=== PATIENT | male | born 1950 | race Caucasian/White ===

== ENCOUNTER → 2020-07-10 | Outpatient (CLI) | payer MEDICARE ==
[~2020-07-10] MED LIST: ASCO500T10 PO; ATOR20TA65 PO; CHOL100046 PO; CLON1TAB12 PO; CYAN100099 PO; ESCI20TA36 PO; FERR-63 PO; FURO20TA6 PO; LISI2.5T2 PO; PANT40TA PO; SUCR1TAB PO; TYLENOL ARTHRITIS PO
== END | disposition home or self-care (01) ==
LOC: SHCH 14:24
PROVIDERS: ATTEND Internal Medicine Cardiovascular Disease
DX: I82.409 Acute embolism and thrombosis of unspecified deep veins of unspecified lower extremity (principal); R06.02 Shortness of breath
CPT/HCPCS: 93970

== ENCOUNTER → 2020-08-12 | Outpatient (CLI) | payer MEDICARE ==
[~2020-08-12] VITALS: Ht 180.3 cm; Wt 75.3 kg
[~2020-08-12] MED LIST changes: -ESCI20TA36 PO; +ESCI20TA38 PO; +REGADENOSON 0.4 MG/5 ML PF SYG IVP SCH
== END | disposition home or self-care (01) ==
LOC: SHCH 07:37
PROVIDERS: ATTEND Internal Medicine Cardiovascular Disease
DX: I25.10 Atherosclerotic heart disease of native coronary artery without angina pectoris (principal); R06.00 Dyspnea, unspecified; R11.0 Nausea; I25.9 Chronic ischemic heart disease, unspecified
CPT/HCPCS: 78452; 93017; 96374; A9500 ×2; J2785

== ENCOUNTER 2020-09-22 06:33 | Observation (INO) | payer MEDICARE ==
[~2020-09-22] VITALS: Ht 180.3 cm; Wt 72.8 kg
[~2020-09-22 06:33] MED LIST changes: -REGADENOSON 0.4 MG/5 ML PF SYG IVP SCH
[2020-09-22 07:06] LABS: BASOPHILS % (AUTO) 0.7 % (0.0-5.0); EOSINOPHILS % (AUTO) 7.2 % (0.0-8.0); HEMATOCRIT 40.3 % (42-54); LYMPHOCYTES % (AUTO) 31.7 % (21.0-51.0); MEAN CORPUSCULAR HEMOGLOBIN 32.3 pg (27.0-33.0); MEAN CORPUSCULAR HGB CONC 33.5 g/dL (32.0-36.0); MEAN CORPUSCULAR VOLUME 96.4 fL (79-99); MONOCYTES % (AUTO) 9.2 % (3.0-13.0); PLATELET COUNT (AUTO) 258 K/uL (130-400); RED BLOOD CELL COUNT(AUTO) 4.18 MIL/uL (4.50-6.20); RED CELL DISTRIBUTION WIDTH 13.2 % (11.0-15.5); WHITE BLOOD COUNT (AUTO) 8.5 K/uL (4.8-10.8)
[2020-09-22] MEDS ORDERED: PANTOPRAZOLE 40 MG/VIAL ONE ×2 (07:08)
[2020-09-22 07:23] LABS: ALBUMIN 4.1 g/dL (3.5-5.0); BILIRUBIN,TOTAL 0.5 mg/dL (0.2-1.0); POTASSIUM 4.3 mmol/L (3.5-5.1); TOTAL PROTEIN, SERUM 7.9 g/dL (6.0-8.3)
[2020-09-22 07:28] LABS: INR 1.05 (0.85-1.15); PROTHROMBIN TIME 11.4 SEC (9.6-11.6)
[2020-09-22 07:29] LABS: PARTIAL THROMBOPLASTIN TIME 30.7 SEC (26.3-35.5)
[2020-09-22] MEDS ORDERED: IOHEXOL-350 75 ML VIAL IV ONE (08:04)
[2020-09-22] MEDS ORDERED: SODIUM CHLORIDE 0.9% 500ML 500 ML IV ONE (08:24)
[2020-09-22] MEDS ORDERED: ONDANSETRON HCL 4 MG/2 ML VIAL IV PRN (12:30)
[2020-09-22] MEDS ORDERED: ACETAMINOPHEN 325 MG TAB PO PRN ×2 (12:30)
[2020-09-22] MEDS ORDERED: MORPHINE SULFATE 2 MG/ML 1ML SYG IV PRN (12:30)
[2020-09-22] MEDS: SODIUM CHLORIDE 0.9% 1000ML 1,000 ML IV SCH ×2 (12:30→20:30)
[2020-09-22 12:43] LABS: BASOPHILS % (AUTO) 0.6 % (0.0-5.0); EOSINOPHILS % (AUTO) 3.2 % (0.0-8.0); LYMPHOCYTES % (AUTO) 27.1 % (21.0-51.0); MEAN CORPUSCULAR HEMOGLOBIN 32.3 pg (27.0-33.0); MEAN CORPUSCULAR HGB CONC 33.9 g/dL (32.0-36.0); MEAN CORPUSCULAR VOLUME 95.2 fL (79-99); MONOCYTES % (AUTO) 8.8 % (3.0-13.0); PLATELET COUNT (AUTO) 237 K/uL (130-400); RED BLOOD CELL COUNT(AUTO) 3.78 MIL/uL (4.50-6.20); RED CELL DISTRIBUTION WIDTH 13.1 % (11.0-15.5); WHITE BLOOD COUNT (AUTO) 7.2 K/uL (4.8-10.8)
[2020-09-22 12:57] LABS: AMYLASE 126 U/L (25-115); CHOLESTEROL 107 mg/dL (<200); HDL CHOLESTEROL 36 mg/dL (29-71); LDL DIRECT 51 mg/dL (0-99); TRIGLYCERIDES 111 mg/dL (30-200)
[2020-09-22] MEDS: FAMOTIDINE/PF 20 MG/2 ML VIAL IV SCH (21:00)
[2020-09-22 22:00] VITALS: BP 138/98
[2020-09-22] MEDS ORDERED: DONE5TAB33 PO (22:41)
[2020-09-23 01:41] LABS: APPEARANCE,URINE Clear (CLEAR); BILIRUBIN,URINE Negative (NEGATIVE); COLOR,URINE Yellow (YELLOW); GLUCOSE, URINE (UA) Negative (NEGATIVE); KETONES,URINE Negative (NEGATIVE); LEUKOCYTE ESTERASE ,URINE Negative (NEGATIVE); NITRATE,URINE Negative (NEGATIVE); OCCULT BLOOD,URINE Negative (NEGATIVE); PH,URINE 5.5 (5.0-8.0); PROTEIN,URINE Negative (NEGATIVE); UROBILINOGEN,URINE 0.2 mg/dL (0.2-1.0)
[2020-09-23 04:18] VITALS: BP 129/70
[2020-09-23] MEDS: SODIUM CHLORIDE 0.9% 1000ML 1,000 ML IV SCH ×2 (04:30→12:30)
[2020-09-23] MEDS: FAMOTIDINE/PF 20 MG/2 ML VIAL IV SCH (08:44)
[2020-09-23] MEDS ORDERED: ENOXAPARIN SODIUM 30 MG/0.3 ML SQ SCH (09:00)
[2020-09-23 10:26] VITALS: BP 121/73
[2020-09-23 13:00] VITALS: BP 109/64
== END 2020-09-23 14:00 | disposition home or self-care (01) ==
LOC: EDH 06:33 → INTOOBSV 12:21 → EDHIP 12:21 → 3BH 21:48
PROVIDERS: ADMIT Family Medicine; ATTEND Family Medicine
DX: K85.90 Acute pancreatitis without necrosis or infection, unspecified (principal); R19.7 Diarrhea, unspecified; I25.10 Atherosclerotic heart disease of native coronary artery without angina pectoris; I10 Essential (primary) hypertension; I25.2 Old myocardial infarction; D64.9 Anemia, unspecified; Z95.5 Presence of coronary angioplasty implant and graft; Z87.19 Personal history of other diseases of the digestive system; Z79.899 Other long term (current) drug therapy; Z88.8 Allergy status to other drugs, medicaments and biological substances
CPT/HCPCS: 36415 ×2; 74177; 80053; 80061; 81003; 82150; 82270; 83605; 83690 ×2; 84145; 84484; 85025 ×2; 85610; 85730; 86850; 86900; 86901; 87046; 87324; 96361 ×2; 96372; 96374; 99285; C9113 ×2; G0378 ×26; J1650; J3490; J7040; Q9967

== ENCOUNTER 2020-11-19 07:42 | Day surgery (SDC) | payer MEDICARE ==
[2020-11-19] VITALS (19 sets, daily range): BP systolic 79–111; BP diastolic 38–75
[~2020-11-19] VITALS: Ht 180.3 cm; Wt 73.0 kg
[~2020-11-19 07:42] MED LIST changes: +0.9%NACL 1000ML 1,000 ML IV ONE; -ASCO500T10 PO; -ATOR20TA65 PO; -CHOL100046 PO; -CYAN100099 PO; +DONE5TAB33 PO; -ESCI20TA38 PO; -FERR-63 PO; -FURO20TA6 PO; -LISI2.5T2 PO; -PANT40TA PO; -SUCR1TAB PO; -TYLENOL ARTHRITIS PO
[2020-11-19] MEDS ORDERED: CARV3.12 PO (09:43)
[2020-11-19] MEDS ORDERED: escitalopram PO (09:43)
[2020-11-19] MEDS ORDERED: GABA600T10 PO (09:43)
[2020-11-19] MEDS ORDERED: CLON1TAB12 PO (09:43)
[2020-11-19] MEDS ORDERED: VITMAIN PO (09:43)
[2020-11-19] MEDS ORDERED: LISI2.5T2 PO (09:43)
[2020-11-19] MEDS ORDERED: PANT40TA54 PO (09:43)
[2020-11-19] MEDS ORDERED: ROSU40TA21 PO (09:44)
[2020-11-19] MEDS ORDERED: LIDOCAINE HCL 1% 20 ML VIAL ONE (09:57)
[2020-11-19] MEDS ORDERED: PROPOFOL 10 MG/ML 20ML VIAL IV ONE ×2 (09:57→10:50)
[2020-11-19] MEDS ORDERED: PHENYLEPHRINE HCL 10 MG/ML 1ML VIAL IV ONE (09:58)
[2020-11-19] MEDS ORDERED: 0.9%NACL 1000ML 1,000 ML IV ONE (11:21)
== END 2020-11-19 12:00 | disposition home or self-care (01) ==
LOC: DAH 07:42 → ENDO 07:42
PROVIDERS: ATTEND Internal Medicine Gastroenterology
DX: Z12.11 Encounter for screening for malignant neoplasm of colon (principal); K57.30 Diverticulosis of large intestine without perforation or abscess without bleeding; K31.5 Obstruction of duodenum; K29.70 Gastritis, unspecified, without bleeding; D64.9 Anemia, unspecified; D62 Acute posthemorrhagic anemia; I25.10 Atherosclerotic heart disease of native coronary artery without angina pectoris; K29.50 Unspecified chronic gastritis without bleeding; K44.9 Diaphragmatic hernia without obstruction or gangrene; I10 Essential (primary) hypertension; E78.5 Hyperlipidemia, unspecified; Z86.010 Personal history of colon polyps; F41.9 Anxiety disorder, unspecified; F32.9 Major depressive disorder, single episode, unspecified; Z79.899 Other long term (current) drug therapy; Z20.822 Contact with and (suspected) exposure to COVID-19
CPT/HCPCS: 43239; 88305; 88342; A4215 ×2; A4221; A4222; A4223; A4606; A4620; A4657; A4663; C9803; G0105; J2370; J2704 ×2; J7030 ×2; U0003

== ENCOUNTER 2022-05-28 09:48 | Emergency (ER) | payer MEDICARE ==
[~2022-05-28] VITALS: Ht 180.3 cm; Wt 72.6 kg
[~2022-05-28 09:48] MED LIST changes: -0.9%NACL 1000ML 1,000 ML IV ONE; +CARV3.12 PO; -DONE5TAB33 PO; +GABA600T10 PO; +LISI2.5T13 PO; +PANT40TA54 PO; +ROSU40TA21 PO; +VITMAIN PO; +escitalopram PO
[2022-05-28 11:17] LABS: BASOPHILS % (AUTO) 0.5 % (0.0-5.0); EOSINOPHILS % (AUTO) 11.2 % (0.0-8.0); LYMPHOCYTES % (AUTO) 23.4 % (21.0-51.0); MEAN CORPUSCULAR HEMOGLOBIN 32.1 pg (27.0-33.0); MEAN CORPUSCULAR HGB CONC 34.7 g/dL (32.0-36.0); MEAN CORPUSCULAR VOLUME 92.5 fL (79-99); NEUTROPHILS % (AUTO) 55.5 % (40.0-77.0); PLATELET COUNT (AUTO) 327 K/uL (130-400); RED BLOOD CELL COUNT(AUTO) 4.11 MIL/uL (4.50-6.20); RED CELL DISTRIBUTION WIDTH 12.3 % (11.0-15.5); WHITE BLOOD COUNT (AUTO) 9.4 K/uL (4.8-10.8)
[2022-05-28 11:31] LABS: APPEARANCE,URINE CLEAR (CLEAR); BILIRUBIN,URINE NEGATIVE (NEGATIVE); COLOR,URINE LIGHT-YELLOW (YELLOW); GLUCOSE, URINE (UA) NEGATIVE (NEGATIVE); KETONES,URINE NEGATIVE (NEGATIVE); LEUKOCYTE ESTERASE ,URINE NEGATIVE Leu/uL (NEGATIVE); NITRATE,URINE NEGATIVE (NEGATIVE); OCCULT BLOOD,URINE NEGATIVE (NEGATIVE); PROTEIN,URINE NEGATIVE (NEGATIVE); UROBILINOGEN,URINE 0.2 mg/dL (0.2-1.0)
[2022-05-28 12:01] LABS: ALBUMIN 3.5 g/dL (3.5-5.0); CREATININE 1.2 mg/dL (0.5-1.5); POTASSIUM 4.6 mmol/L (3.5-5.1)
[2022-05-28] MEDS ORDERED: MORPHINE 4 MG SYG IVP ONE (13:30)
[2022-05-28 14:43] VITALS: BP 170/80
== END 2022-05-28 15:25 | disposition short-term general hospital (02) ==
LOC: EDH 09:48
DX: S32.048A Other fracture of fourth lumbar vertebra, initial encounter for closed fracture (principal); M48.061 Spinal stenosis, lumbar region without neurogenic claudication; R35.0 Frequency of micturition; R10.13 Epigastric pain; I11.9 Hypertensive heart disease without heart failure; E78.00 Pure hypercholesterolemia, unspecified; Z98.890 Other specified postprocedural states; Z79.899 Other long term (current) drug therapy; Z88.8 Allergy status to other drugs, medicaments and biological substances; W19.XXXA Unspecified fall, initial encounter; Y93.89 Activity, other specified; Y92.89 Other specified places as the place of occurrence of the external cause; Y99.8 Other external cause status
CPT/HCPCS: 99285; 84484; 80053; 83690; 85025; 81003; 36415; 72131; 72192; 96374; 93005; J2270; 96372

== ENCOUNTER 2022-06-24 03:02 | Observation (INO) | payer MEDICARE ==
[~2022-06-24] VITALS: Ht 180.3 cm; Wt 62.3 kg
[2022-06-24 03:45] LABS: BASOPHILS % (AUTO) 0.4 % (0.0-5.0); EOSINOPHILS % (AUTO) 3.9 % (0.0-8.0); HEMATOCRIT 31.9 % (42-54); LYMPHOCYTES % (AUTO) 24.1 % (21.0-51.0); MEAN CORPUSCULAR HEMOGLOBIN 31.5 pg (27.0-33.0); MEAN CORPUSCULAR HGB CONC 33.9 g/dL (32.0-36.0); MONOCYTES % (AUTO) 9.4 % (3.0-13.0); NEUTROPHILS % (AUTO) 61.9 % (40.0-77.0); PLATELET COUNT (AUTO) 353 K/uL (130-400); RED BLOOD CELL COUNT(AUTO) 3.43 MIL/uL (4.50-6.20); RED CELL DISTRIBUTION WIDTH 12.4 % (11.0-15.5); WHITE BLOOD COUNT (AUTO) 7.2 K/uL (4.8-10.8)
[2022-06-24 03:53] LABS: POTASSIUM 3.7 mmol/L (3.5-5.1)
[2022-06-24] MEDS ORDERED: MORPHINE 2 MG SYG IVP ONE (04:00)
[2022-06-24] MEDS ORDERED: 0.9%NACL 1000ML 1,000 ML IV ONE (04:00)
[2022-06-24 04:02] LABS: ALBUMIN 3.1 g/dL (3.5-5.0); TOTAL PROTEIN, SERUM 6.8 g/dL (6.0-8.3)
[2022-06-24] MEDS ORDERED: IOHEXOL 350 MG/ML 100ML INFUS..BTL IV ONE (04:27)
[2022-06-24] MEDS ORDERED: ZOLPIDEM TARTRATE 5 MG TAB PO PRN (06:30)
[2022-06-24] MEDS ORDERED: ONDANSETRON 4MG INJ IV PRN (06:30)
[2022-06-24] MEDS ORDERED: ACETAMINOPHEN 325 MG TAB PO PRN ×2 (06:30)
[2022-06-24 06:57] LABS: INR 0.98 (0.85-1.15); PROTHROMBIN TIME 10.7 SEC (9.6-11.6)
[2022-06-24 06:59] LABS: PARTIAL THROMBOPLASTIN TIME 30.9 SEC (26.3-35.5)
[2022-06-24] MEDS ORDERED: OCTREOTIDE ACETATE 1,250 MCG in 0.9% NACL 250ML 250 ML IV SCH (07:00)
[2022-06-24] MEDS ORDERED: BISACODYL 10 MG SUPP.RECT RC ONE (07:00)
[2022-06-24 07:12] LABS: RETICULOCYTE % (AUTO) 1.15 % (0.42-2.23)
[2022-06-24 07:24] LABS: % IRON SATURATION 17.5 % (30-44)
[2022-06-24 07:26] LABS: THYROID STIMULATING HORMONE 0.89 uIU/mL (0.36-3.74)
[2022-06-24] MEDS: CEFTRIAXONE 1G VIAL IV SCH (08:33)
[2022-06-24] MEDS: TAMSULOSIN HCL 0.4 MG CAP.ER.24H PO SCH (08:33)
[2022-06-24 08:59] LABS: HEMATOCRIT 34.7 % (42-54)
[2022-06-24] MEDS: PANTOPRAZOLE 40MG INJ 80 MG in 0.9%NACL 100ML 100 ML IV SCH ×2 (10:10→20:07)
[2022-06-24 12:03] LABS: AMPHET/METH SCREEN,URINE NEGATIVE (NEGATIVE); BARBITURATE SCREEN, URINE NEGATIVE (NEGATIVE); BENZODIAZEPINES SCREEN,URINE NEGATIVE (NEGATIVE); CANNABINOID SCREEN,URINE POSITIVE (NEGATIVE); COCAINE SCREEN,URINE NEGATIVE (NEGATIVE); OPIATE SCREEN,URINE NEGATIVE (NEGATIVE); PHENCYCLIDINE SCREEN,URINE NEGATIVE (NEGATIVE)
[2022-06-24] MEDS ORDERED: MEMA5TAB42 PO (12:26)
[2022-06-24] MEDS ORDERED: LORA2TAB80 PO (12:26)
[2022-06-24 12:30] VITALS: BP 134/91
[2022-06-24 14:39] LABS: HEMATOCRIT 33.2 % (42-54)
[2022-06-24 16:00] VITALS: BP 128/80
[2022-06-24 19:54] VITALS: BP 124/70
[2022-06-24] MEDS ORDERED: TAMSULOSIN HCL 0.4 MG CAP.ER.24H PO SCH (21:00)
[2022-06-24 21:10] LABS: HEMATOCRIT 30.3 % (42-54)
[2022-06-24 23:36] VITALS: BP 124/81
[2022-06-25] VITALS (13 sets, daily range): BP systolic 70–150; BP diastolic 40–87
[2022-06-25] MEDS: CEFTRIAXONE 1G VIAL IV SCH (05:51)
[2022-06-25] MEDS: TAMSULOSIN HCL 0.4 MG CAP.ER.24H PO SCH (08:41)
[2022-06-25 08:48] LABS: HEMATOCRIT 33.7 % (42-54)
[2022-06-25] MEDS ORDERED: 0.9%NACL 1000ML 1,000 ML IV ONE (11:12)
[2022-06-25] MEDS ORDERED: COMPOUND IV REFRIGERATED 1 EACH IVSOLN MISC PRN (12:00)
[2022-06-25] MEDS ORDERED: PROPOFOL 10 MG/ML 20ML VIAL IV ONE (12:22)
[2022-06-25] MEDS ORDERED: FENTANYL CITRATE PF 50 MCG/1 ML 2ML VIAL ONE (12:22)
[2022-06-25] MEDS ORDERED: LIDOCAINE PF 100MG/5ML (2%) SYRINGE 5ML ONE (12:23)
[2022-06-25] MEDS ORDERED: PHENYLEPHRINE HCL 10 MG/ML 1ML VIAL IV ONE (12:34)
[2022-06-25 13:54] LABS: HEMATOCRIT 30.8 % (42-54)
[2022-06-25] MEDS ORDERED: PANT40TA54 PO (17:13)
[2022-06-25] MEDS ORDERED: PANTOPRAZOLE 40 MG TAB DR PO SCH (21:00)
== END 2022-06-25 18:00 | disposition home or self-care (01) ==
LOC: EDH 03:02 → INTOOBSV 06:20 → EDHIP 06:20 → 4BH 12:30
PROVIDERS: ADMIT Internal Medicine; ATTEND Internal Medicine
DX: K20.90 Esophagitis, unspecified without bleeding (principal); Z20.822 Contact with and (suspected) exposure to COVID-19; K44.9 Diaphragmatic hernia without obstruction or gangrene; K31.89 Other diseases of stomach and duodenum; K26.9 Duodenal ulcer, unspecified as acute or chronic, without hemorrhage or perforation; K92.1 Melena; D62 Acute posthemorrhagic anemia; I10 Essential (primary) hypertension; E78.5 Hyperlipidemia, unspecified; F41.8 Other specified anxiety disorders; F13.20 Sedative, hypnotic or anxiolytic dependence, uncomplicated; I25.10 Atherosclerotic heart disease of native coronary artery without angina pectoris; Z96.649 Presence of unspecified artificial hip joint; Z95.5 Presence of coronary angioplasty implant and graft; Z87.11 Personal history of peptic ulcer disease; Z79.899 Other long term (current) drug therapy
CPT/HCPCS: 80305 ×2; 96365; 96366 ×2; 96375; 96368; 99285; 84443; 83540; 83550; 84484; 80053; 82728; 85025; 85610; 85730; 85014 ×5; 85018 ×5; 85045; 82746; 82270; 36415 ×2; 71045; 74177; 93005; 96376; 87426; 43235; J7030 ×3; J0696 ×2; C9113 ×4; J2354; J7050; Q9967; G0378; J3010; J2001; J2704; J2370; A4620; A4215; A4223; A4657 ×2; A7002; A4222; A4216

== ENCOUNTER 2023-11-09 09:41 | Emergency (ER) | payer MEDICARE ==
[~2023-11-09] VITALS: Ht 177.8 cm; Wt 68.5 kg
[~2023-11-09 09:41] MED LIST changes: +LORA2TAB80 PO; +MEMA5TAB16 PO
[2023-11-09 10:49] LABS: POTASSIUM 4.7 mmol/L (3.5-5.1)
[2023-11-09 10:51] LABS: INR 0.96 (0.85-1.15); PROTHROMBIN TIME 11.4 SEC (9.6-11.6)
[2023-11-09 10:53] LABS: PARTIAL THROMBOPLASTIN TIME 31.9 SEC (26.3-35.5)
[2023-11-09 10:54] LABS: ALBUMIN 3.3 g/dL (3.5-5.0); BILIRUBIN,TOTAL 0.3 mg/dL (0.2-1.0); TOTAL PROTEIN, SERUM 6.4 g/dL (6.0-8.3)
[2023-11-09 11:40] LABS: BASOPHILS # (AUTO) 0.05 K/uL (0.00-0.20); BASOPHILS % (AUTO) 0.6 % (0.0-5.0); EOSINOPHILS # (AUTO) 0.83 K/uL (0.00-0.70); EOSINOPHILS % (AUTO) 10.6 % (0.0-8.0); IMMATURE GRANULOCYTE ABSOLUTE 0.02 K/uL (0-1); LYMPHOCYTES # (AUTO) 2.3 K/uL (1.0-4.8); LYMPHOCYTES % (AUTO) 28.6 % (21.0-51.0); MEAN CORPUSCULAR HEMOGLOBIN 31.7 pg (27.0-33.0); MEAN CORPUSCULAR HGB CONC 35.3 g/dL (32.0-36.0); MEAN CORPUSCULAR VOLUME 89.7 fL (79-99); MONOCYTES # (AUTO) 0.8 K/uL (0.1-1.0); MONOCYTES % (AUTO) 9.5 % (3.0-13.0); NEUTROPHILS % (AUTO) 50.4 % (40.0-77.0); PLATELET COUNT (AUTO) 305 K/uL (130-400); RED BLOOD CELL COUNT(AUTO) 3.79 MIL/uL (4.50-6.20); RED CELL DISTRIBUTION WIDTH 14.8 % (11.0-15.5); WHITE BLOOD COUNT (AUTO) 7.9 K/uL (4.8-10.8)
[2023-11-09 11:59] LABS: B-TYPE NATRIURETIC PEPTIDE 235 pg/mL (0-100)
[2023-11-09 12:23] VITALS: BP 139/77; PULSE 53; RESP 17; O2SAT 100
== END 2023-11-09 12:30 | disposition home or self-care (01) ==
LOC: EDH 09:41
DX: E87.5 Hyperkalemia (principal); Z00.8 Encounter for other general examination; I10 Essential (primary) hypertension; F41.9 Anxiety disorder, unspecified; F32.A Depression, unspecified; D69.6 Thrombocytopenia, unspecified; Z98.890 Other specified postprocedural states; Z79.899 Other long term (current) drug therapy; Z88.8 Allergy status to other drugs, medicaments and biological substances
CPT/HCPCS: 36415; 71045; 80053; 83880; 84484; 85025; 85610; 85730; 93005

== ENCOUNTER 2024-08-11 06:21 | Emergency (ER) | payer MEDICARE ==
[~2024-08-11] VITALS: Ht 177.8 cm; Wt 74.8 kg
[~2024-08-11 06:21] MED LIST changes: +GABA-1405 PO; -GABA600T10 PO; -ROSU40TA21 PO; +ROSU40TA88 PO
--- NOTE | 2024-08-11 06:30 | NUR ---
REPORT TO ALTON MAR
--- NOTE | 2024-08-11 07:22 | ERN ---
ED Note History of Present Illness Stated Complaint: FALL Chief Complaint: Mechanical Fall Time Seen by MD: 06:55 Dictation: 74-year-old male who came to the ER after a fall sustained 24 hours ago at home, stated that he was grab some garbage, but suddenly he saw an insect, during the episode he fell down on his side and since then he has been having severe back pain in the lumbar area. Patient also reports that he has history of spine surgery done by Dr. Hannah Allergies: Coded Allergies: atorvastatin (Unverified Allergy, Unknown, MUSCLE SPASMS, 04/13/16) Home Meds Active Scripts Ibuprofen (Ibuprofen) 600 Mg Tablet, 1 TAB PO TID for pain for 5 Days, #30 TAB 0 Refills with food Prov:DEVIKA GALVAN MD 08/11/24 Acetaminophen (Tylenol) 500 Mg Tab, 1 TAB PO Q6HPRN PRN for pain or fever for 15 Days, #60 TAB 0 Refills Prov:DEVIKA GALVAN MD 08/11/24 Pantoprazole Sodium (Pantoprazole Sodium) 40 Mg Tablet.dr, 40 MG PO DAILY for 90 Days, #180 TAB 1 Refill Prov:LENY NICKERSON Jr., MD 06/25/22 Reported Medications Lorazepam (Ativan) 2 Mg Tablet, 2 MG PO TID, TAB 06/24/22 Memantine HCl (Memantine HCl) 5 Mg Tablet, 5 MG PO BID, TAB 06/24/22 Rosuvastatin Calcium (Rosuvastatin Calcium) 40 Mg Tablet, 40 MG PO HS, TAB 11/19/20 Lisinopril (Lisinopril) 2.5 Mg Tablet, 2.5 MG PO DAILY, TAB 11/19/20 Gabapentin (Gabapentin) 600 Mg Tablet, 600 MG PO TID, TAB 11/19/20 [vitmain b12] No Conflict Check, 1 TAB PO DAILY 11/19/20 [escitalopram] No Conflict Check, 2 MG PO DAILY 11/19/20 Carvedilol (Carvedilol) 3.125 Mg Tablet, 3.125 MG PO BID, TAB 11/19/20 Clonazepam (Clonazepam) 1 Mg Tablet, 1 MG PO TID, TAB 04/20/20 Past Medical History Past Medical History: Anxiety, Depression, Hypertension, [place] Additional Past Medical Hx: BPH Surgical History: None Surgical History Other: HEART STENTS X2, BACK Family History: Negative Social History: Negative, Lives with family Review of System Dictation NEGATIVE EXCEPT PER HPI Constitutional: Negative for fever,chills, and weight loss Eyes: Negative for injury, pain,redness, and discharge ENT: Negative for injury,pain or swelling Cardiovascular: denies chest pain, palpitations, and edema Respiratory: Negative for shortness of breath, cough, and wheezing, Abdomen/GI: Negative for abdominal pain, nausea, vomiting, diarrhea, and constipation Back: Reports pain to the lower lumbar area : Negative for injury, bleeding and discharge MS/Extremity: Negative for injury and deformity Skin: Negative for rash, and discoloration Neuro: Negative for headache, weakness, numbness, tingling, and seizure Psych: Negative for suicide ideation, homicidal ideation, and hallucinations Initial Vital Sign VS Vital Signs Date Time Temp Pulse Resp B/P (MAP) Pulse Ox O2 Delivery O2 Flow Rate FiO2 08/11/24 06:22 97.2 78 20 163/94 97 Room Air 08/11/24 09:00 0 21 Physical Exam Dictation General: awake, alert, NAD Head/Face: Normocephalic, atraumatic Eyes: PERRL, EOMI, vision at baseline ENT: oral cavity clear, TMs clear, no signs of infection Neck: Trachea midline, supple, no nuchal rigidity Cardiovascular: RRR, normal S1/S2, No MRGs, no JVD Respiratory: CTAB, no respiratory distress, No rales or wheezes Abdomen: Soft , no tender Skin: Warm, dry, normal turgor, no rash MS/Extremity: Pulses equal, no cyanosis, neurovascular intact, FROM Neuro: COAx4, GCS 15, strength 5/5, CN 2-12 intact, normal cerebellar exam, normal gait, Psych: Normal behavior, mood, and affect normal Back: Mid spine lumbar area tenderness ED Course ED Course Orders Procedure Category Date Status Time Acetaminophen With PHA 08/11/24 Complete Codeine (Tylenol-Code 07:30 Ibuprofen (Motrin) PHA 08/11/24 Complete 07:30 Ct Lumbar Spine W/O CT 08/11/24 Resulted Contrast 07:16 Current Medications Medications (Trade) Dose Ordered Sig/Lydia Route PRN Reason Start Time Stop Time Status Last Admin Dose Admin Acetaminophen/ Codeine Phosphate (TYLenol-coDEINE TAB) 1 tab ONCE ONCE PO 08/11/24 07:30 08/11/24 07:31 DC 08/11/24 07:31 Ibuprofen (moTRIN) 400 mg ONCE PO 08/11/24 07:30 08/11/24 09:50 DC 08/11/24 07:30 Vital Signs Date Time Temp Pulse Resp B/P (MAP) Pulse Ox O2 Delivery O2 Flow Rate FiO2 08/11/24 09:00 98.1 75 16 160/90 98 Room Air* 0 21 08/11/24 06:22 97.2 78 20 163/94 97 Room Air Medical Decision Making MDM 74-year-old male who came to the ER after a fall at home on his side. He is complaining of severe back pain. He has history of spine surgery many years ago. Lumbar spine pain Lumbar spine fracture Lumbar spine strain Oral pain medication. Order CT of spine, lumbar. Re-evaluate the patient after images results. Exam Type: CT LUMBAR SPINE W/O CONTRAST Clinical Information: fall Comparison: None Findings and impression: Severe osteopenia. Status post posterior fusion L2-L5. Straightening consistent with spasm. Compression fracture, possibly acute, mild to moderate, T12. Older compression fractures L3 and L4 and one involving the upper endplate of L1-2 was well. No other abnormalities. Patient is not willing to be seen outpatient with a his previous neurosurgeon. We discussed the findings and plan is this we do not have a neurosurgeon at this facility., we will provide pain medication p.r.n., we will provide a lumbar brace. Patient must follow up with his primary care physician for further arrangements for outpatient MRI and neurosurgeon. DX & DISP Disposition: Discharge Departure Impression: Primary Impression: Compression fracture of T12 vertebra Additional Impression: Fall Condition: Stable Scripts Ibuprofen (Ibuprofen) 600 Mg Tablet 1 TAB PO TID for pain for 5 Days, #30 TAB 0 Refills with food Prov: DEVIKA GALVAN MD 08/11/24 Acetaminophen (Tylenol) 500 Mg Tab 1 TAB PO Q6HPRN PRN for pain or fever for 15 Days, #60 TAB 0 Refills Prov: DEVIKA GALVAN MD 08/11/24 Additional Instructions: Patient must follow up with the his primary care physician. We make appointment for him at neurosurgeon Dr. Briggs office, per discussion of the case in the phone, the neurosurgeon state that if patient has no urinary issues it is not emergency situation so patient can be followed as outpatient. Referrals: RYANNE WALKER (PCP) Time of Disposition: 09:21 DEVIKA GALVAN MD Aug 11, 2024 07:22
[2024-08-11] MEDS: ibuPROFEN 400 MG TABLET PO SCH (07:30)
[2024-08-11] MEDS: acetaMINOPHEN WITH coDEINE 1 TAB TAB PO ONE (07:31)
--- NOTE | 2024-08-11 08:20 | HMCIMG ---
Exam Type: CT LUMBAR SPINE W/O CONTRAST Clinical Information: fall Comparison: None Findings and impression: Severe osteopenia. Status post posterior fusion L2-L5. Straightening consistent with spasm. Compression fracture, possibly acute, mild to moderate, T12. Older compression fractures L3 and L4 and one involving the upper endplate of L1-2 was well. No other abnormalities.
[2024-08-11 09:00] VITALS: BP 160/90; PULSE 75; RESP 16; TEMP 98.1; O2SAT 98
--- NOTE | 2024-08-11 09:04 | NUR ---
PT PRESENTS TO ER POST FALL 2 DAYS AGO PREV BACK SURG 2 YEARS AGO FALL AT HOME NO LOC BUT LEFT SHOLDER INJ AND LOWER BACK PAIN
[2024-08-11] MEDS ORDERED: IBUP-2070 PO (09:23)
[2024-08-11] MEDS ORDERED: ACET-66 PO (09:23)
--- NOTE | 2024-08-11 09:35 | NUR ---
PER MD REQUEST ALEJANDRA BINDER PLACED FOR STABILIZATION AND FOLLOW UP APPT 08/14/24 FOR [facility] 1145AM RX PROVIDED FOR PAIN MGMT
== END 2024-08-11 09:50 | disposition home or self-care (01) ==
LOC: EDH 06:21
DX: S22.080A Wedge compression fracture of T11-T12 vertebra, initial encounter for closed fracture (principal); F41.9 Anxiety disorder, unspecified; I10 Essential (primary) hypertension; Z79.1 Long term (current) use of non-steroidal anti-inflammatories (NSAID); Z79.899 Other long term (current) drug therapy; Z98.1 Arthrodesis status; W18.39XA Other fall on same level, initial encounter; Y93.89 Activity, other specified; Y92.89 Other specified places as the place of occurrence of the external cause; Y99.8 Other external cause status
CPT/HCPCS: 72131; 99284

== ENCOUNTER 2024-08-25 17:56 | Inpatient (IN) | payer MEDICARE ==
[~2024-08-25] VITALS: Ht 175.3 cm; Wt 64.3 kg
[2024-08-25] VITALS (13 sets, daily range): BP systolic 75–108; BP diastolic 51–75; PULSE 70–145; RESP 17–35; TEMP 98.6; O2SAT 87–99
[~2024-08-25 17:56] MED LIST changes: +ACET-66 PO; +IBUP-2070 PO; +rocuRONium bROMide 10MG/1ML 5ML VL IV ONE
--- NOTE | 2024-08-25 18:15 | NUR ---
KETAMIN 100MG ADMINISTERED AT THIS TIME FOR INTUBATION
--- NOTE | 2024-08-25 18:16 | NUR ---
ROCURONIUM 50 ADMINISTERED AT THIS TIME FOR INTUBATION
--- NOTE | 2024-08-25 18:18 | NUR ---
PT INTUBATED WITH ASSISTANCE OF GLIDE SCOPE, ET TUBE 7.5, 23 LIP. CONFIRMED BY X RAY OG TUBE 18FR PLACED, AUSCULTATED, RETURN OF BILE
--- NOTE | 2024-08-25 18:19 | NUR ---
PT PLACED ON VENT AC-12, TV-500, PEEP- 5, [id number]%
[2024-08-25 18:21] LABS: BASOPHILS # (AUTO) 0.09 K/uL (0.00-0.20); BASOPHILS % (AUTO) 0.8 % (0.0-5.0); EOSINOPHILS # (AUTO) 0.37 K/uL (0.00-0.70); EOSINOPHILS % (AUTO) 3.4 % (0.0-8.0); HEMATOCRIT 40.1 % (42-54); LYMPHOCYTES # (AUTO) 4.3 K/uL (1.0-4.8); LYMPHOCYTES % (AUTO) 39.9 % (21.0-51.0); MEAN CORPUSCULAR HEMOGLOBIN 32.5 pg (27.0-33.0); MEAN CORPUSCULAR HGB CONC 32.9 g/dL (32.0-36.0); MEAN CORPUSCULAR VOLUME 98.8 fL (79-99); MONOCYTES # (AUTO) 0.8 K/uL (0.1-1.0); MONOCYTES % (AUTO) 7.1 % (3.0-13.0); NEUTROPHILS # (AUTO) 5.2 K/uL (1.8-7.7); NEUTROPHILS % (AUTO) 47.9 % (40.0-77.0); PLATELET COUNT (AUTO) 551 K/uL (130-400); RED BLOOD CELL COUNT(AUTO) 4.06 MIL/uL (4.50-6.20); RED CELL DISTRIBUTION WIDTH 13.1 % (11.0-15.5); WHITE BLOOD COUNT (AUTO) 10.8 K/uL (4.8-10.8)
--- NOTE | 2024-08-25 18:28 | ERN ---
General Chief Complaint: Shortness of Breath Stated Complaint: SOB Time Seen by MD: 17:59 Source: patient History of Present Illness Initial Comments PATIENT IS A 74-YEAR-OLD GENTLEMAN COMING IN TO BE EVALUATED FOR SHORTNESS OF BREATH. PER PATIENT HE HAS A HISTORY OF COPD IN HIS HERE DUE TO INCREASING SHORTNESS OF BREATH WHICH BEGAN A COUPLE OF DAYS AGO AND PROGRESSIVELY GOT W ORSE. PER EMS PATIENT WAS SATTING IN THE LOW 70S WAS PLACED ON OXYGEN BUT DID NOT REALLY Allergies: Coded Allergies: atorvastatin (Unverified Allergy, Unknown, MUSCLE SPASMS, 04/13/16) Home Meds Active Scripts Ibuprofen (Ibuprofen) 600 Mg Tablet, 1 TAB PO TID for pain for 5 Days, #30 TAB 0 Refills with food Prov:DEVIKA GALVAN MD 08/11/24 Acetaminophen (Tylenol) 500 Mg Tab, 1 TAB PO Q6HPRN PRN for pain or fever for 15 Days, #60 TAB 0 Refills Prov:DEVIKA GALVAN MD 08/11/24 Pantoprazole Sodium (Pantoprazole Sodium) 40 Mg Tablet.dr, 40 MG PO DAILY for 90 Days, #180 TAB 1 Refill Prov:LENY NICKERSON Jr., MD 06/25/22 Reported Medications Lorazepam (Ativan) 2 Mg Tablet, 2 MG PO TID, TAB 06/24/22 Memantine HCl (Memantine HCl) 5 Mg Tablet, 5 MG PO BID, TAB 06/24/22 Rosuvastatin Calcium (Rosuvastatin Calcium) 40 Mg Tablet, 40 MG PO HS, TAB 11/19/20 Lisinopril (Lisinopril) 2.5 Mg Tablet, 2.5 MG PO DAILY, TAB 11/19/20 Gabapentin (Gabapentin) 600 Mg Tablet, 600 MG PO TID, TAB 11/19/20 [vitmain b12] No Conflict Check, 1 TAB PO DAILY 11/19/20 [escitalopram] No Conflict Check, 2 MG PO DAILY 11/19/20 Carvedilol (Carvedilol) 3.125 Mg Tablet, 3.125 MG PO BID, TAB 11/19/20 Clonazepam (Clonazepam) 1 Mg Tablet, 1 MG PO TID, TAB 04/20/20 Past Medical History Past Medical History: Anxiety, Depression, Hypertension, [place] Medical History Other: BPH Past Surgical History: None Surgical History Other: HEART STENTS X2, BACK Family History Family History: Negative Social History Social History: Negative, Lives with family ROS Dictation CONSTITUTIONAL: NO CHILLS, NO FEVER, NO WEAKNESS, NO DIAPHORESIS, NO MALAISE. HEAD/FACE: NO SIGNS OF TRAUMA. EENT: NO EYE PAIN, NO BLURRED VISION, NO TEARING, NO DOUBLE VISION, NO EAR PAIN, NO EAR DISCHARGE, NO NOSE PAIN, NO NASAL CONGESTION, NO THROAT PAIN, NO TH ROAT SWELLING, NO MOUTH PAIN. RESPIRATORY: NO COUGH, NO ORTHOPNEA, SOB, NO STRIDOR, NO WHEEZING. CARDIOVASCULAR: NO CHEST PAIN, NO EDEMA, NO PALPITATIONS, NO SYNCOPE. GASTROINTESTINAL/ABDOMINAL: NO ABDOMINAL PAIN, NO CONSTIPATION, NO DIARRHEA, NO NAUSEA, NO VOMITING. GENITOURINARY: NO ABNORMAL DISCHARGE, NO DYSURIA, NO FREQUENT URINATION, NO HEMATURIA. NO COMPLAINTS OF PAIN IN THE GENITALS. MUSCULOSKELETAL: NO BACK PAIN, NO GOUT, NO JOINT PAIN, NO JOINT SWELLING, NO MUSCLE PAIN, NO MUSCLE STIFFNESS, NO NECK PAIN. INTEGUMENTARY: NO CHANGE IN COLOR, NO CHANGE IN HAIR/NAILS, NO DRYNESS, NO LESION, NO LUMPS, NO RASH. NEUROLOGICAL/PSYCH: NO ANXIETY, NOT DEPRESSED, NO EMOTIONAL PROBLEM, NO HEADACHE, NO NUMBNESS, NO PRE-EXISTING DEFICIT, NO HISTORY OF SEIZURES, NO TREMORS, NO WEAKNESS. HEMATOLOGIC/LYMPHATIC: NOT ANEMIC, NO HISTORY OF BLOOD CLOTS, NO APPARENT BLEEDING, NO BRUISING, GLANDS NOT SWOLLEN. ALL SYSTEMS NEGATIVE, EXCEPT NOTED. Physical Exam Physical Exam Dictation VITAL SIGNS: REVIEWED. GENERAL APPEARANCE: ALERT, ORIENTED X3, NO ACUTE DISTRESS, OBESE. HEAD AND FACE: NON-TRAUMATIC. EYES: PERRL, PINK CONJUNCTIVAS, EYELID NO TRAUMA, ANTERIOR CHAMBER CLEAR. EARS: PINNAS INTACT AND NO SIGNS OF TRAUMA OR ERYTHEMA. EAR CANALS CLEAR AND NO DISCHARGE. TMS NO ERYTHEMA. NOSE: NO DISCHARGE, NO BLEEDING. OROPHARYNX: MOUTH NORMAL, TEETH NO CARIES, TONGUE PINK. PHARYNX CLEAR, NO ERYTHEMA. TONSILS NO EXUDATES, NO ABSCESSES NOTED. MUCOUS MEMBRANE MOIST. NECK: SUPPLE, NON-TENDER, NO THYROMEGALY, NO MASSES, NO JVD, NO BRUITS. BREAST: DEFERRED. CHEST: NO TENDERNESS, NO CREPITUS, NO PARADOXICAL MOVEMENT, RETRACTIONS. LUNGS: CLEAR, WELL-VENTILATED, SYMMETRIC, RALES, WHEEZING, RHONCHI, NO STRIDOR,. HEART: REGULAR RATE, REGULAR RHYTHM, NO MURMUR, NO GALLOPS. VASCULAR: NO PERIPHERAL EDEMA. ABDOMEN: SOFT, POSITIVE BOWEL SOUNDS, NONDISTENDED, NO GUARDING, NONTENDER, NO REBOUND, NO MASSES NO HEPATOMEGALY, NO SPLENOMEGALY, NO TIPTON'S SIGN, NO HERNIAS. RECTAL: DEFERRED. GENITAL: DEFERRED. NEUROLOGICAL: NORMAL SPEECH, GROSS MOTOR FUNCTION INTACT, GROSS SENSORY FUNCTION INTACT. MUSCULOSKELETAL: NECK NONTENDER, FULL RANGE OF MOTION, BACK NONTENDER, FULL RANGE OF MOTION. EXTREMITIES: NONTENDER, FULL RANGE OF MOTION. SKIN: COLOR PINK, DRY, NO TURGOR, NO RASH, NO LACERATIONS, NO ABRASIONS, NO CONTUSIONS. LYMPHATICS: DEFERRED. Results Laboratory and Microbiology Lab and Micro Result Laboratory Tests Test 08/25/24 18:11 08/25/24 19:10 White Blood Count 10.8 K/uL (4.8-10.8) Red Blood Count 4.06 MIL/uL (4.50-6.20) L Hemoglobin 13.2 g/dL (14.0-18.0) L Hematocrit 40.1 % (42-54) L Mean Corpuscular Volume 98.8 fL (79-99) Mean Corpuscular Hemoglobin 32.5 pg (27.0-33.0) Mean Corpuscular Hemoglobin Concent 32.9 g/dL (32.0-36.0) Red Cell Distribution Width 13.1 % (11.0-15.5) Platelet Count 551 K/uL (130-400) H Mean Platelet Volume 9.4 fL (7.5-10.5) Immature Granulocyte % (Auto) 0.9 % (0-1) Neutrophils (%) (Auto) 47.9 % (40.0-77.0) Lymphocytes (%) (Auto) 39.9 % (21.0-51.0) Monocytes (%) (Auto) 7.1 % (3.0-13.0) Eosinophils (%) (Auto) 3.4 % (0.0-8.0) Basophils (%) (Auto) 0.8 % (0.0-5.0) Neutrophils # (Auto) 5.2 K/uL (1.8-7.7) Lymphocytes # (Auto) 4.3 K/uL (1.0-4.8) Monocytes # (Auto) 0.8 K/uL (0.1-1.0) Eosinophils # (Auto) 0.37 K/uL (0.00-0.70) Basophils # (Auto) 0.09 K/uL (0.00-0.20) Absolute Immature Granulocyte (auto 0.10 K/uL (0-1) Nucleated Red Blood Cells 0.0 % (0.0-0.19) Prothrombin Time 16.1 SEC (9.6-11.6) H Prothromb Time International Ratio 1.59 (0.85-1.15) H Activated Partial Thromboplast Time 50.9 SEC (26.3-35.5) H Sodium Level 127 mmol/L (136-145) L Potassium Level 3.9 mmol/L (3.5-5.1) Chloride Level 91 mmol/L (101-111) L Carbon Dioxide Level 26 mmol/L (21-32) Blood Urea Nitrogen 21 mg/dL (7-18) H Creatinine 1.3 mg/dL (0.5-1.3) Glomerular Filtration Rate Calc 57 mL/min (>90) Random Glucose 229 mg/dL (70-105) H Total Calcium 8.7 mg/dL (8.5-10.1) Magnesium Level 2.00 mg/dL (1.80-2.40) Total Creatine Kinase 183 U/L (21-232) # Troponin I High Sensitivity 6427 ng/L (4-75) *H B-Type Natriuretic Peptide 944 pg/mL (0-100) H Blood Gas Specimen Type Arterial Arterial Blood pH 7.245 (7.350-7.450) Arterial Blood Partial Pressure CO2 51 mmHg (35-48) H Arterial Blood Partial Pressure O2 313.2 mmHg (83.0-108.0) Arterial Blood HCO3 21.5 mmol/L (21.0-28.0) Arterial Blood Oxygen Saturation 99.6 % (94.0-98.0) H Arterial Blood Base Excess -6.0 mmol/L (-2.0-3.0) L Hemoglobin (Blood Gas) 13.4 g/dL (13.5-17.5) L Sodium (Blood Gas) 128 MMOL/L (136-145) L Bedside Potassium (Blood Gas) 3.7 MMOL/L (3.4-4.5) Bedside Chloride (Blood Gas) 93 MMOL/L (98-107) L Bedside Glucose (Blood Gas) 159 MG/DL (65-95) H Bedside Ionized Calcium (Blood Gas) 1.20 MMOL/L (1.15-1.33) Bedside Lactic Acid (Blood Gas) 2.02 MMOL/L (0.36-0.75) H Blood Gas Temperature 37.0 CELSIUS (35.5-37.0) Blood Gas Respiration Rate 12.0 min. Blood Gas Vent Mode AC (ROOM AIR) FiO2 100.0 % Blood Gas Tidal Volume 500 ml Blood Gas PEEP 5 cm H2O Blood Gas Specimen Comment RN RN Labs Reviewed?: Yes EKG/XRAY/US/CT/MRI EKG Comment 08/25/2024 TIME 6:36 P.M. VENTRICULAR RATE 132 SINUS TACHYCARDIA CO [address] WAVE ELEVATION OR DEPRESSION X-RAY Comment CHEST X-RAY-RIGHT LUNG PNEUMONIA MDM MDM: DIFFERENTIAL DIAGNOSIS: RESPIRATORY DISTRESS, COPD EXACERBATION, ENDOTRACHEAL INTUBATED, RIGHT LUNG PNEUMONIA RATIONALE: TESTS CONSIDERED AND ORDERED SECONDARY TO SHARED DECISION MAKING INCLUDE: LABS, ECG AND RADIOLOGY PREVIOUS OUTSIDE RECORDS REVIEWED: OLD ER VISITS. RISK OF COMPLICATION AND/OR MORBIDITY OR MORTALITY OF PATIENT MANAGEMENT: NONE MEDICATIONS-PER MEDICATION RECONCILIATION NEED FOR HOSPITALIZATION: PATIENT DOES MEET CRITERIA FOR HOSPITALIZATION. NEED FOR EMERGENCY MAJOR/MINOR SURGERY: NO THERE ARE NO SOCIAL CONCERNS WITH THIS PATIENT. PRESCRIPTION DRUG MANAGEMENT PRESCRIPTIONS WILL INCLUDE SYMPTOMATIC CARE PATIENT'S PRIOR EXTERNAL MEDICAL RECORDS FROM OTHER ER VISITS WERE REVIEWED BY ME INDICATED. PRIOR TESTING AND RESULTS FROM PREVIOUS VISITS WERE REVIEWED. PRIOR TESTS WERE TAKEN INTO ACCOUNT WITH MEDICAL DECISION MAKING AND RESOURCE UTILIZATION, INDEPENDENT HISTORIAN/HISTORIANS WERE USED TO OBTAIN COMPLETE MEDICAL HISTORY. I INDEPENDENTLY INTERPRETED THE TEST THAT WERE PERFORMED, RESULTS WERE REVIEWED BY ME AND CONSIDERED FINDINGS ON RADIOLOGY IF ORDERED. MEDICAL MANAGEMENT AND EXAMINATION INTERPRETATION DISCUSSIONS WERE HAD BY ME WITH OTHER QUALIFIED HEALTHCARE PROFESSIONALS INDICATED FOR THE PATIENT'S CARE. PATIENT WILL BE ADMITTED UNDER THE CARE OF HOSPITALIST GROUP FOR ONGOING MANAGEMENT OF RIGHT LUNG PNEUMONIA RESPIRATORY DISTRESS COPD EXACERBATION WITH CHF. ED Course Orders Procedure Category Date Status Time Cbc With Differential LAB 08/25/24 Complete 17:59 Prothrombin Time With LAB 08/25/24 Complete INR 17:59 B-Type Natriuretic LAB 08/25/24 Complete Peptide 17:59 Chest 1vw RAD 08/25/24 Resulted 17:59 12 Lead Ekg Tracing- EKG 08/25/24 Complete Technical 17:59 Magnesium LAB 08/25/24 Complete 17:59 Creatine Kinase, Total LAB 08/25/24 Complete 17:59 Troponin I High LAB 08/25/24 Complete Sensitivity 17:59 Urinalysis Profile LAB 08/25/24 Logged 17:59 Partial LAB 08/25/24 Complete Thromboplastin Time 17:59 Basic Metabolic Panel LAB 08/25/24 Complete 17:59 Methylprednisolone PHA 08/25/24 In Process Succ 125mg (Solu-Medr 18:00 Ipratropium/Albuterol PHA 08/25/24 In Process Neb (Duoneb) 18:00 Arterial Blood Gas + RT 08/25/24 Transmitted 17:59 Covid Rna Naat LAB 08/25/24 Logged 18:01 Influenza Type A & B, LAB 08/25/24 Logged Rapid 18:01 Ketamine 50mg/Ml PHA 08/25/24 Complete Syringe (Ketamine 18:10 Ketamine 50mg/Ml PHA 08/25/24 Complete Syringe (Ketamine 18:14 Ketamine 50mg/Ml PHA 08/25/24 In Process Syringe (Ketamine 19:00 Ketamine 50mg/Ml PHA 08/25/24 In Process Syringe (Ketamine 19:00 Bipap Settings RT 08/25/24 Transmitted 18:07 Midazolam 50mg-0.9% PHA 08/25/24 In Process Ns 50ml (Midazolam 5 19:00 Troponin I High LAB 08/25/24 Logged Sensitivity 18:51 Ceftriaxone 1g Vial PHA 08/25/24 In Process (Rocephine 1g Inj) 19:00 Azithromycin 500mg+Ns PHA 08/25/24 In Process 250ml (Azithromyci 18:51 Aspirin 300mg Supp PHA 08/25/24 In Process (Aspirin 300mg Supp) 19:30 Initiate Heparin FERYN 08/25/24 In Process Treatment Pro 19:07 Cbc With Differential LAB 08/25/24 Logged 19:07 Cbc With Differential LAB 08/26/24 Verified 04:00 Cbc With Differential LAB 08/29/24 Verified 04:00 Cbc With Differential LAB 09/01/24 Verified 04:00 Partial LAB 08/25/24 Logged Thromboplastin Time 19:07 Heparin 5,000 Unit PHA 08/25/24 In Process Vial (Heparin 5,000 U 20:00 Heparin 25,000 PHA 08/25/24 Logged Units/250ml D5w 20:00 Heparin Protocol CPOE 08/25/24 Transmitted Monitoring 19:07 Arterial Blood Gas LAB 08/25/24 Complete Arterial + 19:10 Current Medications Medications (Trade) Dose Ordered Sig/Lydia Route PRN Reason Start Time Stop Time Status Last Admin Dose Admin Albuterol (DUOneb) 2 udvial ONCE IH 08/25/24 18:00 08/25/24 22:00 Aspirin (Aspirin 300mg Supp) 300 mg ONCE CO 08/25/24 19:30 08/25/24 23:59 Azithromycin 250 ml @ 250 mls/hr Q24H IVPB 08/25/24 18:51 08/25/24 23:30 Ceftriaxone Sodium (ROCEphine 1G INJ) 1 gm ONCE IVPB 08/25/24 19:00 08/25/24 23:00 Heparin Sodium (Porcine) (HEParin 5,000 UNIT VIAL) *calculation based on ACTUAL B... AD PRN IV HEPARIN PROTOCOL 08/25/24 20:00 09/24/24 19:59 Heparin Sodium/ Dextrose 250 ml @ 0 mls/hr Q6H IV 08/25/24 20:00 09/24/24 19:59 UNV Ketamine HCl (ketaMINE 50MG/ ML SYRINGE) 50 mg ONCE IM 08/25/24 19:00 08/25/24 22:00 Ketamine HCl (ketaMINE 50MG/ ML SYRINGE) 50 mg ONCE IM 08/25/24 19:00 08/25/24 23:59 Ketamine HCl (ketaMINE 50MG/ ML SYRINGE) 50 mg STK-MED ONCE .ROUTE 08/25/24 18:10 08/25/24 18:11 DC 08/25/24 19:06 Ketamine HCl (ketaMINE 50MG/ ML SYRINGE) 50 mg STK-MED ONCE .ROUTE 08/25/24 18:14 08/25/24 18:14 DC Methylprednisolone Sodium Succinate (Solu-medROL 125MG) 125 mg ONCE IVP 08/25/24 18:00 08/25/24 22:00 08/25/24 18:52 Midazolam HCl 50 ml @ 0 mls/hr PROTOCOL IV 08/25/24 19:00 09/01/24 18:59 Midazolam HCl 50 mg/Sodium Chloride 50 ml @ 0 mls/hr PROTOCOL IV 08/25/24 19:00 09/24/24 18:59 UNV Propofol 0 ml @ As Directed STK-MED ONCE IV 08/25/24 18:20 08/25/24 18:20 DC Vital Signs Date Time Temp Pulse Resp B/P (MAP) Pulse Ox O2 Delivery O2 Flow Rate FiO2 08/25/24 18:18 145 100 08/25/24 18:07 127 35 100 08/25/24 17:57 99.0 117 30 70/26 96 Nonrebreathing Mask 10.0 08/25/24 17:57 99.0 117 30 70/26 96 Partial Non-Rebreather+ 12 100 Intubation Intubation : Time of Intubation: 18:50 Progress THE PROCEDURE WAS EMERGENT, THE PATIENT WAS UNABLE TO PROVIDE CONSENT, AND A DESIGNEE WAS NOT IMMEDIATELY AVAILABLE. PROCEDURE SUMMARY: A TIME OUT WAS PERFORMED. MY HANDS WERE WASHED IMMEDIATELY PRIOR TO THE PROCEDURE. I WORE A SURGICAL CAP, MASK WITH PROTECTIVE EYEWEAR, GOWN AND GLOVES THROUGHOUT THE PROCEDURE. THE PATIENT WAS PLACED ON A ENTERPRISE ARCHITECT INCLUDING CONTINUOUS PULSE OXIMETRY. RAPID SEQUENCE INTUBATION WAS CONDUCTED. THE PATIENT RECEIVED 100 MG OF KETAMINE FOR INDUCTION AND 50 MG OF ÁLVARO FOR ADEQUATE PARALYSIS. CRICOID PRESSURE WAS MAINTAINED FROM TIME INDUCTION AGENT WAS GIVEN TO TIME OF CUFF BALLOON INFLATION. USING A GLIDESCOPE AND A SIZE [ ] ENDOTRACHEAL TUBE WITH STYLET, THE PATIENT WAS INTUBATED ON THE 1 ATTEMPT. THE STYLET WAS REMOVED AND CUFF BALLOON WAS INFLATED. APPROPRIATE ENDOTRACHEAL TUBE POSITION WAS CONFIRMED BY DIRECT VISUALIZATION OF VOCAL CORD PASSAGE, FOGGING OF THE TUBE, CO2 COLORMETRIC INDICATOR AND SYMMETRIC BREATH SOUNDS. THE TUBE WAS SECURED AT [ ] CM AT THE LIPS. POST INTUBATION CHEST X-RAY IS PENDING AT THIS TIME. Critical Care Note Comments CRITICAL CARE PROCEDURE NOTE AUTHORIZED AND PERFORMED BY: TOTAL CRITICAL CARE TIME: APPROXIMATELY 36 MINUTES DUE TO A HIGH PROBABILITY OF CLINICALLY SIGNIFICANT, LIFE THREATENING DETERIORATION, THE PATIENT REQUIRED MY HIGHEST LEVEL OF PREPAREDNESS TO INTERVENE EMERGENTLY AND I PERSONALLY SPENT THIS CRITICAL CARE TIME DIRECTLY AND PERSONALLY MANAGING THE PATIENT. THIS CRITICAL CARE TIME INCLUDED OBTAINING A HISTORY; EXAMINING THE PATIENT; PULSE OXIMETRY; ORDERING AND REVIEW OF STUDIES; ARRANGING URGENT TREATMENT WITH DEVELOPMENT OF A MANAGEMENT PLAN; EVALUATION OF PATIENT'S RESPONSE TO TREATMENT; FREQUENT REASSESSMENT; AND, DISCUSSIONS WITH OTHER PROVIDERS. THIS CRITICAL CARE TIME WAS PERFORMED TO ASSESS AND MANAGE THE HIGH PROBABILITY OF IMMINENT, LIFE-THREATENING DETERIORATION THAT COULD RESULT IN MULTI-ORGAN FAILURE. IT WAS EXCLUSIVE OF SEPARATELY BILLABLE PROCEDURES AND TREATING OTHER PATIENTS AND TEACHING TIME. PLEASE SEE MDM SECTION AND THE REST OF THE NOTE FOR FURTHER INFORMATION ON PATIENT ASSESSMENT AND TREATMENT. DX & DISP Disposition: Inpatient Decision to Admit Time: 18:50 Departure Impression: Primary Impression: Pneumonia involving right lung Additional Impressions: COPD exacerbation, CHF (congestive heart failure), Endotracheally intubated, NSTEMI (non-ST elevated myocardial infarction) Condition: Stable Referrals: SELF,REFERRAL (PCP) TO BEAUCHAMP MD Aug 25, 2024 18:28
[2024-08-25 18:37] LABS: CREATININE 1.3 mg/dL (0.5-1.3); POTASSIUM 3.9 mmol/L (3.5-5.1)
[2024-08-25 18:39] LABS: INR 1.59 (0.85-1.15); PROTHROMBIN TIME 16.1 SEC (9.6-11.6)
--- NOTE | 2024-08-25 18:39 | NUR ---
RN PULLED PUT MIDAZOLAM 100MG/100ML ED DOCTOR GAVE VERBAL ORDER TO CANCEL AND PLACE PATIENT ON MIDALOZAM 50MG/50ML. RN WASTED MEDICATION
[2024-08-25 18:40] LABS: B-TYPE NATRIURETIC PEPTIDE 944 pg/mL (0-100)
[2024-08-25 18:41] LABS: PARTIAL THROMBOPLASTIN TIME 50.9 SEC (26.3-35.5)
--- NOTE | 2024-08-25 18:41 | EKG ---
[facility] Test Date: 2024-08-25 Test Time: 18:36:50 Pat Name: NAMAN RUGGIERO Department: ED Room: 206 Gender: M Paper H[employer]: [id number] Requested By: TO BEAUCHAMP Order Number: [id number] Reading MD: Klaus Carreon Measurements Intervals Lilly Rate: 132 P: 17 SD: 163 QRS: 85 QRSD: 102 T: 218 QT: 300 QTc: 445 Interpretive Statements Sinus tachycardia Ventricular tachycardia, unsustained Low voltage, extremity leads Repol abnrm suggests ischemia, diffuse leads Compared to ECG 11/09/2023 10:58:28 Ventricular tachycardia now present Low QRS voltage now present Early repolarization now present Electronically Signed On 08-28-2024 16:00:59 BAIL AGENT by Klaus Carreon Please click the below link to view image of tracing.
[2024-08-25] MEDS: AZITHROMYCIN 500MG+NS 250ML 250 ML IVPB SCH (18:51)
[2024-08-25] MEDS: Solu-medROL 125MG VIAL IVP SCH (18:52)
[2024-08-25] MEDS ORDERED: MIDAZOLAM HCL 50 MG in 0.9%NACL 50ML 50 ML IV SCH (19:00)
[2024-08-25] MEDS: ketaMINE 50MG/ML SYRINGE 50 MG/ML DISP.SYRIN IM SCH ×2 (19:00)
--- NOTE | 2024-08-25 19:00 | HMCIMG ---
PORTABLE CHEST RADIOGRAPH INDICATION: SOB COMPARISON: 11/09/2023 FINDINGS: cardiac monitor technician leads overlie the field of view. Tip of endotracheal tube located 4.6 cm above the lino. Tip of NG tube within the stomach. Heart size is normal. Pulmonary vascularity appears enlarged and both costophrenic angles appear slightly blunted without consolidation. No pneumothorax detected. IMPRESSION: Pulmonary vascular congestion and small bilateral pleural effusions.
[2024-08-25] MEDS: ketaMINE 50MG/ML SYRINGE 50 MG/ML DISP.SYRIN ONE ×2 (19:06→19:22)
--- NOTE | 2024-08-25 19:10 | NUR ---
ENDORSED CARE FROM MAHOGANY RN AT THIS TIME.
[2024-08-25 19:12] LABS: ABG HCO3 21.5 mmol/L (21.0-28.0); ABG OXYGEN SATURATION 99.6 % (94.0-98.0); ABG PCO2 51 mmHg (35-48); ABG PH 7.245 (7.350-7.450); CARBON MONOXIDE 0.6 % (0.5-1.5); DEVICE COMMENT RN RN; HHb 0.4; PO2, ARTERIAL BG 313.2 mmHg (83.0-108.0); VENT MODE, BG AC (ROOM AIR)
[2024-08-25] MEDS: IpraTROPium/alBUTERol SULFATE 3 ML SOLUTION IH SCH ×2 (19:17→22:56)
[2024-08-25] MEDS: PROPOFOL 1000 MG/100 ML IV ONE (19:19)
[2024-08-25] MEDS: MIDAZOLAM 50MG-0.9% NS 50ML 50 ML IV SCH (19:21)
--- NOTE | 2024-08-25 19:28 | HP ---
History of Present Illness Reason for Visit: sob Referring MD: Dr. Ashely Lee History of Present Illness Ms. Aguero is a 74-year-old female that was seen today on 08/25/2024. Patient is a poor historian of personal health. There was no available family member at bedside to provide additional history. The following was obtained from emergency room physician report and previous medical records available to me from a history and physical in 06/24/2022. According to emergency room physician: PATIENT IS A 74-YEAR-OLD GENTLEMAN COMING IN TO BE EVALUATED FOR SHORTNESS OF BREATH. PER PATIENT HE HAS A HISTORY OF COPD IN HIS HERE DUE TO INCREASING SHORTNESS OF BREATH WHICH BEGAN A COUPLE OF DAYS AGO AND PROGRESSIVELY GOT WORSE. PER EMS PATIENT WAS SATTING IN THE LOW 70S WAS PLACED ON OXYGEN BUT DID NOT REALLY Today in the emergency department CBC unremarkable, glucose 229, troponin 6427, BNP 944, chest x-ray shows pulmonary vascular congestion and bilateral pleural effusions. In the emergency department patient was immediately placed on non- rebreather secondary to severe shortness and breath and low O2 sat. Patient has subsequently required intubation and was placed on mechanical ventilation. Additionally patient's blood pressure is 70/26 requiring vasopressor support. Emergency room physician recommended that patient be admitted with a diagnosis of acute respiratory failure, ACS, hypotension. 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 Sigifredo Phillips) and acquired benign-appearing, intrinsic moderate stenosis was found in the first portion of the duodenum and was traversed. Diffuse mucosal changes characterized by scarring (post ulcer) were found in the duodenal bulb. Diffuse mild inflammation characterized by erythema and granularity was found in the stomach. Biopsies were taken with cold forceps for histology. A 3 cm hiatal hernia was present. The exam was otherwise without abnormality. 11/19/2020: Pathology report: Stomach, antrum biopsy demonstrated mild chronic inactive gastritis. No Helicobacter organisms detected via Helicobacter immunohistochemical stain. Negative for intestinal metaplasia and dysplasia. Stomach, body biopsy demonstrated mild chronic inactive gastritis and changes suggestive of proton pump inhibitor induced effect. No Helicobacter organisms are taken via local bacteria immunohistochemical stain. Negative for intestinal metaplasia and dysplasia. Stomach, fundus biopsy demonstrated mild chronic inactive gastritis and changes suggestive of proton pump inhibitor induced effect. No Helicobacter organisms detected via helical back to immuno histochemical stain. Negative for intestinal metaplasia and dysplasia. 04/18/2020: EGD at [facility] [place] (Dr. Júnior Ewing) GI bleed due to deep 2.5 cm ulcer at the duodenal sweep positioned more anterior than posterior with visible ble eding vessel 04/14/2016: Colonoscopy at [facility] (Dr. Sigifredo Phillips) 5 mm sessile polyp found in the rectum removed with cold biopsy forceps. Multiple small and large mouth diverticula found in the sigmoid and descending colon. Pathology showed no evidence of dysplasia or infiltrating carcinoma. PAST SURGICAL HISTORY: Remote PTCA with stenting 04/18/2020: [facility] [place]. Aortogram, selective third order angiogram celiac artery (no stenosis, patent hepatic and splenic artery, GDA found with no aneurysm, extravasation, no flush, no pseudoaneurysm. A superselective angiogram was performed after selective catheterization of the hepatic artery with finding of no active bleeding.) Selective angiogram superior mesenteric artery (the vessel is patent, no aneurysm, no stenosis, no active bleeding.). (Dr. Catarina Cespedes MD) PAST SOCIAL HISTORY: Unable to obtain Review of Systems General: No Fever, No Chills, No Night Sweats, No Fatigue, No Malaise, No Appetite, No Other HEENT: No Head Aches, No Visual Changes, No Eye Pain, No Ear Pain, No Dysphasia, No Sinus Congestion, No Post Nasal Drip, No Sore Throat, No Other Pulmonary: Dyspnea; No Cough, No Pleuritic Chest Pain, No Other Cardiovascular: No: Chest Pain, Palpitations, Orthopnea, Paroxysmal Noc. Dyspnea, Edema, Lt Headedness, Other Gastrointestinal: No: Nausea, Vomiting, Abdominal Pain, Diarrhea, Constipation, Melena, Hematochezia, Other Genitourinary: No Dysuria, No Frequency, No Incontinence, No Hematuria, No Retention, No Other Musculoskeletal: No: other, neck pain, shoulder pain, arm pain, back pain, hand pain, leg pain, foot pain Skin: No Urticaria, No Rash, No Other Neurological: No: Weakness, Numbness, Incoordination, Change in speech, Confusion, Seizures, Other Allergies: Coded Allergies: atorvastatin (Unverified Allergy, Unknown, MUSCLE SPASMS, 04/13/16) Scheduled Carvedilol (Carvedilol), 3.125 MG PO BID, (Reported) Clonazepam (Clonazepam), 1 MG PO TID, (Reported) Gabapentin (Gabapentin), 600 MG PO TID, (Reported) Ibuprofen (Ibuprofen), 1 TAB PO TID Lisinopril (Lisinopril), 2.5 MG PO DAILY, (Reported) Lorazepam (Ativan), 2 MG PO TID, (Reported) Memantine HCl (Memantine HCl), 5 MG PO BID, (Reported) Pantoprazole Sodium (Pantoprazole Sodium), 40 MG PO DAILY Rosuvastatin Calcium (Rosuvastatin Calcium), 40 MG PO HS, (Reported) [escitalopram], 2 MG PO DAILY, (Reported) [vitmain b12], 1 TAB PO DAILY, (Reported) Scheduled PRN Acetaminophen (Tylenol), 1 TAB PO Q6HPRN PRN for pain or fever Exam Vital Signs Vital Signs Date Time Temp Pulse Resp B/P (MAP) Pulse Ox O2 Delivery O2 Flow Rate FiO2 08/25/24 19:18 109 20 08/25/24 19:13 60 08/25/24 17:57 99.0 70/26 96 Nonrebreathing Mask 10.0 General Appearance: Other (Patient is sedated and mechanically intubated) HEENT: Other (ETT in place) Respiratory: Other (Patient on mechanical ventilation) Cardiovascular: Regular rate, Regular rhythm, Normal S1, Normal S2 Abdominal: Normal bowel sounds, No tenderness Extremities: No edema Skin: Other (Details per nursing assessment unable to turn patient at this time) Neuro: Other (Unable to assess) Psych/Mental Status: Other (Unable to assess) Assessment/Plan ASSESSMENT: [ Acute hypoxemic respiratory failure, POA, requiring intubation and mechanical ventilation Hypotension, POA, currently suspected to be cardiogenic shock Acute coronary syndrome, POA Sirs, POA, by clinical criteria respirations 30, heart rate 117 Uncontrolled Diabetes mellitius type2, POA Bilateral pleural effusion, POA Pulmonary vascular congestion, POA Hypertension CAD] PLAN: [ Admit patient to critical care unit as inpatient status. Place patient on telemetry monitoring. ahrf, bilateral pleural effusions: Patient will be followed by critical care team/pulmonology. Mechanical ventilation settings per pulmonology/critical Care team DuoNebs every 6 hours. Patient received Solu-Medrol 125 mg IV times 1. Continue Solu-Medrol 40 mg IV once daily. Acute coronary syndrome: Aspirin suppository 300 mg x1. Decided against nitroglycerin due to patient's low blood pressure. Consult cardiology service, Dr. King Continue heparin drip that was initiated in the emergency department per hospital protocol. Trend troponin every 6 hours x3 sets. Supplemental oxygen to maintain O2 saturation greater 92%. Pulmonary vascular congestion, elevated BNP: Decided against diuresis due to patient's low blood pressure of 70/26 Defer decision for diuresis to Cardiology Service or critical care team. Hypotension: Vasopressor support with Levophed per hospital protocol. Further vasopressor support orders from critical Care team. Sirs: Decided against fluid resuscitation due to patient's current pulmonary vascular congestion and bilateral pleural effusions. Empiric antibiotic therapy with Zosyn Check blood culture, follow up with the results Check respiratory culture, follow up with the results At time of admission no urinalysis has been collected or sent to lab, urinalysis sodium, follow up with the results. check for flu, covid, strep, follow up with results Diabetes mellitus type 2: Check hemoglobin A1c in a.m. Glucometer checks a.c. and HS 1800 ADA diet, once patient is no longer NPO Humulin R sliding scale GI prophylaxis, Protonix DVT prophylaxis, John's and SCDs, heparin drip as stated above Critical Care Time: I spent __ 51____ minutes of critical care time with the patient. I reviewed lab work, change the patient's medication, and coordinated protocol in the event of tachycardia or desaturation. The patient status remains unchanged This document was generated in part using voice recognition software, occasional wrong word or sound alike substitutions may have occurred due to the inherent limitations of voice recognition software. Read the chart carefully and r ecognize using context, where the substitutions have occurred. Although every effort was made to edit the content, supervisor drying and softening and typing errors may occur ATTESTATION BY PHYSICIAN I have seen and examined the patient. I reviewed the documentation, medical decision making, and treatment plan as noted by the mid-level provider above. I agree with the findings and plan of care. PHYLLIS PHAM [facility] Aug 25, 2024 19:28
[2024-08-25] MEDS ORDERED: morPHINE 4 MG SYG IVP PRN (19:30)
[2024-08-25] MEDS ORDERED: acetaMINOPHEN 650 MG SUPPOSITORY RC PRN (19:30)
[2024-08-25] MEDS ORDERED: ondanSETRON 4MG INJ IV PRN (19:30)
[2024-08-25] MEDS ORDERED: AZITHROMYCIN 500MG+NS 250ML 250 ML IVPB SCH (19:30)
[2024-08-25] MEDS: cefTRIAXone 1G VIAL IVPB SCH ×2 (19:30→19:41)
[2024-08-25 19:40] LABS: APPEARANCE,URINE CLEAR (CLEAR); BILIRUBIN,URINE NEGATIVE (NEGATIVE); COLOR,URINE LIGHT-YELLOW (YELLOW); GLUCOSE, URINE (UA) NEGATIVE (NEGATIVE); KETONES,URINE NEGATIVE (NEGATIVE); LEUKOCYTE ESTERASE ,URINE NEGATIVE Leu/uL (NEGATIVE); NITRATE,URINE NEGATIVE (NEGATIVE); OCCULT BLOOD,URINE NEGATIVE (NEGATIVE); PH,URINE 5.5 (5.0-8.0); PROTEIN,URINE NEGATIVE (NEGATIVE); UROBILINOGEN,URINE 0.2 mg/dL (0.2-1.0)
[2024-08-25] MEDS: ASPIRIN 300 MG SUPPOSITORY PR SCH (19:41)
[2024-08-25] MEDS: ASPIRIN 300 MG SUPPOSITORY PR ONE (19:42)
[2024-08-25] MEDS: HEParin 5,000 UNIT VIAL IV PRN (19:46)
[2024-08-25 19:47] LABS: ADD UA MICROSCOPIC NO
[2024-08-25] MEDS: FENTanyl 1000MCG+NS 100ML 100 ML IV ONE (19:57)
[2024-08-25 19:58] LABS: INFLUENZA TYPE A Negative For Type A (NEGATIVE); INFLUENZA TYPE B Negative For Type B (NEGATIVE)
[2024-08-25] MEDS ORDERED: ZOSYN 3.375GM +NS 50ML IV SCH (20:00)
--- NOTE | 2024-08-25 20:00 | NUR ---
HEPARIN BOLUS HELD DUE TO PATIENT PTT BEING 50.2. INITIATING HEPARIN PER PROTOCOL.
[2024-08-25 20:05] LABS: SARS-CoV-2, RNA, NAAT NEGATIVE SARS CoV-2 (NEGATIVE)
[2024-08-25] MEDS: HEParin 25,000 UNITS/250ML D5W 250 ML IV SCH (20:12)
[2024-08-25] MEDS: NOREPINEPHRIN 4MG/NS 250ML 250 ML IV SCH (20:26)
--- NOTE | 2024-08-25 21:16 | CONS ---
[facility] CONSULTATION NOTE Date Patient Seen: Aug 25, 2024 Time of Visit: 21:01 Supervising Physician: Dr. Chetan Purvis Reason for Consultation: ICU management, ventilator director security risk management Physician: Dr French Outpatient Specialists: [ ] Inpatient Consults: [ ] PROBLEM LIST: Acute hypoxic respiratory failure, multifactorial in the setting of congestive heart failure, and possible pneumonia POA CHF in acute exacerbation, POA Possible community-acquired pneumonia, POA NSTEMI, likely type 2 POA Hyponatremia, likely dilutional, POA Electrolyte abnormality, POA Feeding difficulty in adult, POA Alteration in mental status, POA Hypertension, POA Hyperlipidemia, POA PLAN: Admit per primary Continue ICU care Continue vent bundle Aspiration precautions Keep head of bed above 30 Give IV Lasix 40 mg x 1 now Facilitate 2D echo Continue fentanyl and Versed drip Continue Levophed drip Antibiotic management per primary Trend troponin level Continue heparin drip Cardiology consult NPO for now Continue cardiac monitoring Continue Leal catheter Strict I&O Bilateral SCDs Facilitate order labs Facilitate ordered imaging Rest of plan care of primary, and Cardiology Chest x-ray, ABG, CBC, CMP, magnesium level daily Replete electrolytes per ICU protocol HPI: 74-year-old male with past medical history of history of essential hyp ertension, dyslipidemia, and CAD s/p PTCA who presented to ED with complaint of worsening shortness of breaths via EMS. Patient presented to ED on non- rebreather and on active respiratory distress. Patient was then prepared for emergent intubation by ED physician. Per report EMS was activated by patient after he complains of worsening shortness of breath. When EMS got to his place he was noted to have increased work of breathing, was initially placed on BiPAP but unable to tolerate it. In ED stat chest x-ray was done and showed bilateral pulmonary congestion, his CBC is unrevealing for any acute infection or anemia, however his chemistries notable for sodium level of 127, troponin level of 6000, and BNP of more than 900. Critical Care is consulted for ventilator management. Patient was seen and examined in ED with no relatives present at bedside. Unable to complete ROS due to current mental state/intubation. At present patient is currently intubated, sedated with Versed, and fentanyl drip. On full mechanical ventilator support, currently receiving heparin drip. Information Technology Manager been consulted pending evaluation and plan. There is currently a pending 2D echo. All information were obtained from prior medical record, ER staff report, and EMS report. PAST MEDICAL HX: see above PAST SURGICAL HX: noncontributory SOCIAL HISTORY: No tobacco, ETOH, or illicit drug use Coded Allergies: atorvastatin (Unverified Allergy, Unknown, MUSCLE SPASMS, 04/13/16) REVIEW OF SYSTEMS: Unable to obtain due to intubation PHYSICAL EXAM: GENERAL: Critically ill, intubated, on full mechanical ventilator support HEENT: EOMI NECK: Orally intubated no JVD, trachea midline LUNGS: Coarse bilateral lung sounds, on full mechanical ventilator support HEART: Regular rate and rhythm. Normal S1 and S2, without murmurs ABD: Abdomen soft, nontender. Bowel sounds present EXT: No clubbing cyanosis , some edema to bilateral lower extremity one to 2+ pitting NEURO: Sedated with fentanyl and Versed Vital Signs (last 8hr) Date Time Temp Pulse Resp B/P (MAP) Pulse Ox O2 Delivery O2 Flow Rate FiO2 08/25/24 20:26 97.0 85 22 89/51 100 Ventilator+ 60 08/25/24 20:26 89/51 08/25/24 20:20 97.0 85 22 101/68 100 Ventilator+ 60 08/25/24 19:30 97.0 95 22 120/89 99 Ventilator+ 60 08/25/24 19:18 109 20 08/25/24 19:13 60 08/25/24 18:18 145 100 08/25/24 18:07 127 35 100 08/25/24 17:57 99.0 117 30 96 Nonrebreathing Mask 10.0 08/25/24 17:57 99.0 117 30 96 Partial Non-Rebreather+ 12 100 LABS: Hematology Labs: Test 08/25/24 18:11 Range/Units White Blood Count 10.8 4.8-10.8 K/uL Red Blood Count 4.06 L 4.50-6.20 MIL/uL Hemoglobin 13.2 L 14.0-18.0 g/dL Hematocrit 40.1 L 42-54 % Mean Corpuscular Volume 98.8 79-99 fL Mean Corpuscular Hemoglobin 32.5 27.0-33.0 pg Mean Corpuscular Hemoglobin Concent 32.9 32.0-36.0 g/dL Red Cell Distribution Width 13.1 11.0-15.5 % Platelet Count 551 H 130-400 K/uL Mean Platelet Volume 9.4 7.5-10.5 fL Immature Granulocyte % (Auto) 0.9 0-1 % Neutrophils (%) (Auto) 47.9 40.0-77.0 % Lymphocytes (%) (Auto) 39.9 21.0-51.0 % Monocytes (%) (Auto) 7.1 3.0-13.0 % Eosinophils (%) (Auto) 3.4 0.0-8.0 % Basophils (%) (Auto) 0.8 0.0-5.0 % Neutrophils # (Auto) 5.2 1.8-7.7 K/uL Lymphocytes # (Auto) 4.3 1.0-4.8 K/uL Monocytes # (Auto) 0.8 0.1-1.0 K/uL Eosinophils # (Auto) 0.37 0.00-0.70 K/uL Basophils # (Auto) 0.09 0.00-0.20 K/uL Absolute Immature Granulocyte (auto 0.10 0-1 K/uL Nucleated Red Blood Cells 0.0 0.0-0.19 % Chemistry Labs: Test 08/25/24 19:13 08/25/24 18:11 Range/Units Troponin I High Sensitivity 6201 *H 4-75 ng/L Sodium Level 127 L 136-145 mmol/L Potassium Level 3.9 3.5-5.1 mmol/L Chloride Level 91 L 101-111 mmol/L Carbon Dioxide Level 26 21-32 mmol/L Blood Urea Nitrogen 21 H 7-18 mg/dL Creatinine 1.3 0.5-1.3 mg/dL Glomerular Filtration Rate Calc 57 >90 mL/min Random Glucose 229 H 70-105 mg/dL Total Calcium 8.7 8.5-10.1 mg/dL Magnesium Level 2.00 1.80-2.40 mg/dL Total Creatine Kinase 183 # 21-232 U/L B-Type Natriuretic Peptide 944 H 0-100 pg/mL Coagulation Labs: Test 08/25/24 18:11 Range/Units Prothrombin Time 16.1 H 9.6-11.6 SEC Prothromb Time International Ratio 1.59 H 0.85-1.15 Activated Partial Thromboplast Time 50.9 H 26.3-35.5 SEC DIAGNOSTICS / RADIOLOGY RESULTS: PORTABLE CHEST RADIOGRAPH INDICATION: SOB COMPARISON: 11/09/2023 FINDINGS: action installer leads overlie the field of view. Tip of endotracheal tube located 4.6 cm above the lino. Tip of NG tube within the stomach. Heart size is normal. Pulmonary vascularity appears enlarged and both costophrenic angles appear slightly blunted without consolidation. No pneumothorax detected. IMPRESSION: Pulmonary vascular congestion and small bilateral pleural effusions. PLAN NEURO: Minimize central acting medications as possible. Fall Precautions. Well lighted room through the day and minimize interruptions through the night to prevent acute delirium. PULMONARY: Supplemental 02 as needed Titrate Fio2 to keep Spo2 > or = 90% DuoNebs and CPT as needed IS hourly while awake for pulmonary hygiene Out of bed to chair as tolerated VAP Bundle Vent/BIPAP Settings: Peep of five, FiO2 40%, rate of 18, tidal volume 500 CARDIOVASCULAR: Follow hemodynamics. Titrate vasopressor to keep MAP >65 or systolic blood pressure >95mmHg DIPS: Heparin, fentanyl, Versed LINES: PIV GI & NUTRITION: NPO Continue nutritional support Aspirations precautions Prokinetic agents and laxatives as needed KIDNEYS & ELECTROLYTES: Strict monitoring of intake and output Daily weights Avoid nephrotoxic agents Monitor electrolytes and replace as needed Goal urine output of 30mL/hr or 0.5mL/kg/hr ENDOCRINE: Maintain blood glucose between 100-180 at all times. Insulin sliding scale for blood glucose management INFECTIOUS DISEASE: Trend temperature. Gaviria-culture if febrile. Micro: [ ] Antibiotics: Ceftriaxone and azithromycin HEMATOLOGY & COAGULATION: Monitor H&H. Keep Hgb > 7 Transfuse 1 unit of PRBC for Hgb < 7 Transfuse 1 pack of platelets of platelets < 20, 000 Watch for any signs and symptoms of bleeding SKIN: Pressure ulcer prevention per facility protocol Rehab: PT/OT Prophylaxis: GI: PPI DVT: Bilateral SCDs, heparin drip Code Status: Full Resuscitation Disposition: ICU Other: Total patient care time exceeds 35 minutes excluding all procedures. Supervising physician: DESI Petersen APRN Aug 25, 2024 21:16
[2024-08-25] MEDS: furoSEMIDE 40MG VIAL IV ONE (23:16)
[2024-08-25] MEDS: Solu-medROL 40MG VIAL IVP SCH (23:16)
[2024-08-25] MEDS: cloPIDOgrel 300MG TAB PO SCH (23:16)
[2024-08-25] MEDS: ZOSYN 3.375GM +NS 50ML IV SCH (23:19)
[2024-08-26] VITALS (99 sets, daily range): BP systolic 86–155; BP diastolic 40–85; PULSE 56–81; RESP 10–23; TEMP 97.8–99; O2SAT 96–100
[2024-08-26] MEDS: INSULIN humuLIN R 100 UNIT/ML 3ML SQ SCH
[2024-08-26] MEDS: FENTanyl 1000MCG+NS 100ML 100 ML IV SCH (01:37)
[2024-08-26 02:39] LABS: BASOPHILS # (AUTO) 0.02 K/uL (0.00-0.20); BASOPHILS % (AUTO) 0.1 % (0.0-5.0); HEMATOCRIT 33.4 % (42-54); IMMATURE GRANULOCYTE ABSOLUTE 0.07 K/uL (0-1); LYMPHOCYTES # (AUTO) 0.8 K/uL (1.0-4.8); LYMPHOCYTES % (AUTO) 5.3 % (21.0-51.0); MEAN CORPUSCULAR HEMOGLOBIN 32.9 pg (27.0-33.0); MEAN CORPUSCULAR HGB CONC 34.7 g/dL (32.0-36.0); MEAN CORPUSCULAR VOLUME 94.6 fL (79-99); MONOCYTES # (AUTO) 0.3 K/uL (0.1-1.0); MONOCYTES % (AUTO) 2.1 % (3.0-13.0); NEUTROPHILS # (AUTO) 13.1 K/uL (1.8-7.7); PLATELET COUNT (AUTO) 528 K/uL (130-400); RED BLOOD CELL COUNT(AUTO) 3.53 MIL/uL (4.50-6.20); RED CELL DISTRIBUTION WIDTH 12.9 % (11.0-15.5); WHITE BLOOD COUNT (AUTO) 14.3 K/uL (4.8-10.8)
[2024-08-26 02:50] LABS: INR 1.19 (0.85-1.15); PROTHROMBIN TIME 12.4 SEC (9.6-11.6)
[2024-08-26 02:56] LABS: HEMOGLOBIN A1C 5.4 % (4.0-6.0)
[2024-08-26 03:04] LABS: CREATININE 1.3 mg/dL (0.5-1.3); MAGNESIUM 1.7 mg/dL (1.80-2.40); PHOSPHORUS 4.4 mg/dL (2.5-4.9); POTASSIUM 4.1 mmol/L (3.5-5.1)
[2024-08-26 03:08] LABS: PARTIAL THROMBOPLASTIN TIME > 139.0 SEC (26.3-35.5)
[2024-08-26] MEDS: MAGNESIUM 2GM PREMIX 50ML 50 ML IV ONE (05:56)
[2024-08-26] MEDS: NOREPINEPHRINE BITARTRATE 32 MG in 0.9% NACL 250ML 250 ML IV PRN (06:04)
--- NOTE | 2024-08-26 06:48 | HMCIMG ---
CHEST 1VW HISTORY: PICC line placement COMPARISON: Same day x-ray FINDINGS: A frontal projection of the chest was obtained. There are bilateral pulmonary infiltrates suggestive of pulmonary vascular congestion with possible superimposed pneumonitis. PICC line is seen entering from the left with distal tip in the plane of the right atrium. Endotracheal tube is seen with distal tip at 6 cm above lino. The heart is borderline enlarged. All the lines and tubes are again seen in place. No evidence of aortic calcification is seen. IMPRESSION: 1. Bilateral pulmonary infiltrates are seen suggestive of pulmonary vascular congestion with possible superimposed pneumonitis.
--- NOTE | 2024-08-26 06:55 | HMCIMG ---
CHEST 1VW HISTORY: CHF COMPARISON: 08/25/2024 FINDINGS: A frontal projection of the chest was obtained. There are bilateral pulmonary infiltrates suggestive of pulmonary vascular congestion with possible superimposed pneumonitis. The heart is borderline enlarged. All the lines and tubes are again seen in place. No evidence of aortic calcification is seen. IMPRESSION: 1. Bilateral pulmonary infiltrates are seen suggestive of pulmonary vascular congestion with possible superimposed pneumonitis.
--- NOTE | 2024-08-26 06:58 | HMCIMG ---
CT CHEST PE PROTOCOL WWO CONT HISTORY: Respiratory failure COMPARISON: 04/21/2020 TECHNIQUE: CT angiography of the chest was performed. The study was performed using angiographic technique with maximum intensity projection reconstruction images. Patient was given 75 cc of Omnipaque through intravenous route. FINDINGS: No CT evidence of filling defect is seen to suggest pulmonary embolus. No CT evidence of aortic dissection is seen. There are bilateral pleural effusions with compressive atelectasis. Mild bilateral lower lobe pulmonary infiltrates are seen. The heart is enlarged. Coronary arterial calcifications are seen. Postop changes are seen of the lumbar spine with artifacts. Compression fractures are seen involving the mid and lower thoracic spine. Nasogastric tube is seen with distal tip near the distal esophagus/esophagogastric junction. Endotracheal tube is seen with distal tip at 4.4 cm above lino. Bilateral pleural effusions with compressive atelectasis. Degenerative changes of the spine are noted. IMPRESSION: 1. No CT evidence of acute pulmonary embolus is seen. CT was performed with one or more following dose reduction techniques: automated exposure control, adjustment of the mA and kv according to patient's size, or use of a iterative reconstruction technique.
[2024-08-26] MEDS ORDERED: atorVAStatin 40 MG TABLET PO SCH (07:30)
[2024-08-26] MEDS ORDERED: morPHINE 2 MG SYG IVP PRN (07:30)
--- NOTE | 2024-08-26 08:42 | PN ---
[facility] PROGRESS NOTE Date Patient Seen: Aug 26, 2024 Time of Visit: 08:38 Supervising Physician: Dr. Purvis Consulting Physician: Dr French Outpatient Specialists: [ ] Inpatient Consults: Cardiology PROBLEM LIST: Acute hypoxic respiratory failure, multifactorial in the setting of congestive heart failure, and B\L pneumonia POA CHF in acute exacerbation, POA B/L community-acquired pneumonia, POA NSTEMI, likely type 2 POA Hyponatremia, likely dilutional, POA Electrolyte abnormality, POA Feeding difficulty in adult, POA Alteration in mental status, POA Hypertension, POA Hyperlipidemia, POA INTERVAL HISTORY: 08/26/2024: At the time my evaluation in his assigned. He is sedated currently Versed and fentanyl drip, RASS scale of -5. The patient remains intubated on ACVC mode with vent settings rate of 22, tidal volume of 500, peep of 8 and FiO2 60%. There was no repeat ABG this a.m. for review. On chest imaging overnight, a chest CT showed no evidence of a pulmonary embolism. Repeat chest x-ray showed pulmonary vascular congestion with superimposed pneumonic infiltrates. This also showed the presence of a chest tube with its tip 6 cm above the lino. The patient also continues on Solu-Medrol 40 mg q.8 hours. On the monitor, the patient is hemodynamically stable. Remains on Levophed drip at 0.4 with map of 71. On labs overnight the patient had troponin peaked at 8578. A 2D echo was ordered and is pending results. The patient has a calculated CHADS- VASc score of 6. Cardiology was consulted and is pending. There is presence of a OGT that is clamped. Chemistry panel was notable for a sodium of 126 and a Mag of 1.70. The patient has a Leal catheter in place, I's and O's showed a cumulative balance of + 917.4. The patient remains on a heparin drip currently at 14.98 units/kilogram/hour. Hematology panel was notable for a elevated WBC of 14.3 which is suspected to be secondary to steroid use. Currently, PT of 4.4, INR of 1.19 and a PTT of > 139.0. Currently, there is no cultures in process. The patient is on empiric antibiotic therapy with Zosyn and Rocephin. REVIEW OF SYSTEMS: Unable to obtain due to intubation PHYSICAL EXAM: GENERAL: Critically ill, intubated, on full mechanical ventilator support HEENT: EOMI NECK: Orally intubated no JVD, trachea midline LUNGS: Coarse bilateral lung sounds, on full mechanical ventilator support HEART: Regular rate and rhythm. Normal S1 and S2, without murmurs ABD: Abdomen soft, nontender. Bowel sounds present EXT: No clubbing cyanosis , some edema to bilateral lower extremity one to 2+ pitting NEURO: Sedated with fentanyl and Versed Vital Signs (last 8hr) Date Time Temp Pulse Resp B/P (MAP) Pulse Ox O2 Delivery O2 Flow Rate FiO2 08/26/24 06:45 63 97/58 (71) 100 08/26/24 06:33 65 60 08/26/24 06:32 65 22 08/26/24 06:30 64 22 109/73 (85) 100 08/26/24 06:15 63 119/57 (77) 100 08/26/24 06:04 101/61 08/26/24 06:00 63 102/66 (78) 100 08/26/24 05:45 62 22 101/61 (74) 100 08/26/24 05:31 61 22 98/66 (77) 100 08/26/24 05:15 61 22 113/55 (74) 100 08/26/24 05:00 63 22 111/67 (82) 99 08/26/24 04:45 63 22 104/80 (88) 100 08/26/24 04:31 98 Ventilator+ 60 08/26/24 04:31 97.9 60 22 100/61 (74) 100 08/26/24 04:16 60 22 110/40 (63) 100 08/26/24 04:00 62 22 101/59 (73) 97 08/26/24 03:53 58 22 118/51 (73) 100 08/26/24 03:51 56 22 86/61 (69) 100 08/26/24 03:30 57 22 112/70 (84) 100 08/26/24 03:15 64 22 108/68 (81) 100 08/26/24 03:11 80 60 08/26/24 03:00 65 22 102/62 (75) 100 08/26/24 02:58 72 23 96/63 (74) 96 08/26/24 02:15 66 23 107/53 (71) 72 08/26/24 02:00 57 22 99/53 (68) 100 08/26/24 02:00 99 Ventilator+ 60 08/26/24 01:45 64 22 107/66 (80) 100 08/26/24 01:30 65 22 109/66 (80) 100 08/26/24 01:15 65 22 104/67 (79) 100 08/26/24 01:00 67 22 108/75 (86) 100 08/26/24 00:45 71 22 111/44 (66) 100 LABS: Hematology Labs: Test 08/26/24 02:32 Range/Units White Blood Count 14.3 #H 4.8-10.8 K/uL Red Blood Count 3.53 L 4.50-6.20 MIL/uL Hemoglobin 11.6 L 14.0-18.0 g/dL Hematocrit 33.4 L 42-54 % Mean Corpuscular Volume 94.6 79-99 fL Mean Corpuscular Hemoglobin 32.9 27.0-33.0 pg Mean Corpuscular Hemoglobin Concent 34.7 32.0-36.0 g/dL Red Cell Distribution Width 12.9 11.0-15.5 % Platelet Count 528 H 130-400 K/uL Mean Platelet Volume 9.4 7.5-10.5 fL Immature Granulocyte % (Auto) 0.5 0-1 % Neutrophils (%) (Auto) 92.0 H 40.0-77.0 % Lymphocytes (%) (Auto) 5.3 L 21.0-51.0 % Monocytes (%) (Auto) 2.1 L 3.0-13.0 % Eosinophils (%) (Auto) 0.0 0.0-8.0 % Basophils (%) (Auto) 0.1 0.0-5.0 % Neutrophils # (Auto) 13.1 H 1.8-7.7 K/uL Lymphocytes # (Auto) 0.8 L 1.0-4.8 K/uL Monocytes # (Auto) 0.3 0.1-1.0 K/uL Eosinophils # (Auto) 0.00 0.00-0.70 K/uL Basophils # (Auto) 0.02 0.00-0.20 K/uL Absolute Immature Granulocyte (auto 0.07 0-1 K/uL Nucleated Red Blood Cells 0.0 0.0-0.19 % White Cell Morphology Comment See comments Chemistry Labs: Test 08/26/24 05:50 08/26/24 02:32 08/26/24 00:30 08/25/24 21:04 Range/Units Whole Blood Glucose 192 H 70-110 MG/DL Sodium Level 126 L 136-145 mmol/L Potassium Level 4.1 3.5-5.1 mmol/L Chloride Level 93 L 101-111 mmol/L Carbon Dioxide Level 23 21-32 mmol/L Blood Urea Nitrogen 26 H 7-18 mg/dL Creatinine 1.3 0.5-1.3 mg/dL Glomerular Filtration Rate Calc 57 >90 mL/min Random Glucose 224 H 70-105 mg/dL Hemoglobin A1c 5.4 4.0-6.0 % Estimated Average Glucose (eAG) 108 70-126 mg/dL Total Calcium 8.3 L 8.5-10.1 mg/dL Phosphorus Level 4.4 2.5-4.9 mg/dL Magnesium Level 1.70 L 1.80-2.40 mg/dL Troponin I High Sensitivity 8429 *H 4-75 ng/L Lactic Acid Level 2.6 H 0.8-2.5 mmol/L Procalcitonin 0.09 0.05-0.5 ng/mL Test 08/25/24 18:11 Range/Units Total Creatine Kinase 183 # 21-232 U/L B-Type Natriuretic Peptide 944 H 0-100 pg/mL Coagulation Labs: Test 08/26/24 07:30 08/26/24 02:32 Range/Units Activated Partial Thromboplast Time 134.5 *H 26.3-35.5 SEC Prothrombin Time 12.4 #H 9.6-11.6 SEC Prothromb Time International Ratio 1.19 H 0.85-1.15 DIAGNOSTICS / RADIOLOGY RESULTS: [ ] PLAN 08/26/2024: For now, we are going to continue current management for the patient. He will remain sedated with fentanyl and Versed and intubated for now due to his underlying condition. I am going to request a ABG to be drawn and we will address need for ventilator setting adjustment based on the ABG results. For now, the patient will remain on the Levophed drip and we will await the 2D echo as well as the input from the barrel centerer. The magnesium deficit has been replaced per the protocol. The patient did receive a dose of Lasix 40 IV x1 dose overnight. I am going to order Lasix 20 IV q.12 and will continue to monitor the I's and O's. The patient will remain on a heparin drip and we will follow the protocol. I strongly believe the WBC elevation is secondary to the steroid use. The patient will continue on empiric antibiotic therapy with Zosyn and Rocephin for management of the pneumoniae. We will monitor the patient's progress and response to management. We will continue to provide general supportive care, GI and DVT prophylaxis. Further orders per attending MD and hospital course. NEURO: Minimize central acting medications as possible. Fall Precautions. Well lighted room through the day and minimize interruptions through the night to prevent acute delirium. PULMONARY: Supplemental 02 as needed Titrate Fio2 to keep Spo2 > or = 90% DuoNebs and CPT as needed IS hourly while awake for pulmonary hygiene Out of bed to chair as tolerated VAP Bundle Vent/BIPAP Settings: Peep of 8, FiO2 60%, rate of 22, tidal volume 500 CARDIOVASCULAR: Follow hemodynamics. Titrate vasopressor to keep MAP >65 or systolic blood pressure >95mmHg DIPS: Heparin, fentanyl, Versed LINES: PIV GI & NUTRITION: NPO Continue nutritional support Aspirations precautions Prokinetic agents and laxatives as needed KIDNEYS & ELECTROLYTES: Strict monitoring of intake and output Daily weights Avoid nephrotoxic agents Monitor electrolytes and replace as needed Goal urine output of 30mL/hr or 0.5mL/kg/hr ENDOCRINE: Maintain blood glucose between 100-180 at all times. Insulin sliding scale for blood glucose management INFECTIOUS DISEASE: Trend temperature. Gaviria-culture if febrile. Micro: [ ] Antibiotics: Ceftriaxone and azithromycin HEMATOLOGY & COAGULATION: Monitor H&H. Keep Hgb > 7 Transfuse 1 unit of PRBC for Hgb < 7 Transfuse 1 pack of platelets of platelets < 20, 000 Watch for any signs and symptoms of bleeding SKIN: Pressure ulcer prevention per facility protocol Rehab: PT/OT Prophylaxis: GI: PPI DVT: Bilateral SCDs, heparin drip Code Status: Full Resuscitation Disposition: ICU Other: Total patient care time exceeds 35 minutes excluding all procedures. CAITLYN PRYOR NP Aug 26, 2024 08:42
[2024-08-26] MEDS: furoSEMIDE 20MG VIAL IV SCH (09:34)
[2024-08-26] MEDS: PANTOPrazole 40 MG/VIAL IV SCH (09:35)
[2024-08-26] MEDS: cloPIDOgrel 75MG TAB PO SCH (09:35)
[2024-08-26] MEDS: ASPIRIN 81 MG EC TAB PO SCH (09:35)
--- NOTE | 2024-08-26 12:30 | PN ---
[facility] PROGRESS NOTE Date of Service: Aug 26, 2024 Time of Service: 12:10 SUBJECTIVE: 07/25 patient seen at bedside, no acute events overnight. He remains intubated and sedated, continues on pressor support. FiO2 is 60%, we will wean towards extubation. Troponins are elevated, patient is started on ACS protocol with aspirin, Plavix, statin and heparin drip. Cardiology recommendations still pending, we will follow up. WBC increased from 10.8 up to 14.3, hemoglobin decreased from 13.2 down to 11.6, sodium stable at 126, similar to yesterday, troponins peaked and are now downtrending to 8429, remainder of his labs are relatively unremarkable. REVIEW OF SYSTEMS 12 point review of systems negative unless noted in HPI PHYSICAL EXAM GENERAL APPEARANCE: The patient is awake, alert, and oriented, in no acute cardiopulmonary distress. NEUROLOGICAL: Cranial nerves II-XII grossly intact. Motor is 5/5 in bilateral upper and lower extremities proximal to distal. No sensory deficits. HEENT: Face is symmetric. Pupils are equal and reactive. Extraocular movements are intact. NECK: Supple. No JVD. No thyromegaly. No submental, submandibular, pre- /postauricular, occipital or supraclavicular lymphadenopathy. CHEST: Normal chest expansion. No Telemetry. LUNGS: Absence of any rales, rhonchi or any wheezing. CARDIOVASCULAR: Regular. S1 and S2 normal. No appreciable rubs, murmurs or gallops. ABDOMEN: Soft, nontender, and nondistended. There is no rebound, voluntary guarding, or rigidity. : Deferred. No Leal. EXTREMITIES: Non-edematous and not cyanotic. No clubbing. Good capillary refill. SKIN: No skin breakdown. Vital Signs (last 8hr) Date Time Temp Pulse Resp B/P (MAP) Pulse Ox O2 Delivery O2 Flow Rate FiO2 08/26/24 12:00 98.1 08/26/24 11:45 57 22 08/26/24 09:14 57 60 08/26/24 08:15 61 16 104/61 98 Ventilator 60 08/26/24 08:00 98 Ventilator+ 60 08/26/24 08:00 62 16 103/71 97 Ventilator 60 08/26/24 08:00 98.4 08/26/24 07:45 65 16 109/66 98 Ventilator 60 08/26/24 07:30 66 16 104/58 99 Ventilator 60 08/26/24 07:15 67 16 98/64 94 Ventilator 60 08/26/24 07:00 68 16 109/45 100 Ventilator 60 08/26/24 06:45 63 16 97/58 100 Ventilator 60 08/26/24 06:45 63 97/58 (71) 100 08/26/24 06:33 65 60 08/26/24 06:32 65 22 08/26/24 06:30 64 22 109/73 (85) 100 08/26/24 06:15 63 119/57 (77) 100 08/26/24 06:04 101/61 08/26/24 06:00 63 102/66 (78) 100 08/26/24 05:45 62 22 101/61 (74) 100 08/26/24 05:31 61 22 98/66 (77) 100 08/26/24 05:15 61 22 113/55 (74) 100 08/26/24 05:00 63 22 111/67 (82) 99 08/26/24 04:45 63 22 104/80 (88) 100 08/26/24 04:31 98 Ventilator+ 60 08/26/24 04:31 97.9 60 22 100/61 (74) 100 08/26/24 04:16 60 22 110/40 (63) 100 LABS: Laboratory: Test 08/26/24 07:30 08/26/24 05:50 08/26/24 02:32 08/26/24 00:30 Range/Units Activated Partial Thromboplast Time 134.5 *H 26.3-35.5 SEC Whole Blood Glucose 192 H 70-110 MG/DL White Blood Count 14.3 #H 4.8-10.8 K/uL Red Blood Count 3.53 L 4.50-6.20 MIL/uL Hemoglobin 11.6 L 14.0-18.0 g/dL Hematocrit 33.4 L 42-54 % Mean Corpuscular Volume 94.6 79-99 fL Mean Corpuscular Hemoglobin 32.9 27.0-33.0 pg Mean Corpuscular Hemoglobin Concent 34.7 32.0-36.0 g/dL Red Cell Distribution Width 12.9 11.0-15.5 % Platelet Count 528 H 130-400 K/uL Mean Platelet Volume 9.4 7.5-10.5 fL Immature Granulocyte % (Auto) 0.5 0-1 % Neutrophils (%) (Auto) 92.0 H 40.0-77.0 % Lymphocytes (%) (Auto) 5.3 L 21.0-51.0 % Monocytes (%) (Auto) 2.1 L 3.0-13.0 % Eosinophils (%) (Auto) 0.0 0.0-8.0 % Basophils (%) (Auto) 0.1 0.0-5.0 % Neutrophils # (Auto) 13.1 H 1.8-7.7 K/uL Lymphocytes # (Auto) 0.8 L 1.0-4.8 K/uL Monocytes # (Auto) 0.3 0.1-1.0 K/uL Eosinophils # (Auto) 0.00 0.00-0.70 K/uL Basophils # (Auto) 0.02 0.00-0.20 K/uL Absolute Immature Granulocyte (auto 0.07 0-1 K/uL Nucleated Red Blood Cells 0.0 0.0-0.19 % White Cell Morphology Comment See comments Prothrombin Time 12.4 #H 9.6-11.6 SEC Prothromb Time International Ratio 1.19 H 0.85-1.15 Sodium Level 126 L 136-145 mmol/L Potassium Level 4.1 3.5-5.1 mmol/L Chloride Level 93 L 101-111 mmol/L Carbon Dioxide Level 23 21-32 mmol/L Blood Urea Nitrogen 26 H 7-18 mg/dL Creatinine 1.3 0.5-1.3 mg/dL Glomerular Filtration Rate Calc 57 >90 mL/min Random Glucose 224 H 70-105 mg/dL Hemoglobin A1c 5.4 4.0-6.0 % Estimated Average Glucose (eAG) 108 70-126 mg/dL Total Calcium 8.3 L 8.5-10.1 mg/dL Phosphorus Level 4.4 2.5-4.9 mg/dL Magnesium Level 1.70 L 1.80-2.40 mg/dL Troponin I High Sensitivity 8429 *H 4-75 ng/L Lactic Acid Level 2.6 H 0.8-2.5 mmol/L Test 08/25/24 21:15 08/25/24 21:04 08/25/24 19:22 08/25/24 19:10 Range/Units Group A Streptococcus Rapid negative NEGATIVE Procalcitonin 0.09 0.05-0.5 ng/mL Urine Color LIGHT-YELLOW YELLOW Urine Appearance CLEAR CLEAR Urine pH 5.5 5.0-8.0 Urine Specific Mittie 1.009 1.001-1.031 Urine Protein NEGATIVE NEGATIVE mg/dL Urine Glucose (UA) NEGATIVE NEGATIVE mg/dL Urine Ketones NEGATIVE NEGATIVE mg/dL Urine Occult Blood NEGATIVE NEGATIVE Urine Nitrate NEGATIVE NEGATIVE Urine Bilirubin NEGATIVE NEGATIVE mg/dL Urine Urobilinogen 0.2 0.2-1.0 mg/dL Urine Leukocyte Esterase NEGATIVE NEGATIVE Enrike/uL Blood Gas Specimen Type Arterial Arterial Blood pH 7.245 *L 7.350-7.450 Arterial Blood Partial Pressure CO2 51 H 35-48 mmHg Arterial Blood Partial Pressure O2 313.2 *H 83.0-108.0 mmHg Arterial Blood HCO3 21.5 21.0-28.0 mmol/L Arterial Blood Oxygen Saturation 99.6 H 94.0-98.0 % Arterial Blood Base Excess -6.0 L -2.0-3.0 mmol/L Hemoglobin (Blood Gas) 13.4 L 13.5-17.5 g/dL Sodium (Blood Gas) 128 L 136-145 MMOL/L Bedside Potassium (Blood Gas) 3.7 3.4-4.5 MMOL/L Bedside Chloride (Blood Gas) 93 L 98-107 MMOL/L Bedside Glucose (Blood Gas) 159 H 65-95 MG/DL Bedside Ionized Calcium (Blood Gas) 1.20 1.15-1.33 MMOL/L Bedside Lactic Acid (Blood Gas) 2.02 H 0.36-0.75 MMOL/L Blood Gas Temperature 37.0 35.5-37.0 CELSIUS Blood Gas Respiration Rate 12.0 min. Blood Gas Vent Mode AC ROOM AIR FiO2 100.0 % Blood Gas Tidal Volume 500 ml Blood Gas PEEP 5 cm H2O Blood Gas Specimen Comment RN RN Test 08/25/24 19:01 08/25/24 18:11 Range/Units Influenza Type A Antigen Negative For Type A NEGATIVE Influenza Type B Antigen Negative For Type B NEGATIVE SARS-CoV-2, RNA, NAAT NEGATIVE SARS CoV-2 NEGATIVE Total Creatine Kinase 183 # 21-232 U/L B-Type Natriuretic Peptide 944 H 0-100 pg/mL Current Medications Medications (Trade) Dose Ordered Sig/Lydia Route PRN Reason Start Time Stop Time Status Last Admin Dose Admin Acetaminophen (TYLenol 650MG SUPPOSITORY) 650 mg Q6H PRN RC MILD PAIN (1-3) 08/25/24 19:30 09/24/24 19:29 Albuterol (DUOneb) 1 UDVIAL [id number] IH 08/26/24 00:00 09/25/24 00:00 08/26/24 11:47 1 UDVIAL Albuterol (DUOneb) 2 udvial ONCE IH 08/25/24 18:00 08/25/24 22:00 DC 08/25/24 19:17 2 UDVIAL Aspirin (Aspirin 300mg Supp) 300 mg ONCE MO 08/25/24 19:30 08/25/24 23:59 DC 08/25/24 19:41 300 MG Aspirin (Aspirin 81mg Ec Tab) 81 mg DAILY PO 08/26/24 09:00 09/25/24 08:59 08/26/24 09:35 81 MG Atorvastatin Calcium (LIPItor 40MG) 40 mg HS PO 08/26/24 07:30 08/26/24 07:44 DC Azithromycin 250 ml @ 250 mls/hr Q24H IVPB 08/25/24 18:51 08/25/24 23:30 DC Azithromycin 250 ml @ 250 mls/hr Q24H IVPB 08/25/24 19:30 08/25/24 19:38 DC Ceftriaxone Sodium (ROCEphine 1G INJ) 1 gm ONCE IVPB 08/25/24 19:00 08/25/24 21:03 DC 08/25/24 19:41 1 GM Ceftriaxone Sodium (ROCEphine 1G INJ) 1 gm Q24H IVPB 08/25/24 19:30 09/04/24 19:29 Clopidogrel Bisulfate (plaVIX 300MG TAB) 300 mg ONCE PO 08/25/24 21:00 08/26/24 06:00 DC 08/25/24 23:16 300 MG Clopidogrel Bisulfate (plaVIX 75MG) 75 mg DAILY PO 08/26/24 09:00 09/25/24 08:59 08/26/24 09:35 75 MG Fentanyl Citrate 100 ml @ 2.5 mls/hr PROTOCOL IV 08/25/24 20:00 09/01/24 19:59 08/26/24 06:12 2.5 MLS/HR Furosemide (LASix 20MG VIAL) 20 mg Q12H IV 08/26/24 09:00 08/27/24 21:01 08/26/24 09:34 20 MG Heparin Sodium (Porcine) (HEParin 5,000 UNIT VIAL) *calculation based on ACTUAL B... AD PRN IV HEPARIN PROTOCOL 08/25/24 20:00 09/24/24 19:59 Heparin Sodium/ Dextrose 250 ml @ 0 mls/hr Q6H IV 08/25/24 20:00 09/24/24 19:59 08/25/24 20:12 13.87 MLS/HR Insulin Human Regular (humuLIN R 100 UNIT/ML 3ML) INSULIN SLIDING SCAL... Q6H6 SQ 08/26/24 00:00 09/25/24 00:00 08/26/24 05:58 2 UNIT Ketamine HCl (ketaMINE 50MG/ ML SYRINGE) 50 mg ONCE IM 08/25/24 19:00 08/25/24 22:00 DC Ketamine HCl (ketaMINE 50MG/ ML SYRINGE) 50 mg ONCE IM 08/25/24 19:00 08/25/24 23:59 DC Methylprednisolone Sodium Succinate (Solu-medROL 40MG) 40 mg Q8H IVP 08/25/24 23:00 09/24/24 22:59 08/26/24 06:01 40 MG Methylprednisolone Sodium Succinate (Solu-medROL 125MG) 125 mg ONCE IVP 08/25/24 18:00 08/25/24 22:00 DC 08/25/24 18:52 125 MG Midazolam HCl 50 ml @ 0 mls/hr PROTOCOL IV 08/25/24 19:00 09/01/24 18:59 08/26/24 09:42 10 MLS/HR Midazolam HCl 50 mg/Sodium Chloride 50 ml @ 0 mls/hr PROTOCOL IV 08/25/24 19:00 09/24/24 18:59 UNV Morphine Sulfate (morPHINE 2MG SYG) 2 mg Q4H PRN IVP SEVERE PAIN (7-10) 08/26/24 07:30 09/01/24 19:29 Morphine Sulfate (morPHINE 4MG SYG) 2 mg Q4H PRN IVP SEVERE PAIN (7-10) 08/25/24 19:30 08/26/24 07:11 DC Norepinephrine 250 ml @ 0 mls/hr PROTOCOL IV 08/25/24 19:30 08/26/24 05:10 DC 08/26/24 00:14 121.5 MLS/HR Norepinephrine Bitartrate 32 mg/ Sodium Chloride 250 ml @ 0 mls/hr Q0M PRN IV hypotension 08/26/24 05:30 09/25/24 05:29 08/26/24 06:04 19.87 MLS/HR Ondansetron HCl (zoFRAN 4MG INJ) 4 mg Q6H PRN IV NAUSEA/VOMITING 08/25/24 19:30 09/24/24 19:29 Pantoprazole Sodium (PROTonix 40MG INJ) 40 mg DAILY IV 08/26/24 09:00 09/25/24 08:59 08/26/24 09:35 40 MG Piperacillin Sod/ Tazobactam Sod (Zosyn 3.375gm+NS 50ml) 3.375 gm Q8H IV 08/25/24 20:00 09/04/24 19:59 UNV Piperacillin Sod/ Tazobactam Sod (Zosyn 3.375gm+NS 50ml) 3.375 gm ZOSY8 IV 08/25/24 21:00 09/04/24 20:59 08/26/24 05:55 3.375 GM DIAGNOSTICS / RADIOLOGY: [ ] ASSESSMENT: Acute hypoxemic respiratory failure, POA, requiring intubation and mechanical ventilation Hypotension, POA, currently suspected to be cardiogenic shock Acute coronary syndrome, POA Lactic acidosis, POA Hyponatremia, POA Uncontrolled Diabetes mellitius type2, last A1c 5.4, ruled out POA Bilateral pleural effusion, POA Pulmonary vascular congestion, POA Hypertension CAD PLAN: Continue ICU Continue mechanical ventilation, wean towards extubation Continue pressor support, we will wean as able Continue furosemide 20 mg IV b.i.d. Continue aspirin 81 mg Q 24 hours Continue Plavix 75 mg Q 24 hours Continue sliding scale insulin Continue methylprednisone 40 mg Q 8 hours Continue Zosyn Continue heparin drip Discontinue Rocephin Critical care/pulmonology consulted, appreciate recommendations Cardiology consulted, appreciate recommendations Disposition: Pending improvement in clinical status Greater than 35 minutes ICU time spent in care of this patient RANDY POZO MD Aug 26, 2024 12:30
--- NOTE | 2024-08-26 15:19 | EKG ---
[facility] Test Date: 2024-08-25 Test Time: 18:58:29 Pat Name: NAMAN RUGGIERO Department: [facility] Room: 206 1 Gender: M Medical Assistant Supervisor: [id number] : 1950 Requested By: TO BEAUCHAMP Order Number: [id number] Reading MD: Klaus Carreon Measurements Intervals Warren Rate: 109 P: 76 WI: 212 QRS: 92 QRSD: 102 T: 203 QT: 340 QTc: 458 Interpretive Statements Sinus tachycardia Borderline prolonged WI interval Right axis deviation Low voltage, extremity leads Repol abnrm, severe global ischemia (LM/MVD) Compared to ECG 08/25/2024 18:36:50 Right-axis deviation now present Ventricular tachycardia no longer present Possible ischemia still present Electronically Signed On 08-28-2024 16:01:03 CHISEL MORTISER OPERATOR by Klaus Carreon Please click the below link to view image of tracing.
[2024-08-26] MEDS: furoSEMIDE 20MG VIAL IV ONE (16:30)
[2024-08-27] VITALS (126 sets, daily range): BP systolic 80–154; BP diastolic 40–94; PULSE 51–76; RESP 5–24; TEMP 98.3–98.6; O2SAT 99–100
[2024-08-27 03:54] LABS: BASOPHILS # (AUTO) 0.02 K/uL (0.00-0.20); BASOPHILS % (AUTO) 0.1 % (0.0-5.0); EOSINOPHILS # (AUTO) 0.12 K/uL (0.00-0.70); EOSINOPHILS % (AUTO) 0.6 % (0.0-8.0); HEMATOCRIT 32.8 % (42-54); IMMATURE GRANULOCYTE ABSOLUTE 0.11 K/uL (0-1); LYMPHOCYTES # (AUTO) 0.8 K/uL (1.0-4.8); LYMPHOCYTES % (AUTO) 4.4 % (21.0-51.0); MEAN CORPUSCULAR HEMOGLOBIN 32.7 pg (27.0-33.0); MEAN CORPUSCULAR HGB CONC 34.5 g/dL (32.0-36.0); MEAN CORPUSCULAR VOLUME 94.8 fL (79-99); MONOCYTES # (AUTO) 0.9 K/uL (0.1-1.0); MONOCYTES % (AUTO) 4.5 % (3.0-13.0); NEUTROPHILS % (AUTO) 89.8 % (40.0-77.0); PLATELET COUNT (AUTO) 520 K/uL (130-400); RED BLOOD CELL COUNT(AUTO) 3.46 MIL/uL (4.50-6.20); WHITE BLOOD COUNT (AUTO) 18.9 K/uL (4.8-10.8)
[2024-08-27 04:06] LABS: CREATININE 1.8 mg/dL (0.5-1.3); POTASSIUM 4.3 mmol/L (3.5-5.1)
--- NOTE | 2024-08-27 05:14 | NUR ---
Called PICC line nurse and spoke to Leeroy Busby. Informed him of Jonn Swain MD radiology report and statrads report. As per Leeroy he will come in to make adjustments. Contacted Marcellus CALDERON and informed him. As per provider change the levophed concentration from 32mg/250ml to 4mg/250ml.
[2024-08-27] MEDS: NOREPINEPHRIN 4MG/NS 250ML 250 ML IV ONE (06:25)
--- NOTE | 2024-08-27 06:57 | HMCIMG ---
CHEST 1VW HISTORY: Pneumonia COMPARISON: 08/26/2024 FINDINGS: A frontal projection of the chest was obtained. There are bilateral pulmonary infiltrates suggestive of pulmonary vascular congestion with possible superimposed pneumonitis. The heart is borderline enlarged. Degenerative changes are seen. No evidence of aortic calcification is seen. IMPRESSION: 1. Bilateral pulmonary infiltrates are seen suggestive of pulmonary vascular congestion with possible superimposed pneumonitis.
--- NOTE | 2024-08-27 07:08 | HMCIMG ---
CHEST 1VW HISTORY: PICC line placement COMPARISON: Same day x-ray FINDINGS: A frontal projection of the chest was obtained. There are bilateral pulmonary infiltrates suggestive of pulmonary vascular congestion with possible superimposed pneumonitis. There are bilateral pleural effusions. Left venous catheter is seen with distal tip in the plane of the superior vena cava. Endotracheal tube is seen with distal tip at 4.5 cm above lino. The heart is borderline enlarged. All the lines and tubes are again seen in place. No evidence of aortic calcification is seen. IMPRESSION: 1. Bilateral pulmonary infiltrates are seen suggestive of pulmonary vascular congestion with possible superimposed pneumonitis.
[2024-08-27 10:06] LABS: ABG HCO3 20.7 mmol/L (21.0-28.0); ABG OXYGEN SATURATION 99.5 % (94.0-98.0); ABG PCO2 29 mmHg (35-48); ABG PH 7.478 (7.350-7.450); CARBON MONOXIDE 0.3 % (0.5-1.5); DEVICE COMMENT RN EDDIE; HHb 0.5; PO2, ARTERIAL BG 259.6 mmHg (83.0-108.0); VENT MODE, BG AC (ROOM AIR)
--- NOTE | 2024-08-27 12:22 | PN ---
[facility] PROGRESS NOTE Date Patient Seen: Aug 27, 2024 Time of Visit: 12:19 Supervising Physician: Dr. Purvis Consulting Physician: Dr French Outpatient Specialists: [ ] Inpatient Consults: Cardiology PROBLEM LIST: Acute hypoxic respiratory failure, multifactorial in the setting of congestive heart failure, and B\L pneumonia POA Cardiogenic shock Acute systolic CHF in exacerbation, in the setting of NSTEMI POA B/L community-acquired pneumonia, POA NSTEMI, likely type 2 POA Hyponatremia, likely dilutional, POA Electrolyte abnormality, POA Feeding difficulty in adult, POA Alteration in mental status, POA Hypertension, POA Hyperlipidemia, POA INTERVAL HISTORY: 08/26/2024: At the time my evaluation in his assigned. He is sedated currently Versed and fentanyl drip, RASS scale of -5. The patient remains intubated on ACVC mode with vent settings rate of 22, tidal volume of 500, peep of 8 and FiO2 60%. There was no repeat ABG this a.m. for review. On chest imaging overnight, a chest CT showed no evidence of a pulmonary embolism. Repeat chest x-ray showed pulmonary vascular congestion with superimposed pneumonic infiltrates. This also showed the presence of a chest tube with its tip 6 cm above the lino. The patient also continues on Solu-Medrol 40 mg q.8 hours. On the monitor, the patient is hemodynamically stable. Remains on Levophed drip at 0.4 with map of 71. On labs overnight the patient had troponin peaked at 8578. A 2D echo was ordered and is pending results. The patient has a calculated CHADS- VASc score of 6. Cardiology was consulted and is pending. There is presence of a OGT that is clamped. Chemistry panel was notable for a sodium of 126 and a Mag of 1.70. The patient has a Leal catheter in place, I's and O's showed a cumulative balance of + 917.4. The patient remains on a heparin drip currently at 14.98 units/kilogram/hour. Hematology panel was notable for a elevated WBC of 14.3 which is suspected to be secondary to steroid use. Currently, PT of 4.4, INR of 1.19 and a PTT of > 139.0. Currently, there is no cultures in p rocess. The patient is on empiric antibiotic therapy with Zosyn and Rocephin. 08/27/2024: At the time my evaluation in his assigned. He is sedated currently Versed and fentanyl drip, RASS scale of -5. The patient remains intubated on ACVC mode with vent settings rate of 22, tidal volume of 500, peep of 6 and FiO2 50%. Most recent ABG shows a pH of 7.4, pCO2 29, PO2 259 0.6 and HC03 of 20.7. On chest imaging overnight, a chest CT showed no evidence of a pulmonary embolism. Repeat chest x-ray showed pulmonary vascular congestion with superimposed pneumonic infiltrates that persist. This also showed the presence of a ET tube with its tip 6 cm above the lino. The patient also continues on Solu-Medrol 40 mg q.8 hours. On the monitor, the patient is hemodynamically stable. Remains on Levophed drip with map of 85. A 2D echo was ordered and is pending results. The patient has a calculated CHADS-VASc score of 6. Cardiology was consulted and is pending. There is presence of a OGT. Chemistry panel was notable for a sodium of 127 and a Mag of 2.10. An increase in renal parameters of BUN 36, creatinine of 1.8 and a GFR of 39. The patient has a Leal catheter in place, I's and O's showed a cumulative balance of + 1523.0. The patient remains on a heparin drip. Hematology panel was notable for a elevated WBC of 18.9, which is suspected to be secondary to steroid use. Currently, PTT of 74.4. Currently, there is no cultures in process. The patient is on empiric antibiotic therapy with Zosyn and Rocephin. REVIEW OF SYSTEMS: Unable to obtain due to intubation PHYSICAL EXAM: GENERAL: Critically ill, intubated, on full mechanical ventilator support HEENT: EOMI NECK: Orally intubated no JVD, trachea midline LUNGS: Coarse bilateral lung sounds, on full mechanical ventilator support HEART: Regular rate and rhythm. Normal S1 and S2, without murmurs ABD: Abdomen soft, nontender. Bowel sounds present EXT: No clubbing cyanosis , some edema to bilateral lower extremity one to 2+ pitting NEURO: Sedated with fentanyl and Versed Vital Signs (last 8hr) Date Time Temp Pulse Resp B/P (MAP) Pulse Ox O2 Delivery O2 Flow Rate FiO2 08/27/24 12:00 98.2 08/27/24 11:45 56 20 114/66 (82) 100 08/27/24 11:44 60 40 08/27/24 11:41 53 22 08/27/24 11:30 52 20 107/74 (85) 100 08/27/24 11:15 53 20 107/66 (80) 100 08/27/24 11:00 54 20 121/69 (86) 100 08/27/24 10:45 53 20 112/66 (81) 100 08/27/24 10:30 53 20 114/71 (85) 100 40 08/27/24 10:15 53 20 114/70 (85) 100 08/27/24 10:14 40 08/27/24 10:00 54 20 114/71 (85) 100 08/27/24 09:45 56 22 135/76 (95) 100 08/27/24 09:35 60 50 08/27/24 09:30 53 114/71 (85) 100 08/27/24 09:15 53 5 114/71 (85) 100 50 08/27/24 09:00 53 22 118/65 (82) 100 08/27/24 08:45 53 22 116/68 (84) 100 08/27/24 08:30 53 22 119/70 (86) 100 08/27/24 08:15 53 22 112/72 (85) 100 08/27/24 08:00 98.6 08/27/24 08:00 52 22 120/67 (84) 100 60 08/27/24 08:00 100 Ventilator+ 60 08/27/24 07:45 51 22 113/72 (86) 100 08/27/24 07:30 53 22 114/71 (85) 100 08/27/24 07:15 52 22 112/54 (73) 100 08/27/24 07:02 54 22 08/27/24 07:00 53 23 96/63 (74) 100 08/27/24 06:59 55 60 08/27/24 06:55 53 22 113/57 (75) 100 08/27/24 06:50 60 22 114/54 (74) 100 08/27/24 06:45 53 22 117/63 (81) 100 08/27/24 06:40 52 22 107/65 (79) 100 08/27/24 06:35 61 24 137/64 (88) 100 08/27/24 06:30 52 22 113/56 (75) 80 08/27/24 06:25 101/63 08/27/24 06:25 65 22 108/69 (82) 86 08/27/24 06:20 65 22 137/85 (102) 100 08/27/24 06:15 69 21 139/64 (89) 94 08/27/24 06:10 56 17 106/67 (80) 100 08/27/24 06:05 51 101/63 (76) 100 08/27/24 06:01 57 22 107/61 (76) 100 08/27/24 05:55 55 22 110/69 (83) 100 08/27/24 05:50 56 22 118/69 (85) 100 08/27/24 05:45 56 22 111/70 (84) 100 08/27/24 05:40 57 22 111/69 (83) 100 08/27/24 05:35 58 22 106/72 (83) 100 08/27/24 05:30 61 22 112/73 (86) 100 08/27/24 05:25 59 22 109/74 (86) 100 08/27/24 05:20 61 22 94/60 (71) 100 08/27/24 05:15 65 22 80/40 (53) 100 08/27/24 05:10 55 22 128/75 (92) 100 08/27/24 05:05 55 22 119/64 (82) 100 08/27/24 05:00 57 22 123/74 (90) 100 08/27/24 04:55 56 22 127/74 (91) 100 08/27/24 04:45 58 22 150/85 (106) 100 08/27/24 04:30 59 22 134/83 (100) 100 LABS: Hematology Labs: Test 08/27/24 03:43 08/26/24 02:32 Range/Units White Blood Count 18.9 H 4.8-10.8 K/uL Red Blood Count 3.46 L 4.50-6.20 MIL/uL Hemoglobin 11.3 L 14.0-18.0 g/dL Hematocrit 32.8 L 42-54 % Mean Corpuscular Volume 94.8 79-99 fL Mean Corpuscular Hemoglobin 32.7 27.0-33.0 pg Mean Corpuscular Hemoglobin Concent 34.5 32.0-36.0 g/dL Red Cell Distribution Width 13.0 11.0-15.5 % Platelet Count 520 H 130-400 K/uL Mean Platelet Volume 9.8 7.5-10.5 fL Immature Granulocyte % (Auto) 0.6 0-1 % Neutrophils (%) (Auto) 89.8 H 40.0-77.0 % Lymphocytes (%) (Auto) 4.4 L 21.0-51.0 % Monocytes (%) (Auto) 4.5 3.0-13.0 % Eosinophils (%) (Auto) 0.6 0.0-8.0 % Basophils (%) (Auto) 0.1 0.0-5.0 % Neutrophils # (Auto) 17.0 H 1.8-7.7 K/uL Lymphocytes # (Auto) 0.8 L 1.0-4.8 K/uL Monocytes # (Auto) 0.9 0.1-1.0 K/uL Eosinophils # (Auto) 0.12 0.00-0.70 K/uL Basophils # (Auto) 0.02 0.00-0.20 K/uL Absolute Immature Granulocyte (auto 0.11 0-1 K/uL Nucleated Red Blood Cells 0.0 0.0-0.19 % White Cell Morphology Comment See comments Chemistry Labs: Test 08/27/24 11:21 08/27/24 08:36 08/27/24 03:43 08/26/24 12:03 Range/Units Whole Blood Glucose 121 H 70-110 MG/DL Magnesium Level 2.10 1.80-2.40 mg/dL Sodium Level 127 L 136-145 mmol/L Potassium Level 4.3 3.5-5.1 mmol/L Chloride Level 93 L 101-111 mmol/L Carbon Dioxide Level 22 21-32 mmol/L Blood Urea Nitrogen 36 H 7-18 mg/dL Creatinine 1.8 H 0.5-1.3 mg/dL Glomerular Filtration Rate Calc 39 >90 mL/min Random Glucose 150 H 70-105 mg/dL Total Calcium 8.6 8.5-10.1 mg/dL Troponin I High Sensitivity 7223 *H 4-75 ng/L Test 08/26/24 02:32 08/26/24 00:30 08/25/24 21:04 08/25/24 18:11 Range/Units Hemoglobin A1c 5.4 4.0-6.0 % Estimated Average Glucose (eAG) 108 70-126 mg/dL Phosphorus Level 4.4 2.5-4.9 mg/dL Lactic Acid Level 2.6 H 0.8-2.5 mmol/L Procalcitonin 0.09 0.05-0.5 ng/mL Total Creatine Kinase 183 # 21-232 U/L B-Type Natriuretic Peptide 944 H 0-100 pg/mL Coagulation Labs: Test 08/27/24 08:36 08/26/24 02:32 Range/Units Activated Partial Thromboplast Time 74.4 H 26.3-35.5 SEC Prothrombin Time 12.4 #H 9.6-11.6 SEC Prothromb Time International Ratio 1.19 H 0.85-1.15 DIAGNOSTICS / RADIOLOGY RESULTS: [ ] PLAN 08/26/2024: For now, we are going to continue current management for the patient. He will remain sedated with fentanyl and Versed and intubated for now due to his underlying condition. I am going to request a ABG to be drawn and we will address need for ventilator setting adjustment based on the ABG results. For now, the patient will remain on the Levophed drip and we will await the 2D echo as well as the input from the door repairman. The magnesium deficit has been replaced per the protocol. The patient did receive a dose of Lasix 40 IV x1 dose overnight. I am going to order Lasix 20 IV q.12 and will continue to monitor the I's and O's. The patient will remain on a heparin drip and we will follow the protocol. I strongly believe the WBC elevation is secondary to the steroid use. The patient will continue on empiric antibiotic therapy with Zosyn and Rocephin for management of the pneumoniae. We will monitor the patient's progress and response to management. We will continue to provide general supportive care, GI and DVT prophylaxis. Further orders per attending MD and hospital course. 08/27/2024: For now, we are going to continue current management for the pat ient. He will remain sedated with fentanyl and Versed and intubated for now due to his underlying condition. For now, the patient will remain on the Levophed drip and we will await the 2D echo results as well as the input from the door repairman. The patient continues on IV Lasix which I am going to hold due to the increasing renal parameters and will continue to monitor the I's and O's. The patient will remain on a heparin drip and we will follow the protocol. I strongly believe the WBC elevation is secondary to the steroid use. Cultures are so far negative and the patient remains afebrile. I am going to discontinue the Solu-Medrol. The patient will continue on empiric antibiotic therapy with Zosyn and Rocephin for management of the pneumoniae. We will monitor the patient's progress and response to management. We will continue to provide general supportive care, GI and DVT prophylaxis. Further orders per attending MD and hospital course. NEURO: Minimize central acting medications as possible. Fall Precautions. Well lighted room through the day and minimize interruptions through the night to prevent acute delirium. PULMONARY: Supplemental 02 as needed Titrate Fio2 to keep Spo2 > or = 90% DuoNebs and CPT as needed IS hourly while awake for pulmonary hygiene Out of bed to chair as tolerated VAP Bundle Vent/BIPAP Settings: Peep of 6, FiO2 50%, rate of 22, tidal volume 500 CARDIOVASCULAR: Follow hemodynamics. Titrate vasopressor to keep MAP >65 or systolic blood pressure >95mmHg DIPS: Heparin, fentanyl, Versed LINES: PIV GI & NUTRITION: NPO Continue nutritional support Aspirations precautions Prokinetic agents and laxatives as needed KIDNEYS & ELECTROLYTES: Strict monitoring of intake and output Daily weights Avoid nephrotoxic agents Monitor electrolytes and replace as needed Goal urine output of 30mL/hr or 0.5mL/kg/hr ENDOCRINE: Maintain blood glucose between 100-180 at all times. Insulin sliding scale for blood glucose management INFECTIOUS DISEASE: Trend temperature. Gaviria-culture if febrile. Micro: [ ] Antibiotics: Ceftriaxone and azithromycin HEMATOLOGY & COAGULATION: Monitor H&H. Keep Hgb > 7 Transfuse 1 unit of PRBC for Hgb < 7 Transfuse 1 pack of platelets of platelets < 20, 000 Watch for any signs and symptoms of bleeding SKIN: Pressure ulcer prevention per facility protocol Rehab: PT/OT Prophylaxis: GI: PPI DVT: Bilateral SCDs, heparin drip Code Status: Full Resuscitation Disposition: ICU Other: Total patient care time exceeds 35 minutes excluding all procedures. CAITLYN PRYOR NP Aug 27, 2024 12:22
[2024-08-27] MEDS: NOREPINEPHRIN 4MG/NS 250ML 250 ML IV PRN (13:19)
--- NOTE | 2024-08-27 13:39 | PN ---
[facility] PROGRESS NOTE Date of Service: Aug 27, 2024 Time of Service: 13:18 SUBJECTIVE: 07/25 patient seen at bedside, no acute events overnight. He remains intubated and sedated, continues on pressor support. FiO2 is 60%, we will wean towards extubation. Troponins are elevated, patient is started on ACS protocol with aspirin, Plavix, statin and heparin drip. Cardiology recommendations still pending, we will follow up. WBC increased from 10.8 up to 14.3, hemoglobin decreased from 13.2 down to 11.6, sodium stable at 126, similar to yesterday, troponins peaked and are now downtrending to [id number], remainder of his labs are relatively unremarkable. 07/26 patient seen at bedside, no acute events overnight. He remains intubated and sedated, continue weaning down pressors. His FiO2 has been weaned down to 50%, we will continue to wean as able, peep has been decreased from 8-6. Echocardiogram has been done, formal read is still pending, preliminary read shows a possible vegetation of the mitral valve, ejection fraction of 50-55%, mild to moderate aortic regurgitation, moderate mitral regurgitation, we will have him reassessed once he has been extubated as he may need a KARTHIK, however given his blood cultures are no growth this mobile mass on the mitral valve may not be secondary to endocarditis. Creatinine has increased from 1.3 up to 1.8, hemoglobin stable at 11.3, similar to yesterday, WBC increased from 14.3 up to 18.9, platelets improved from 528 down to 520, sodium stable at 127, similar to yesterday, remainder of his labs are relatively unremarkable. Cultures are no growth to date. REVIEW OF SYSTEMS 12 point review of systems negative unless noted in HPI PHYSICAL EXAM GENERAL APPEARANCE: The patient is awake, alert, and oriented, in no acute cardiopulmonary distress. NEUROLOGICAL: Cranial nerves II-XII grossly intact. Motor is 5/5 in bilateral upper and lower extremities proximal to distal. No sensory deficits. HEENT: Face is symmetric. Pupils are equal and reactive. Extraocular movements are intact. NECK: Supple. No JVD. No thyromegaly. No submental, submandibular, pre- /postauricular, occipital or supraclavicular lymphadenopathy. CHEST: Normal chest expansion. No Telemetry. LUNGS: Absence of any rales, rhonchi or any wheezing. CARDIOVASCULAR: Regular. S1 and S2 normal. No appreciable rubs, murmurs or gallops. ABDOMEN: Soft, nontender, and nondistended. There is no rebound, voluntary guarding, or rigidity. : Deferred. No Leal. EXTREMITIES: Non-edematous and not cyanotic. No clubbing. Good capillary refill. SKIN: No skin breakdown. Vital Signs (last 8hr) Date Time Temp Pulse Resp B/P (MAP) Pulse Ox O2 Delivery O2 Flow Rate FiO2 08/27/24 12:45 59 20 139/68 (91) 100 08/27/24 12:30 54 20 115/73 (87) 100 08/27/24 12:15 54 20 114/70 (85) 100 08/27/24 12:00 98.2 08/27/24 12:00 100 Ventilator+ 40 08/27/24 12:00 54 20 110/66 (81) 100 08/27/24 11:45 56 20 114/66 (82) 100 08/27/24 11:44 60 40 08/27/24 11:41 53 22 08/27/24 11:30 52 20 107/74 (85) 100 08/27/24 11:15 53 20 107/66 (80) 100 08/27/24 11:00 54 20 121/69 (86) 100 08/27/24 10:45 53 20 112/66 (81) 100 08/27/24 10:30 53 20 114/71 (85) 100 40 08/27/24 10:15 53 20 114/70 (85) 100 08/27/24 10:14 40 08/27/24 10:00 54 20 114/71 (85) 100 08/27/24 09:45 56 22 135/76 (95) 100 08/27/24 09:35 60 50 08/27/24 09:30 53 114/71 (85) 100 08/27/24 09:15 53 5 114/71 (85) 100 50 08/27/24 09:00 53 22 118/65 (82) 100 08/27/24 08:45 53 22 116/68 (84) 100 08/27/24 08:30 53 22 119/70 (86) 100 08/27/24 08:15 53 22 112/72 (85) 100 08/27/24 08:00 98.6 08/27/24 08:00 52 22 120/67 (84) 100 60 08/27/24 08:00 100 Ventilator+ 60 08/27/24 07:45 51 22 113/72 (86) 100 08/27/24 07:30 53 22 114/71 (85) 100 08/27/24 07:15 52 22 112/54 (73) 100 08/27/24 07:02 54 22 08/27/24 07:00 53 23 96/63 (74) 100 08/27/24 06:59 55 60 08/27/24 06:55 53 22 113/57 (75) 100 08/27/24 06:50 60 22 114/54 (74) 100 08/27/24 06:45 53 22 117/63 (81) 100 08/27/24 06:40 52 22 107/65 (79) 100 08/27/24 06:35 61 24 137/64 (88) 100 08/27/24 06:30 52 22 113/56 (75) 80 08/27/24 06:25 101/63 08/27/24 06:25 65 22 108/69 (82) 86 08/27/24 06:20 65 22 137/85 (102) 100 08/27/24 06:15 69 21 139/64 (89) 94 08/27/24 06:10 56 17 106/67 (80) 100 08/27/24 06:05 51 101/63 (76) 100 08/27/24 06:01 57 22 107/61 (76) 100 08/27/24 05:55 55 22 110/69 (83) 100 08/27/24 05:50 56 22 118/69 (85) 100 08/27/24 05:45 56 22 111/70 (84) 100 08/27/24 05:40 57 22 111/69 (83) 100 08/27/24 05:35 58 22 106/72 (83) 100 08/27/24 05:30 61 22 112/73 (86) 100 08/27/24 05:25 59 22 109/74 (86) 100 08/27/24 05:20 61 22 94/60 (71) 100 LABS: Laboratory: Test 08/27/24 11:21 08/27/24 10:05 08/27/24 08:36 08/27/24 03:43 Range/Units Whole Blood Glucose 121 H 70-110 MG/DL Blood Gas Specimen Type Arterial Arterial Blood pH 7.478 H 7.350-7.450 Arterial Blood Partial Pressure CO2 29 L 35-48 mmHg Arterial Blood Partial Pressure O2 259.6 H 83.0-108.0 mmHg Arterial Blood HCO3 20.7 L 21.0-28.0 mmol/L Arterial Blood Oxygen Saturation 99.5 H 94.0-98.0 % Arterial Blood Base Excess -2.0 -2.0-3.0 mmol/L Hemoglobin (Blood Gas) 10.7 L 13.5-17.5 g/dL Sodium (Blood Gas) 130 L 136-145 MMOL/L Bedside Potassium (Blood Gas) 3.8 3.4-4.5 MMOL/L Bedside Chloride (Blood Gas) 99 98-107 MMOL/L Bedside Glucose (Blood Gas) 121 H 65-95 MG/DL Bedside Ionized Calcium (Blood Gas) 1.12 L 1.15-1.33 MMOL/L Bedside Lactic Acid (Blood Gas) 1.21 H 0.36-0.75 MMOL/L Blood Gas Temperature 37.0 35.5-37.0 CELSIUS Blood Gas Respiration Rate 22.0 min. Blood Gas Vent Mode AC ROOM AIR FiO2 50.0 % Blood Gas Tidal Volume 500 ml Blood Gas PEEP 6 cm H2O Blood Gas Specimen Comment RN RAINA Activated Partial Thromboplast Time 74.4 H 26.3-35.5 SEC Magnesium Level 2.10 1.80-2.40 mg/dL White Blood Count 18.9 H 4.8-10.8 K/uL Red Blood Count 3.46 L 4.50-6.20 MIL/uL Hemoglobin 11.3 L 14.0-18.0 g/dL Hematocrit 32.8 L 42-54 % Mean Corpuscular Volume 94.8 79-99 fL Mean Corpuscular Hemoglobin 32.7 27.0-33.0 pg Mean Corpuscular Hemoglobin Concent 34.5 32.0-36.0 g/dL Red Cell Distribution Width 13.0 11.0-15.5 % Platelet Count 520 H 130-400 K/uL Mean Platelet Volume 9.8 7.5-10.5 fL Immature Granulocyte % (Auto) 0.6 0-1 % Neutrophils (%) (Auto) 89.8 H 40.0-77.0 % Lymphocytes (%) (Auto) 4.4 L 21.0-51.0 % Monocytes (%) (Auto) 4.5 3.0-13.0 % Eosinophils (%) (Auto) 0.6 0.0-8.0 % Basophils (%) (Auto) 0.1 0.0-5.0 % Neutrophils # (Auto) 17.0 H 1.8-7.7 K/uL Lymphocytes # (Auto) 0.8 L 1.0-4.8 K/uL Monocytes # (Auto) 0.9 0.1-1.0 K/uL Eosinophils # (Auto) 0.12 0.00-0.70 K/uL Basophils # (Auto) 0.02 0.00-0.20 K/uL Absolute Immature Granulocyte (auto 0.11 0-1 K/uL Nucleated Red Blood Cells 0.0 0.0-0.19 % Sodium Level 127 L 136-145 mmol/L Potassium Level 4.3 3.5-5.1 mmol/L Chloride Level 93 L 101-111 mmol/L Carbon Dioxide Level 22 21-32 mmol/L Blood Urea Nitrogen 36 H 7-18 mg/dL Creatinine 1.8 H 0.5-1.3 mg/dL Glomerular Filtration Rate Calc 39 >90 mL/min Random Glucose 150 H 70-105 mg/dL Total Calcium 8.6 8.5-10.1 mg/dL Test 08/26/24 12:03 08/26/24 02:32 08/26/24 00:30 08/25/24 21:15 Range/Units Troponin I High Sensitivity 7223 *H 4-75 ng/L White Cell Morphology Comment See comments Prothrombin Time 12.4 #H 9.6-11.6 SEC Prothromb Time International Ratio 1.19 H 0.85-1.15 Hemoglobin A1c 5.4 4.0-6.0 % Estimated Average Glucose (eAG) 108 70-126 mg/dL Phosphorus Level 4.4 2.5-4.9 mg/dL Lactic Acid Level 2.6 H 0.8-2.5 mmol/L Group A Streptococcus Rapid negative NEGATIVE Test 08/25/24 21:04 08/25/24 19:22 08/25/24 19:01 08/25/24 18:11 Range/Units Procalcitonin 0.09 0.05-0.5 ng/mL Urine Color LIGHT-YELLOW YELLOW Urine Appearance CLEAR CLEAR Urine pH 5.5 5.0-8.0 Urine Specific [place] 1.009 1.001-1.031 Urine Protein NEGATIVE NEGATIVE mg/dL Urine Glucose (UA) NEGATIVE NEGATIVE mg/dL Urine Ketones NEGATIVE NEGATIVE mg/dL Urine Occult Blood NEGATIVE NEGATIVE Urine Nitrate NEGATIVE NEGATIVE Urine Bilirubin NEGATIVE NEGATIVE mg/dL Urine Urobilinogen 0.2 0.2-1.0 mg/dL Urine Leukocyte Esterase NEGATIVE NEGATIVE Enrike/uL Influenza Type A Antigen Negative For Type A NEGATIVE Influenza Type B Antigen Negative For Type B NEGATIVE SARS-CoV-2, RNA, NAAT NEGATIVE SARS CoV-2 NEGATIVE Total Creatine Kinase 183 # 21-232 U/L B-Type Natriuretic Peptide 944 H 0-100 pg/mL Current Medications Medications (Trade) Dose Ordered Sig/Lydia Route PRN Reason Start Time Stop Time Status Last Admin Dose Admin Acetaminophen (TYLenol 650MG SUPPOSITORY) 650 mg Q6H PRN RC MILD PAIN (1-3) 08/25/24 19:30 09/24/24 19:29 Albuterol (DUOneb) 1 UDVIAL [id number] IH 08/26/24 00:00 09/25/24 00:00 08/27/24 11:41 1 UDVIAL Albuterol (DUOneb) 2 udvial ONCE IH 08/25/24 18:00 08/25/24 22:00 DC 08/25/24 19:17 2 UDVIAL Aspirin (Aspirin 300mg Supp) 300 mg ONCE IN 08/25/24 19:30 08/25/24 23:59 DC 08/25/24 19:41 300 MG Aspirin (Aspirin 81mg Ec Tab) 81 mg DAILY PO 08/26/24 09:00 09/25/24 08:59 08/27/24 08:56 81 MG Atorvastatin Calcium (LIPItor 40MG) 40 mg HS PO 08/26/24 07:30 08/26/24 07:44 DC Azithromycin 250 ml @ 250 mls/hr Q24H IVPB 08/25/24 18:51 08/25/24 23:30 DC Azithromycin 250 ml @ 250 mls/hr Q24H IVPB 08/25/24 19:30 08/25/24 19:38 DC Ceftriaxone Sodium (ROCEphine 1G INJ) 1 gm ONCE IVPB 08/25/24 19:00 08/25/24 21:03 DC 08/25/24 19:41 1 GM Ceftriaxone Sodium (ROCEphine 1G INJ) 1 gm Q24H IVPB 08/25/24 19:30 08/26/24 12:29 DC Clopidogrel Bisulfate (plaVIX 300MG TAB) 300 mg ONCE PO 08/25/24 21:00 08/26/24 06:00 DC 08/25/24 23:16 300 MG Clopidogrel Bisulfate (plaVIX 75MG) 75 mg DAILY PO 08/26/24 09:00 09/25/24 08:59 08/27/24 08:56 75 MG Fentanyl Citrate 100 ml @ 2.5 mls/hr PROTOCOL IV 08/25/24 20:00 09/01/24 19:59 08/27/24 08:50 2.5 MLS/HR Furosemide (LASix 20MG VIAL) 20 mg Q12H IV 08/26/24 09:00 08/27/24 12:24 DC 08/27/24 08:56 20 MG Heparin Sodium (Porcine) (HEParin 5,000 UNIT VIAL) *calculation based on ACTUAL B... AD PRN IV HEPARIN PROTOCOL 08/25/24 20:00 09/24/24 19:59 Heparin Sodium/ Dextrose 250 ml @ 0 mls/hr Q6H IV 08/25/24 20:00 09/24/24 19:59 08/25/24 20:12 13.87 MLS/HR Insulin Human Regular (humuLIN R 100 UNIT/ML 3ML) INSULIN SLIDING SCAL... Q6H6 SQ 08/26/24 00:00 09/25/24 00:00 08/26/24 05:58 2 UNIT Ketamine HCl (ketaMINE 50MG/ ML SYRINGE) 50 mg ONCE IM 08/25/24 19:00 08/25/24 22:00 DC Ketamine HCl (ketaMINE 50MG/ ML SYRINGE) 50 mg ONCE IM 08/25/24 19:00 08/25/24 23:59 DC Methylprednisolone Sodium Succinate (Solu-medROL 40MG) 40 mg Q8H IVP 08/25/24 23:00 08/27/24 12:19 DC 08/27/24 06:23 40 MG Methylprednisolone Sodium Succinate (Solu-medROL 125MG) 125 mg ONCE IVP 08/25/24 18:00 08/25/24 22:00 DC 08/25/24 18:52 125 MG Midazolam HCl 50 ml @ 0 mls/hr PROTOCOL IV 08/25/24 19:00 09/01/24 18:59 08/27/24 11:18 9 MLS/HR Midazolam HCl 50 mg/Sodium Chloride 50 ml @ 0 mls/hr PROTOCOL IV 08/25/24 19:00 09/24/24 18:59 UNV Morphine Sulfate (morPHINE 2MG SYG) 2 mg Q4H PRN IVP SEVERE PAIN (7-10) 08/26/24 07:30 09/01/24 19:29 Morphine Sulfate (morPHINE 4MG SYG) 2 mg Q4H PRN IVP SEVERE PAIN (7-10) 08/25/24 19:30 08/26/24 07:11 DC Norepinephrine 250 ml @ 0 mls/hr AD PRN IV DIRECTED 08/27/24 06:00 09/26/24 05:59 Norepinephrine 250 ml @ 0 mls/hr PROTOCOL IV 08/25/24 19:30 08/26/24 05:10 DC 08/26/24 00:14 121.5 MLS/HR Norepinephrine Bitartrate 32 mg/ Sodium Chloride 250 ml @ 0 mls/hr Q0M PRN IV hypotension 08/26/24 05:30 09/25/24 05:29 Hold 08/26/24 06:04 19.87 MLS/HR Ondansetron HCl (zoFRAN 4MG INJ) 4 mg Q6H PRN IV NAUSEA/VOMITING 08/25/24 19:30 09/24/24 19:29 Pantoprazole Sodium (PROTonix 40MG INJ) 40 mg DAILY IV 08/26/24 09:00 09/25/24 08:59 08/27/24 08:56 40 MG Piperacillin Sod/ Tazobactam Sod (Zosyn 3.375gm+NS 50ml) 3.375 gm Q8H IV 08/25/24 20:00 09/04/24 19:59 UNV Piperacillin Sod/ Tazobactam Sod (Zosyn 3.375gm+NS 50ml) 3.375 gm ZOSY8 IV 08/25/24 21:00 09/04/24 20:59 08/27/24 12:46 3.375 GM DIAGNOSTICS / RADIOLOGY: [ ] ASSESSMENT: Acute hypoxemic respiratory failure, POA, requiring intubation and mechanical ventilation Hypotension, POA, currently suspected to be cardiogenic shock Acute coronary syndrome, POA 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 Continue aspirin 81 mg Q 24 hours Continue Plavix 75 mg Q 24 hours Continue sliding scale insulin Continue methylprednisone 40 mg Q 8 hours Continue Zosyn Continue heparin drip Discontinue Rocephin Critical care/pulmonology consulted, appreciate recommendations Cardiology consulted, appreciate recommendations Disposition: Pending improvement in clinical status, patient may need KARTHIK to evaluate mitral valve mass Greater than 35 minutes ICU time spent in care of this patient RANDY POZO MD Aug 27, 2024 13:39
--- NOTE | 2024-08-27 17:37 | HMCSR ---
APPROVED REPORT EXAM: Two-dimensional and M-mode echocardiogram with Doppler and color Doppler. INDICATION ICD: ACS 2D Dimensions IVSd0.6 (0.7-1.1cm)LVEF(%)69.9 (>50%)LVED Vol(simp.)119.0 mL LVDd5.3 (3.8-5.6cm)FS(%)40 %LVES Vol(simp.)54.0 mL PWd0.9 (0.7-1.1cm)LA (2D)5.1 (1.6-4.0cm)LVEF(%, simp.)54 % IVSs0.9 cmAo Root(2D)3.2 (2.0-3.7cm)LA ESV INDEX (BP)29.15 mL/m2 LVDs3.2 (2.5-4.0cm)LVOT diam1.9 (1.8-2.4cm) PWs1.3 cmIVC diam2.9 cm Deformation Strain Apical 4-12.0 % Apical 2-13.0 % Apical 3-6.0 % Global Strain-10.0 % M-Mode Dimensions EPSS0.9 cm LA (MM)4.6 (1.6-4.0cm) Ao Root(MM)3.5 (2.0-3.7cm) Aortic Valve AoV Vmax1.0 m/Prasad Peak GR3.9 mmHgLVOT Vmax0.8 m/s AoV VTI0.2 mAo Mean GR1.9 mmHgLVOT VTI0.13 m YENNY (VMAX)2.4 cm2Al P1/2T358 msAVA (VTI) 2.4 cm2 Mitral Valve P 1/2 T76 msMV Peak GR71 mmHg MVA (PHT)2.9 cm2MV Mean GR46 mmHg Tricuspid Valve TR Vmax3.3 m/sRVSP44.7 mmHg TR Peak GR44.7 mmHg Left Ventricle The left ventricle is normal in size. The basal/mid inferior wall is severely hypokinetic. The anteri or and anteroseptal kumar are hypokinetic. The other kumar are grossly normal in function. Mild tosha ntric left ventricular hypertrophy. Left ventricle systolic function is mildly depressed, estimated L VEF 40-45%. Indeterminate diastolic function. Right Ventricle The right ventricle is normal size. The right ventricular systolic function is normal. Atria The left atrium is mildly dilated. The right atrium is mildly dilated. Aortic Valve The aortic valve is normal in structure and function. The leaflets are mildly thickened and calcified . Mild aortic regurgitation. There is no aortic valvular stenosis. Mitral Valve The mitral valve is normal in structure and function. The leaflets are mildly thickened and calcified . Moderate mitral regurgitation. There is a large size (1.0 cm), echodense mass, seen on the posterio r leaflet of the mitral valve. There is no mitral valve stenosis. Tricuspid Valve The tricuspid valve is normal in structure and function. Moderate tricuspid regurgitation. RVSP is 4 5 mmHg. Pulmonic Valve Pulmonic valve is not well visualized. Great Vessels The aortic root is normal in size. IVC is dilated and collapses <50% with inspiration. Pericardium No pericardial effusion. Conclusion The left atrium is mildly dilated. The right atrium is mildly dilated. Mild concentric left ventricular hypertrophy. The basal/mid inferior wall is severely hypokinetic. The anterior and anteroseptal kumar are hypokin etic. The other kumar are grossly normal in function. Left ventricle systolic function is mildly depressed, estimated LVEF 40-45%. Indeterminate diastolic function. Mild aortic regurgitation. Moderate mitral regurgitation. There is a large size (1.0 cm), echodense mass, seen on the posterior leaflet of the mitral valve. Moderate tricuspid regurgitation. PASP is 60 mmHg. No pericardial effusion. 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 C linical correlation is advised.
[2024-08-27] MEDS: proPOFol 1000 MG/100 ML IV PRN (17:54)
--- NOTE | 2024-08-27 19:14 | NUR ---
Pending radiologist to review CXR post PICC placement; as per PICC nurse PICC is in basilic vein.
--- NOTE | 2024-08-27 19:18 | CONS ---
Cardiology Consult Note Cardiology Attending: Roberta Henry Consulting Physician: [] Date of Service: 08/27/24 Reason for Consult: ACS-NSTEMI HPI: This is a 74-year-old male with a past medical history of CAD, ACS-STEMI s/p PCI to the RCA done in 2004, HTN, HLP who presents with shortness of breath of 3 days' duration. The patient is intubated, sedated, and on mechanical ventilation, so the history is obtained via chart review. The symptoms began spontaneously and over the ensuing 3 days progressively worsened. Prior to admission his symptoms were present at rest. Patient denied any associated symptoms or any other active complaints including chest pain, chest pressure, or palpitations. In the ED the patient went into acute respiratory failure and was subsequently intubated and placed on mechanical ventilation. Cardiac enzy mes were obtained and were found to be elevated. He was subsequently diagnosed with ACS-NSTEMI and was started on treatment. PMH: Listed above PSH: Listed above FH: Unable to obtain SH: Unable to obtain Home medications: Donepezil, carvedilol 3.125 mg b.i.d., lisinopril 2.5 mg daily, rosuvastatin 10 mg daily, aspirin 81 mg daily Allergies: Coded Allergies: atorvastatin (Unverified Allergy, Unknown, MUSCLE SPASMS, 04/13/16) Review of systems: Unable to obtain Physical Exam: Vital Signs Date Time Temp Pulse Resp B/P (MAP) Pulse Ox O2 Delivery O2 Flow Rate FiO2 08/27/24 18:30 55 20 107/66 (80) 100 08/27/24 18:15 40 08/27/24 16:00 Ventilator+ 08/27/24 16:00 98.6 08/25/24 17:57 10.0 General: Sedated, on mechanical ventilation. HEENT: NC/AT. Oral mucosa is moist. ET tube in place. Neck: No masses, JVD, or carotid bruits Lungs: NRD. SCM. B/L air entry. Coarse breath sounds heard bilaterally. Cardio: Rate @ 77bpm. Normal S1 and S2. +S4. 2/6 systolic ejection murmur heard best at the apex. Abdomen: Soft. NT. ND. Normal active bowel sounds x 4 quadrants. Extremities: No edema, clubbing or cyanosis. Diminished pulses noted throughout. Neuro: Unable to obtain. Labs: Laboratory Tests Test 08/26/24 21:04 08/27/24 00:05 08/27/24 03:43 08/27/24 06:32 Range/Units Activated Partial Thromboplast Time 81.0 #H 62.9 H 26.3-35.5 SEC Whole Blood Glucose 146 H 130 H 70-110 MG/DL White Blood Count 18.9 H 4.8-10.8 K/uL Red Blood Count 3.46 L 4.50-6.20 MIL/uL Hemoglobin 11.3 L 14.0-18.0 g/dL Hematocrit 32.8 L 42-54 % Mean Corpuscular Volume 94.8 79-99 fL Mean Corpuscular Hemoglobin 32.7 27.0-33.0 pg Mean Corpuscular Hemoglobin Concent 34.5 32.0-36.0 g/dL Red Cell Distribution Width 13.0 11.0-15.5 % Platelet Count 520 H 130-400 K/uL Mean Platelet Volume 9.8 7.5-10.5 fL Immature Granulocyte % (Auto) 0.6 0-1 % Neutrophils (%) (Auto) 89.8 H 40.0-77.0 % Lymphocytes (%) (Auto) 4.4 L 21.0-51.0 % Monocytes (%) (Auto) 4.5 3.0-13.0 % Eosinophils (%) (Auto) 0.6 0.0-8.0 % Basophils (%) (Auto) 0.1 0.0-5.0 % Neutrophils # (Auto) 17.0 H 1.8-7.7 K/uL Lymphocytes # (Auto) 0.8 L 1.0-4.8 K/uL Monocytes # (Auto) 0.9 0.1-1.0 K/uL Eosinophils # (Auto) 0.12 0.00-0.70 K/uL Basophils # (Auto) 0.02 0.00-0.20 K/uL Absolute Immature Granulocyte (auto 0.11 0-1 K/uL Nucleated Red Blood Cells 0.0 0.0-0.19 % Sodium Level 127 L 136-145 mmol/L Potassium Level 4.3 3.5-5.1 mmol/L Chloride Level 93 L 101-111 mmol/L Carbon Dioxide Level 22 21-32 mmol/L Blood Urea Nitrogen 36 H 7-18 mg/dL Creatinine 1.8 H 0.5-1.3 mg/dL Glomerular Filtration Rate Calc 39 >90 mL/min Random Glucose 150 H 70-105 mg/dL Total Calcium 8.6 8.5-10.1 mg/dL Test 08/27/24 08:36 08/27/24 10:05 08/27/24 11:21 08/27/24 14:59 Range/Units Activated Partial Thromboplast Time 74.4 H 47.9 #H 26.3-35.5 SEC Magnesium Level 2.10 1.80-2.40 mg/dL Blood Gas Specimen Type Arterial Arterial Blood pH 7.478 H 7.350-7.450 Arterial Blood Partial Pressure CO2 29 L 35-48 mmHg Arterial Blood Partial Pressure O2 259.6 H 83.0-108.0 mmHg Arterial Blood HCO3 20.7 L 21.0-28.0 mmol/L Arterial Blood Oxygen Saturation 99.5 H 94.0-98.0 % Arterial Blood Base Excess -2.0 -2.0-3.0 mmol/L Hemoglobin (Blood Gas) 10.7 L 13.5-17.5 g/dL Sodium (Blood Gas) 130 L 136-145 MMOL/L Bedside Potassium (Blood Gas) 3.8 3.4-4.5 MMOL/L Bedside Chloride (Blood Gas) 99 98-107 MMOL/L Bedside Glucose (Blood Gas) 121 H 65-95 MG/DL Bedside Ionized Calcium (Blood Gas) 1.12 L 1.15-1.33 MMOL/L Bedside Lactic Acid (Blood Gas) 1.21 H 0.36-0.75 MMOL/L Blood Gas Temperature 37.0 35.5-37.0 CELSIUS Blood Gas Respiration Rate 22.0 min. Blood Gas Vent Mode AC ROOM AIR FiO2 50.0 % Blood Gas Tidal Volume 500 ml Blood Gas PEEP 6 cm H2O Blood Gas Specimen Comment RN RAINA Whole Blood Glucose 121 H 70-110 MG/DL Test 08/27/24 18:48 Range/Units Whole Blood Glucose 119 H 70-110 MG/DL Breaker Tender: Sinus rhythm ECG 08/25/2024: Sinus tachycardia. Q-waves seen in the inferior leads. Echocardiogram 08/26/2024: The left atrium is mildly dilated. The right atrium is mildly dilated. Mild concentric left ventricular hypertrophy. The basal/mid inferior wall is severely hypokinetic. The anterior and anteroseptal kumar are hypokinetic. The other kumar are grossly normal in function. Left ventricle systolic function is mildly depressed, estimated LVEF 40-45%. Indeterminate diastolic function. Mild aortic regurgitation. Moderate mitral regurgitation. There is a large size (1.0 cm), echodense mass, seen on the posterior leaflet of the mitral valve. Moderate tricuspid regurgitation. PASP is 60 mmHg. No pericardial effusion. Assessment: 1. Acute hypoxemic respiratory failure status post intubation, on mechanical ventilation 2. Viral URI 3. ACS-NSTEMI 4. Cardiogenic shock (LVEF 40-45%) 5. 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 Acute kidney injury Plan: 1. ACS-NSTEMI -stable -ECG 08/25/2024: Sinus tachycardia. Q-waves seen in the inferior leads. -laboratory data: High sensitivity troponin I: 6427 > 6201 > 8578 > 8429 > 7223 -echocardiogram 08/26/2024: The basal/mid inferior wall is severely hypokinetic. The anterior and anteroseptal kumar are hypokinetic. The other kumar are grossly normal in function. Left ventricle systolic function is mildly depressed, estimated LVEF 40-45%. -the above-mentioned findings are concerning and warrant further treatment, as a result we will tentatively schedule the patient for an C/coronary angiogram for tomorrow morning. Please make the patient NPO after midnight. In the meantime the patient will continue on aspirin 81 mg daily, clopidogrel 75 mg daily, and a heparin IV drip as per ACS protocol. 2. Cardiogenic shock -Stable -laboratory data: BUN 36, creatinine 1.8, BNP 944 -echocardiogram 08/26/2024: The basal/mid inferior wall is severely hypokinetic. The anterior and anteroseptal kumar are hypokinetic. The other kumar are grossly normal in function. Left ventricle systolic function is mildly depressed, estimated LVEF 40-45%. -the patient presented with the shortness of breath, of 3 days' duration. In the ED he went into acute respiratory failure and was subsequently intubated and placed on mechanical ventilation. Additionally he was started on norepinephrine IV drip. He remains intubated and on mechanical ventilation, but the norepinephrine IV drip has been weaned down. -the above-mentioned findings, specifically the patient's pressor requirements indicate clinical improvement. With that being said recommend continuing to titrate down the norepinephrine IV drip as tolerated. In addition we recommend decreasing Lasix from 40 to 20 mg IV BID 3. 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 There is moderate mitral regurgitation noted. -the above-mentioned echocardiogram findings are concerning for endocarditis. In order to further evaluate this issue we recommend a KARTHIK. We will tentatively schedule the procedure for tomorrow after the patient undergoes C/coronary angiogram. Thank you for this interesting consult and allowing us to participate in the care of the patient. Further recommendations to follow. ROBERTA HENRY MD Aug 27, 2024 19:18
--- NOTE | 2024-08-27 19:51 | NUR ---
DR. HAIR ORDERED FOR NURSE TO OBTAIN CONSENT FOR LEFT HEART CATHERIZATION TO BE DONE 08/28/24 IN THE MORNING AND NPO AFTER MIDNIGHT. PATIENT TO BE SHAVED FROM [facility] TO KNEES.
[2024-08-28] VITALS (97 sets, daily range): BP systolic 98–149; BP diastolic 40–101; PULSE 52–93; RESP 19–23; TEMP 97.7–98.6; O2SAT 100
[2024-08-28 04:35] LABS: BASOPHILS # (AUTO) 0.02 K/uL (0.00-0.20); BASOPHILS % (AUTO) 0.1 % (0.0-5.0); IMMATURE GRANULOCYTE ABSOLUTE 0.12 K/uL (0-1); LYMPHOCYTES # (AUTO) 1.6 K/uL (1.0-4.8); LYMPHOCYTES % (AUTO) 8.9 % (21.0-51.0); MEAN CORPUSCULAR HEMOGLOBIN 32.8 pg (27.0-33.0); MEAN CORPUSCULAR HGB CONC 34.5 g/dL (32.0-36.0); MEAN CORPUSCULAR VOLUME 95.1 fL (79-99); MONOCYTES # (AUTO) 1.6 K/uL (0.1-1.0); MONOCYTES % (AUTO) 9.2 % (3.0-13.0); NEUTROPHILS # (AUTO) 14.5 K/uL (1.8-7.7); NEUTROPHILS % (AUTO) 81.1 % (40.0-77.0); PLATELET COUNT (AUTO) 446 K/uL (130-400); RED BLOOD CELL COUNT(AUTO) 3.05 MIL/uL (4.50-6.20); RED CELL DISTRIBUTION WIDTH 13.4 % (11.0-15.5); WHITE BLOOD COUNT (AUTO) 17.9 K/uL (4.8-10.8)
[2024-08-28 04:43] LABS: CREATININE 1.5 mg/dL (0.5-1.3); POTASSIUM 3.8 mmol/L (3.5-5.1)
[2024-08-28] MEDS: HEParin 10,000 UNIT/10ML (1,000 UNIT/ML) VIAL IV ONE (06:58)
--- NOTE | 2024-08-28 09:07 | PN ---
Vitals/Labs Vital Signs Date Time Temp Pulse Resp B/P (MAP) Pulse Ox O2 Delivery O2 Flow Rate FiO2 08/28/24 08:15 53 20 107/58 (74) 100 08/28/24 08:00 40 08/28/24 04:00 97.9 08/28/24 04:00 Ventilator+ 08/25/24 17:57 10.0 Laboratory Tests 08/28/24 04:04 Echocardiogram 08/26/2024: The left atrium is mildly dilated. The right atrium is mildly dilated. Mild concentric left ventricular hypertrophy. The basal/mid inferior wall is severely hypokinetic. The anterior and anteroseptal kumar are hypokinetic. The other kumar are grossly normal in function. Left ventricle systolic function is mildly depressed, estimated LVEF 40-45%. Indeterminate diastolic function. Mild aortic regurgitation. Moderate mitral regurgitation. There is a large size (1.0 cm), echodense mass, seen on the posterior leaflet of the mitral valve. Moderate tricuspid regurgitation. PASP is 60 mmHg. No pericardial effusion. Medications Current Medications Methylprednisolone Sodium Succinate 125 mg ONCE IVP Last administered on 08/25/24at 18:52; Start 08/25/24 at 18:00; Stop 08/25/24 at 22:00; Status DC Albuterol 2 udvial ONCE IH Last administered on 08/25/24at 19:17; Start 08/25/24 at 18:00; Stop 08/25/24 at 22:00; Status DC Ketamine HCl 50 mg STK-MED ONCE .ROUTE Last administered on 08/25/24at 19:06; Start 08/25/24 at 18:10; Stop 08/25/24 at 18:11; Status DC Ketamine HCl 50 mg STK-MED ONCE .ROUTE Last administered on 08/25/24at 19:22; Start 08/25/24 at 18:14; Stop 08/25/24 at 18:14; Status DC Propofol 0 ml @ As Directed STK-MED ONCE IV; Start 08/25/24 at 18:20; Stop 08/25/24 at 18:20; Status DC Midazolam HCl 50 mg/Sodium Chloride 50 ml @ 0 mls/hr PROTOCOL IV; Start 08/25/24 at 19:00; Stop 09/24/24 at 18:59; Status UNV Ketamine HCl 50 mg ONCE IM; Start 08/25/24 at 19:00; Stop 08/25/24 at 22:00; Status DC Ketamine HCl 50 mg ONCE IM; Start 08/25/24 at 19:00; Stop 08/25/24 at 23:59; Status DC Midazolam HCl 50 ml @ 0 mls/hr PROTOCOL IV Last administered on 08/27/24at 11:18; Start 08/25/24 at 19:00; Stop 08/27/24 at 17:54; Status DC Ceftriaxone Sodium 1 gm ONCE IVPB Last administered on 08/25/24at 19:41; Start 08/25/24 at 19:00; Stop 08/25/24 at 21:03; Status DC Azithromycin 250 ml @ 250 mls/hr Q24H IVPB; Start 08/25/24 at 18:51; Stop 08/25/24 at 23:30; Status DC Aspirin 300 mg ONCE GA Last administered on 08/25/24at 19:41; Start 08/25/24 at 19:30; Stop 08/25/24 at 23:59; Status DC Heparin Sodium (Porcine) *calculation based on ACTUAL B... AD PRN IV Last administered on 08/28/24at 06:30; Start 08/25/24 at 20:00; Stop 09/24/24 at 19:59 Heparin Sodium/ Dextrose 250 ml @ 0 mls/hr Q6H IV Last administered on 08/28/24at 07:54; Start 08/25/24 at 20:00; Stop 09/24/24 at 19:59 Aspirin 300 mg ONCE ONCE GA; Start 08/25/24 at 19:30; Stop 08/25/24 at 19:31; Status DC Acetaminophen 650 mg Q6H PRN RC; Start 08/25/24 at 19:30; Stop 09/24/24 at 19:29 Pantoprazole Sodium 40 mg DAILY IV Last administered on 08/28/24at 07:54; Start 08/26/24 at 09:00; Stop 09/25/24 at 08:59 Ondansetron HCl 4 mg Q6H PRN IV; Start 08/25/24 at 19:30; Stop 09/24/24 at 19:29 Morphine Sulfate 2 mg Q4H PRN IVP; Start 08/25/24 at 19:30; Stop 08/26/24 at 07:11; Status DC Albuterol 1 UDVIAL [id number] IH Last administered on 08/28/24at 06:36; Start 08/26/24 at 00:00; Stop 09/25/24 at 00:00 Azithromycin 250 ml @ 250 mls/hr Q24H IVPB; Start 08/25/24 at 19:30; Stop 08/25/24 at 19:38; Status DC Ceftriaxone Sodium 1 gm Q24H IVPB; Start 08/25/24 at 19:30; Stop 08/26/24 at 12:29; Status DC Methylprednisolone Sodium Succinate 40 mg Q8H IVP Last administered on 08/27/24at 06:23; Start 08/25/24 at 23:00; Stop 08/27/24 at 12:19; Status DC Insulin Human Regular INSULIN SLIDING SCAL... Q6H6 SQ Last administered on 08/26/24at 05:58; Start 08/26/24 at 00:00; Stop 09/25/24 at 00:00 Norepinephrine 250 ml @ 0 mls/hr PROTOCOL IV Last administered on 08/26/24at 00:14; Start 08/25/24 at 19:30; Stop 08/26/24 at 05:10; Status DC Piperacillin Sod/ Tazobactam Sod 3.375 gm [id number] IV Last administered on 08/28/24at 06:29; Start 08/25/24 at 21:00; Stop 09/04/24 at 20:59 Piperacillin Sod/ Tazobactam Sod 3.375 gm Q8H IV; Start 08/25/24 at 20:00; Stop 09/04/24 at 19:59; Status UNV Fentanyl Citrate 100 ml @ As Directed STK-MED ONCE IV; Start 08/25/24 at 19:48; Stop 08/25/24 at 19:48; Status DC Fentanyl Citrate 100 ml @ 2.5 mls/hr PROTOCOL IV Last administered on 08/27/24at 14:22; Start 08/25/24 at 20:00; Stop 08/27/24 at 17:54; Status DC Clopidogrel Bisulfate 300 mg ONCE PO Last administered on 08/25/24at 23:16; Start 08/25/24 at 21:00; Stop 08/26/24 at 06:00; Status DC Clopidogrel Bisulfate 75 mg DAILY PO Last administered on 08/27/24at 08:56; Start 08/26/24 at 09:00; Stop 09/25/24 at 08:59 Furosemide 40 mg ONCE ONCE IV Last administered on 08/25/24at 23:16; Start 08/25/24 at 21:00; Stop 08/25/24 at 21:02; Status DC Norepinephrine Bitartrate 32 mg/ Sodium Chloride 250 ml @ 0 mls/hr Q0M PRN IV Last administered on 08/26/24at 06:04; Start 08/26/24 at 05:30; Stop 08/28/24 at 08:54; Status DC Magnesium Sulfate 50 ml @ As Directed STK-MED ONCE IV Last administered on 08/26/24at 05:56; Start 08/26/24 at 05:18; Stop 08/26/24 at 05:24; Status DC Aspirin 81 mg DAILY PO Last administered on 08/27/24at 08:56; Start 08/26/24 at 09:00; Stop 09/25/24 at 08:59 Atorvastatin Calcium 40 mg HS PO; Start 08/26/24 at 07:30; Stop 08/26/24 at 07:44; Status DC Morphine Sulfate 2 mg Q4H PRN IVP; Start 08/26/24 at 07:30; Stop 09/01/24 at 19:29 Furosemide 20 mg Q12H IV Last administered on 08/27/24at 08:56; Start 08/26/24 at 09:00; Stop 08/27/24 at 12:24; Status DC Furosemide 20 mg ONCE ONCE IV; Start 08/26/24 at 16:30; Stop 08/26/24 at 16:38; Status DC Norepinephrine 250 ml @ As Directed STK-MED ONCE IV Last administered on 08/27/24at 06:25; Start 08/27/24 at 05:20; Stop 08/27/24 at 05:26; Status DC Norepinephrine 250 ml @ 0 mls/hr AD PRN IV Last administered on 08/28/24at 07:50; Start 08/27/24 at 06:00; Stop 09/26/24 at 05:59 Propofol 1,000 mg PROTOCOL PRN IV Last administered on 08/28/24at 03:45; Start 08/27/24 at 16:30; Stop 09/26/24 at 16:29 Heparin Sodium (Porcine) 6,000 unit ONCE ONCE IV; Start 08/28/24 at 06:30; Stop 08/28/24 at 06:31; Status DC TETE BALES MD Aug 28, 2024 09:07
--- NOTE | 2024-08-28 09:13 | PN ---
1. Acute hypoxemic respiratory failure status post intubation, on mechanical ventilation 2. Viral URI 3. ACS-NSTEMI 4. Mild systolic heart failure (LVEF 40-45%) with moderate mitral regurgitation 5. 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 Acute kidney injury 7. Hyponatremia, Na+ 127 8. Hypotension, possibly septic shock Patient is sedated with propofol and eyes are open but he is not communicative, on a ventilator. Chest is clear and first and second heart sounds are normal. I do not appreciate a murmur on exam today. I do not appreciate peripheral embolic signs in nail beds etc.. Impression: Very ill patient requires pressor therapy, currently on norepinephrine. I do not believe this is cardiogenic shock with a 40-45% ejection fraction and only moderate mitral regurgitation. I think more likely he has septic shock or some other cause for his hypotension. Plan: Dr. Henry has planned coronary arteriography and KARTHIK for the patient today, and I think that is a good plan but I will not personally be able to execute it because I am scheduled in the office. Nursing is communicating with Dr. Henry about the details of the procedures. Vitals/Labs Vital Signs Date Time Temp Pulse Resp B/P (MAP) Pulse Ox O2 Delivery O2 Flow Rate FiO2 08/28/24 08:15 53 20 107/58 (74) 100 08/28/24 08:00 40 08/28/24 04:00 97.9 08/28/24 04:00 Ventilator+ 08/25/24 17:57 10.0 Laboratory Tests 08/28/24 04:04 Medications Current Medications Methylprednisolone Sodium Succinate 125 mg ONCE IVP Last administered on 08/25/24at 18:52; Start 08/25/24 at 18:00; Stop 08/25/24 at 22:00; Status DC Albuterol 2 udvial ONCE IH Last administered on 08/25/24at 19:17; Start 08/25/24 at 18:00; Stop 08/25/24 at 22:00; Status DC Ketamine HCl 50 mg STK-MED ONCE .ROUTE Last administered on 08/25/24at 19:06; Start 08/25/24 at 18:10; Stop 08/25/24 at 18:11; Status DC Ketamine HCl 50 mg STK-MED ONCE .ROUTE Last administered on 08/25/24at 19:22; Start 08/25/24 at 18:14; Stop 08/25/24 at 18:14; Status DC Propofol 0 ml @ As Directed STK-MED ONCE IV; Start 08/25/24 at 18:20; Stop 08/25/24 at 18:20; Status DC Midazolam HCl 50 mg/Sodium Chloride 50 ml @ 0 mls/hr PROTOCOL IV; Start 08/25/24 at 19:00; Stop 09/24/24 at 18:59; Status UNV Ketamine HCl 50 mg ONCE IM; Start 08/25/24 at 19:00; Stop 08/25/24 at 22:00; Status DC Ketamine HCl 50 mg ONCE IM; Start 08/25/24 at 19:00; Stop 08/25/24 at 23:59; Status DC Midazolam HCl 50 ml @ 0 mls/hr PROTOCOL IV Last administered on 08/27/24at 11:18; Start 08/25/24 at 19:00; Stop 08/27/24 at 17:54; Status DC Ceftriaxone Sodium 1 gm ONCE IVPB Last administered on 08/25/24at 19:41; Start 08/25/24 at 19:00; Stop 08/25/24 at 21:03; Status DC Azithromycin 250 ml @ 250 mls/hr Q24H IVPB; Start 08/25/24 at 18:51; Stop 08/25/24 at 23:30; Status DC Aspirin 300 mg ONCE OH Last administered on 08/25/24at 19:41; Start 08/25/24 at 19:30; Stop 08/25/24 at 23:59; Status DC Heparin Sodium (Porcine) *calculation based on ACTUAL B... AD PRN IV Last administered on 08/28/24at 06:30; Start 08/25/24 at 20:00; Stop 09/24/24 at 19:59 Heparin Sodium/ Dextrose 250 ml @ 0 mls/hr Q6H IV Last administered on 08/28/24at 07:54; Start 08/25/24 at 20:00; Stop 09/24/24 at 19:59 Aspirin 300 mg ONCE ONCE OH; Start 08/25/24 at 19:30; Stop 08/25/24 at 19:31; Status DC Acetaminophen 650 mg Q6H PRN RC; Start 08/25/24 at 19:30; Stop 09/24/24 at 19:29 Pantoprazole Sodium 40 mg DAILY IV Last administered on 08/28/24at 07:54; Start 08/26/24 at 09:00; Stop 09/25/24 at 08:59 Ondansetron HCl 4 mg Q6H PRN IV; Start 08/25/24 at 19:30; Stop 09/24/24 at 19:29 Morphine Sulfate 2 mg Q4H PRN IVP; Start 08/25/24 at 19:30; Stop 08/26/24 at 07:11; Status DC Albuterol 1 UDVIAL [id number] IH Last administered on 08/28/24at 06:36; Start 08/26/24 at 00:00; Stop 09/25/24 at 00:00 Azithromycin 250 ml @ 250 mls/hr Q24H IVPB; Start 08/25/24 at 19:30; Stop 08/25/24 at 19:38; Status DC Ceftriaxone Sodium 1 gm Q24H IVPB; Start 08/25/24 at 19:30; Stop 08/26/24 at 12:29; Status DC Methylprednisolone Sodium Succinate 40 mg Q8H IVP Last administered on 08/27/24at 06:23; Start 08/25/24 at 23:00; Stop 08/27/24 at 12:19; Status DC Insulin Human Regular INSULIN SLIDING SCAL... Q6H6 SQ Last administered on 08/26/24at 05:58; Start 08/26/24 at 00:00; Stop 09/25/24 at 00:00 Norepinephrine 250 ml @ 0 mls/hr PROTOCOL IV Last administered on 08/26/24at 00:14; Start 08/25/24 at 19:30; Stop 08/26/24 at 05:10; Status DC Piperacillin Sod/ Tazobactam Sod 3.375 gm ZOSY8 IV Last administered on 08/28/24at 06:29; Start 08/25/24 at 21:00; Stop 09/04/24 at 20:59 Piperacillin Sod/ Tazobactam Sod 3.375 gm Q8H IV; Start 08/25/24 at 20:00; Stop 09/04/24 at 19:59; Status UNV Fentanyl Citrate 100 ml @ As Directed STK-MED ONCE IV; Start 08/25/24 at 19:48; Stop 08/25/24 at 19:48; Status DC Fentanyl Citrate 100 ml @ 2.5 mls/hr PROTOCOL IV Last administered on 08/27/24at 14:22; Start 08/25/24 at 20:00; Stop 08/27/24 at 17:54; Status DC Clopidogrel Bisulfate 300 mg ONCE PO Last administered on 08/25/24at 23:16; Start 08/25/24 at 21:00; Stop 08/26/24 at 06:00; Status DC Clopidogrel Bisulfate 75 mg DAILY PO Last administered on 08/27/24at 08:56; Start 08/26/24 at 09:00; Stop 09/25/24 at 08:59 Furosemide 40 mg ONCE ONCE IV Last administered on 08/25/24at 23:16; Start 08/25/24 at 21:00; Stop 08/25/24 at 21:02; Status DC Norepinephrine Bitartrate 32 mg/ Sodium Chloride 250 ml @ 0 mls/hr Q0M PRN IV Last administered on 08/26/24at 06:04; Start 08/26/24 at 05:30; Stop 08/28/24 at 08:54; Status DC Magnesium Sulfate 50 ml @ As Directed STK-MED ONCE IV Last administered on 08/26/24at 05:56; Start 08/26/24 at 05:18; Stop 08/26/24 at 05:24; Status DC Aspirin 81 mg DAILY PO Last administered on 08/27/24at 08:56; Start 08/26/24 at 09:00; Stop 09/25/24 at 08:59 Atorvastatin Calcium 40 mg HS PO; Start 08/26/24 at 07:30; Stop 08/26/24 at 07:44; Status DC Morphine Sulfate 2 mg Q4H PRN IVP; Start 08/26/24 at 07:30; Stop 09/01/24 at 19:29 Furosemide 20 mg Q12H IV Last administered on 08/27/24at 08:56; Start 08/26/24 at 09:00; Stop 08/27/24 at 12:24; Status DC Furosemide 20 mg ONCE ONCE IV; Start 08/26/24 at 16:30; Stop 08/26/24 at 16:38; Status DC Norepinephrine 250 ml @ As Directed STK-MED ONCE IV Last administered on 08/27/24at 06:25; Start 08/27/24 at 05:20; Stop 08/27/24 at 05:26; Status DC Norepinephrine 250 ml @ 0 mls/hr AD PRN IV Last administered on 08/28/24at 07:50; Start 08/27/24 at 06:00; Stop 09/26/24 at 05:59 Propofol 1,000 mg PROTOCOL PRN IV Last administered on 08/28/24at 03:45; Start 08/27/24 at 16:30; Stop 09/26/24 at 16:29 Heparin Sodium (Porcine) 6,000 unit ONCE ONCE IV; Start 08/28/24 at 06:30; Stop 08/28/24 at 06:31; Status DC TETE BALES MD Aug 28, 2024 09:13
--- NOTE | 2024-08-28 09:23 | PN ---
[facility] PROGRESS NOTE Date Patient Seen: Aug 28, 2024 Time of Visit: 10:23 Supervising Physician: Dr. Purvis Consulting Physician: Dr French Outpatient Specialists: [ ] Inpatient Consults: Cardiology PROBLEM LIST: Acute hypoxic respiratory failure, multifactorial in the setting of congestive heart failure, and B\L pneumonia POA Cardiogenic shock Concern for endocarditis pending KARTHIK Acute systolic CHF in exacerbation, in the setting of NSTEMI POA B/L community-acquired pneumonia, POA NSTEMI, likely type 2 POA plans for [facility] today Hyponatremia, likely dilutional, POA Electrolyte abnormality, POA Feeding difficulty in adult, POA Alteration in mental status, POA Hypertension, POA Hyperlipidemia, POA INTERVAL HISTORY: 08/26/2024: At the time my evaluation in his assigned. He is sedated currently Versed and fentanyl drip, RASS scale of -5. The patient remains intubated on ACVC mode with vent settings rate of 22, tidal volume of 500, peep of 8 and FiO2 60%. There was no repeat ABG this a.m. for review. On chest imaging overnight, a chest CT showed no evidence of a pulmonary embolism. Repeat chest x-ray showed pulmonary vascular congestion with superimposed pneumonic infiltrates. This also showed the presence of a chest tube with its tip 6 cm above the lino. The patient also continues on Solu-Medrol 40 mg q.8 hours. On the monitor, the patient is hemodynamically stable. Remains on Levophed drip at 0.4 with map of 71. On labs overnight the patient had troponin peaked at 8578. A 2D echo was ordered and is pending results. The patient has a calculated CHADS- VASc score of 6. Cardiology was consulted and is pending. There is presence of a OGT that is clamped. Chemistry panel was notable for a sodium of 126 and a Mag of 1.70. The patient has a Leal catheter in place, I's and O's showed a cumulative balance of + 917.4. The patient remains on a heparin drip currently at 14.98 units/kilogram/hour. Hematology panel was notable for a elevated WBC of 14.3 which is suspected to be secondary to steroid use. Currently, PT of 4.4, INR of 1.19 and a PTT of > 139.0. Currently, there is no cultures in process. The patient is on empiric antibiotic therapy with Zosyn and Rocephin. 08/27/2024: At the time my evaluation in his assigned. He is sedated currently Versed and fentanyl drip, RASS scale of -5. The patient remains intubated on ACVC mode with vent settings rate of 22, tidal volume of 500, peep of 6 and FiO2 50%. Most recent ABG shows a pH of 7.4, pCO2 29, PO2 259 0.6 and HC03 of 20.7. On chest imaging overnight, a chest CT showed no evidence of a pulmonary embolism. Repeat chest x-ray showed pulmonary vascular congestion with superimposed pneumonic infiltrates that persist. This also showed the presence of a ET tube with its tip 6 cm above the lino. The patient also continues on Solu-Medrol 40 mg q.8 hours. On the monitor, the patient is hemodynamically stable. Remains on Levophed drip with map of 85. A 2D echo was ordered and is pending results. The patient has a calculated CHADS-VASc score of 6. Cardiology was consulted and is pending. There is presence of a OGT. Chemistry panel was notable for a sodium of 127 and a Mag of 2.10. An increase in renal parameters of BUN 36, creatinine of 1.8 and a GFR of 39. The patient has a Leal catheter in place, I's and O's showed a cumulative balance of + 1523.0. The patient remains on a heparin drip. Hematology panel was notable for a elevated WBC of 18.9, which is suspected to be secondary to steroid use. Currently, PTT of 74.4. Currently, there is no cultures in process. The patient is on empiric antibiotic therapy with Zosyn and Rocephin. 08/28/2024: At the time of my evaluation, the patient is lying in bed. He is currently sedated on propofol drip with a RASS scale of -5. The patient also remains intubated with setting of rate of 22, tidal volume of 500, peep of 6 and FiO2 50%. Currently, no ABG on file for review. Vital signs obtained today showed stable vital signs. Laboratory data today, CBC was noted due for a WBC of 19.9 which actually improved from 18.9 yesterday, H&H of 10.0/29.0 and a platelet count of 546. Chemistry panel was notable for an improving sodium of 135 and chloride of 100. Renal function with a BUN of 41, creatinine of 1.5 and a GFR of 48. I's and O's showed a cumulative balance of 866.9. Chest x-ray was notable for pulmonary vascular congestion and superimposed pulmonary infiltrates. Cultures are currently showing no growth both blood and sputum. Currently, the patient remains on antibiotic coverage with Zosyn. No other complaint. REVIEW OF SYSTEMS: Unable to obtain due to intubation PHYSICAL EXAM: GENERAL: Critically ill, intubated, on full mechanical ventilator support HEENT: EOMI NECK: Orally intubated no JVD, trachea midline LUNGS: Coarse bilateral lung sounds, on full mechanical ventilator support HEART: Regular rate and rhythm. Normal S1 and S2, without murmurs ABD: Abdomen soft, nontender. Bowel sounds present EXT: No clubbing cyanosis , some edema to bilateral lower extremity one to 2+ pitting NEURO: Sedated with Propofol Vital Signs (last 8hr) Date Time Temp Pulse Resp B/P (MAP) Pulse Ox O2 Delivery O2 Flow Rate FiO2 08/28/24 08:15 53 20 107/58 (74) 100 08/28/24 08:00 53 20 102/64 (77) 100 40 08/28/24 07:50 104/42 08/28/24 07:45 53 20 106/62 (77) 100 08/28/24 07:30 54 20 104/42 (62) 100 08/28/24 07:15 53 20 116/63 (80) 100 08/28/24 07:00 57 20 112/61 (78) 98 08/28/24 06:45 53 20 110/62 (78) 100 08/28/24 06:41 62 20 08/28/24 06:36 57 40 08/28/24 06:30 55 20 114/52 (72) 100 08/28/24 06:15 55 20 108/66 (80) 100 08/28/24 06:00 57 20 138/101 (113) 100 08/28/24 05:45 58 20 116/68 (84) 93 08/28/24 05:30 59 20 126/63 (84) 100 08/28/24 05:15 59 20 113/58 (76) 100 08/28/24 05:00 57 20 116/78 (91) 100 08/28/24 04:45 65 20 149/89 (109) 93 08/28/24 04:31 58 20 142/55 (84) 100 08/28/24 04:17 59 20 122/59 (80) 98 08/28/24 04:00 97.9 58 20 121/71 (88) 99 08/28/24 04:00 100 Ventilator+ 40 08/28/24 03:57 58 40 08/28/24 03:45 56 20 122/72 (89) 99 08/28/24 03:30 57 20 120/71 (87) 100 08/28/24 03:15 57 20 118/76 (90) 100 08/28/24 03:00 56 20 118/64 (82) 100 08/28/24 02:53 63 20 132/76 (94) 100 08/28/24 02:45 53 20 118/76 (90) 100 08/28/24 02:30 53 20 120/51 (74) 100 LABS: Hematology Labs: Test 08/28/24 04:04 Range/Units White Blood Count 17.9 H 4.8-10.8 K/uL Red Blood Count 3.05 L 4.50-6.20 MIL/uL Hemoglobin 10.0 L 14.0-18.0 g/dL Hematocrit 29.0 L 42-54 % Mean Corpuscular Volume 95.1 79-99 fL Mean Corpuscular Hemoglobin 32.8 27.0-33.0 pg Mean Corpuscular Hemoglobin Concent 34.5 32.0-36.0 g/dL Red Cell Distribution Width 13.4 11.0-15.5 % Platelet Count 446 H 130-400 K/uL Mean Platelet Volume 9.9 7.5-10.5 fL Immature Granulocyte % (Auto) 0.7 0-1 % Neutrophils (%) (Auto) 81.1 H 40.0-77.0 % Lymphocytes (%) (Auto) 8.9 L 21.0-51.0 % Monocytes (%) (Auto) 9.2 3.0-13.0 % Eosinophils (%) (Auto) 0.0 0.0-8.0 % Basophils (%) (Auto) 0.1 0.0-5.0 % Neutrophils # (Auto) 14.5 H 1.8-7.7 K/uL Lymphocytes # (Auto) 1.6 1.0-4.8 K/uL Monocytes # (Auto) 1.6 H 0.1-1.0 K/uL Eosinophils # (Auto) 0.00 0.00-0.70 K/uL Basophils # (Auto) 0.02 0.00-0.20 K/uL Absolute Immature Granulocyte (auto 0.12 0-1 K/uL Nucleated Red Blood Cells 0.0 0.0-0.19 % Chemistry Labs: Test 08/28/24 06:41 08/28/24 04:04 08/27/24 08:36 08/26/24 12:03 Range/Units Whole Blood Glucose 93 70-110 MG/DL Sodium Level 135 L 136-145 mmol/L Potassium Level 3.8 3.5-5.1 mmol/L Chloride Level 100 L 101-111 mmol/L Carbon Dioxide Level 24 21-32 mmol/L Blood Urea Nitrogen 41 H 7-18 mg/dL Creatinine 1.5 H 0.5-1.3 mg/dL Glomerular Filtration Rate Calc 48 >90 mL/min Random Glucose 103 70-105 mg/dL Total Calcium 8.1 L 8.5-10.1 mg/dL Magnesium Level 2.10 1.80-2.40 mg/dL Troponin I High Sensitivity 7223 *H 4-75 ng/L Coagulation Labs: Test 08/28/24 04:04 Range/Units Activated Partial Thromboplast Time 31.3 # 26.3-35.5 SEC DI[facility]NOSTICS / RADIOLOGY RESULTS: [ ] PLAN 08/26/2024: For now, we are going to continue current management for the patient. He will remain sedated with fentanyl and Versed and intubated for now due to his underlying condition. I am going to request a ABG to be drawn and we will address need for ventilator setting adjustment based on the ABG results. For now, the patient will remain on the Levophed drip and we will await the 2D echo as well as the input from the inspectors and regulatory officers. The magnesium deficit has been replaced per the protocol. The patient did receive a dose of Lasix 40 IV x1 dose overnight. I am going to order Lasix 20 IV q.12 and will continue to monitor the I's and O's. The patient will remain on a heparin drip and we will follow the protocol. I strongly believe the WBC elevation is secondary to the steroid use. The patient will continue on empiric antibiotic therapy with Zosyn and Rocephin for management of the pneumoniae. We will monitor the patient's progress and response to management. We will continue to provide general supportive care, GI and DVT prophylaxis. Further orders per attending MD and hospital course. 08/27/2024: For now, we are going to continue current management for the patient. He will remain sedated with fentanyl and Versed and intubated for now due to his underlying condition. For now, the patient will remain on the Levophed drip and we will await the 2D echo results as well as the input from the inspectors and regulatory officers. The patient continues on IV Lasix which I am going to hold due to the increasing renal parameters and will continue to monitor the I's and O's. The patient will remain on a heparin drip and we will follow the protocol. I strongly believe the WBC elevation is secondary to the steroid use. Cultures are so far negative and the patient remains afebrile. I am going to discontinue the Solu-Medrol. The patient will continue on empiric antibiotic therapy with Zosyn and Rocephin for management of the pneumoniae. We will monitor the patient's progress and response to management. We will continue to provide general supportive care, GI and DVT prophylaxis. Further orders per attending MD and hospital course. 08/28/2024: For now, we are going to continue current management for the patient. The plan is for a left heart catheterization today and possibly a KARTHIK later today due to the concern for endocarditis. In the meantime, the patient is going to continue on IV Zosyn as ordered. He will remain intubated, sedated with propofol and on heparin drip. We will await cardiology's input regarding the management of this patient and we will follow up with the inspectors and regulatory officers post procedure to discuss the findings. We will continue to provide general supportive care, GI and DVT prophylaxis. Continue to monitor the patient's progress and response to management. Further orders per attending MD and hospital course. 08/28/2024: 11:45 a.m. At this time, the case was discussed with the director database's Dr. Henry who performed a left heart catheterization on the aforementioned patient. The discussion included the findings on the left heart catheterization which consisted of severe triple- vessel disease and recommended CTS consultation for surgical consultation. 08/28/2024: 13:30. Day director database performed a bedside KARTHIK and postprocedure, the case was revisited with him Dr. 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 At this time, the discussion that the patient we will need a CABG along with both mitral and aortic valve repair. Also, the patient will need Infectious Disease consultation for antibiotic therapy guidance. Currently, the patient remains on. No other complaint. NEURO: Minimize central acting medications as possible. Fall Precautions. Well lighted room through the day and minimize interruptions through the night to prevent acute delirium. PULMONARY: Supplemental 02 as needed Titrate Fio2 to keep Spo2 > or = 90% DuoNebs and CPT as needed IS hourly while awake for pulmonary hygiene Out of bed to chair as tolerated VAP Bundle Vent/BIPAP Settings: Peep of 6, FiO2 50%, rate of 22, tidal volume 500 CARDIOVASCULAR: Follow hemodynamics. Titrate vasopressor to keep MAP >65 or systolic blood pressure >95mmHg DIPS: Heparin, fentanyl, Versed LINES: PIV GI & NUTRITION: NPO Continue nutritional support Aspirations precautions Prokinetic agents and laxatives as needed KIDNEYS & ELECTROLYTES: Strict monitoring of intake and output Daily weights Avoid nephrotoxic agents Monitor electrolytes and replace as needed Goal urine output of 30mL/hr or 0.5mL/kg/hr ENDOCRINE: Maintain blood glucose between 100-180 at all times. Insulin sliding scale for blood glucose management INFECTIOUS DISEASE: Trend temperature. Gaviria-culture if febrile. Micro: [ ] Antibiotics: Zosyn. HEMATOLOGY & COAGULATION: Monitor H&H. Keep Hgb > 7 Transfuse 1 unit of PRBC for Hgb < 7 Transfuse 1 pack of platelets of platelets < 20, 000 Watch for any signs and symptoms of bleeding SKIN: Pressure ulcer prevention per facility protocol Rehab: PT/OT Prophylaxis: GI: PPI DVT: Bilateral SCDs, heparin drip Code Status: Full Resuscitation Disposition: ICU Other: Total time in care of this patient includes 120 minutes excluding all procedures performed. CAITLYN PRYOR NP Aug 28, 2024 09:23
--- NOTE | 2024-08-28 09:30 | NUR ---
Patient taken to prosthetics lab technician via stretcher
[2024-08-28] MEDS ORDERED: LIDOCAINE HCL 400MG/20ML VIAL ONE (09:43)
[2024-08-28] MEDS ORDERED: IOHEXOL 350 MG/ML 100ML INFUS..BTL IV ONE (09:44)
[2024-08-28] MEDS ORDERED: NITROGLYCERIN 50MG VIAL ONE (09:44)
[2024-08-28] MEDS ORDERED: HEParin-NS 1,000 UNIT/500 ML 1,000 ML IV ONE (09:44)
--- NOTE | 2024-08-28 11:57 | PRN ---
PROCEDURE NOTE Indications: -ACS-NSTEMI -Cardiogenic shock on vasopressor/I inotropic support norepinephrine -Acute hypoxemic respiratory failure status post intubation, on mechanical ventilation -CAD s/p PCI stent placement in the distal RCA done in 2004 -suspected bacterial endocarditis affecting the mitral valve, pending KARTHIK Procedures: Femoral angiogram, left heart catheterization, coronary angiogram, placement of an intra-aortic balloon pump via the right common femoral artery Introduction: After informed written consent was obtained, the patient was brought to the Catheterization Lab in the usual fasting state. Following sterile prep and drape, a time out was performed. Then 1% Lidocaine was infiltrated into the right femoral groin. Using a Modified Seldinger technique, a 6Fr Sheath was inserted into the right common femoral artery. While under fluoroscopic guidance, diagnostic coronary catheters were advanced over a wire into the central circulation where they were aspirated, flushed and placed to pressure monitoring, once the wire was removed. Coronary Angio: The left and right coronary arteries were engaged with appropriate catheters and angiography was performed under continuous pressure monitoring. Left Heart Catheterization: A JR4 catheter was inserted into the LV and the pressure was recorded, then the catheter was removed from the LV. Cardiac Findings: Right dominant system LM: Large caliber vessel with 80% stenosis in the ostial left main and 95% stenosis in the distal left main. The vessel bifurcates into the LAD and LCX. LAD: Medium caliber vessel with 95% stenosis in the ostial LAD and 80% stenosis in the proximal LAD. The rest of the vessel has mild luminal irregularities. KINJAL three blood flow distally. Diagonal 1: Small caliber vessel with mild luminal irregularities LCx: Medium caliber vessel with 95% stenosis in the ostial LCX and diffuse 80% stenosis in the distal LCX. OM1: Small caliber vessel (<1.25mm) with diffuse luminal irregularities OM2: Small caliber vessel (<1.25mm) with diffuse luminal irregularities RCA: Medium caliber vessel with 100% stenosis ([employer]ANION) in the mid RCA. The [employer] extends into the distal RCA where there is a stent with 100% ISR. RPDA: Small caliber vessel that reconstitutes via [id number] collateral blood flow. RPLV: Small caliber vessel that reconstitutes via [id number] collateral blood flow LVEDP: 25mmHg Medications given: Heparin IV drip Coronary Intervention: After reviewing the above-mentioned findings the decision was made to implant an intra-aortic balloon pump. The 6 Nigerian arterial sheath was exchanged for a 8 Nigerian arterial sheath. We then advanced a 0.018 wire into the ascending aorta and advanced an intra-aortic balloon pump into place. The tip of the balloon pump was advanced below the left subclavian artery and above the renal arteries. One-to-one augmentation was then initiated. This was captured under fluoroscopy. The 8 Nigerian arterial sheath was then sutured into place. Complications: None Conscious Sedation Monitoring: Under my direct order and supervision, medication for moderate conscious s edation was administered by the nursing staff and the patients level of consciousness and physiological status was monitored by an independent trained nurse. Closure of Access Site: The 8 Nigerian arterial sheath was sutured into the right groin. Conclusion: 1. ACS-NSTEMI 2. Severe 3V + LM CAD (LAD, LCX, RCA, and LM) 3. Cardiogenic shock, LVEDP 25 mm Hg, on ionotropic/vasopressor support with norepinephrine, s/p placement of a IABP (currently with one-to-one augmentation) 4. Acute hypoxemic respiratory failure, on mechanical ventilation 5. Suspected bacterial endocarditis affecting the mitral valve, pending KARTHIK 6. Acute kidney injury Recommendation: 1. Continue goal-directed medical therapy 2. Stop clopidogrel 75 mg daily. Continue aspirin 81 mg daily and heparin IV drip as per ACS protocol 3. Bedrest 4. Groin precautions 5. Consult CT surgery for CABG + mitral valve replacement 6. Continue with IABP with 1:1 augmentation 7. Continue norepinephrine IV drip ROBERTA HAIR MD Aug 28, 2024 11:56
--- NOTE | 2024-08-28 12:51 | NUR ---
Nutritional Note: Pt currently intubated and sedated, Propofol is currently providing 399kcal from fat. Recommend: -Start Vital AF @20ml/hr x 24hrs and increase by 5ml q 4 to goal rate 55ml/hr 150ml q 4 or H20 flush as per MD. -When medically feasible transition to oral diet with [facility] soft low-residue, heart healthy diet 75gm cc diet. - Electrolyte replacements per protocol -Monitor feeding tolerance, %, wt, and labs. -RD to reassess needs in 2-3 days or as needed. -If No BM >3days consider bowel stimulant. -Schedule outpatient RD f/u for long-term nutrition care. - Notify RD if additional nutrition concerns arise. SEE RD Nutritional Assessment for additional assessment information. Addendum: 08/28/[address] at [address] Amended: Links added.
--- NOTE | 2024-08-28 13:17 | PN ---
[facility] PROGRESS NOTE Date of Service: Aug 28, 2024 Time of Service: 13:13 SUBJECTIVE: 08/26 patient seen at bedside, no acute events overnight. He remains intubated and sedated, continues on pressor support. FiO2 is 60%, we will wean towards extubation. Troponins are elevated, patient is started on ACS protocol with aspirin, Plavix, statin and heparin drip. Cardiology recommendations still pending, we will follow up. WBC increased from 10.8 up to 14.3, hemoglobin decreased from 13.2 down to 11.6, sodium stable at 126, similar to yesterday, troponins peaked and are now downtrending to 8429, remainder of his labs are relatively unremarkable. 08/27 patient seen at bedside, no acute events overnight. He remains intubated and sedated, continue weaning down pressors. His FiO2 has been weaned down to 50%, we will continue to wean as able, peep has been decreased from 8-6. Echocardiogram has been done, formal read is still pending, preliminary read shows a possible vegetation of the mitral valve, ejection fraction of 50-55%, mild to moderate aortic regurgitation, moderate mitral regurgitation, we will have him reassessed once he has been extubated as he may need a DESIREE, however given his blood cultures are no growth this mobile mass on the mitral valve may not be secondary to endocarditis. Creatinine has increased from 1.3 up to 1.8, hemoglobin stable at 11.3, similar to yesterday, WBC increased from 14.3 up to 18.9, platelets improved from 528 down to 520, sodium stable at 127, similar to yesterday, remainder of his labs are relatively unremarkable. Cultures are no growth to date. 08/28 patient is seen and examined at bedside, remains intubated, on mechanical ventilation, on propofol, Levophed and heparin drip. Discussed with the RN, back from having left heart catheterization with finding of three-vessel disease for which Cardiothoracic surgery consultation requested. TTE with a EF 50-55% with possible vegetation of the mitral valve. Patient is scheduled for DESIREE today. WBC 17.9. Blood cultures no growth after 48 hours. REVIEW OF SYSTEMS 12 point review of systems negative unless noted in HPI PHYSICAL EXAM GENERAL APPEARANCE: The patient is intubated, on mechanical ventilation, on propofol, Levophed and heparin. NEUROLOGICAL: Cranial nerves II-XII grossly intact. Motor is 5/5 in bilateral upper and lower extremities proximal to distal. No sensory deficits. HEENT: Face is symmetric. Pupils are equal and reactive. Extraocular movements are intact. NECK: Supple. No JVD. No thyromegaly. No submental, submandibular, pre- /postauricular, occipital or supraclavicular lymphadenopathy. CHEST: Normal chest expansion. No Telemetry. LUNGS: Absence of any rales, rhonchi or any wheezing. CARDIOVASCULAR: Regular. S1 and S2 normal. No appreciable rubs, murmurs or gallops. ABDOMEN: Soft, nontender, and nondistended. There is no rebound, voluntary guarding, or rigidity. : Deferred. No Leal. EXTREMITIES: Non-edematous and not cyanotic. No clubbing. Good capillary refill. SKIN: No skin breakdown. Vital Signs (last 8hr) Date Time Temp Pulse Resp B/P (MAP) Pulse Ox O2 Delivery O2 Flow Rate FiO2 08/28/24 12:03 76 40 08/28/24 11:50 90 40 08/28/24 09:00 58 20 108/54 (72) 100 08/28/24 08:45 62 20 116/67 (83) 100 08/28/24 08:30 62 20 106/63 (77) 100 08/28/24 08:15 53 20 107/58 (74) 100 08/28/24 08:00 98.6 08/28/24 08:00 53 20 102/64 (77) 100 40 08/28/24 07:50 104/42 08/28/24 07:45 53 20 106/62 (77) 100 08/28/24 07:30 54 20 104/42 (62) 100 08/28/24 07:15 53 20 116/63 (80) 100 08/28/24 07:00 57 20 112/61 (78) 98 08/28/24 06:45 53 20 110/62 (78) 100 08/28/24 06:41 62 20 08/28/24 06:36 57 40 08/28/24 06:30 55 20 114/52 (72) 100 08/28/24 06:15 55 20 108/66 (80) 100 08/28/24 06:00 57 20 138/101 (113) 100 08/28/24 05:45 58 20 116/68 (84) 93 08/28/24 05:30 59 20 126/63 (84) 100 08/28/24 05:15 59 20 113/58 (76) 100 LABS: Laboratory: Test 08/28/24 12:13 08/28/24 11:58 08/28/24 04:04 08/27/24 10:05 Range/Units Whole Blood Glucose 85 70-110 MG/DL Activated Partial Thromboplast Time 126.4 #*H 26.3-35.5 SEC White Blood Count 17.9 H 4.8-10.8 K/uL Red Blood Count 3.05 L 4.50-6.20 MIL/uL Hemoglobin 10.0 L 14.0-18.0 g/dL Hematocrit 29.0 L 42-54 % Mean Corpuscular Volume 95.1 79-99 fL Mean Corpuscular Hemoglobin 32.8 27.0-33.0 pg Mean Corpuscular Hemoglobin Concent 34.5 32.0-36.0 g/dL Red Cell Distribution Width 13.4 11.0-15.5 % Platelet Count 446 H 130-400 K/uL Mean Platelet Volume 9.9 7.5-10.5 fL Immature Granulocyte % (Auto) 0.7 0-1 % Neutrophils (%) (Auto) 81.1 H 40.0-77.0 % Lymphocytes (%) (Auto) 8.9 L 21.0-51.0 % Monocytes (%) (Auto) 9.2 3.0-13.0 % Eosinophils (%) (Auto) 0.0 0.0-8.0 % Basophils (%) (Auto) 0.1 0.0-5.0 % Neutrophils # (Auto) 14.5 H 1.8-7.7 K/uL Lymphocytes # (Auto) 1.6 1.0-4.8 K/uL Monocytes # (Auto) 1.6 H 0.1-1.0 K/uL Eosinophils # (Auto) 0.00 0.00-0.70 K/uL Basophils # (Auto) 0.02 0.00-0.20 K/uL Absolute Immature Granulocyte (auto 0.12 0-1 K/uL Nucleated Red Blood Cells 0.0 0.0-0.19 % Sodium Level 135 L 136-145 mmol/L Potassium Level 3.8 3.5-5.1 mmol/L Chloride Level 100 L 101-111 mmol/L Carbon Dioxide Level 24 21-32 mmol/L Blood Urea Nitrogen 41 H 7-18 mg/dL Creatinine 1.5 H 0.5-1.3 mg/dL Glomerular Filtration Rate Calc 48 >90 mL/min Random Glucose 103 70-105 mg/dL Total Calcium 8.1 L 8.5-10.1 mg/dL Blood Gas Specimen Type Arterial Arterial Blood pH 7.478 H 7.350-7.450 Arterial Blood Partial Pressure CO2 29 L 35-48 mmHg Arterial Blood Partial Pressure O2 259.6 H 83.0-108.0 mmHg Arterial Blood HCO3 20.7 L 21.0-28.0 mmol/L Arterial Blood Oxygen Saturation 99.5 H 94.0-98.0 % Arterial Blood Base Excess -2.0 -2.0-3.0 mmol/L Hemoglobin (Blood Gas) 10.7 L 13.5-17.5 g/dL Sodium (Blood Gas) 130 L 136-145 MMOL/L Bedside Potassium (Blood Gas) 3.8 3.4-4.5 MMOL/L Bedside Chloride (Blood Gas) 99 98-107 MMOL/L Bedside Glucose (Blood Gas) 121 H 65-95 MG/DL Bedside Ionized Calcium (Blood Gas) 1.12 L 1.15-1.33 MMOL/L Bedside Lactic Acid (Blood Gas) 1.21 H 0.36-0.75 MMOL/L Blood Gas Temperature 37.0 35.5-37.0 CELSIUS Blood Gas Respiration Rate 22.0 min. Blood Gas Vent Mode AC ROOM AIR FiO2 50.0 % Blood Gas Tidal Volume 500 ml Blood Gas PEEP 6 cm H2O Blood Gas Specimen Comment RN RAINA Test 08/27/24 08:36 Range/Units Magnesium Level 2.10 1.80-2.40 mg/dL Current Medications Medications (Trade) Dose Ordered Sig/Lydia Route PRN Reason Start Time Stop Time Status Last Admin Dose Admin Acetaminophen (TYLenol 650MG SUPPOSITORY) 650 mg Q6H PRN RC MILD PAIN (1-3) 08/25/24 19:30 09/24/24 19:29 Albuterol (DUOneb) 1 UDVIAL [id number] IH 08/26/24 00:00 09/25/24 00:00 08/28/24 12:04 1 UDVIAL Albuterol (DUOneb) 2 udvial ONCE IH 08/25/24 18:00 08/25/24 22:00 DC 08/25/24 19:17 2 UDVIAL Aspirin (Aspirin 300mg Supp) 300 mg ONCE OK 08/25/24 19:30 08/25/24 23:59 DC 08/25/24 19:41 300 MG Aspirin (Aspirin 81mg Ec Tab) 81 mg DAILY PO 08/26/24 09:00 09/25/24 08:59 08/27/24 08:56 81 MG Atorvastatin Calcium (LIPItor 40MG) 40 mg HS PO 08/26/24 07:30 08/26/24 07:44 DC Azithromycin 250 ml @ 250 mls/hr Q24H IVPB 08/25/24 18:51 08/25/24 23:30 DC Azithromycin 250 ml @ 250 mls/hr Q24H IVPB 08/25/24 19:30 08/25/24 19:38 DC Ceftriaxone Sodium (ROCEphine 1G INJ) 1 gm ONCE IVPB 08/25/24 19:00 08/25/24 21:03 DC 08/25/24 19:41 1 GM Ceftriaxone Sodium (ROCEphine 1G INJ) 1 gm Q24H IVPB 08/25/24 19:30 08/26/24 12:29 DC Clopidogrel Bisulfate (plaVIX 300MG TAB) 300 mg ONCE PO 08/25/24 21:00 08/26/24 06:00 DC 08/25/24 23:16 300 MG Clopidogrel Bisulfate (plaVIX 75MG) 75 mg DAILY PO 08/26/24 09:00 09/25/24 08:59 08/27/24 08:56 75 MG Fentanyl Citrate 100 ml @ 2.5 mls/hr PROTOCOL IV 08/25/24 20:00 08/27/24 17:54 DC 08/27/24 14:22 2.5 MLS/HR Furosemide (LASix 20MG VIAL) 20 mg Q12H IV 08/26/24 09:00 08/27/24 12:24 DC 08/27/24 08:56 20 MG Heparin Sodium (Porcine) (HEParin 5,000 UNIT VIAL) *calculation based on ACTUAL B... AD PRN IV HEPARIN PROTOCOL 08/25/24 20:00 09/24/24 19:59 08/28/24 06:30 6,000 UNIT Heparin Sodium/ Dextrose 250 ml @ 0 mls/hr Q6H IV 08/25/24 20:00 09/24/24 19:59 08/28/24 07:54 10.33 MLS/HR Insulin Human Regular (humuLIN R 100 UNIT/ML 3ML) INSULIN SLIDING SCAL... Q6H6 SQ 08/26/24 00:00 09/25/24 00:00 08/26/24 05:58 2 UNIT Ketamine HCl (ketaMINE 50MG/ ML SYRINGE) 50 mg ONCE IM 08/25/24 19:00 08/25/24 22:00 DC Ketamine HCl (ketaMINE 50MG/ ML SYRINGE) 50 mg ONCE IM 08/25/24 19:00 08/25/24 23:59 DC Methylprednisolone Sodium Succinate (Solu-medROL 40MG) 40 mg Q8H IVP 08/25/24 23:00 08/27/24 12:19 DC 08/27/24 06:23 40 MG Methylprednisolone Sodium Succinate (Solu-medROL 125MG) 125 mg ONCE IVP 08/25/24 18:00 08/25/24 22:00 DC 08/25/24 18:52 125 MG Midazolam HCl 50 ml @ 0 mls/hr PROTOCOL IV 08/25/24 19:00 08/27/24 17:54 DC 08/27/24 11:18 9 MLS/HR Midazolam HCl 50 mg/Sodium Chloride 50 ml @ 0 mls/hr PROTOCOL IV 08/25/24 19:00 09/24/24 18:59 UNV Morphine Sulfate (morPHINE 2MG SYG) 2 mg Q4H PRN IVP SEVERE PAIN (7-10) 08/26/24 07:30 09/01/24 19:29 Morphine Sulfate (morPHINE 4MG SYG) 2 mg Q4H PRN IVP SEVERE PAIN (7-10) 08/25/24 19:30 08/26/24 07:11 DC Norepinephrine 250 ml @ 0 mls/hr AD PRN IV DIRECTED 08/27/24 06:00 09/26/24 05:59 08/28/24 07:50 17.77 MLS/HR Norepinephrine 250 ml @ 0 mls/hr PROTOCOL IV 08/25/24 19:30 08/26/24 05:10 DC 08/26/24 00:14 121.5 MLS/HR Norepinephrine Bitartrate 32 mg/ Sodium Chloride 250 ml @ 0 mls/hr Q0M PRN IV hypotension 08/26/24 05:30 08/28/24 08:54 DC 08/26/24 06:04 19.87 MLS/HR Ondansetron HCl (zoFRAN 4MG INJ) 4 mg Q6H PRN IV NAUSEA/VOMITING 08/25/24 19:30 09/24/24 19:29 Pantoprazole Sodium (PROTonix 40MG INJ) 40 mg DAILY IV 08/26/24 09:00 09/25/24 08:59 08/28/24 07:54 40 MG Piperacillin Sod/ Tazobactam Sod (Zosyn 3.375gm+NS 50ml) 3.375 gm Q8H IV 08/25/24 20:00 09/04/24 19:59 UNV Piperacillin Sod/ Tazobactam Sod (Zosyn 3.375gm+NS 50ml) 3.375 gm ZOSY8 IV 08/25/24 21:00 09/04/24 20:59 08/28/24 12:16 3.375 GM Propofol (DIPRivan 1000MG/ 100ML) 1,000 mg PROTOCOL PRN IV SEDATION 08/27/24 16:30 09/26/24 16:29 08/28/24 09:04 1,000 MG DIAGNOSTICS / RADIOLOGY: [ ] ASSESSMENT: Acute hypoxemic respiratory failure, POA, requiring intubation and mechanical ventilation Hypotension, POA, currently suspected to be cardiogenic shock Acute coronary syndrome, status post left heart catheterization 08/28, finding of triple-vessel disease POA 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 Continue heparin drip Plan for desiree today. Continue furosemide 20 mg IV b.i.d. Continue aspirin 81 mg Q 24 hours Continue Plavix 75 mg Q 24 hours Continue sliding scale insulin Continue methylprednisone 40 mg Q 8 hours Continue Zosyn Critical care/pulmonology consulted, appreciate recommendations Cardiology consulted, appreciate recommendations Disposition: Pending improvement in clinical status, scheduled for DESIREE to evaluate mitral valve mass Greater than 35 minutes ICU time spent in care of this patient JODEE SEN MD Aug 28, 2024 13:17
[2024-08-28] MEDS: FENTanyl CITRate PF 50 MCG/1 ML 2ML VIAL ONE (13:58)
[2024-08-28] MEDS: FENTanyl CITRate PF 50 MCG/1 ML 2ML VIAL IVP ONE (13:58)
[2024-08-28] MEDS ORDERED: MIDAZOLAM HCL 50 MG in 0.9%NACL 50ML 50 ML IV ONE (14:00)
[2024-08-28] MEDS: ZYVOX 600 MG TAB PO SCH (15:19)
[2024-08-28] MEDS: levoFLOXacin 500 MG/D5W 100 ML 100 ML IV SCH (15:32)
--- NOTE | 2024-08-28 16:54 | HMCIMG ---
CHEST 1VW HISTORY: Pneumonia COMPARISON: 08/06 FINDINGS: A frontal projection of the chest was obtained. There are bilateral pulmonary infiltrates suggestive of pulmonary vascular congestion with possible superimposed pneumonitis. The heart is borderline enlarged. Degenerative changes are seen IMPRESSION: 1. Bilateral pulmonary infiltrates are seen suggestive of pulmonary vascular congestion with possible superimposed pneumonitis.
[2024-08-28] MEDS: polyETHYLene GLYCol 3350 17 GM POWD.PACK PO SCH (18:00)
--- NOTE | 2024-08-28 18:06 | NUR ---
DCP Patient intubated. Phone interview with Jorge Aguero, Son/POA [phone]. Jorge Aguero, Son/POA [phone] states he lives with patient in a mobile home with five steps at the entrance and a walk in shower with a bench. [facility] patient was able to complete ADL's on his own before "he broke his back, two weeks ago." States he would only assist him with medications but seemed to be semi assist after discharged from hospital visit 08/11/2024. [facility] patient makes his own decisions, does not drive. [facility] patient has a cane, regular walker and walker with a seat. Denies home health services, home care provider or dialysis. PCP - Cory Boyd MD Pharmacy - [facility]. Jorge Aguero, Son/POAjay [phone] states "probably will need a nurse to come to the house" after discharge. Referred him to [facility] and left information at bedside. [facility] insurance has changed and will bring insurance card tomorrow to update. New insurance goes into effect September 02; referred him to Financial Counseling. Notified Mariaa RINALDI RN of recent Compression fracture T12 (DOS 08/11/2024), states he will notify primary. RN stated patient needs a CABG and valve replacement, Dr Mcguire wants patient to be extubated and have a cognitive baseline prior to procedure. Neurology follow up with Dr. Briggs has not been scheduled per Jorge Aguero, Kb/POAjay [phone]. Addendum: 08/28/24 at 1917 by WILBER CARPENTER RN CM Amended: Links added.
--- NOTE | 2024-08-28 18:35 | NUR ---
SPEECH TRIGGER COMPLETED (INTUBATION). Pt IS A 74 Y.O. MALE ADMITTED SECONDARY TO ACUTE HYPOXEMIC RESPIRATORY FAILURE. Pt HAS A PAST MEDICAL HISTORY SIGNIFICANT FOR HYPERTENSION, GRADE 2 DIASTOLIC FAILURE, DYSLIPIDEMIA, AND DIVERTICULOSIS. PLEASE REQUEST SPEECH THERAPY SERVICES FOR SKILLED BEDSIDE SWALLOW EVALUATION 24 HOURS POST EXTUBATION IF ANY S/S OF ASPIRATION ARISE WITH ORAL INTAKE. 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 ALL QUESTIONS ANSWERED AT THIS TIME. Addendum: 08/29/[address] [facility] Amended: Links added.
[2024-08-28] MEDS: LACTULOSE 20 GM/30 ML UDCUP PO SCH (19:55)
--- NOTE | 2024-08-28 22:13 | CONS ---
INFECTIOUS DISEASE CONSULTATION NOTE REQUESTING PHYSICIAN: Dr. Fernandez. REASON FOR CONSULTATION: Endocarditis. HISTORY OF PRESENT ILLNESS: A 74-year-old male with history of CAD, COPD, hypertension and seizure who presented to hospital with shortness of breath. The patient was found with respiratory failure, subsequently intubated. The patient's troponin found to be positive. The patient underwent cardiac catheterization, showed 2-vessel disease. The patient initially had 2D echocardiogram done, 1 cm vegetation on the mitral valve. The patient eventually underwent transesophageal echocardiogram, which shows vegetation of both aortic and mitral valve. CT Surgery has been consulted. The patient at present on Zosyn. No documented fever. Blood culture came back negative. Influenza and COVID antigen are negative. No family at the bedside at this time. PAST MEDICAL HISTORY: * CAD. * COPD. * Hypertension. * CHF. PAST SURGICAL HISTORY: * PCI. * EGD. * Colonoscopy. ALLERGIES: LIPITOR. CURRENT MEDICATIONS: Include: * Zosyn. * Protonix. * Heparin drip. * Tylenol. * Zofran. SOCIAL HISTORY: Unable to obtain. FAMILY HISTORY: Unable to obtain. REVIEW OF SYSTEMS: Available history obtained from medical record. The patient at present is intubated and sedated. PHYSICAL EXAMINATION: GENERAL: Elderly male, ill looking, intubated and sedated, on ventilatory support. VITAL SIGNS: Temperature 98.6, pulse 89, respiratory rate 24. EYES: No icterus. Pupils equal and reactive. HENT: Orally intubated, on ventilatory support. NECK: Supple. No JVD or thyromegaly. LUNGS: Crackles bilaterally. No rhonchi. CARDIOVASCULAR: S1, S2 regular. Systolic murmur heard. ABDOMEN: Full, soft. Bowel sounds present. CENTRAL NERVOUS SYSTEM: The patient is sedated, withdrawal to tactile stimuli. SKIN: No rashes, no itchiness. LYMPHATIC: No peripheral lymphadenopathy. BACK: No deformity, no pressure ulcer. MUSCULOSKELETAL: No joint swelling, erythema, or tenderness. LABORATORY DATA: Sodium 135, potassium 3.8, BUN 41, creatinine of 1.5. WBC 17.9, hemoglobin 10.0, platelet 446. Urinalysis negative. ____ negative. Sputum culture negative. Blood culture, no growth for 2 days. RADIOLOGY: A 2D echocardiogram result reviewed. ASSESSMENT: A 74-year-old male admitted with shortness of breath. CURRENT PROBLEMS: Include: * Aortic valve endocarditis. * Mitral valve endocarditis. * Hypoxic respiratory failure, status post intubation. * Multivessel coronary artery disease. * ____. * Acute renal failure. * Leukocytosis. * Anemia. PLAN: * Continue Zosyn. * Start the patient on levofloxacin. * Start the patient on linezolid. * Obtain Brucella serology. * Obtain Bartonella serology. * Obtain Q fever serology. * Continue critical care support. * Continue ventilatory support. * Monitor electrolytes and correct as needed. * Follow up cultures. Thank you for allowing me to participate in the care of this patient. TID: [id number] RECEIPT: [id number]
[2024-08-29] VITALS (106 sets, daily range): BP systolic 83–142; BP diastolic 39–84; PULSE 40–126; RESP 14–150; TEMP 97.7–98.6; O2SAT 97–100
--- NOTE | 2024-08-29 01:05 | HMCSR ---
APPROVED REPORT EXAM: Transesophageal echocardiogram with color flow Doppler. INDICATION ICD: Rule out endocarditis Reason For Test : Rule out endocarditis. PROCEDURE After obtaining informed consent, patient underwent transesophageal echo in the 206 Please refer to medication administration record. was given as a topical anesthetic prior to the adm inistration of the conscious sedation. Type of Sedation: Please refer to medication administration record. Sedation was administered by Please refer to medication administration record. . Sedation was achieved with Propofol and Versed intravenously. Transesophageal probe was inserted and advanced into esophagus without difficulty by Mendez Wallace MD. KARTHIK was performed and images were obtained, probe was removed without complications. Throughout the procedure, the blood pressure, pulse oximetry, cardiac rhythm, and rate were monitored . The patient tolerated the procedure without adverse effects. Recovery from conscious sedation was une ventful and vital signs were stable. Left Ventricle The left ventricle is normal in size. Mild concentric left ventricular hypertrophy. Left ventricle sy stolic function is moderately depressed, estimated LVEF 40 to 45%. No left ventricle thrombus noted o n this study. Indeterminate diastolic function. Right Ventricle The right ventricle is normal size. The right ventricular systolic function is normal. Atria The left atrium is severely dilated. There is spontaneous contrast (rouleaux formation) seen in the l eft atrium. No thrombus was seen in the left atrium. No thrombus was seen in the left atrial appendag e. Intact. The right atrium is mildly dilated. Aortic Valve Aortic valve is trileaflet. The leaflets are mild thickened and calcified. Trace aortic regurgitation . There is a small sized, freely mobile, echodense mass attached to the right coronary leaflet. There is no aortic valvular stenosis. Mitral Valve The mitral valve is mildly thickened and calcified. Severe mitral regurgitation, with 2 jets of regur gitation. There is a large size (1.5cm) echodense mass attached to the A2 segment of the anterior aline flet. There is no mitral valve stenosis. Tricuspid Valve The tricuspid valve is normal in structure and function. Trace tricuspid regurgitation. No obvious ve getations were seen on the tricuspid valve. Pulmonic Valve The pulmonary valve is normal in structure and function. No obvious vegetations were seen on the pulm onic valve. Great Vessels The aortic root is normal in size. Ascending aorta appears normal in size. Pulmonary vein flow revers al noted. Pericardium No pericardial effusion. Conclusion The left atrium is severely dilated. There is spontaneous contrast (rouleaux formation) seen in the left atrium. No thrombus was seen in the left atrium. No thrombus was seen in the left atrial appen dage. The right atrium is mildly dilated. Mild concentric left ventricular hypertrophy. Left ventricle systolic function is moderately depressed, estimated LVEF 40 to 45%. Indeterminate diastolic function. Aortic valve is trileaflet. The leaflets are mild thickened and calcified. There is a small sized, freely mobile, echodense mass attached to the right coronary leaflet. Trace aortic regurgitation. The mitral valve is mildly thickened and calcified. There is a large size (1.5cm) echodense mass arminda ched to the A2 segment of the anterior leaflet. Severe mitral regurgitation, with 2 jets of regurgitation. Trace tricuspid regurgitation. No pericardial effusion. The above-mentioned findings confirm the diagnosis of bacterial endocarditis affecting both the jamila l and aortic valves. Recommendations: Continue goal-directed medical therapy. Consult ID to address blood culture-negative endocarditis Consult CT surgery for CABG plus aortic and mitral valve replacement.
[2024-08-29 03:27] LABS: EOSINOPHILS # (AUTO) 0.01 K/uL (0.00-0.70); EOSINOPHILS % (AUTO) 0.1 % (0.0-8.0); HEMATOCRIT 26.8 % (42-54); IMMATURE GRANULOCYTE ABSOLUTE 0.04 K/uL (0-1); LYMPHOCYTES # (AUTO) 1.6 K/uL (1.0-4.8); LYMPHOCYTES % (AUTO) 16.5 % (21.0-51.0); MEAN CORPUSCULAR HEMOGLOBIN 32.9 pg (27.0-33.0); MEAN CORPUSCULAR HGB CONC 34.7 g/dL (32.0-36.0); MEAN CORPUSCULAR VOLUME 94.7 fL (79-99); MONOCYTES # (AUTO) 0.7 K/uL (0.1-1.0); MONOCYTES % (AUTO) 6.9 % (3.0-13.0); NEUTROPHILS # (AUTO) 7.6 K/uL (1.8-7.7); NEUTROPHILS % (AUTO) 76.1 % (40.0-77.0); PLATELET COUNT (AUTO) 342 K/uL (130-400); RED BLOOD CELL COUNT(AUTO) 2.83 MIL/uL (4.50-6.20); RED CELL DISTRIBUTION WIDTH 13.6 % (11.0-15.5)
[2024-08-29 03:38] LABS: ALBUMIN 2.3 g/dL (3.5-5.0); BILIRUBIN,TOTAL 0.5 mg/dL (0.2-1.0); CREATININE 1.1 mg/dL (0.5-1.3); MAGNESIUM 2.3 mg/dL (1.80-2.40); POTASSIUM 3.8 mmol/L (3.5-5.1); TOTAL PROTEIN, SERUM 5.6 g/dL (6.0-8.3)
[2024-08-29 03:47] LABS: ABG BASE EXCESS -2.1 mmol/L (-2.0-3.0); ABG HCO3 20.4 mmol/L (21.0-28.0); ABG OXYGEN SATURATION 98.6 % (94.0-98.0); ABG PCO2 27 mmHg (35-48); ABG PH 7.489 (7.350-7.450); CARBON MONOXIDE 0.3 % (0.5-1.5); HHb 1.4; PO2, ARTERIAL BG 152.7 mmHg (83.0-108.0); VENT MODE, BG AC (ROOM AIR)
[2024-08-29] MEDS: HEParin 5,000 UNIT VIAL IV ONE (04:46)
--- NOTE | 2024-08-29 08:02 | PN ---
[facility] PROGRESS NOTE Date Patient Seen: Aug 29, 2024 Time of Visit: 09:01 Supervising Physician: Chetan Purvis MD Consulting Physician: Dr French Outpatient Specialists: [ ] Inpatient Consults: Cardiology PROBLEM LIST: Acute hypoxic respiratory failure, multifactorial in the setting of congestive heart failure, and B\L pneumonia POA requiring intubation Cardiogenic shock requiring IABP for MCS Endocarditis w/ Mitral and Aortic vegetation Acute systolic CHF in exacerbation, in the setting of NSTEMI POA B/L community-acquired pneumonia, POA NSTEMI, likely type 2 POA plans for [facility] today Hyponatremia, likely dilutional, POA Electrolyte abnormality, POA Feeding difficulty in adult, POA Alteration in mental status, POA Hypertension, POA Hyperlipidemia, POA INTERVAL HISTORY: 08/29-patient continues intubated, off sedation alert answers to his name and follow simple commands. He remains on light vasopressor support with Levophed at 0.06 micrograms/kilogram per minute with a map of 70, per RN she has been weaning Levophed off. Starting SBT this morning. Urine output was 1.1 L in the last 24 hours, with a cumulative balance of positive 796 mL, and a 24 hour + 28.6 mL. This morning on laboratory WBCs have normalized 10 today, H&H is 9.3/26.8 similar to yesterday. Platelet count has normalized 342 K. chemistries sodium 135 potassium 3.8 BUN 25 creatinine of 1.1 and GFR of 70 albumin of 2.3 AST 101 ALT 132. Sputum culture grown normal paul. On chest x- ray with increased pulmonary vascular congestion bilateral pulmonary infiltrates noted. Per RN report CV surgeon, recommended extubation if criteria met in order to have a full conversation with patient in regards to CABG. REVIEW OF SYSTEMS: Unable to obtain due to intubation PHYSICAL EXAM: GENERAL: Critically ill, intubated, on full mechanical ventilator support HEENT: EOMI NECK: Orally intubated no JVD, trachea midline LUNGS: Coarse bilateral lung sounds, on full mechanical ventilator support HEART: Regular rate and rhythm. Normal S1 and S2, without murmurs ABD: Abdomen soft, nontender. Bowel sounds present EXT: No clubbing cyanosis , some edema to bilateral lower extremity one to 1+ pitting NEURO: Awake alert and following simple commands. Vital Signs (last 8hr) Date Time Temp Pulse Resp B/P (MAP) Pulse Ox O2 Delivery O2 Flow Rate FiO2 08/29/24 07:25 69 30 08/29/24 06:16 73 22 08/29/24 06:15 72 17 140/48 (78) 100 08/29/24 06:11 73 40 08/29/24 06:00 74 16 130/54 (79) 100 30 08/29/24 05:45 67 82 127/48 (74) 100 08/29/24 05:30 57 17 125/41 (69) 100 08/29/24 05:15 64 19 131/80 (97) 100 08/29/24 05:00 90 19 135/52 (79) 100 30 08/29/24 04:45 89 22 127/47 (73) 100 08/29/24 04:30 65 20 121/58 (79) 100 08/29/24 04:15 56 16 132/55 (80) 100 08/29/24 04:00 98.4 57 17 135/39 (71) 100 30 08/29/24 04:00 30 08/29/24 04:00 100 Ventilator+ 30 08/29/24 03:50 30 08/29/24 03:45 57 16 133/50 (77) 100 08/29/24 03:37 63 40 08/29/24 03:30 63 21 133/45 (74) 100 08/29/24 03:15 57 20 134/84 (101) 100 08/29/24 03:00 58 20 100 40 08/29/24 02:45 63 20 117/71 (86) 100 08/29/24 02:30 59 20 114/42 (66) 100 08/29/24 02:15 66 22 121/63 (82) 100 08/29/24 02:00 60 20 118/45 (69) 100 40 08/29/24 01:45 63 20 119/42 (67) 100 08/29/24 01:30 61 20 117/53 (74) 100 08/29/24 01:15 59 20 118/45 (69) 100 LABS: Hematology Labs: Test 08/29/24 03:19 Range/Units White Blood Count 10.0 4.8-10.8 K/uL Red Blood Count 2.83 L 4.50-6.20 MIL/uL Hemoglobin 9.3 L 14.0-18.0 g/dL Hematocrit 26.8 L 42-54 % Mean Corpuscular Volume 94.7 79-99 fL Mean Corpuscular Hemoglobin 32.9 27.0-33.0 pg Mean Corpuscular Hemoglobin Concent 34.7 32.0-36.0 g/dL Red Cell Distribution Width 13.6 11.0-15.5 % Platelet Count 342 130-400 K/uL Mean Platelet Volume 10.1 7.5-10.5 fL Immature Granulocyte % (Auto) 0.4 0-1 % Neutrophils (%) (Auto) 76.1 40.0-77.0 % Lymphocytes (%) (Auto) 16.5 L 21.0-51.0 % Monocytes (%) (Auto) 6.9 3.0-13.0 % Eosinophils (%) (Auto) 0.1 0.0-8.0 % Basophils (%) (Auto) 0.0 0.0-5.0 % Neutrophils # (Auto) 7.6 1.8-7.7 K/uL Lymphocytes # (Auto) 1.6 1.0-4.8 K/uL Monocytes # (Auto) 0.7 0.1-1.0 K/uL Eosinophils # (Auto) 0.01 0.00-0.70 K/uL Basophils # (Auto) 0.00 0.00-0.20 K/uL Absolute Immature Granulocyte (auto 0.04 0-1 K/uL Nucleated Red Blood Cells 0.0 0.0-0.19 % Chemistry Labs: Test 08/29/24 03:19 08/28/24 23:25 Range/Units Sodium Level 135 L 136-145 mmol/L Potassium Level 3.8 3.5-5.1 mmol/L Chloride Level 102 101-111 mmol/L Carbon Dioxide Level 25 21-32 mmol/L Blood Urea Nitrogen 32 H 7-18 mg/dL Creatinine 1.1 0.5-1.3 mg/dL Glomerular Filtration Rate Calc 70 >90 mL/min Random Glucose 105 70-105 mg/dL Total Calcium 8.1 L 8.5-10.1 mg/dL Magnesium Level 2.30 1.80-2.40 mg/dL Total Bilirubin 0.5 0.2-1.0 mg/dL Aspartate Amino Transf (AST/SGOT) 101 H 10-37 U/L Alanine Aminotransferase (ALT/SGPT) 132 H 12-78 U/L Alkaline Phosphatase 109 50-136 U/L Total Protein 5.6 L 6.0-8.3 g/dL Albumin 2.3 L 3.5-5.0 g/dL Whole Blood Glucose 101 70-110 MG/DL Coagulation Labs: Test 08/29/24 03:19 08/28/24 11:06 Range/Units Activated Partial Thromboplast Time 39.7 #H 26.3-35.5 SEC Activated Clotting Time 204 H 100-180 SEC DIAGNOSTICS / RADIOLOGY RESULTS: [ ] PLAN SBT's Daily sedation vacation If patient tolerate SBTs this morning we will repeat ABG and possibly extubate if ready. IABP per Cardiology CV surgeon consult follow recommendations Antibiotics per ID NEURO: Minimize central acting medications as possible. Fall Precautions. Well lighted room through the day and minimize interruptions through the night to prevent acute delirium. PULMONARY: Supplemental 02 as needed Titrate Fio2 to keep Spo2 > or = 90% DuoNebs and CPT as needed IS hourly while awake for pulmonary hygiene Out of bed to chair as tolerated VAP Bundle Vent/BIPAP Settings: Peep of 6, FiO2 50%, rate of 22, tidal volume 500 CARDIOVASCULAR: Follow hemodynamics. Titrate vasopressor to keep MAP >65 or systolic blood pressure >95mmHg DIPS: Heparin, fentanyl, Versed LINES: PIV GI & NUTRITION: NPO Continue nutritional support Aspirations precautions Prokinetic agents and laxatives as needed KIDNEYS & ELECTROLYTES: Strict monitoring of intake and output Daily weights Avoid nephrotoxic agents Monitor electrolytes and replace as needed Goal urine output of 30mL/hr or 0.5mL/kg/hr ENDOCRINE: Maintain blood glucose between 100-180 at all times. Insulin sliding scale for blood glucose management INFECTIOUS DISEASE: Trend temperature. Gaviria-culture if febrile. Micro: [ ] 08/25/24 blood cultures negative Sputum cultures from 08/25/24 normal paul Antibiotics: Zosyn 08/25/24 Levaquin 08/28/24 Zyvox 08/28/24 HEMATOLOGY & COAGULATION: Monitor H&H. Keep Hgb > 7 Transfuse 1 unit of PRBC for Hgb < 7 Transfuse 1 pack of platelets of platelets < 20, 000 Watch for any signs and symptoms of bleeding SKIN: Pressure ulcer prevention per facility protocol Rehab: PT/OT Prophylaxis: GI: PPI DVT: Bilateral SCDs, heparin drip Code Status: Full Resuscitation Disposition: ICU Other: Total time in care of this patient includes 120 minutes excluding all procedures performed. ANDREI CHINO Aug 29, 2024 08:02
[2024-08-29] MEDS: furoSEMIDE 40MG VIAL IV ONE (08:41)
[2024-08-29] MEDS: polyETHYLene GLYCol 3350 17 GM POWD.PACK PO SCH (08:41)
[2024-08-29] MEDS: dexmedeTOMIDine 400MCG/NS100ML IV ONE (08:42)
[2024-08-29] MEDS: dexmedeTOMIDine 400MCG/NS100ML IV SCH (08:42)
--- NOTE | 2024-08-29 09:15 | PN ---
[facility] PROGRESS NOTE Date of Service: Aug 29, 2024 Time of Service: 09:12 SUBJECTIVE: 08/26 patient seen at bedside, no acute events overnight. He remains intubated and sedated, continues on pressor support. FiO2 is 60%, we will wean towards extubation. Troponins are elevated, patient is started on ACS protocol with aspirin, Plavix, statin and heparin drip. Cardiology recommendations still pending, we will follow up. WBC increased from 10.8 up to 14.3, hemoglobin decreased from 13.2 down to 11.6, sodium stable at 126, similar to yesterday, troponins peaked and are now downtrending to [id number], remainder of his labs are relatively unremarkable. 08/27 patient seen at bedside, no acute events overnight. He remains intubated and sedated, continue weaning down pressors. His FiO2 has been weaned down to 50%, we will continue to wean as able, peep has been decreased from 8-6. Echocardiogram has been done, formal read is still pending, preliminary read shows a possible vegetation of the mitral valve, ejection fraction of 50-55%, mild to moderate aortic regurgitation, moderate mitral regurgitation, we will have him reassessed once he has been extubated as he may need a KARTHIK, however given his blood cultures are no growth this mobile mass on the mitral valve may not be secondary to endocarditis. Creatinine has increased from 1.3 up to 1.8, hemoglobin stable at 11.3, similar to yesterday, WBC increased from 14.3 up to 18.9, platelets improved from 528 down to 520, sodium stable at 127, similar to yesterday, remainder of his labs are relatively unremarkable. Cultures are no growth to date. 08/28 patient is seen and examined at bedside, remains intubated, on mechanical ventilation, on propofol, Levophed and heparin drip. Discussed with the RN, back from having left heart catheterization with finding of three-vessel disease for which Cardiothoracic surgery consultation requested. TTE with a EF 50-55% with possible vegetation of the mitral valve. Patient is scheduled for KARTHIK today. WBC 17.9. Blood cultures no growth after 48 hours. 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 Continue goal-directed medical therapy, infectious disease consultation requested. Blood cultures has remained negative. CT surgery consultation requested for CABG plus aortic and mitral valve replacement. REVIEW OF SYSTEMS 12 point review of systems negative unless noted in HPI PHYSICAL EXAM GENERAL APPEARANCE: The patient is intubated, on mechanical ventilation, on propofol, Levophed and heparin. NEUROLOGICAL: Cranial nerves II-XII grossly intact. Motor is 5/5 in bilateral upper and lower extremities proximal to distal. No sensory deficits. HEENT: Face is symmetric. Pupils are equal and reactive. Extraocular movements are intact. NECK: Supple. No JVD. No thyromegaly. No submental, submandibular, pre- /postauricular, occipital or supraclavicular lymphadenopathy. CHEST: Normal chest expansion. No Telemetry. LUNGS: Absence of any rales, rhonchi or any wheezing. CARDIOVASCULAR: Regular. S1 and S2 normal. No appreciable rubs, murmurs or gallops. ABDOMEN: Soft, nontender, and nondistended. There is no rebound, voluntary guarding, or rigidity. : Deferred. No Leal. EXTREMITIES: Non-edematous and not cyanotic. No clubbing. Good capillary refill. SKIN: No skin breakdown. Vital Signs (last 8hr) Date Time Temp Pulse Resp B/P (MAP) Pulse Ox O2 Delivery O2 Flow Rate FiO2 08/29/24 08:45 126 40 08/29/24 07:25 69 30 08/29/24 06:16 73 22 08/29/24 06:15 72 17 140/48 (78) 100 08/29/24 06:11 73 40 08/29/24 06:00 74 16 130/54 (79) 100 30 08/29/24 05:45 67 82 127/48 (74) 100 08/29/24 05:30 57 17 125/41 (69) 100 08/29/24 05:15 64 19 131/80 (97) 100 08/29/24 05:00 90 19 135/52 (79) 100 30 08/29/24 04:45 89 22 127/47 (73) 100 08/29/24 04:30 65 20 121/58 (79) 100 08/29/24 04:15 56 16 132/55 (80) 100 08/29/24 04:00 98.4 57 17 135/39 (71) 100 30 08/29/24 04:00 30 08/29/24 04:00 100 Ventilator+ 30 08/29/24 03:50 30 08/29/24 03:45 57 16 133/50 (77) 100 08/29/24 03:37 63 40 08/29/24 03:30 63 21 133/45 (74) 100 08/29/24 03:15 57 20 134/84 (101) 100 08/29/24 03:00 58 20 100 40 08/29/24 02:45 63 20 117/71 (86) 100 08/29/24 02:30 59 20 114/42 (66) 100 08/29/24 02:15 66 22 121/63 (82) 100 08/29/24 02:00 60 20 118/45 (69) 100 40 08/29/24 01:45 63 20 119/42 (67) 100 08/29/24 01:30 61 20 117/53 (74) 100 08/29/24 01:15 59 20 118/45 (69) 100 LABS: Laboratory: Test 08/29/24 03:46 08/29/24 03:19 08/28/24 23:25 08/28/24 11:06 Range/Units Blood Gas Specimen Type Arterial Arterial Blood pH 7.489 H 7.350-7.450 Arterial Blood Partial Pressure CO2 27 L 35-48 mmHg Arterial Blood Partial Pressure O2 152.7 H 83.0-108.0 mmHg Arterial Blood HCO3 20.4 L 21.0-28.0 mmol/L Arterial Blood Oxygen Saturation 98.6 H 94.0-98.0 % Arterial Blood Base Excess -2.1 L -2.0-3.0 mmol/L Hemoglobin (Blood Gas) 10.1 L 13.5-17.5 g/dL Sodium (Blood Gas) 133 L 136-145 MMOL/L Bedside Potassium (Blood Gas) 3.7 3.4-4.5 MMOL/L Bedside Chloride (Blood Gas) 103 98-107 MMOL/L Bedside Glucose (Blood Gas) 92 65-95 MG/DL Bedside Ionized Calcium (Blood Gas) 1.13 L 1.15-1.33 MMOL/L Bedside Lactic Acid (Blood Gas) 0.80 H 0.36-0.75 MMOL/L Blood Gas Temperature 37.0 35.5-37.0 CELSIUS Blood Gas Respiration Rate 20.0 min. Blood Gas Vent Mode AC ROOM AIR FiO2 40.0 % Blood Gas Tidal Volume 500 ml Blood Gas PEEP 6 cm H2O Blood Gas Specimen Comment RR RN LORIE White Blood Count 10.0 4.8-10.8 K/uL Red Blood Count 2.83 L 4.50-6.20 MIL/uL Hemoglobin 9.3 L 14.0-18.0 g/dL Hematocrit 26.8 L 42-54 % Mean Corpuscular Volume 94.7 79-99 fL Mean Corpuscular Hemoglobin 32.9 27.0-33.0 pg Mean Corpuscular Hemoglobin Concent 34.7 32.0-36.0 g/dL Red Cell Distribution Width 13.6 11.0-15.5 % Platelet Count 342 130-400 K/uL Mean Platelet Volume 10.1 7.5-10.5 fL Immature Granulocyte % (Auto) 0.4 0-1 % Neutrophils (%) (Auto) 76.1 40.0-77.0 % Lymphocytes (%) (Auto) 16.5 L 21.0-51.0 % Monocytes (%) (Auto) 6.9 3.0-13.0 % Eosinophils (%) (Auto) 0.1 0.0-8.0 % Basophils (%) (Auto) 0.0 0.0-5.0 % Neutrophils # (Auto) 7.6 1.8-7.7 K/uL Lymphocytes # (Auto) 1.6 1.0-4.8 K/uL Monocytes # (Auto) 0.7 0.1-1.0 K/uL Eosinophils # (Auto) 0.01 0.00-0.70 K/uL Basophils # (Auto) 0.00 0.00-0.20 K/uL Absolute Immature Granulocyte (auto 0.04 0-1 K/uL Nucleated Red Blood Cells 0.0 0.0-0.19 % Activated Partial Thromboplast Time 39.7 #H 26.3-35.5 SEC Sodium Level 135 L 136-145 mmol/L Potassium Level 3.8 3.5-5.1 mmol/L Chloride Level 102 101-111 mmol/L Carbon Dioxide Level 25 21-32 mmol/L Blood Urea Nitrogen 32 H 7-18 mg/dL Creatinine 1.1 0.5-1.3 mg/dL Glomerular Filtration Rate Calc 70 >90 mL/min Random Glucose 105 70-105 mg/dL Total Calcium 8.1 L 8.5-10.1 mg/dL Magnesium Level 2.30 1.80-2.40 mg/dL Total Bilirubin 0.5 0.2-1.0 mg/dL Aspartate Amino Transf (AST/SGOT) 101 H 10-37 U/L Alanine Aminotransferase (ALT/SGPT) 132 H 12-78 U/L Alkaline Phosphatase 109 50-136 U/L Total Protein 5.6 L 6.0-8.3 g/dL Albumin 2.3 L 3.5-5.0 g/dL Whole Blood Glucose 101 70-110 MG/DL Activated Clotting Time 204 H 100-180 SEC Current Medications Medications (Trade) Dose Ordered Sig/Lydia Route PRN Reason Start Time Stop Time Status Last Admin Dose Admin Acetaminophen (TYLenol 650MG SUPPOSITORY) 650 mg Q6H PRN RC MILD PAIN (1-3) 08/25/24 19:30 09/24/24 19:29 Albuterol (DUOneb) 1 UDVIAL [id number] IH 08/26/24 00:00 09/25/24 00:00 08/29/24 06:15 1 UDVIAL Albuterol (DUOneb) 2 udvial ONCE IH 08/25/24 18:00 08/25/24 22:00 DC 08/25/24 19:17 2 UDVIAL Aspirin (Aspirin 300mg Supp) 300 mg ONCE AL 08/25/24 19:30 08/25/24 23:59 DC 08/25/24 19:41 300 MG Aspirin (Aspirin 81mg Ec Tab) 81 mg DAILY PO 08/26/24 09:00 09/25/24 08:59 08/29/24 08:41 81 MG Atorvastatin Calcium (LIPItor 40MG) 40 mg HS PO 08/26/24 07:30 08/26/24 07:44 DC Azithromycin 250 ml @ 250 mls/hr Q24H IVPB 08/25/24 18:51 08/25/24 23:30 DC Azithromycin 250 ml @ 250 mls/hr Q24H IVPB 08/25/24 19:30 08/25/24 19:38 DC Ceftriaxone Sodium (ROCEphine 1G INJ) 1 gm ONCE IVPB 08/25/24 19:00 08/25/24 21:03 DC 08/25/24 19:41 1 GM Ceftriaxone Sodium (ROCEphine 1G INJ) 1 gm Q24H IVPB 08/25/24 19:30 08/26/24 12:29 DC Clopidogrel Bisulfate (plaVIX 300MG TAB) 300 mg ONCE PO 08/25/24 21:00 08/26/24 06:00 DC 08/25/24 23:16 300 MG Clopidogrel Bisulfate (plaVIX 75MG) 75 mg DAILY PO 08/26/24 09:00 09/25/24 08:59 08/29/24 08:41 75 MG Dexmedetomidine/ Sodium Chloride (PRECEdex 400MCG/ 100ML-NS) 400 mcg PROTOCOL IV 08/29/24 09:00 09/28/24 08:59 08/29/24 08:42 400 MCG Fentanyl Citrate 100 ml @ 2.5 mls/hr PROTOCOL IV 08/25/24 20:00 08/27/24 17:54 DC 08/27/24 14:22 2.5 MLS/HR Furosemide (LASix 20MG VIAL) 20 mg Q12H IV 08/26/24 09:00 08/27/24 12:24 DC 08/27/24 08:56 20 MG Heparin Sodium (Porcine) (HEParin 5,000 UNIT VIAL) *calculation based on ACTUAL B... AD PRN IV HEPARIN PROTOCOL 08/25/24 20:00 09/24/24 19:59 08/28/24 06:30 6,000 UNIT Heparin Sodium/ Dextrose 250 ml @ 0 mls/hr Q6H IV 08/25/24 20:00 09/24/24 19:59 08/28/24 07:54 10.33 MLS/HR Insulin Human Regular (humuLIN R 100 UNIT/ML 3ML) INSULIN SLIDING SCAL... Q6H6 SQ 08/26/24 00:00 09/25/24 00:00 08/26/24 05:58 2 UNIT Ketamine HCl (ketaMINE 50MG/ ML SYRINGE) 50 mg ONCE IM 08/25/24 19:00 08/25/24 22:00 DC Ketamine HCl (ketaMINE 50MG/ ML SYRINGE) 50 mg ONCE IM 08/25/24 19:00 08/25/24 23:59 DC Lactulose (Constulose 20gm/ 30ml Udcup) 20 gm BID PO 08/28/24 21:00 09/27/24 20:59 08/29/24 08:41 20 GM Levofloxacin/ Dextrose 100 ml @ 100 mls/hr Q24H IV 08/28/24 14:30 08/28/24 15:24 DC Levofloxacin/ Dextrose 100 ml @ 100 mls/hr Q48H IV 08/28/24 15:30 09/11/24 15:29 08/28/24 15:32 100 MLS/HR Linezolid (Zyvox) 600 mg Q12H PO 08/28/24 14:30 09/11/24 14:29 08/29/24 01:56 600 MG Methylprednisolone Sodium Succinate (Solu-medROL 40MG) 40 mg Q8H IVP 08/25/24 23:00 08/27/24 12:19 DC 08/27/24 06:23 40 MG Methylprednisolone Sodium Succinate (Solu-medROL 125MG) 125 mg ONCE IVP 08/25/24 18:00 08/25/24 22:00 DC 08/25/24 18:52 125 MG Midazolam HCl 50 ml @ 0 mls/hr PROTOCOL IV 08/25/24 19:00 08/27/24 17:54 DC 08/27/24 11:18 9 MLS/HR Midazolam HCl 50 mg/Sodium Chloride 50 ml @ 0 mls/hr PROTOCOL IV 08/25/24 19:00 09/24/24 18:59 UNV Morphine Sulfate (morPHINE 2MG SYG) 2 mg Q4H PRN IVP SEVERE PAIN (7-10) 08/26/24 07:30 09/01/24 19:29 Morphine Sulfate (morPHINE 4MG SYG) 2 mg Q4H PRN IVP SEVERE PAIN (7-10) 08/25/24 19:30 08/26/24 07:11 DC Norepinephrine 250 ml @ 0 mls/hr AD PRN IV DIRECTED 08/27/24 06:00 09/26/24 05:59 08/29/24 02:46 26 MLS/HR Norepinephrine 250 ml @ 0 mls/hr PROTOCOL IV 08/25/24 19:30 08/26/24 05:10 DC 08/26/24 00:14 121.5 MLS/HR Norepinephrine Bitartrate 32 mg/ Sodium Chloride 250 ml @ 0 mls/hr Q0M PRN IV hypotension 08/26/24 05:30 08/28/24 08:54 DC 08/26/24 06:04 19.87 MLS/HR Ondansetron HCl (zoFRAN 4MG INJ) 4 mg Q6H PRN IV NAUSEA/VOMITING 08/25/24 19:30 09/24/24 19:29 Pantoprazole Sodium (PROTonix 40MG INJ) 40 mg DAILY IV 08/26/24 09:00 09/25/24 08:59 08/29/24 08:41 40 MG Piperacillin Sod/ Tazobactam Sod (Zosyn 3.375gm+NS 50ml) 3.375 gm Q8H IV 08/25/24 20:00 09/04/24 19:59 UNV Piperacillin Sod/ Tazobactam Sod (Zosyn 3.375gm+NS 50ml) 3.375 gm ZOSY8 IV 08/25/24 21:00 09/04/24 20:59 08/29/24 04:45 3.375 GM Polyethylene Glycol (MIRalax 3350 17 GM POWD.PACK) 17 gm DAILY PO 08/29/24 09:00 09/28/24 08:59 08/29/24 08:41 17 GM Polyethylene Glycol (MIRalax 3350 17 GM POWD.PACK) 17 gm ONCE PO 08/28/24 18:00 08/28/24 21:00 DC 08/28/24 18:00 17 GM Propofol (DIPRivan 1000MG/ 100ML) 1,000 mg PROTOCOL PRN IV SEDATION 08/27/24 16:30 09/26/24 16:29 08/29/24 02:35 1,000 MG DIAGNOSTICS / RADIOLOGY: [ ] ASSESSMENT: Acute hypoxemic respiratory failure, POA, requiring intubation and mechanical ventilation Hypotension, POA, currently suspected to be cardiogenic shock Acute coronary syndrome, status post left heart catheterization 08/28, finding of triple-vessel disease POA 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 Continue heparin drip Transesophageal echocardiogram with color-flow Doppler done 08/28/2024 to rule out endocarditis, with a findings confirming the diagnosis of bacterial endocarditis affecting both the mitral and aortic valve. Continue goal-directed medical therapy Infectious disease consultation requested. Input noted and appreciated Blood cultures has remained negative. Obtain Brucella serology. Obtain Bartonella serology. Obtain Q fever serology. Continue Zosyn IV, continue Levaquin and linezolid CT surgery consultation requested for CABG plus aortic and mitral valve replacement. Continue broad-spectrum IV antibiotics Critical care/pulmonology consulted, appreciate recommendations Disposition: Pending improvement in clinical condition. Greater than 35 minutes ICU time spent in care of this patient JODEE SEN MD Aug 29, 2024 09:14
--- NOTE | 2024-08-29 10:56 | PN ---
[facility] CARDIOLOGY PROGRESS NOTE Cardiology progress note dictated for Tete Bales MD Date Patient Seen: Aug 29, 2024 Interval History: The patient is s/p C on 08/28/2024 with findings of severe 3V + LM CAD (LAD, LCX, RCA, and LM), due to cardiogenic shock, LVEDP 25 mmHg he had been maintained on ionotropic/vasopressor support with norepinephrine. He is s/p placement of an IABP (currently with one-to-one augmentation.) He is on mechanical ventilation. We are pending a CTS consult. The patient on Heparin gtt. Physical Examination: GENERAL: The patient is sedated, intubated, and on mechanical ventilation. HEAD: Normal with no signs of head trauma. EYES: PERRLA, EOMI, conjunctiva and sclera normal. NECK: Supple without JVD. There is no tenderness, lymphadenopathy, or masses. No thyromegaly. Normal carotid upstrokes without bruits. LUNGS: Clear breath sounds bilaterally. No wheezes, or rhonchi. HEART: Normal rate and rhythm. Normal S1 and S2 without murmurs, gallop or rub. VASC: Peripheral pulses +2 bilaterally. EXT: No clubbing, cyanosis or edema. Right groin with slight oozing to insertion site, area is soft to touch, no hematoma noted. Unable to palpate right DP pulse, is cool to touch. Left PT pulse 1+. GENT: Leal catheter draining clear yellow urine. NEURO: Sedated. Laboratory: Hematology Labs: Test 08/29/24 03:19 Range/Units White Blood Count 10.0 4.8-10.8 K/uL Red Blood Count 2.83 L 4.50-6.20 MIL/uL Hemoglobin 9.3 L 14.0-18.0 g/dL Hematocrit 26.8 L 42-54 % Mean Corpuscular Volume 94.7 79-99 fL Mean Corpuscular Hemoglobin 32.9 27.0-33.0 pg Mean Corpuscular Hemoglobin Concent 34.7 32.0-36.0 g/dL Red Cell Distribution Width 13.6 11.0-15.5 % Platelet Count 342 130-400 K/uL Mean Platelet Volume 10.1 7.5-10.5 fL Immature Granulocyte % (Auto) 0.4 0-1 % Neutrophils (%) (Auto) 76.1 40.0-77.0 % Lymphocytes (%) (Auto) 16.5 L 21.0-51.0 % Monocytes (%) (Auto) 6.9 3.0-13.0 % Eosinophils (%) (Auto) 0.1 0.0-8.0 % Basophils (%) (Auto) 0.0 0.0-5.0 % Neutrophils # (Auto) 7.6 1.8-7.7 K/uL Lymphocytes # (Auto) 1.6 1.0-4.8 K/uL Monocytes # (Auto) 0.7 0.1-1.0 K/uL Eosinophils # (Auto) 0.01 0.00-0.70 K/uL Basophils # (Auto) 0.00 0.00-0.20 K/uL Absolute Immature Granulocyte (auto 0.04 0-1 K/uL Nucleated Red Blood Cells 0.0 0.0-0.19 % Chemistry Labs: Test 08/29/24 03:19 08/28/24 23:25 Range/Units Sodium Level 135 L 136-145 mmol/L Potassium Level 3.8 3.5-5.1 mmol/L Chloride Level 102 101-111 mmol/L Carbon Dioxide Level 25 21-32 mmol/L Blood Urea Nitrogen 32 H 7-18 mg/dL Creatinine 1.1 0.5-1.3 mg/dL Glomerular Filtration Rate Calc 70 >90 mL/min Random Glucose 105 70-105 mg/dL Total Calcium 8.1 L 8.5-10.1 mg/dL Magnesium Level 2.30 1.80-2.40 mg/dL Total Bilirubin 0.5 0.2-1.0 mg/dL Aspartate Amino Transf (AST/SGOT) 101 H 10-37 U/L Alanine Aminotransferase (ALT/SGPT) 132 H 12-78 U/L Alkaline Phosphatase 109 50-136 U/L Total Protein 5.6 L 6.0-8.3 g/dL Albumin 2.3 L 3.5-5.0 g/dL Whole Blood Glucose 101 70-110 MG/DL Coagulation Labs: Test 08/29/24 09:10 08/28/24 11:06 Range/Units Activated Partial Thromboplast Time 111.4 #*H 26.3-35.5 SEC Activated Clotting Time 204 H 100-180 SEC Diagnostics / Radiology: Impression and Plan: 1. Acute hypoxemic respiratory failure status post intubation, on mechanical ventilation 2. Viral URI 3. ACS-NSTEMI 4. Mild systolic heart failure (LVEF 40-45%) with moderate mitral regurgitation 5. 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 Acute kidney injury 7. Hyponatremia, Na+ 127 8. Hypotension, possibly septic shock NSTEMI S/p LHC on 08/28/2024 with findings of severe 3V + LM CAD (LAD, LCX, RCA, and LM), due to cardiogenic shock, LVEDP 25 mmHg, he had been maintained on ionotropic/vasopressor support with norepinephrine. He is s/p placement of an IABP (currently with one-to-one augmentation) and maintained on Heparin gtt. -according to nurse, Cardiothoracic surgery has consulted and desires to extubate the patient and discuss high-risk nature of operation with him. -Last dose of Plavix today at 0841 KARTHIK performed, endocarditis on mitral valve considered confirmed, seen by surgery who desires extubation of the patient so they can discuss the high-risk nature of the operation with him before proceeding. Extubation has not been possible and the patient has not tolerated weaning from the ventilator. ATTESTATION BY PHYSICIAN I have seen and examined the patient, reviewed the above documentation, participated in medical decision making, made necessary modifications, and agree with the treatment plan as documented by my mid-level provider above. I have amended the above note as appropriate, and have evaluated the patient at bedside and discussed the case with Pastora Dsouza and the patient's nurse. It is unclear whether this patient will be salvageable. MD KARLA Emery VALERIE L [employer] Aug 29, 2024 10:56 TETE BALES MD Aug 29, 2024 20:22
[2024-08-29] MEDS ORDERED: PoTASSium chloRIDE 20MEQ ER 20 MEQ ERTAB PO PRN (13:00)
--- NOTE | 2024-08-29 13:45 | HMCIMG ---
CHEST 1VW HISTORY: Tube placement COMPARISON: 08/28/2024 FINDINGS: A frontal projection of the chest was obtained. There are bilateral pulmonary infiltrates suggestive of pulmonary vascular congestion with possible superimposed pneumonitis. Intra-aortic balloon pump is seen with distal tip at 24 mm below aortic arch. Endotracheal tube is seen with distal tip at 4.9 cm above lino. The heart is borderline enlarged. All the lines and tubes are again seen in place. No evidence of aortic calcification is seen. IMPRESSION: 1. Bilateral pulmonary infiltrates are seen suggestive of pulmonary vascular congestion with possible superimposed pneumonitis.
[2024-08-29] MEDS: PoTASSium chloRIDE 20MEQ/100ML 100 ML IV PRN (14:48)
--- NOTE | 2024-08-29 21:41 | PN ---
INFECTIOUS DISEASE PROGRESS NOTE Date of Service: Aug 29, 2024 SUBJECTIVE: Patient is currently in the ICU room 206. Patient remains intubated but awake. Per report CPAP mode trial was attempted this morning however patient was only able to tolerate 30 minutes due to he went tachypneic and tachycardia. The WBC has trended down to 10.0 and patient remains afebrile, temperature is 98.6. No reports of nausea or vomiting. Patient had a KARTHIK done yesterday with findings of Endocarditis of the aortic and mitral valves and the reason for ID consult. Patient will continue on linezolid, Zosyn and levofloxacin. Will continue to follow patient's care. PHYSICAL EXAM EYES: Anicteric. Pupils equal and reactive. HENT: No oral thrush seen, moist Oral mucosa. NECK: Supple, no JVD or thyromegaly. LUNGS: Good air entry. No rales, no rhonchi. Mechanical ventilation. CARDIOVASCULAR: S1, S2 regular. No murmur heard. ABDOMEN: Soft, non tender, bowel sounds present, no organomegaly CENTRAL NERVOUS SYSTEM: Awake but intubated. SKIN: No rashes, no swelling. LYMPHATICS: No peripheral lymphadenopathy MUSCULOSKELETAL: No joint swelling, erythema or tenderness. EXTREMITIES: No cyanosis or clubbing BACK: No deformity, no pressure ulcer. GENITOURINARY: No dysuria or hematuria. Vital Sign (Last 12 Hours) 08/29/24 08/29/24 08/29/24 08/29/24 09:45 10:00 10:15 10:30 Pulse 59 57 59 55 Resp 22 20 19 18 B/P (MAP) 118/48 (71) 116/52 (73) 117/63 (81) 107/52 (70) Pulse Ox 99 99 99 99 08/29/24 08/29/24 08/29/24 08/29/24 10:45 11:00 11:15 11:29 Pulse 55 59 60 55 Resp 18 22 18 18 B/P (MAP) 106/49 (68) 107/52 (70) 115/50 (71) Pulse Ox 100 100 99 08/29/24 08/29/24 08/29/24 08/29/24 11:30 11:45 11:47 12:00 Temp 97.7 Pulse 55 55 59 60 Resp 19 18 19 B/P (MAP) 108/46 (66) 110/46 (67) 106/46 (66) Pulse Ox 99 99 100 FiO2 30 08/29/24 08/29/24 08/29/24 08/29/24 12:00 12:00 12:15 12:30 Pulse 56 55 Resp 19 18 B/P (MAP) 105/54 (71) 113/46 (68) Pulse Ox 100 99 99 O2 Delivery Ventilator+ FiO2 30 30 08/29/24 08/29/24 08/29/24 08/29/24 12:45 13:00 13:15 13:30 Pulse 55 53 52 55 Resp 19 19 18 18 B/P (MAP) 108/49 (68) 142/55 (84) 106/48 (67) 119/47 (71) Pulse Ox 100 99 99 100 08/29/24 08/29/24 08/29/24 08/29/24 13:45 14:00 14:15 14:30 Pulse 53 54 70 60 Resp 18 18 18 19 B/P (MAP) 120/52 (74) 120/50 (73) 125/75 (92) Pulse Ox 99 100 100 99 08/29/24 08/29/24 08/29/24 08/29/24 14:45 15:00 15:00 15:15 Pulse 60 57 54 Resp 18 18 91 B/P (MAP) 108/54 (72) 122/50 (74) 125/50 (75) Pulse Ox 99 99 99 08/29/24 08/29/24 08/29/24 08/29/24 15:30 15:30 15:45 16:00 Pulse 59 53 55 60 Resp 75 70 27 B/P (MAP) 126/53 (77) 127/54 (78) 123/58 (79) Pulse Ox 100 100 100 FiO2 30 08/29/24 08/29/24 08/29/24 08/29/24 16:00 16:00 16:15 16:30 Pulse 55 56 Resp 90 87 B/P (MAP) 130/39 (69) 125/47 (73) Pulse Ox 100 100 100 O2 Delivery Ventilator+ FiO2 30 30 08/29/24 08/29/24 08/29/24 08/29/24 16:45 17:00 17:15 17:30 Pulse 54 53 56 52 Resp 99 68 34 150 B/P (MAP) 127/59 (81) 132/51 (78) 124/64 (84) 129/45 (73) Pulse Ox 100 100 100 100 08/29/24 08/29/24 08/29/24 08/29/24 17:45 18:00 18:15 18:21 Pulse 54 57 53 53 Resp 35 76 B/P (MAP) 122/84 (97) 134/82 (99) 131/49 (76) Pulse Ox 99 100 100 FiO2 30 08/29/24 08/29/24 08/29/24 18:26 18:30 20:57 Pulse 54 55 55 Resp 20 B/P (MAP) 129/64 (85) Pulse Ox 99 FiO2 30 Intake & Output (last 24hrs) 08/28/24 08/28/24 08/29/24 15:00 23:00 07:00 Intake Total 301.1 ml 469.0 ml 388.7 ml Output Total 600 ml 550 ml Balance 301.1 ml -131.0 ml -161.3 ml LABS: Laboratory: Test 08/29/24 16:30 08/29/24 03:46 08/29/24 03:19 08/28/24 11:06 Range/Units Activated Partial Thromboplast Time 49.4 #H 26.3-35.5 SEC Potassium Level 4.1 3.5-5.1 mmol/L Whole Blood Glucose 104 70-110 MG/DL Blood Gas Specimen Type Arterial Arterial Blood pH 7.489 H 7.350-7.450 Arterial Blood Partial Pressure CO2 27 L 35-48 mmHg Arterial Blood Partial Pressure O2 152.7 H 83.0-108.0 mmHg Arterial Blood HCO3 20.4 L 21.0-28.0 mmol/L Arterial Blood Oxygen Saturation 98.6 H 94.0-98.0 % Arterial Blood Base Excess -2.1 L -2.0-3.0 mmol/L Hemoglobin (Blood Gas) 10.1 L 13.5-17.5 g/dL Sodium (Blood Gas) 133 L 136-145 MMOL/L Bedside Potassium (Blood Gas) 3.7 3.4-4.5 MMOL/L Bedside Chloride (Blood Gas) 103 98-107 MMOL/L Bedside Glucose (Blood Gas) 92 65-95 MG/DL Bedside Ionized Calcium (Blood Gas) 1.13 L 1.15-1.33 MMOL/L Bedside Lactic Acid (Blood Gas) 0.80 H 0.36-0.75 MMOL/L Blood Gas Temperature 37.0 35.5-37.0 CELSIUS Blood Gas Respiration Rate 20.0 min. Blood Gas Vent Mode AC ROOM AIR FiO2 40.0 % Blood Gas Tidal Volume 500 ml Blood Gas PEEP 6 cm H2O Blood Gas Specimen Comment RR RN LORIE White Blood Count 10.0 4.8-10.8 K/uL Red Blood Count 2.83 L 4.50-6.20 MIL/uL Hemoglobin 9.3 L 14.0-18.0 g/dL Hematocrit 26.8 L 42-54 % Mean Corpuscular Volume 94.7 79-99 fL Mean Corpuscular Hemoglobin 32.9 27.0-33.0 pg Mean Corpuscular Hemoglobin Concent 34.7 32.0-36.0 g/dL Red Cell Distribution Width 13.6 11.0-15.5 % Platelet Count 342 130-400 K/uL Mean Platelet Volume 10.1 7.5-10.5 fL Immature Granulocyte % (Auto) 0.4 0-1 % Neutrophils (%) (Auto) 76.1 40.0-77.0 % Lymphocytes (%) (Auto) 16.5 L 21.0-51.0 % Monocytes (%) (Auto) 6.9 3.0-13.0 % Eosinophils (%) (Auto) 0.1 0.0-8.0 % Basophils (%) (Auto) 0.0 0.0-5.0 % Neutrophils # (Auto) 7.6 1.8-7.7 K/uL Lymphocytes # (Auto) 1.6 1.0-4.8 K/uL Monocytes # (Auto) 0.7 0.1-1.0 K/uL Eosinophils # (Auto) 0.01 0.00-0.70 K/uL Basophils # (Auto) 0.00 0.00-0.20 K/uL Absolute Immature Granulocyte (auto 0.04 0-1 K/uL Nucleated Red Blood Cells 0.0 0.0-0.19 % Sodium Level 135 L 136-145 mmol/L Chloride Level 102 101-111 mmol/L Carbon Dioxide Level 25 21-32 mmol/L Blood Urea Nitrogen 32 H 7-18 mg/dL Creatinine 1.1 0.5-1.3 mg/dL Glomerular Filtration Rate Calc 70 >90 mL/min Random Glucose 105 70-105 mg/dL Total Calcium 8.1 L 8.5-10.1 mg/dL Magnesium Level 2.30 1.80-2.40 mg/dL Total Bilirubin 0.5 0.2-1.0 mg/dL Aspartate Amino Transf (AST/SGOT) 101 H 10-37 U/L Alanine Aminotransferase (ALT/SGPT) 132 H 12-78 U/L Alkaline Phosphatase 109 50-136 U/L Total Protein 5.6 L 6.0-8.3 g/dL Albumin 2.3 L 3.5-5.0 g/dL Activated Clotting Time 204 H 100-180 SEC DIAGNOSTICS / RADIOLOGY: PATIENT: NAMAN RUGGIERO MR#: [id number] : 1950 SEX: M AGE: 74 LOCATION: [facility] ORDER [id number] STATUS: ADM IN REPORT#: [id number] SERVICE 1110 REASON: Endocarditis ORDERING PHYSICIAN: ROBERTA HAIR MD PROCEDURE: ECHO KARTHIK - ECHO KARTHIK--TRANSESOPHAGEAL APPROVED REPORT EXAM: Transesophageal echocardiogram with color flow Doppler. INDICATION ICD: Rule out endocarditis Reason For Test : Rule out endocarditis. PROCEDURE After obtaining informed consent, patient underwent transesophageal echo in the 206 Please refer to medication administration record. was given as a topical anesthetic prior to the administration of the conscious sedation. Type of Sedation: Please refer to medication administration record. Sedation was administered by Please refer to medication administration record. . Sedation was achieved with Propofol and Versed intravenously. Transesophageal probe was inserted and advanced into esophagus without difficulty by Toño Wallace MD. KARTHIK was performed and images were obtained, probe was removed without c omplications. Throughout the procedure, the blood pressure, pulse oximetry, cardiac rhythm, and rate were monitored. The patient tolerated the procedure without adverse effects. Recovery from conscious sedation was uneventful and vital signs were stable. Left Ventricle The left ventricle is normal in size. Mild concentric left ventricular hypertrophy. Left ventricle systolic function is moderately depressed, estimated LVEF 40 to 45%. No left ventricle thrombus noted on this study. Indeterminate diastolic function. Right Ventricle The right ventricle is normal size. The right ventricular systolic function is normal. Atria The left atrium is severely dilated. There is spontaneous contrast (rouleaux formation) seen in the left atrium. No thrombus was seen in the left atrium. No thrombus was seen in the left atrial appendage. Intact. The right atrium is mildly dilated. Aortic Valve Aortic valve is trileaflet. The leaflets are mild thickened and calcified. Trace aortic regurgitation. There is a small sized, freely mobile, echodense mass attached to the right coronary leaflet. There is no aortic valvular stenosis. Mitral Valve The mitral valve is mildly thickened and calcified. Severe mitral regurgitation, with 2 jets of regurgitation. There is a large size (1.5cm) echodense mass attached to the A2 segment of the anterior leaflet. There is no mitral valve stenosis. Tricuspid Valve The tricuspid valve is normal in structure and function. Trace tricuspid regurgitation. No obvious vegetations were seen on the tricuspid valve. Pulmonic Valve The pulmonary valve is normal in structure and function. No obvious vegetations were seen on the pulmonic valve. Great Vessels The aortic root is normal in size. Ascending aorta appears normal in size. Pulmonary vein flow reversal noted. Pericardium No pericardial effusion. Conclusion The left atrium is severely dilated. There is spontaneous contrast (rouleaux formation) seen in the left atrium. No thrombus was seen in the left atrium. No thrombus was seen in the left atrial appendage. The right atrium is mildly dilated. Mild concentric left ventricular hypertrophy. Left ventricle systolic function is moderately depressed, estimated LVEF 40 to 45%. Indeterminate diastolic function. Aortic valve is trileaflet. The leaflets are mild thickened and calcified. There is a small sized, freely mobile, echodense mass attached to the right coronary leaflet. Trace aortic regurgitation. The mitral valve is mildly thickened and calcified. There is a large size (1.5cm) echodense mass attached to the A2 segment of the anterior leaflet. Severe mitral regurgitation, with 2 jets of regurgitation. Trace tricuspid regurgitation. No pericardial effusion. 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 Recommendations: Continue goal-directed medical therapy. Consult ID to address blood culture-negative endocarditis Consult CT surgery for CABG plus aortic and mitral valve replacement. DICTATED BY: ROBERTA HAIR MD DATE: 08/28/24 8794 ASSESSMENT: Hypoxic respiratory failure, status post intubation. Endocarditis of the aortic and mitral valves. Non-STEMI, status post left heart catheterization with findings of severe multivessel coronary disease. Acute renal failure, resolving. Leukocytosis. PLAN: Continue linezolid. Continue Zosyn. Continue levofloxacin. Continue GI prophylaxis. Continue mechanical ventilatory support. We will monitor electrolytes. Cardiovascular surgeon has been consulted. We will follow up on the cultures. This case was reviewed and discussed with my supervising physician and the above assessment and plan was formulated and agreed upon. ATTESTATION BY PHYSICIAN I have seen and examined the patient. I reviewed the documentation, medical decision making, and treatment plan as noted by the mid-level provider above. I agree with the findings and plan of care. MILA DEAN MD, [facility] Aug 29, 2024 21:41
[2024-08-30] VITALS (107 sets, daily range): BP systolic 95–149; BP diastolic 38–98; PULSE 46–110; RESP 14–34; TEMP 97.8–98.8; O2SAT 97–100
[2024-08-30 04:48] LABS: BASOPHILS # (AUTO) 0.01 K/uL (0.00-0.20); BASOPHILS % (AUTO) 0.1 % (0.0-5.0); EOSINOPHILS # (AUTO) 0.15 K/uL (0.00-0.70); HEMATOCRIT 31.4 % (42-54); IMMATURE GRANULOCYTE ABSOLUTE 0.03 K/uL (0-1); LYMPHOCYTES # (AUTO) 1.5 K/uL (1.0-4.8); LYMPHOCYTES % (AUTO) 19.5 % (21.0-51.0); MEAN CORPUSCULAR HEMOGLOBIN 32.9 pg (27.0-33.0); MEAN CORPUSCULAR HGB CONC 34.4 g/dL (32.0-36.0); MEAN CORPUSCULAR VOLUME 95.7 fL (79-99); MONOCYTES # (AUTO) 0.6 K/uL (0.1-1.0); MONOCYTES % (AUTO) 7.4 % (3.0-13.0); NEUTROPHILS # (AUTO) 5.4 K/uL (1.8-7.7); NEUTROPHILS % (AUTO) 70.6 % (40.0-77.0); PLATELET COUNT (AUTO) 408 K/uL (130-400); RED BLOOD CELL COUNT(AUTO) 3.28 MIL/uL (4.50-6.20); RED CELL DISTRIBUTION WIDTH 13.7 % (11.0-15.5); WHITE BLOOD COUNT (AUTO) 7.6 K/uL (4.8-10.8)
[2024-08-30 04:59] LABS: CREATININE 1.1 mg/dL (0.5-1.3); POTASSIUM 3.7 mmol/L (3.5-5.1)
[2024-08-30] MEDS: PoTASSium chl 10% ELIXIR 20MEQ 20 MEQ/15 ML UDCUP PO PRN (05:36)
--- NOTE | 2024-08-30 07:09 | PN ---
[facility] Cardiology Progress Note CARDIOLOGY PROGRESS NOTE 12/22/2024 Problems: 1. Acute hypoxemic respiratory failure status post intubation, on mechanical ventilation 2. Viral URI 3. ACS-NSTEMI 4. Mild systolic heart failure (LVEF 40-45%) with moderate mitral regurgitation 5. Endocarditis with a vegetation on the mitral valve at transesophageal echo 6. Acute kidney injury 7. Hyponatremia, Na+ 127 8. Hypotension, possibly septic shock 9. Severe multivessel CAD with left main involvement Blood pressure is ranging between 110 and 120 systolic heart rate is between 100 and 110 per minute. Potassium 3.7 BUN24 creatinine 1.1 estimated GFR of 70. White count has dropped to 7.6 hemoglobin 10.8 Platelet count [id number]. The patient continues on albuterol aspirin heparin protocol antibiotics pantoprazole. He continues on norepinephrine for pressure support and intra- aortic balloon pump at one-to-one. Peripheral pulses are palpable. This mornin g he is responsive and moves all extremities. Plans are to wean from the ventilator at which point CT surgery we will have a discussion whether or not to undertake a high-risk operation. ROBERTA ABARCA MD Aug 30, 2024 07:09
--- NOTE | 2024-08-30 10:11 | PN ---
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 He has been failing spontaneous breathing trials. IV sedated on Precedex 0.06 mcg/kg per minute. He is awake but confused unlike yesterday. Suspect patient is going through ICU delirium. Chest x-ray with some improvement to bilateral infiltrates. He is blood pressure is 109/57 with a map of75 on Levophed at 0.06 mcg/kg per minute heart rate in the 60s saturating 99% on the vent with FiO2 of 30%. And settings assist control volume control tidal volume 500 respiratory rate of 16 FiO2 of 30% and PEEP of 5. WBCs 7.6 H&H 7.8/31.4 improved from yesterday platelet count 408 K. sodium 136 potassium 3.7 carbon dioxide 29 creatinine of 1.1 GFR of 70 magnesium of 2.0. Continues with IABP support Day #2. at 1:1 support, managed per cardiology. bilateral pedal pulses +1. Antibiotics per ID. We will add Lasix drip. REVIEW OF SYSTEMS: Unable to obtain due to intubation PHYSICAL EXAM: GENERAL: Critically ill, intubated, on full mechanical ventilator support HEENT: EOMI NECK: Orally intubated no JVD, trachea midline LUNGS: Coarse bilateral lung sounds, on full mechanical ventilator support HEART: Regular rate and rhythm. Normal S1 and S2, without murmurs ABD: Abdomen soft, nontender. Bowel sounds present EXT: No clubbing cyanosis , some edema to bilateral lower extremity one to 1+ pitting NEURO: Awake alert and following simple commands. Vital Signs (last 8hr) Date Time Temp Pulse Resp B/P (MAP) Pulse Ox O2 Delivery O2 Flow Rate FiO2 08/30/24 09:30 62 16 98/56 (70) 98 08/30/24 09:15 65 18 98/61 (73) 98 08/30/24 09:00 65 16 101/56 (71) 98 08/30/24 08:45 67 16 99/55 (70) 98 08/30/24 08:30 69 17 103/51 (68) 98 08/30/24 08:23 30 08/30/24 08:15 82 23 114/59 (77) 98 08/30/24 08:05 118/81 08/30/24 08:00 98.8 08/30/24 08:00 98.8 110 30 140/79 (99) 99 08/30/24 07:50 100 Ventilator+ 30 08/30/24 07:45 110 21 118/81 (93) 100 08/30/24 07:30 91 20 109/60 (76) 100 08/30/24 07:15 91 22 123/63 (83) 100 08/30/24 07:14 85 22 08/30/24 07:00 94 18 141/59 (86) 99 08/30/24 06:45 91 21 117/75 (89) 100 08/30/24 06:20 46 30 08/30/24 06:15 110 34 127/67 (87) 100 08/30/24 06:00 103 26 109/59 (76) 100 30 08/30/24 05:45 84 24 102/59 (73) 100 08/30/24 05:30 71 22 132/45 (74) 100 08/30/24 05:15 85 25 124/63 (83) 100 08/30/24 05:00 79 23 104/53 (70) 100 30 08/30/24 04:45 76 26 119/50 (73) 100 08/30/24 04:30 64 21 122/42 (68) 100 08/30/24 04:15 62 22 115/60 (78) 100 08/30/24 04:00 98.4 64 21 123/63 (83) 100 30 08/30/24 04:00 97 Ventilator+ 30 08/30/24 04:00 30 08/30/24 03:45 70 25 114/66 (82) 100 08/30/24 03:30 65 22 121/49 (73) 100 08/30/24 03:15 64 22 122/52 (75) 100 08/30/24 03:00 65 22 129/59 (82) 100 30 08/30/24 02:45 68 22 124/57 (79) 100 08/30/24 02:30 65 22 116/56 (76) 100 08/30/24 02:15 62 21 123/47 (72) 100 LABS: Hematology Labs: Test 08/30/24 04:14 Range/Units White Blood Count 7.6 4.8-10.8 K/uL Red Blood Count 3.28 L 4.50-6.20 MIL/uL Hemoglobin 10.8 L 14.0-18.0 g/dL Hematocrit 31.4 L 42-54 % Mean Corpuscular Volume 95.7 79-99 fL Mean Corpuscular Hemoglobin 32.9 27.0-33.0 pg Mean Corpuscular Hemoglobin Concent 34.4 32.0-36.0 g/dL Red Cell Distribution Width 13.7 11.0-15.5 % Platelet Count 408 H 130-400 K/uL Mean Platelet Volume 10.1 7.5-10.5 fL Immature Granulocyte % (Auto) 0.4 0-1 % Neutrophils (%) (Auto) 70.6 40.0-77.0 % Lymphocytes (%) (Auto) 19.5 L 21.0-51.0 % Monocytes (%) (Auto) 7.4 3.0-13.0 % Eosinophils (%) (Auto) 2.0 0.0-8.0 % Basophils (%) (Auto) 0.1 0.0-5.0 % Neutrophils # (Auto) 5.4 1.8-7.7 K/uL Lymphocytes # (Auto) 1.5 1.0-4.8 K/uL Monocytes # (Auto) 0.6 0.1-1.0 K/uL Eosinophils # (Auto) 0.15 0.00-0.70 K/uL Basophils # (Auto) 0.01 0.00-0.20 K/uL Absolute Immature Granulocyte (auto 0.03 0-1 K/uL Nucleated Red Blood Cells 0.0 0.0-0.19 % Chemistry Labs: Test 08/30/24 04:14 08/29/24 23:22 08/29/24 03:19 Range/Units Sodium Level 136 136-145 mmol/L Potassium Level 3.7 3.5-5.1 mmol/L Chloride Level 100 L 101-111 mmol/L Carbon Dioxide Level 29 21-32 mmol/L Blood Urea Nitrogen 24 H 7-18 mg/dL Creatinine 1.1 0.5-1.3 mg/dL Glomerular Filtration Rate Calc 70 >90 mL/min Random Glucose 81 70-105 mg/dL Total Calcium 8.7 8.5-10.1 mg/dL Magnesium Level 2.00 1.80-2.40 mg/dL Whole Blood Glucose 107 70-110 MG/DL Total Bilirubin 0.5 0.2-1.0 mg/dL Aspartate Amino Transf (AST/SGOT) 101 H 10-37 U/L Alanine Aminotransferase (ALT/SGPT) 132 H 12-78 U/L Alkaline Phosphatase 109 50-136 U/L Total Protein 5.6 L 6.0-8.3 g/dL Albumin 2.3 L 3.5-5.0 g/dL Coagulation Labs: Test 08/30/24 04:14 08/28/24 11:06 Range/Units Activated Partial Thromboplast Time 50.1 H 26.3-35.5 SEC Activated Clotting Time 204 H 100-180 SEC DIAGNOSTICS / RADIOLOGY RESULTS: Signed PATIENT: NAMAN RUGGIERO MR#: [id number] : 1950 SEX: M AGE: 74 LOCATION: [facility] ORDER 0400 STATUS: ADM IN REPORT#: [id number] SERVICE [id number] REASON: IABP ORDERING PHYSICIAN: DESI CHAPA APRN PROCEDURE: CXR1VW - CHEST 1VW CHEST 1VW HISTORY: Intra-aortic balloon pump COMPARISON: 08/29/2024 FINDINGS: A frontal projection of the chest was obtained. There are bilateral pulmonary infiltrates suggestive of pulmonary vascular congestion with possible superimposed pneumonitis. Intra-aortic balloon pump is seen with distal tip at 3.3 cm below aortic arch. The heart is borderline enlarged. All the lines and tubes are again seen in place. No evidence of aortic calcification is seen. IMPRESSION: 1. Bilateral pulmonary infiltrates are seen suggestive of pulmonary vascular congestion with possible superimposed pneumonitis. No interval change is seen. DICTATED BY: SHANNEN BRICEÑO MD DATE: 08/30/241123 ELECTRONICALLY SIGNED BY: SHANNEN BRICEÑO MD DATE: 08/30/241126 PLAN SBT's Daily sedation vacation If patient tolerate SBTs this morning we will repeat ABG and possibly extubate if ready. Start diuresing with lasix drip. IABP per Cardiology CV surgeon consult follow recommendations Antibiotics per ID start thiamine 300mg IV QD x 3 days Folic acid 1 mg iv daily pt home meds include xanax 2mg po tid will start low dose to avoid benzodiazepine withdrawal assess pain using CPOT Encourage Physical therapy once extubated use melatonin at HS avoid sedation if possible monitor electrolytes closely and replenish appropriately Frequent reorientation avoid polypharmacy NEURO: Minimize central acting medications as possible. Fall Precautions. Well lighted room through the day and minimize interruptions through the night to prevent acute delirium. PULMONARY: Supplemental 02 as needed Titrate Fio2 to keep Spo2 > or = 90% DuoNebs and CPT as needed IS hourly while awake for pulmonary hygiene Out of bed to chair as tolerated VAP Bundle Vent/BIPAP Settings: Peep of 6, FiO2 50%, rate of 22, tidal volume 500 CARDIOVASCULAR: Follow hemodynamics. Titrate vasopressor to keep MAP >65 or systolic blood pressure >95mmHg DIPS: Heparin, Precedex propofol LINES: PIV midline GI & NUTRITION: Continue nutritional support Aspirations precautions Prokinetic agents and laxatives as needed tube feedings dietary consult KIDNEYS & ELECTROLYTES: Strict monitoring of intake and output Daily weights Avoid nephrotoxic agents Monitor electrolytes and replace as needed Goal urine output of 30mL/hr or 0.5mL/kg/hr ENDOCRINE: Maintain blood glucose between 100-180 at all times. Insulin sliding scale for blood glucose management INFECTIOUS DISEASE: Trend temperature. Gaviria-culture if febrile. Micro: [ ] 08/25/24 blood cultures negative Sputum cultures from 08/25/24 normal paul Antibiotics: Zosyn 08/25/24 Levaquin 08/28/24 Zyvox 08/28/24 HEMATOLOGY & COAGULATION: Monitor H&H. Keep Hgb > 7 Transfuse 1 unit of PRBC for Hgb < 7 Transfuse 1 pack of platelets of platelets < 20, 000 Watch for any signs and symptoms of bleeding SKIN: Pressure ulcer prevention per facility protocol Rehab: PT/OT Prophylaxis: GI: PPI DVT: Bilateral SCDs, heparin drip Code Status: Full Resuscitation Disposition: ICU Other: Total time in care of this patient includes 60 minutes excluding all procedures performed. ANDREI CHINO Aug 30, 2024 10:10
--- NOTE | 2024-08-30 10:45 | NUR ---
Nutritional f/u Note: Chart, meds, and labs Reviewed. Pt currently on TF trophic feeds Vital AF @20ml/hr with 150ml ml/h20 flush q 4. Abnormal nutrition related labs: Cl 100, bun 24, Nutrition-related Meds: Norephinephrine, Recommend: -Increase TF 5ml 4hr to 30ml /hr x 4hrs if tolerated increase to 40ml/hr another 4 hours, if tolerated increase to goal rate 55ml/hr -Monitor TF tolerance and labs. -Check Gastric residuals 6hours, hold for residuals >500ml/hr. -Monitor lactate levels -RD to provide further recommendations based on clinical progress. -If No BM >3days consider bowel stimulant. - Please notify RD if additional nutrition concerns arise. Addendum: 08/30/24 at [address] Amended: Links added.
--- NOTE | 2024-08-30 11:27 | HMCIMG ---
CHEST 1VW HISTORY: Intra-aortic balloon pump COMPARISON: 08/29/2024 FINDINGS: A frontal projection of the chest was obtained. There are bilateral pulmonary infiltrates suggestive of pulmonary vascular congestion with possible superimposed pneumonitis. Intra-aortic balloon pump is seen with distal tip at 3.3 cm below aortic arch. The heart is borderline enlarged. All the lines and tubes are again seen in place. No evidence of aortic calcification is seen. IMPRESSION: 1. Bilateral pulmonary infiltrates are seen suggestive of pulmonary vascular congestion with possible superimposed pneumonitis. No interval change is seen.
[2024-08-30] MEDS: ALBUMIN (HUMAN) 25% 100 ML IV SCH (12:01)
--- NOTE | 2024-08-30 12:10 | PN ---
[facility] PROGRESS NOTE Date of Service: Aug 30, 2024 Time of Service: 12:08 SUBJECTIVE: 08/26 patient seen at bedside, no acute events overnight. He remains intubated and sedated, continues on pressor support. FiO2 is 60%, we will wean towards extubation. Troponins are elevated, patient is started on ACS protocol with aspirin, Plavix, statin and heparin drip. Cardiology recommendations still pending, we will follow up. WBC increased from 10.8 up to 14.3, hemoglobin decreased from 13.2 down to 11.6, sodium stable at 126, similar to yesterday, troponins peaked and are now downtrending to 8429, remainder of his labs are relatively unremarkable. 08/27 patient seen at bedside, no acute events overnight. He remains intubated and sedated, continue weaning down pressors. His FiO2 has been weaned down to 50%, we will continue to wean as able, peep has been decreased from 8-6. Echocardiogram has been done, formal read is still pending, preliminary read shows a possible vegetation of the mitral valve, ejection fraction of 50-55%, mild to moderate aortic regurgitation, moderate mitral regurgitation, we will have him reassessed once he has been extubated as he may need a KARTHIK, however given his blood cultures are no growth this mobile mass on the mitral valve may not be secondary to endocarditis. Creatinine has increased from 1.3 up to 1.8, hemoglobin stable at 11.3, similar to yesterday, WBC increased from 14.3 up to 18.9, platelets improved from 528 down to 520, sodium stable at 127, similar to yesterday, remainder of his labs are relatively unremarkable. Cultures are no growth to date. 08/28 patient is seen and examined at bedside, remains intubated, on mechanical ventilation, on propofol, Levophed and heparin drip. Discussed with the RN, back from having left heart catheterization with finding of three-vessel disease for which Cardiothoracic surgery consultation requested. TTE with a EF 50-55% with possible vegetation of the mitral valve. Patient is scheduled for KARTHIK today. WBC 17.9. Blood cultures no growth after 48 hours. 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 Continue goal-directed medical therapy, infectious disease consultation requested. Blood cultures has remained negative. CT surgery consultation requested for CABG plus aortic and mitral valve replacement. 08/30 patient is seen and examined at bedside, remains intubated, mechanical ventilation, per discussion with the RN, the patient failed SBT trial, had to be placed back on sedation. Patient getting IV antibiotics at the time of my visit. BP 98/56, FiO2 30%, saturating 98%. CBC with a hemoglobin 10.8, hematocrit 31.4. Chest x-ray shows bilateral pulmonary infiltrates suggestive of pulmonary vascular congestion with possible superimposed pneumonitis. Continue to follow Pulmonary input and recommendation in terms of weaning off the ventilator, continue broad-spectrum IV antibiotics per ID recommendations. Cardiology input noted and appreciated. Patient evaluated by CT surgeon for possible CABG as well as valve replacement. REVIEW OF SYSTEMS 12 point review of systems negative unless noted in HPI PHYSICAL EXAM GENERAL APPEARANCE: The patient is intubated, on mechanical ventilation, on propofol, Levophed and heparin. NEUROLOGICAL: Cranial nerves II-XII grossly intact. Motor is 5/5 in bilateral upper and lower extremities proximal to distal. No sensory deficits. HEENT: Face is symmetric. Pupils are equal and reactive. Extraocular movements are intact. NECK: Supple. No JVD. No thyromegaly. No submental, submandibular, pre- /postauricular, occipital or supraclavicular lymphadenopathy. CHEST: Normal chest expansion. No Telemetry. LUNGS: Absence of any rales, rhonchi or any wheezing. CARDIOVASCULAR: Regular. S1 and S2 normal. No appreciable rubs, murmurs or g allops. ABDOMEN: Soft, nontender, and nondistended. There is no rebound, voluntary gua rding, or rigidity. : Deferred. No Leal. EXTREMITIES: Non-edematous and not cyanotic. No clubbing. Good capillary refill. SKIN: No skin breakdown. Vital Signs (last 8hr) Date Time Temp Pulse Resp B/P (MAP) Pulse Ox O2 Delivery O2 Flow Rate FiO2 08/30/24 11:43 59 22 08/30/24 09:45 65 30 08/30/24 09:30 62 16 98/56 (70) 98 08/30/24 09:15 65 18 98/61 (73) 98 08/30/24 09:00 65 16 101/56 (71) 98 08/30/24 08:45 67 16 99/55 (70) 98 08/30/24 08:30 69 17 103/51 (68) 98 08/30/24 08:23 30 08/30/24 08:15 82 23 114/59 (77) 98 08/30/24 08:05 118/81 08/30/24 08:00 98.8 08/30/24 08:00 98.8 110 30 140/79 (99) 99 08/30/24 07:50 100 Ventilator+ 30 08/30/24 07:45 110 21 118/81 (93) 100 08/30/24 07:30 91 20 109/60 (76) 100 08/30/24 07:15 91 22 123/63 (83) 100 08/30/24 07:14 85 22 08/30/24 07:00 94 18 141/59 (86) 99 08/30/24 06:45 91 21 117/75 (89) 100 08/30/24 06:20 46 30 08/30/24 06:15 110 34 127/67 (87) 100 08/30/24 06:00 103 26 109/59 (76) 100 30 08/30/24 05:45 84 24 102/59 (73) 100 08/30/24 05:30 71 22 132/45 (74) 100 08/30/24 05:15 85 25 124/63 (83) 100 08/30/24 05:00 79 23 104/53 (70) 100 30 08/30/24 04:45 76 26 119/50 (73) 100 08/30/24 04:30 64 21 122/42 (68) 100 08/30/24 04:15 62 22 115/60 (78) 100 LABS: Laboratory: Test 08/30/24 11:10 08/30/24 10:46 08/30/24 04:14 08/29/24 03:46 Range/Units Whole Blood Glucose 99 70-110 MG/DL Ammonia < 10 L 11-32 umol/L White Blood Count 7.6 4.8-10.8 K/uL Red Blood Count 3.28 L 4.50-6.20 MIL/uL Hemoglobin 10.8 L 14.0-18.0 g/dL Hematocrit 31.4 L 42-54 % Mean Corpuscular Volume 95.7 79-99 fL Mean Corpuscular Hemoglobin 32.9 27.0-33.0 pg Mean Corpuscular Hemoglobin Concent 34.4 32.0-36.0 g/dL Red Cell Distribution Width 13.7 11.0-15.5 % Platelet Count 408 H 130-400 K/uL Mean Platelet Volume 10.1 7.5-10.5 fL Immature Granulocyte % (Auto) 0.4 0-1 % Neutrophils (%) (Auto) 70.6 40.0-77.0 % Lymphocytes (%) (Auto) 19.5 L 21.0-51.0 % Monocytes (%) (Auto) 7.4 3.0-13.0 % Eosinophils (%) (Auto) 2.0 0.0-8.0 % Basophils (%) (Auto) 0.1 0.0-5.0 % Neutrophils # (Auto) 5.4 1.8-7.7 K/uL Lymphocytes # (Auto) 1.5 1.0-4.8 K/uL Monocytes # (Auto) 0.6 0.1-1.0 K/uL Eosinophils # (Auto) 0.15 0.00-0.70 K/uL Basophils # (Auto) 0.01 0.00-0.20 K/uL Absolute Immature Granulocyte (auto 0.03 0-1 K/uL Nucleated Red Blood Cells 0.0 0.0-0.19 % Activated Partial Thromboplast Time 50.1 H 26.3-35.5 SEC Sodium Level 136 136-145 mmol/L Potassium Level 3.7 3.5-5.1 mmol/L Chloride Level 100 L 101-111 mmol/L Carbon Dioxide Level 29 21-32 mmol/L Blood Urea Nitrogen 24 H 7-18 mg/dL Creatinine 1.1 0.5-1.3 mg/dL Glomerular Filtration Rate Calc 70 >90 mL/min Random Glucose 81 70-105 mg/dL Total Calcium 8.7 8.5-10.1 mg/dL Magnesium Level 2.00 1.80-2.40 mg/dL Blood Gas Specimen Type Arterial Arterial Blood pH 7.489 H 7.350-7.450 Arterial Blood Partial Pressure CO2 27 L 35-48 mmHg Arterial Blood Partial Pressure O2 152.7 H 83.0-108.0 mmHg Arterial Blood HCO3 20.4 L 21.0-28.0 mmol/L Arterial Blood Oxygen Saturation 98.6 H 94.0-98.0 % Arterial Blood Base Excess -2.1 L -2.0-3.0 mmol/L Hemoglobin (Blood Gas) 10.1 L 13.5-17.5 g/dL Sodium (Blood Gas) 133 L 136-145 MMOL/L Bedside Potassium (Blood Gas) 3.7 3.4-4.5 MMOL/L Bedside Chloride (Blood Gas) 103 98-107 MMOL/L Bedside Glucose (Blood Gas) 92 65-95 MG/DL Bedside Ionized Calcium (Blood Gas) 1.13 L 1.15-1.33 MMOL/L Bedside Lactic Acid (Blood Gas) 0.80 H 0.36-0.75 MMOL/L Blood Gas Temperature 37.0 35.5-37.0 CELSIUS Blood Gas Respiration Rate 20.0 min. Blood Gas Vent Mode AC ROOM AIR FiO2 40.0 % Blood Gas Tidal Volume 500 ml Blood Gas PEEP 6 cm H2O Blood Gas Specimen Comment RR RN MARISS Test 08/29/24 03:19 Range/Units Total Bilirubin 0.5 0.2-1.0 mg/dL Aspartate Amino Transf (AST/SGOT) 101 H 10-37 U/L Alanine Aminotransferase (ALT/SGPT) 132 H 12-78 U/L Alkaline Phosphatase 109 50-136 U/L Total Protein 5.6 L 6.0-8.3 g/dL Albumin 2.3 L 3.5-5.0 g/dL Current Medications Medications (Trade) Dose Ordered Sig/Lydia Route PRN Reason Start Time Stop Time Status Last Admin Dose Admin Acetaminophen (TYLenol 650MG SUPPOSITORY) 650 mg Q6H PRN RC MILD PAIN (1-3) 08/25/24 19:30 09/24/24 19:29 Albumin Human 100 ml @ 0 mls/hr AD IV 08/30/24 10:30 09/04/24 10:29 08/30/24 12:01 100 MLS/HR Albuterol (DUOneb) 1 UDVIAL [id number] IH 08/26/24 00:00 09/25/24 00:00 08/30/24 11:43 1 UDVIAL Albuterol (DUOneb) 2 udvial ONCE IH 08/25/24 18:00 08/25/24 22:00 DC 08/25/24 19:17 2 UDVIAL Aspirin (Aspirin 300mg Supp) 300 mg ONCE NV 08/25/24 19:30 08/25/24 23:59 DC 08/25/24 19:41 300 MG Aspirin (Aspirin 81mg Ec Tab) 81 mg DAILY PO 08/26/24 09:00 09/25/24 08:59 08/30/24 08:13 81 MG Atorvastatin Calcium (LIPItor 40MG) 40 mg HS PO 08/26/24 07:30 08/26/24 07:44 DC Azithromycin 250 ml @ 250 mls/hr Q24H IVPB 08/25/24 18:51 08/25/24 23:30 DC Azithromycin 250 ml @ 250 mls/hr Q24H IVPB 08/25/24 19:30 08/25/24 19:38 DC Ceftriaxone Sodium (ROCEphine 1G INJ) 1 gm ONCE IVPB 08/25/24 19:00 08/25/24 21:03 DC 08/25/24 19:41 1 GM Ceftriaxone Sodium (ROCEphine 1G INJ) 1 gm Q24H IVPB 08/25/24 19:30 08/26/24 12:29 DC Clopidogrel Bisulfate (plaVIX 300MG TAB) 300 mg ONCE PO 08/25/24 21:00 08/26/24 06:00 DC 08/25/24 23:16 300 MG Clopidogrel Bisulfate (plaVIX 75MG) 75 mg DAILY PO 08/26/24 09:00 08/29/24 10:52 DC 08/29/24 08:41 75 MG Dexmedetomidine/ Sodium Chloride (PRECEdex 400MCG/ 100ML-NS) 400 mcg PROTOCOL IV 08/29/24 09:00 09/28/24 08:59 08/30/24 08:04 400 MCG Fentanyl Citrate 100 ml @ 2.5 mls/hr PROTOCOL IV 08/25/24 20:00 08/27/24 17:54 DC 08/27/24 14:22 2.5 MLS/HR Folic Acid (FolVITE 5 MG/ML VIAL) 1 mg DAILY IV 08/31/24 09:00 09/30/24 08:59 Furosemide (LASix 20MG VIAL) 20 mg Q12H IV 08/26/24 09:00 08/27/24 12:24 DC 08/27/24 08:56 20 MG Heparin Sodium (Porcine) (HEParin 5,000 UNIT VIAL) *calculation based on ACTUAL B... AD PRN IV HEPARIN PROTOCOL 08/25/24 20:00 09/24/24 19:59 08/28/24 06:30 6,000 UNIT Heparin Sodium/ Dextrose 250 ml @ 0 mls/hr Q6H IV 08/25/24 20:00 09/24/24 19:59 08/29/24 14:46 7.2 MLS/HR Insulin Human Regular (humuLIN R 100 UNIT/ML 3ML) INSULIN SLIDING SCAL... Q6H6 SQ 08/26/24 00:00 09/25/24 00:00 08/26/24 05:58 2 UNIT Ketamine HCl (ketaMINE 50MG/ ML SYRINGE) 50 mg ONCE IM 08/25/24 19:00 08/25/24 22:00 DC Ketamine HCl (ketaMINE 50MG/ ML SYRINGE) 50 mg ONCE IM 08/25/24 19:00 08/25/24 23:59 DC Lactulose (Constulose 20gm/ 30ml Udcup) 20 gm BID PO 08/28/24 21:00 09/27/24 20:59 08/29/24 21:23 20 GM Levofloxacin/ Dextrose 100 ml @ 100 mls/hr Q24H IV 08/28/24 14:30 08/28/24 15:24 DC Levofloxacin/ Dextrose 100 ml @ 100 mls/hr Q48H IV 08/28/24 15:30 09/11/24 15:29 08/28/24 15:32 100 MLS/HR Linezolid (Zyvox) 600 mg Q12H PO 08/28/24 14:30 09/11/24 14:29 08/30/24 02:03 600 MG Melatonin (Melatonin) 10 mg HS PO 08/30/24 21:00 09/29/24 20:59 Methylprednisolone Sodium Succinate (Solu-medROL 40MG) 40 mg Q8H IVP 08/25/24 23:00 08/27/24 12:19 DC 08/27/24 06:23 40 MG Methylprednisolone Sodium Succinate (Solu-medROL 125MG) 125 mg ONCE IVP 08/25/24 18:00 08/25/24 22:00 DC 08/25/24 18:52 125 MG Midazolam HCl 50 ml @ 0 mls/hr PROTOCOL IV 08/25/24 19:00 08/27/24 17:54 DC 08/27/24 11:18 9 MLS/HR Midazolam HCl 50 mg/Sodium Chloride 50 ml @ 0 mls/hr PROTOCOL IV 08/25/24 19:00 09/24/24 18:59 UNV Morphine Sulfate (morPHINE 2MG SYG) 2 mg Q4H PRN IVP SEVERE PAIN (7-10) 08/26/24 07:30 09/01/24 19:29 Morphine Sulfate (morPHINE 4MG SYG) 2 mg Q4H PRN IVP SEVERE PAIN (7-10) 08/25/24 19:30 08/26/24 07:11 DC Norepinephrine 250 ml @ 0 mls/hr AD PRN IV DIRECTED 08/27/24 06:00 09/26/24 05:59 08/30/24 08:05 14.8 MLS/HR Norepinephrine 250 ml @ 0 mls/hr PROTOCOL IV 08/25/24 19:30 08/26/24 05:10 DC 08/26/24 00:14 121.5 MLS/HR Norepinephrine Bitartrate 32 mg/ Sodium Chloride 250 ml @ 0 mls/hr Q0M PRN IV hypotension 08/26/24 05:30 08/28/24 08:54 DC 08/26/24 06:04 19.87 MLS/HR Ondansetron HCl (zoFRAN 4MG INJ) 4 mg Q6H PRN IV NAUSEA/VOMITING 08/25/24 19:30 09/24/24 19:29 Pantoprazole Sodium (PROTonix 40MG INJ) 40 mg DAILY IV 08/26/24 09:00 09/25/24 08:59 08/30/24 08:13 40 MG Piperacillin Sod/ Tazobactam Sod (Zosyn 3.375gm+NS 50ml) 3.375 gm Q8H IV 08/25/24 20:00 09/04/24 19:59 UNV Piperacillin Sod/ Tazobactam Sod (Zosyn 3.375gm+NS 50ml) 3.375 gm ZOSY8 IV 08/25/24 21:00 09/04/24 20:59 08/30/24 05:05 3.375 GM Polyethylene Glycol (MIRalax 3350 17 GM POWD.PACK) 17 gm DAILY PO 08/29/24 09:00 09/28/24 08:59 08/29/24 08:41 17 GM Polyethylene Glycol (MIRalax 3350 17 GM POWD.PACK) 17 gm ONCE PO 08/28/24 18:00 08/28/24 21:00 DC 08/28/24 18:00 17 GM Potassium Chloride 100 ml @ 100 mls/hr AD PRN IV POTASSIUM PROTOCOL 08/29/24 13:00 09/28/24 12:59 08/29/24 14:48 100 MLS/HR Potassium Chloride (K-Dur/Klor-Con 20meq) 20 meq AD PRN PO POTASSIUM PROTOCOL 08/29/24 13:00 09/28/24 12:59 Potassium Chloride (KCl 10% Elixir 20meq/15ml) 20 meq AD PRN PO POTASSIUM PROTOCOL 08/29/24 13:00 09/28/24 12:59 08/30/24 06:51 20 MEQ Propofol (DIPRivan 1000MG/ 100ML) 1,000 mg PROTOCOL PRN IV SEDATION 08/27/24 16:30 09/26/24 16:29 08/30/24 00:52 1,000 MG Thiamine HCl (Vitamin B-1) 200 mg DAILY IM 08/31/24 09:00 09/03/24 08:59 DIAGNOSTICS / RADIOLOGY: [ ] ASSESSMENT: Acute hypoxemic respiratory failure, POA, requiring intubation and mechanical ventilation Hypotension, POA, currently suspected to be cardiogenic shock Acute coronary syndrome, status post left heart catheterization 08/28, finding of triple-vessel disease POA 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 Continue heparin drip Transesophageal echocardiogram with color-flow Doppler done 08/28/2024 to rule out endocarditis, with a findings confirming the diagnosis of bacterial endocarditis affecting both the mitral and aortic valve. Continue goal-directed medical therapy Infectious disease consultation requested. Input noted and appreciated Blood cultures has remained negative. Obtain Brucella serology. Obtain Bartonella serology. Obtain Q fever serology. Continue Zosyn IV, continue Levaquin and linezolid CT surgery consultation requested for CABG plus aortic and mitral valve replacement. Continue broad-spectrum IV antibiotics Critical care/pulmonology consulted, appreciate recommendations Disposition: Pending improvement in clinical condition. Greater than 35 minutes ICU time spent in care of this patient JODEE SEN MD Aug 30, 2024 12:10
[2024-08-30] MEDS: furoSEMIDE 40MG VIAL IV ONE (13:26)
[2024-08-30] MEDS ORDERED: COMPOUND IV MISC 1 EACH IVSOLN MISC PRN (13:30)
[2024-08-30] MEDS: furoSEMIDE 100MG VIAL 100 MG in 0.9%NACL 100ML 100 ML IV SCH (13:41)
[2024-08-30 13:49] LABS: POTASSIUM 4.2 mmol/L (3.5-5.1)
[2024-08-30 15:14] LABS: ABG BASE EXCESS -0.9 mmol/L (-2.0-3.0); ABG OXYGEN SATURATION 98.3 % (94.0-98.0); ABG PCO2 31 mmHg (35-48); ABG PH 7.474 (7.350-7.450); CARBON MONOXIDE 0.3 % (0.5-1.5); DEVICE COMMENT LR ARACELY; HHb 1.7; PO2, ARTERIAL BG 120.4 mmHg (83.0-108.0); VENT MODE, BG AC-VC (ROOM AIR)
[2024-08-30 19:11] LABS: POTASSIUM 3.5 mmol/L (3.5-5.1)
[2024-08-30] MEDS: ALPRAZolam 0.5 MG TABLET PO SCH (20:34)
[2024-08-30] MEDS: MELATONIN 5 MG TABLET PO SCH (21:00)
--- NOTE | 2024-08-30 21:51 | PN ---
SUBJECTIVE: A 74-year-old gentleman who presents with subacute bacterial endocarditis and coronary artery disease. The patient was in septic shock. He was resuscitated. Intraaortic balloon pump was placed, and the patient has been slowly been optimized to see if he becomes a surgical candidate. PROBLEMS: * Acute kidney injury without dialysis. The patient is on Lasix drip and attempts to diurese. * Acute respiratory insufficiency with hypoxia and hypercapnia. The patient is intubated in an attempt to extubate from the mechanical ventilator tomorrow. * Neurologic: The patient is confused but awakened from long course of sedatives. We will assess neurologic status. * Subacute bacterial endocarditis. The patient appears to be severe mitral insufficiency secondary to bacterial endocarditis. We will optimize and see if the patient becomes a surgical candidate. TID: [id number] RECEIPT: [id number]
--- NOTE | 2024-08-30 22:44 | PN ---
INFECTIOUS DISEASE PROGRESS NOTE Date of Service: Aug 30, 2024 SUBJECTIVE: Patient was seen and examined in the ICU room 206. Patient remains intubated but awake. Family member visiting at bedside. Ventilator weaning off was attempted today again however patient got tachypneic and tachycardic. No fever reported this morning, temperature is 98.8. Patient is status post KARTHIK day # 2 with findings of Endocarditis of the aortic and mitral valves. Patient will continue on linezolid, Zosyn and levofloxacin. No episodes of emesis reported. We will continue to follow patient's care. PHYSICAL EXAM EYES: Anicteric. Pupils equal and reactive. HENT: No oral thrush seen, moist Oral mucosa. NECK: Supple, no JVD or thyromegaly. LUNGS: Good air entry. No rales, no rhonchi. Mechanical ventilation. CARDIOVASCULAR: S1, S2 regular. No murmur heard. ABDOMEN: Soft, non tender, bowel sounds present, no organomegaly CENTRAL NERVOUS SYSTEM: Awake but intubated. SKIN: No rashes, no swelling. LYMPHATICS: No peripheral lymphadenopathy MUSCULOSKELETAL: No joint swelling, erythema or tenderness. EXTREMITIES: No cyanosis or clubbing BACK: No deformity, no pressure ulcer. GENITOURINARY: No dysuria or hematuria. Vital Sign (Last 12 Hours) 08/30/24 08/30/24 08/30/24 08/30/24 10:45 11:00 11:15 11:30 Pulse 58 57 63 62 Resp 16 16 19 16 B/P (MAP) 105/56 (72) 116/57 (76) 98/46 (63) 119/59 (79) Pulse Ox 98 98 100 99 08/30/24 08/30/24 08/30/24 08/30/24 11:43 11:45 12:00 12:00 Temp 98.6 Pulse 59 61 61 Resp 22 16 16 B/P (MAP) 122/98 (106) 123/67 (85) Pulse Ox 99 100 98 O2 Delivery Ventilator+ FiO2 30 08/30/24 08/30/24 08/30/24 08/30/24 12:15 12:24 12:30 12:45 Pulse 56 54 56 Resp 16 16 16 B/P (MAP) 117/60 (79) 114/58 (76) 120/70 (87) Pulse Ox 98 98 98 FiO2 30 08/30/24 08/30/24 08/30/24 08/30/24 13:00 13:15 13:30 13:45 Pulse 55 69 70 65 Resp 16 26 24 22 B/P (MAP) 119/52 (74) 149/40 (76) 112/53 (72) 95/48 (64) Pulse Ox 98 100 98 99 08/30/24 08/30/24 08/30/24 08/30/24 14:00 14:15 14:30 14:45 Pulse 84 62 56 54 Resp 19 22 19 18 B/P (MAP) 104/46 (65) 98/51 (67) 115/56 (75) 120/59 (79) Pulse Ox 100 99 99 99 08/30/24 08/30/24 08/30/24 08/30/24 15:00 15:15 15:16 15:30 Pulse 60 61 56 51 Resp 21 17 16 B/P (MAP) 128/58 (81) 118/58 (78) 127/63 (84) Pulse Ox 99 98 98 FiO2 30 08/30/24 08/30/24 08/30/24 08/30/24 15:45 16:00 16:00 16:15 Temp 98.2 Pulse 55 56 67 Resp 17 18 20 B/P (MAP) 122/64 (83) 124/59 (80) 124/55 (78) Pulse Ox 98 99 100 98 O2 Delivery Ventilator+ FiO2 30 08/30/24 08/30/24 08/30/24 08/30/24 16:30 16:41 16:45 17:00 Pulse 53 53 66 Resp 17 16 23 B/P (MAP) 117/52 (73) 117/55 (75) 137/62 (87) Pulse Ox 98 97 99 FiO2 30 08/30/24 08/30/24 08/30/24 08/30/24 17:15 17:30 17:45 18:00 Pulse 58 59 54 53 Resp 20 21 19 17 B/P (MAP) 95/67 (76) 112/49 (70) 114/58 (76) 119/66 (83) Pulse Ox 99 98 99 99 08/30/24 08/30/24 08/30/24 08/30/24 18:15 18:16 18:27 18:28 Pulse 56 56 53 57 Resp 16 16 22 B/P (MAP) 124/46 (72) 124/46 (72) Pulse Ox 100 100 FiO2 30 08/30/24 08/30/24 18:30 18:45 Pulse 56 51 Resp 18 17 B/P (MAP) 111/43 (65) 128/57 (80) Pulse Ox 99 98 Intake & Output (last 24hrs) 08/29/24 08/29/24 08/30/24 15:00 23:00 07:00 Intake Total 709.4 ml 410.3 ml 309.5 ml Output Total 2900 ml 400 ml Balance 709.4 ml -2489.7 ml -90.5 ml LABS: Laboratory: Test 08/30/24 18:35 08/30/24 16:35 08/30/24 15:12 08/30/24 13:33 Range/Units Sodium Level 136 136-145 mmol/L Potassium Level 3.5 3.5-5.1 mmol/L Chloride Level 100 L 101-111 mmol/L Carbon Dioxide Level 29 21-32 mmol/L Blood Urea Nitrogen 23 H 7-18 mg/dL Creatinine 1.0 0.5-1.3 mg/dL Glomerular Filtration Rate Calc 78 >90 mL/min Random Glucose 105 70-105 mg/dL Total Calcium 8.9 8.5-10.1 mg/dL Magnesium Level 1.90 1.80-2.40 mg/dL Whole Blood Glucose 110 70-110 MG/DL Blood Gas Specimen Type Arterial Arterial Blood pH 7.474 H 7.350-7.450 Arterial Blood Partial Pressure CO2 31 L 35-48 mmHg Arterial Blood Partial Pressure O2 120.4 H 83.0-108.0 mmHg Arterial Blood HCO3 22.0 21.0-28.0 mmol/L Arterial Blood Oxygen Saturation 98.3 H 94.0-98.0 % Arterial Blood Base Excess -0.9 -2.0-3.0 mmol/L Hemoglobin (Blood Gas) 10.5 L 13.5-17.5 g/dL Sodium (Blood Gas) 136 136-145 MMOL/L Bedside Potassium (Blood Gas) 3.7 3.4-4.5 MMOL/L Bedside Chloride (Blood Gas) 101 98-107 MMOL/L Bedside Glucose (Blood Gas) 94 65-95 MG/DL Bedside Ionized Calcium (Blood Gas) 1.15 1.15-1.33 MMOL/L Bedside Lactic Acid (Blood Gas) 0.67 0.36-0.75 MMOL/L Blood Gas Temperature 37.0 35.5-37.0 CELSIUS Blood Gas Respiration Rate 16.0 min. Blood Gas Vent Mode AC-VC ROOM AIR FiO2 30.0 % Blood Gas Tidal Volume 500 ml Blood Gas PEEP 5 cm H2O Blood Gas Specimen Comment LR MEGHAN Phosphorus Level 3.3 2.5-4.9 mg/dL Test 08/30/24 10:46 08/30/24 04:14 08/29/24 03:19 Range/Units Ammonia < 10 L 11-32 umol/L White Blood Count 7.6 4.8-10.8 K/uL Red Blood Count 3.28 L 4.50-6.20 MIL/uL Hemoglobin 10.8 L 14.0-18.0 g/dL Hematocrit 31.4 L 42-54 % Mean Corpuscular Volume 95.7 79-99 fL Mean Corpuscular Hemoglobin 32.9 27.0-33.0 pg Mean Corpuscular Hemoglobin Concent 34.4 32.0-36.0 g/dL Red Cell Distribution Width 13.7 11.0-15.5 % Platelet Count 408 H 130-400 K/uL Mean Platelet Volume 10.1 7.5-10.5 fL Immature Granulocyte % (Auto) 0.4 0-1 % Neutrophils (%) (Auto) 70.6 40.0-77.0 % Lymphocytes (%) (Auto) 19.5 L 21.0-51.0 % Monocytes (%) (Auto) 7.4 3.0-13.0 % Eosinophils (%) (Auto) 2.0 0.0-8.0 % Basophils (%) (Auto) 0.1 0.0-5.0 % Neutrophils # (Auto) 5.4 1.8-7.7 K/uL Lymphocytes # (Auto) 1.5 1.0-4.8 K/uL Monocytes # (Auto) 0.6 0.1-1.0 K/uL Eosinophils # (Auto) 0.15 0.00-0.70 K/uL Basophils # (Auto) 0.01 0.00-0.20 K/uL Absolute Immature Granulocyte (auto 0.03 0-1 K/uL Nucleated Red Blood Cells 0.0 0.0-0.19 % Activated Partial Thromboplast Time 50.1 H 26.3-35.5 SEC Total Bilirubin 0.5 0.2-1.0 mg/dL Aspartate Amino Transf (AST/SGOT) 101 H 10-37 U/L Alanine Aminotransferase (ALT/SGPT) 132 H 12-78 U/L Alkaline Phosphatase 109 50-136 U/L Total Protein 5.6 L 6.0-8.3 g/dL Albumin 2.3 L 3.5-5.0 g/dL ASSESSMENT: Hypoxic respiratory failure, status post intubation. 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 Non-STEMI, status post left heart catheterization with findings of severe multivessel coronary disease. Acute renal failure, resolving. Leukocytosis, resolving. Hypotension. CAD with heart stents. PLAN: Continue linezolid. Continue Zosyn. Continue levofloxacin. Continue GI prophylaxis. Continue mechanical ventilatory support. We will monitor electrolytes. Cardiovascular surgeon has been consulted. We will follow up on the cultures. This case was reviewed and discussed with my supervising physician and the above assessment and plan was formulated and agreed upon. ATTESTATION BY PHYSICIAN I have seen and examined the patient. I reviewed the documentation, medical decision making, and treatment plan as noted by the mid-level provider above. I agree with the findings and plan of care. MILA DEAN MD, [facility] Aug 30, 2024 22:44
--- NOTE | 2024-08-30 23:04 | HMCIMG ---
CHEST 1VW HISTORY: Tube placement COMPARISON: 08/29/2024 FINDINGS: A frontal projection of the chest was obtained. There are bilateral pulmonary infiltrates suggestive of pulmonary vascular congestion with possible superimposed pneumonitis. The heart is borderline enlarged. Degenerative changes are seen. No evidence of aortic calcification is seen. IMPRESSION: 1. Bilateral pulmonary infiltrates are seen suggestive of pulmonary vascular congestion with possible superimposed pneumonitis.
[2024-08-31] VITALS (108 sets, daily range): BP systolic 75–155; BP diastolic 28–102; PULSE 48–93; RESP 14–44; TEMP 96.7–98.4; O2SAT 92–100
[2024-08-31 01:32] LABS: CREATININE 1.2 mg/dL (0.5-1.3); POTASSIUM 3.4 mmol/L (3.5-5.1)
[2024-08-31 04:54] LABS: ABG BASE EXCESS 5.4 mmol/L (-2.0-3.0); ABG HCO3 28.5 mmol/L (21.0-28.0); ABG OXYGEN SATURATION 97.2 % (94.0-98.0); ABG PCO2 37 mmHg (35-48); ABG PH 7.509 (7.350-7.450); PO2, ARTERIAL BG 84.8 mmHg (83.0-108.0); VENT MODE, BG AC VC (ROOM AIR)
[2024-08-31 05:34] LABS: BASOPHILS # (AUTO) 0.02 K/uL (0.00-0.20); BASOPHILS % (AUTO) 0.3 % (0.0-5.0); EOSINOPHILS # (AUTO) 0.45 K/uL (0.00-0.70); EOSINOPHILS % (AUTO) 5.7 % (0.0-8.0); HEMATOCRIT 33.8 % (42-54); IMMATURE GRANULOCYTE ABSOLUTE 0.03 K/uL (0-1); LYMPHOCYTES # (AUTO) 1.5 K/uL (1.0-4.8); MEAN CORPUSCULAR HEMOGLOBIN 32.6 pg (27.0-33.0); MEAN CORPUSCULAR HGB CONC 34.6 g/dL (32.0-36.0); MEAN CORPUSCULAR VOLUME 94.2 fL (79-99); MONOCYTES # (AUTO) 0.7 K/uL (0.1-1.0); MONOCYTES % (AUTO) 8.3 % (3.0-13.0); NEUTROPHILS # (AUTO) 5.2 K/uL (1.8-7.7); NEUTROPHILS % (AUTO) 66.3 % (40.0-77.0); PLATELET COUNT (AUTO) 419 K/uL (130-400); RED BLOOD CELL COUNT(AUTO) 3.59 MIL/uL (4.50-6.20); RED CELL DISTRIBUTION WIDTH 13.6 % (11.0-15.5); WHITE BLOOD COUNT (AUTO) 7.8 K/uL (4.8-10.8)
[2024-08-31 05:46] LABS: INR 1.14 (0.85-1.15); PROTHROMBIN TIME 11.9 SEC (9.6-11.6)
[2024-08-31 05:47] LABS: PARTIAL THROMBOPLASTIN TIME 58.5 SEC (26.3-35.5)
[2024-08-31 06:06] LABS: ALBUMIN 3.3 g/dL (3.5-5.0); BILIRUBIN,TOTAL 0.7 mg/dL (0.2-1.0); CREATININE 1.1 mg/dL (0.5-1.3); POTASSIUM 3.7 mmol/L (3.5-5.1); TOTAL PROTEIN, SERUM 7.2 g/dL (6.0-8.3)
--- NOTE | 2024-08-31 07:09 | PN ---
[facility] Cardiology Progress Note CARDIOLOGY PROGRESS NOTE August Problems: 1. Acute respiratory failure requiring intubation 2. Viral upper respiratory infection with septic shock 3. Non ST-elevation OH May 2024 with fixed defect on Cardiolite stress test now with recurrent non ST-elevation OH 4. 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 Moderate mitral regurgitation 6. Suspected endocarditis with a vegetation on the mitral valve by transesophageal echo this admission 7. Acute kidney injury, resolved 8. Hyponatremia, resolved 9. Dementia Blood pressure this morning is 120-130 systolic. Heart rate is in the 50s. White count 7.8 hemoglobin 11.7 platelet count reported [id number]. Sodium is 136. Potassium 3.7 BUN 24 creatinine 1.1 with estimated GFR of 70. The patient continues on albuterol aspirin furosemide infusion heparin protocol insulin scale levofloxacin pantoprazole antibiotics potassium protocol. He remains intubated and sedated with propofol and Precedex. He has good breath sounds bilaterally. He has diuresed 4 L. we can consider switching over to pulse doses of diuretics if okay with critical Care. Sedation was held yesterday but he tolerated CPAP only for about three or 4 hours and had to go back on ventilator support. Attempts will be undertaken again today. Intra-aortic balloon pump is currently at one-to-one and he is on a low-dose of norepinephrine. His right foot has pulses palpable and warmth of extremities is equal on both sides. CT surgery has requested weaning from the ventilator to have a discussion with the patient and family about whether or not he wishes to undergo a high-risk surgery. ROBERTA ABARCA MD Aug 31, 2024 07:09
[2024-08-31] MEDS: THIAMINE HCL 100 MG/ML 2ML VIAL IV SCH (07:58)
--- NOTE | 2024-08-31 08:50 | PN ---
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 Likely ICU delirium VS withdrawal. Currently on Levophed at 0.06 mcg/kg per minute, Precedex at 0.8 Mcg/kg per hour and heparin drip. Patient on mechanical ventilation currently on spontaneous breathing trials with CPAP of 5 FiO2 of 30%. Continues intra-aortic balloon 1:1. Blood pressure 95/67 heart rate in the 62 respiratory rate of , saturating 100% on the vent. CBC unremarkable similar to yesterday, chemistries i.e. sodium has corrected 136 potassium of 3.7 Carbon dioxide of 30 BUN of24 creatinine of 1.1 GFR of 70 random glucose 110 mg/dL, liver enzymes trending down AST 46 ALT 104, albumin 3.3. ABG with a pH of 7.50, pCO2 of37 PO2 of 84.8 bicarb 28.5. On chest x-ray decreased vascular congestion noted. No pneumothorax. ET tube in place. We will stop Lasix drip and continue light diuresing with Lasix 20 mg q.12 hours IV. Repeating blood cultures. ET tube 5.3 cm from the lino we will communicated with RT to insert1 cm. We will obtain ABG after CPAP trials and plan for extubation if criteria met. REVIEW OF SYSTEMS: Unable to obtain due to intubation PHYSICAL EXAM: GENERAL: Critically ill, intubated, on full mechanical ventilator support HEENT: EOMI NECK: Orally intubated no JVD, trachea midline LUNGS: Coarse bilateral lung sounds, on full mechanical ventilator support HEART: Regular rate and rhythm. Normal S1 and S2, without murmurs ABD: Abdomen soft, nontender. Bowel sounds present EXT: No clubbing cyanosis , some edema to bilateral lower extremity one to 1+ pitting NEURO: Awake alert and following simple commands. Vital Signs (last 8hr) Date Time Temp Pulse Resp B/P (MAP) Pulse Ox O2 Delivery O2 Flow Rate FiO2 08/31/24 07:19 30 08/31/24 07:10 58 22 08/31/24 06:25 59 30 08/31/24 06:15 52 14 124/65 (84) 100 08/31/24 06:00 52 14 133/69 (90) 100 08/31/24 05:45 52 14 122/76 (91) 100 08/31/24 05:30 53 14 126/56 (79) 99 08/31/24 05:15 52 14 120/56 (77) 100 08/31/24 05:00 53 15 115/50 (71) 100 08/31/24 04:45 52 17 109/52 (71) 100 08/31/24 04:30 54 19 116/61 (79) 90 08/31/24 04:15 52 18 112/57 (75) 100 08/31/24 04:00 50 14 117/50 (72) 99 08/31/24 03:45 50 15 122/77 (92) 99 08/31/24 03:30 51 14 129/51 (77) 99 08/31/24 03:15 51 14 115/59 (77) 99 08/31/24 03:08 100 Ventilator+ 30 08/31/24 03:04 50 30 08/31/24 03:00 30 08/31/24 03:00 52 15 133/76 (95) 98 08/31/24 02:45 51 14 129/67 (87) 99 08/31/24 02:30 51 14 122/68 (86) 100 08/31/24 02:15 51 14 118/70 (86) 100 08/31/24 02:00 51 17 114/67 (83) 100 08/31/24 01:45 49 16 115/46 (69) 100 08/31/24 01:30 54 20 86/52 (63) 100 08/31/24 01:15 57 21 96 08/31/24 01:00 55 20 155/73 (100) 100 LABS: Hematology Labs: Test 08/31/24 04:43 Range/Units White Blood Count 7.8 4.8-10.8 K/uL Red Blood Count 3.59 L 4.50-6.20 MIL/uL Hemoglobin 11.7 L 14.0-18.0 g/dL Hematocrit 33.8 L 42-54 % Mean Corpuscular Volume 94.2 79-99 fL Mean Corpuscular Hemoglobin 32.6 27.0-33.0 pg Mean Corpuscular Hemoglobin Concent 34.6 32.0-36.0 g/dL Red Cell Distribution Width 13.6 11.0-15.5 % Platelet Count 419 H 130-400 K/uL Mean Platelet Volume 9.9 7.5-10.5 fL Immature Granulocyte % (Auto) 0.4 0-1 % Neutrophils (%) (Auto) 66.3 40.0-77.0 % Lymphocytes (%) (Auto) 19.0 L 21.0-51.0 % Monocytes (%) (Auto) 8.3 3.0-13.0 % Eosinophils (%) (Auto) 5.7 0.0-8.0 % Basophils (%) (Auto) 0.3 0.0-5.0 % Neutrophils # (Auto) 5.2 1.8-7.7 K/uL Lymphocytes # (Auto) 1.5 1.0-4.8 K/uL Monocytes # (Auto) 0.7 0.1-1.0 K/uL Eosinophils # (Auto) 0.45 0.00-0.70 K/uL Basophils # (Auto) 0.02 0.00-0.20 K/uL Absolute Immature Granulocyte (auto 0.03 0-1 K/uL Nucleated Red Blood Cells 0.0 0.0-0.19 % Chemistry Labs: Test 08/31/24 04:43 08/30/24 23:25 08/30/24 23:23 08/30/24 13:33 Range/Units Sodium Level 136 136-145 mmol/L Potassium Level 3.7 3.5-5.1 mmol/L Chloride Level 96 L 101-111 mmol/L Carbon Dioxide Level 30 21-32 mmol/L Blood Urea Nitrogen 24 H 7-18 mg/dL Creatinine 1.1 0.5-1.3 mg/dL Glomerular Filtration Rate Calc 70 >90 mL/min Random Glucose 110 H 70-105 mg/dL Lactic Acid Level 2.1 0.8-2.5 mmol/L Total Calcium 9.1 8.5-10.1 mg/dL Total Bilirubin 0.7 0.2-1.0 mg/dL Aspartate Amino Transf (AST/SGOT) 46 H 10-37 U/L Alanine Aminotransferase (ALT/SGPT) 104 H 12-78 U/L Alkaline Phosphatase 109 50-136 U/L Total Protein 7.2 6.0-8.3 g/dL Albumin 3.3 L 3.5-5.0 g/dL Whole Blood Glucose 102 70-110 MG/DL Magnesium Level 1.90 1.80-2.40 mg/dL Phosphorus Level 3.3 2.5-4.9 mg/dL Test 08/30/24 10:46 Range/Units Ammonia < 10 L 11-32 umol/L TSH 3rd Generation 0.485 0.450-4.500 uIU/mL Coagulation Labs: Test 08/31/24 04:43 Range/Units Prothrombin Time 11.9 H 9.6-11.6 SEC Prothromb Time International Ratio 1.14 0.85-1.15 Activated Partial Thromboplast Time 58.5 H 26.3-35.5 SEC DIAGNOSTICS / RADIOLOGY RESULTS: [Signed PATIENT: NAMAN RUGGIERO MR#: [id number] : 1950 SEX: M AGE: 74 LOCATION: [facility] ORDER 2300 STATUS: ADM IN REPORT#: [id number] SERVICE 0600 REASON: intubated ORDERING PHYSICIAN: ANDREI CHINO PROCEDURE: CXR1VW - CHEST 1VW CHEST 1VW HISTORY: Intubated COMPARISON: 08/30/2024 FINDINGS: A frontal projection of the chest was obtained. Mild bilateral pulmonary infiltrates are seen may be related to mild pulmonary vascular congestion with possible superimposed pneumonitis. The heart is borderline enlarged. All the lines and tubes are again seen in place. No evidence of aortic calcification is seen. Endotracheal tube is seen with distal tip at 5.3 cm above lino. IMPRESSION: 1. Mild bilateral pulmonary infiltrates are seen may be related to mild pulmonary vascular congestion with possible superimposed pneumonitis. DICTATED BY: SHANNEN BRICEÑO MD DATE: 08/31/24 1241 ELECTRONICALLY SIGNED BY: SHANNEN BRICEÑO MD DATE: 08/31/24 1247 PLAN SBT's Daily sedation vacation If patient tolerate SBTs this morning we will repeat ABG and possibly extubate if ready. DC Lasix gtt and start IVP of lasix q 12 hrs Valium 2.5mg IVP q6hrs precedex gtt wean as tolerated IABP per Cardiology CV surgeon consult follow recommendations- no plans for surgery at this time Antibiotics per ID start thiamine 300mg IV QD x 3 days Folic acid 1 mg iv daily pt home meds include xanax 2mg po tid will start low dose to avoid benzodiazepine withdrawal assess pain using CPOT Encourage Physical therapy once extubated use melatonin at HS avoid sedation if possible monitor electrolytes closely and replenish appropriately Frequent reorientation avoid polypharmacy NEURO: Minimize central acting medications as possible. Fall Precautions. Well lighted room through the day and minimize interruptions through the night to prevent acute delirium. PULMONARY: Supplemental 02 as needed Titrate Fio2 to keep Spo2 > or = 90% DuoNebs and CPT as needed IS hourly while awake for pulmonary hygiene Out of bed to chair as tolerated VAP Bundle Vent/BIPAP Settings: Peep of 6, FiO2 50%, rate of 22, tidal volume 500 CARDIOVASCULAR: Follow hemodynamics. Titrate vasopressor to keep MAP >65 or systolic blood pressure >95mmHg DIPS: Heparin, Precedex propofol LINES: PIV midline GI & NUTRITION: Continue nutritional support Aspirations precautions Prokinetic agents and laxatives as needed tube feedings dietary consult KIDNEYS & ELECTROLYTES: Strict monitoring of intake and output Daily weights Avoid nephrotoxic agents Monitor electrolytes and replace as needed Goal urine output of 30mL/hr or 0.5mL/kg/hr ENDOCRINE: Maintain blood glucose between 100-180 at all times. Insulin sliding scale for blood glucose management INFECTIOUS DISEASE: Trend temperature. Gaviria-culture if febrile. Micro: [ ] 08/25/24 blood cultures negative Sputum cultures from 08/25/24 normal paul Antibiotics: Zosyn 08/25/24 Levaquin 08/28/24 Zyvox 08/28/24 HEMATOLOGY & COAGULATION: Monitor H&H. Keep Hgb > 7 Transfuse 1 unit of PRBC for Hgb < 7 Transfuse 1 pack of platelets of platelets < 20, 000 Watch for any signs and symptoms of bleeding SKIN: Pressure ulcer prevention per facility protocol Rehab: PT/OT Prophylaxis: GI: PPI DVT: Bilateral SCDs, heparin drip Code Status: Full Resuscitation Disposition: ICU Other: Total time in care of this patient includes 60 minutes excluding all procedures performed. ANDREI CHINOP Aug 31, 2024 08:50
[2024-08-31] MEDS ORDERED: THIAMINE HCL 100 MG/ML 2ML VIAL IM SCH (09:00)
[2024-08-31] MEDS: FOLic ACID 5 MG/ML VIAL IV SCH (09:20)
[2024-08-31] MEDS: furoSEMIDE 20MG VIAL IV SCH (09:26)
[2024-08-31 09:49] LABS: ABG BASE EXCESS 2.6 mmol/L (-2.0-3.0); ABG HCO3 24.4 mmol/L (21.0-28.0); ABG OXYGEN SATURATION 98.4 % (94.0-98.0); ABG PCO2 30 mmHg (35-48); ABG PH 7.529 (7.350-7.450); DEVICE COMMENT RBJUDITH; PO2, ARTERIAL BG 105.3 mmHg (83.0-108.0); VENT MODE, BG CPAO 5-5 (ROOM AIR)
[2024-08-31] MEDS: MAGNESIUM 2GM PREMIX 50ML 50 ML IV ONE (09:49)
[2024-08-31] MEDS: diazePAM 2 MG TAB PO PRN (10:06)
--- NOTE | 2024-08-31 11:05 | PN ---
[facility] PROGRESS NOTE Date of Service: Aug 31, 2024 Time of Service: 11:01 SUBJECTIVE: 08/26 patient seen at bedside, no acute events overnight. He remains intubated and sedated, continues on pressor support. FiO2 is 60%, we will wean towards extubation. Troponins are elevated, patient is started on ACS protocol with aspirin, Plavix, statin and heparin drip. Cardiology recommendations still pending, we will follow up. WBC increased from 10.8 up to 14.3, hemoglobin decreased from 13.2 down to 11.6, sodium stable at 126, similar to yesterday, troponins peaked and are now downtrending to [id number], remainder of his labs are relatively unremarkable. 08/27 patient seen at bedside, no acute events overnight. He remains intubated and sedated, continue weaning down pressors. His FiO2 has been weaned down to 50%, we will continue to wean as able, peep has been decreased from 8-6. Echocardiogram has been done, formal read is still pending, preliminary read shows a possible vegetation of the mitral valve, ejection fraction of 50-55%, mild to moderate aortic regurgitation, moderate mitral regurgitation, we will have him reassessed once he has been extubated as he may need a KARTHIK, however given his blood cultures are no growth this mobile mass on the mitral valve may not be secondary to endocarditis. Creatinine has increased from 1.3 up to 1.8, hemoglobin stable at 11.3, similar to yesterday, WBC increased from 14.3 up to 18.9, platelets improved from 528 down to 520, sodium stable at 127, similar to yesterday, remainder of his labs are relatively unremarkable. Cultures are no growth to date. 08/28 patient is seen and examined at bedside, remains intubated, on mechanical ventilation, on propofol, Levophed and heparin drip. Discussed with the RN, back from having left heart catheterization with finding of three-vessel disease for which Cardiothoracic surgery consultation requested. TTE with a EF 50-55% with possible vegetation of the mitral valve. Patient is scheduled for KARTHIK today. WBC 17.9. Blood cultures no growth after 48 hours. 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 Continue goal-directed medical therapy, infectious disease consultation requested. Blood cultures has remained negative. CT surgery consultation requested for CABG plus aortic and mitral valve replacement. 08/30 patient is seen and examined at bedside, remains intubated, mechanical ventilation, per discussion with the RN, the patient failed SBT trial, had to be placed back on sedation. Patient getting IV antibiotics at the time of my visit. BP 98/56, FiO2 30%, saturating 98%. CBC with a hemoglobin 10.8, hematocrit 31.4. Chest x-ray shows bilateral pulmonary infiltrates suggestive of pulmonary vascular congestion with possible superimposed pneumonitis. Continue to follow Pulmonary input and recommendation in terms of weaning off the ventilator, continue broad-spectrum IV antibiotics per ID recommendations. Cardiology input noted and appreciated. Patient evaluated by CT surgeon for possible CABG as well as valve replacement. 08/31 patient is seen and examined at bedside, remains intubated, mechanical ventilation, per discussion with the RN, BP 87/40, rate of 59, saturating 100%, FiO2 30%. Patient remains on broad-spectrum IV antibiotics, the patient remains on Levophed for pressure support. Remains sedated with propofol and Precedex. Hemoglobin 11.7, hematocrit 33.8. ABG pH 7.5, pCO2 30, bicarb 24.4.Chest x-ray shows bilateral pulmonary infiltrates suggestive of pulmonary vascular congestion with possible superimposed pneumonitis. Urine output 4 L. Weaning trial in progress by pulmonary physician, attempt yesterday, patient tolerated only 4 hours of CPAP trial. Cardiology input noted and appreciated, intra- aortic balloon pump in place. Patient with a aortic and mitral valve endocarditis, evaluated by CT surgeon who requested the patient be off ventilator in order to discuss procedure with the patient and family. Continue to follow critical care input and recommendation. REVIEW OF SYSTEMS 12 point review of systems negative unless noted in HPI PHYSICAL EXAM GENERAL APPEARANCE: The patient is intubated, on mechanical ventilation, on propofol, Levophed and heparin. NEUROLOGICAL: Cranial nerves II-XII grossly intact. Motor is 5/5 in bilateral upper and lower extremities proximal to distal. No sensory deficits. HEENT: Face is symmetric. Pupils are equal and reactive. Extraocular movements are intact. NECK: Supple. No JVD. No thyromegaly. No submental, submandibular, pre- /postauricular, occipital or supraclavicular lymphadenopathy. CHEST: Normal chest expansion. No Telemetry. LUNGS: Absence of any rales, rhonchi or any wheezing. CARDIOVASCULAR: Regular. S1 and S2 normal. No appreciable rubs, murmurs or gallops. ABDOMEN: Soft, nontender, and nondistended. There is no rebound, voluntary guarding, or rigidity. : Deferred. No Leal. EXTREMITIES: Non-edematous and not cyanotic. No clubbing. Good capillary refill. SKIN: No skin breakdown. Vital Signs (last 8hr) Date Time Temp Pulse Resp B/P (MAP) Pulse Ox O2 Delivery O2 Flow Rate FiO2 08/31/24 09:50 59 30 08/31/24 08:45 60 19 87/40 (56) 100 08/31/24 08:30 62 30 109/62 (78) 100 08/31/24 08:15 65 36 95/67 (76) 99 08/31/24 08:00 100 CPAP+ 30 08/31/24 08:00 64 34 87/33 (51) 98 08/31/24 08:00 30 08/31/24 07:45 60 28 101/50 (67) 100 08/31/24 07:30 63 36 109/79 (89) 99 08/31/24 07:19 30 08/31/24 07:15 96.6 62 35 110/61 (77) 100 08/31/24 07:10 58 22 08/31/24 07:00 58 27 102/62 (75) 100 08/31/24 06:25 59 30 08/31/24 06:15 52 14 124/65 (84) 100 08/31/24 06:00 52 14 133/69 (90) 100 08/31/24 05:45 52 14 122/76 (91) 100 08/31/24 05:30 53 14 126/56 (79) 99 08/31/24 05:15 52 14 120/56 (77) 100 08/31/24 05:00 53 15 115/50 (71) 100 08/31/24 04:45 52 17 109/52 (71) 100 08/31/24 04:30 54 19 116/61 (79) 90 08/31/24 04:15 52 18 112/57 (75) 100 08/31/24 04:00 50 14 117/50 (72) 99 08/31/24 03:45 50 15 122/77 (92) 99 08/31/24 03:30 51 14 129/51 (77) 99 08/31/24 03:15 51 14 115/59 (77) 99 08/31/24 03:08 100 Ventilator+ 30 08/31/24 03:04 50 30 LABS: Laboratory: Test 08/31/24 09:47 08/31/24 09:17 08/31/24 04:52 08/31/24 04:43 Range/Units Blood Gas Specimen Type Arterial Arterial Blood pH 7.529 H 7.350-7.450 Arterial Blood Partial Pressure CO2 30 L 35-48 mmHg Arterial Blood Partial Pressure O2 105.3 83.0-108.0 mmHg Arterial Blood HCO3 24.4 21.0-28.0 mmol/L Arterial Blood Oxygen Saturation 98.4 H 94.0-98.0 % Arterial Blood Base Excess 2.6 -2.0-3.0 mmol/L Blood Gas Temperature 37.0 35.5-37.0 CELSIUS Blood Gas Vent Mode CPAO 5-5 ROOM AIR FiO2 30.0 % Blood Gas PEEP 5 cm H2O Blood Gas Specimen Comment RBJUDITH Lactic Acid Level 2.6 H 0.8-2.5 mmol/L Blood Gas Respiration Rate 14.0 min. Blood Gas Tidal Volume 500 ml White Blood Count 7.8 4.8-10.8 K/uL Red Blood Count 3.59 L 4.50-6.20 MIL/uL Hemoglobin 11.7 L 14.0-18.0 g/dL Hematocrit 33.8 L 42-54 % Mean Corpuscular Volume 94.2 79-99 fL Mean Corpuscular Hemoglobin 32.6 27.0-33.0 pg Mean Corpuscular Hemoglobin Concent 34.6 32.0-36.0 g/dL Red Cell Distribution Width 13.6 11.0-15.5 % Platelet Count 419 H 130-400 K/uL Mean Platelet Volume 9.9 7.5-10.5 fL Immature Granulocyte % (Auto) 0.4 0-1 % Neutrophils (%) (Auto) 66.3 40.0-77.0 % Lymphocytes (%) (Auto) 19.0 L 21.0-51.0 % Monocytes (%) (Auto) 8.3 3.0-13.0 % Eosinophils (%) (Auto) 5.7 0.0-8.0 % Basophils (%) (Auto) 0.3 0.0-5.0 % Neutrophils # (Auto) 5.2 1.8-7.7 K/uL Lymphocytes # (Auto) 1.5 1.0-4.8 K/uL Monocytes # (Auto) 0.7 0.1-1.0 K/uL Eosinophils # (Auto) 0.45 0.00-0.70 K/uL Basophils # (Auto) 0.02 0.00-0.20 K/uL Absolute Immature Granulocyte (auto 0.03 0-1 K/uL Nucleated Red Blood Cells 0.0 0.0-0.19 % Prothrombin Time 11.9 H 9.6-11.6 SEC Prothromb Time International Ratio 1.14 0.85-1.15 Activated Partial Thromboplast Time 58.5 H 26.3-35.5 SEC Sodium Level 136 136-145 mmol/L Potassium Level 3.7 3.5-5.1 mmol/L Chloride Level 96 L 101-111 mmol/L Carbon Dioxide Level 30 21-32 mmol/L Blood Urea Nitrogen 24 H 7-18 mg/dL Creatinine 1.1 0.5-1.3 mg/dL Glomerular Filtration Rate Calc 70 >90 mL/min Random Glucose 110 H 70-105 mg/dL Total Calcium 9.1 8.5-10.1 mg/dL Total Bilirubin 0.7 0.2-1.0 mg/dL Aspartate Amino Transf (AST/SGOT) 46 H 10-37 U/L Alanine Aminotransferase (ALT/SGPT) 104 H 12-78 U/L Alkaline Phosphatase 109 50-136 U/L Total Protein 7.2 6.0-8.3 g/dL Albumin 3.3 L 3.5-5.0 g/dL Test 08/30/24 23:25 08/30/24 23:23 08/30/24 15:12 08/30/24 13:33 Range/Units Whole Blood Glucose 102 70-110 MG/DL Magnesium Level 1.90 1.80-2.40 mg/dL Hemoglobin (Blood Gas) 10.5 L 13.5-17.5 g/dL Sodium (Blood Gas) 136 136-145 MMOL/L Bedside Potassium (Blood Gas) 3.7 3.4-4.5 MMOL/L Bedside Chloride (Blood Gas) 101 98-107 MMOL/L Bedside Glucose (Blood Gas) 94 65-95 MG/DL Bedside Ionized Calcium (Blood Gas) 1.15 1.15-1.33 MMOL/L Bedside Lactic Acid (Blood Gas) 0.67 0.36-0.75 MMOL/L Phosphorus Level 3.3 2.5-4.9 mg/dL Test 08/30/24 10:46 Range/Units Ammonia < 10 L 11-32 umol/L TSH 3rd Generation 0.485 0.450-4.500 uIU/mL Current Medications Medications (Trade) Dose Ordered Sig/Lydia Route PRN Reason Start Time Stop Time Status Last Admin Dose Admin Acetaminophen (TYLenol 650MG SUPPOSITORY) 650 mg Q6H PRN RC MILD PAIN (1-3) 08/25/24 19:30 09/24/24 19:29 Albumin Human 100 ml @ 0 mls/hr AD IV 08/30/24 10:30 09/04/24 10:29 08/30/24 12:01 100 MLS/HR Albuterol (DUOneb) 1 UDVIAL [id number] IH 08/26/24 00:00 09/25/24 00:00 08/31/24 07:18 1 UDVIAL Albuterol (DUOneb) 2 udvial ONCE IH 08/25/24 18:00 08/25/24 22:00 DC 08/25/24 19:17 2 UDVIAL Alprazolam (XANax 0.5MG) 0.5 mg TID PO 08/30/24 21:00 08/31/24 09:57 DC 08/31/24 07:57 0.5 MG Aspirin (Aspirin 300mg Supp) [address] 08/25/24 19:30 08/25/24 23:59 DC 08/25/24 19:41 300 MG Aspirin (Aspirin 81mg Ec Tab) 81 mg DAILY PO 08/26/24 09:00 09/25/24 08:59 08/31/24 07:57 81 MG Atorvastatin Calcium (LIPItor 40MG) 40 mg HS PO 08/26/24 07:30 08/26/24 07:44 DC Azithromycin 250 ml @ 250 mls/hr Q24H IVPB 08/25/24 18:51 2/21/25 23:30 DC Azithromycin 250 ml @ 250 mls/hr Q24H IVPB 08/25/24 19:30 08/25/24 19:38 DC Ceftriaxone Sodium (ROCEphine 1G INJ) 1 gm ONCE IVPB 08/25/24 19:00 08/25/24 21:03 DC 08/25/24 19:41 1 GM Ceftriaxone Sodium (ROCEphine 1G INJ) 1 gm Q24H IVPB 08/25/24 19:30 08/26/24 12:29 DC Clopidogrel Bisulfate (plaVIX 300MG TAB) 300 mg ONCE PO 08/25/24 21:00 08/26/24 06:00 DC 08/25/24 23:16 300 MG Clopidogrel Bisulfate (plaVIX 75MG) 75 mg DAILY PO 08/26/24 09:00 08/29/24 10:52 DC 08/29/24 08:41 75 MG Dexmedetomidine/ Sodium Chloride (PRECEdex 400MCG/ 100ML-NS) 400 mcg PROTOCOL IV 08/29/24 09:00 09/28/24 08:59 08/31/24 00:25 400 MCG Diazepam (VALium 2 mg Tab) 2 mg Q6H PRN PO ANXIETY 08/31/24 10:00 09/07/24 09:59 08/31/24 10:06 2 MG Fentanyl Citrate 100 ml @ 2.5 mls/hr PROTOCOL IV 08/25/24 20:00 08/27/24 17:54 DC 08/27/24 14:22 2.5 MLS/HR Folic Acid (FolVITE 5 MG/ML VIAL) 1 mg DAILY IV 08/31/24 09:00 09/30/24 08:59 08/31/24 09:20 1 MG Furosemide (LASix 20MG VIAL) 20 mg Q12H IV 08/26/24 09:00 08/27/24 12:24 DC 08/27/24 08:56 20 MG Furosemide (LASix 20MG VIAL) 20 mg Q12H IV 08/31/24 08:30 09/30/24 08:29 08/31/24 09:26 20 MG Furosemide 100 mg/ Sodium Chloride 100 ml @ 0 mls/hr PROTOCOL IV 08/30/24 13:30 08/31/24 08:26 DC 08/30/24 23:32 10 MLS/HR Heparin Sodium (Porcine) (HEParin 5,000 UNIT VIAL) *calculation based on ACTUAL B... AD PRN IV HEPARIN PROTOCOL 08/25/24 20:00 09/24/24 19:59 08/28/24 06:30 6,000 UNIT Heparin Sodium/ Dextrose 250 ml @ 0 mls/hr Q6H IV 08/25/24 20:00 09/24/24 19:59 08/31/24 00:27 12 MLS/HR Insulin Human Regular (humuLIN R 100 UNIT/ML 3ML) INSULIN SLIDING SCAL... Q6H6 SQ 08/26/24 00:00 09/25/24 00:00 08/26/24 05:58 2 UNIT Ketamine HCl (ketaMINE 50MG/ ML SYRINGE) 50 mg ONCE IM 08/25/24 19:00 08/25/24 22:00 DC Ketamine HCl (ketaMINE 50MG/ ML SYRINGE) 50 mg ONCE IM 08/25/24 19:00 08/25/24 23:59 DC Lactulose (Constulose 20gm/ 30ml Udcup) 20 gm BID PO 08/28/24 21:00 09/27/24 20:59 08/30/24 20:34 20 GM Levofloxacin/ Dextrose 100 ml @ 100 mls/hr Q24H IV 08/28/24 14:30 08/28/24 15:24 DC Levofloxacin/ Dextrose 100 ml @ 100 mls/hr Q48H IV 08/28/24 15:30 09/11/24 15:29 08/30/24 15:43 100 MLS/HR Linezolid (Zyvox) 600 mg Q12H PO 08/28/24 14:30 09/11/24 14:29 08/31/24 02:36 600 MG Melatonin (Melatonin) 10 mg HS PO 08/30/24 21:00 09/29/24 20:59 Methylprednisolone Sodium Succinate (Solu-medROL 40MG) 40 mg Q8H IVP 08/25/24 23:00 08/27/24 12:19 DC 08/27/24 06:23 40 MG Methylprednisolone Sodium Succinate (Solu-medROL 125MG) 125 mg ONCE IVP 08/25/24 18:00 08/25/24 22:00 DC 08/25/24 18:52 125 MG Midazolam HCl 50 ml @ 0 mls/hr PROTOCOL IV 08/25/24 19:00 08/27/24 17:54 DC 08/27/24 11:18 9 MLS/HR Midazolam HCl 50 mg/Sodium Chloride 50 ml @ 0 mls/hr PROTOCOL IV 08/25/24 19:00 09/24/24 18:59 UNV Morphine Sulfate (morPHINE 2MG SYG) 2 mg Q4H PRN IVP SEVERE PAIN (7-10) 08/26/24 07:30 08/30/24 18:56 DC Morphine Sulfate (morPHINE 4MG SYG) 2 mg Q4H PRN IVP SEVERE PAIN (7-10) 08/25/24 19:30 08/26/24 07:11 DC Norepinephrine 250 ml @ 0 mls/hr AD PRN IV DIRECTED 08/27/24 06:00 09/26/24 05:59 08/31/24 00:26 24 MLS/HR Norepinephrine 250 ml @ 0 mls/hr PROTOCOL IV 08/25/24 19:30 08/26/24 05:10 DC 08/26/24 00:14 121.5 MLS/HR Norepinephrine Bitartrate 32 mg/ Sodium Chloride 250 ml @ 0 mls/hr Q0M PRN IV hypotension 08/26/24 05:30 08/28/24 08:54 DC 08/26/24 06:04 19.87 MLS/HR Ondansetron HCl (zoFRAN 4MG INJ) 4 mg Q6H PRN IV NAUSEA/VOMITING 08/25/24 19:30 09/24/24 19:29 Pantoprazole Sodium (PROTonix 40MG INJ) 40 mg DAILY IV 08/26/24 09:00 09/25/24 08:59 08/31/24 07:57 40 MG Piperacillin Sod/ Tazobactam Sod (Zosyn 3.375gm+NS 50ml) 3.375 gm Q8H IV 08/25/24 20:00 09/04/24 19:59 UNV Piperacillin Sod/ Tazobactam Sod (Zosyn 3.375gm+NS 50ml) 3.375 gm ZOSY8 IV 08/25/24 21:00 09/04/24 20:59 08/31/24 06:05 3.375 GM Polyethylene Glycol (MIRalax 3350 17 GM POWD.PACK) 17 gm DAILY PO 08/29/24 09:00 09/28/24 08:59 08/29/24 08:41 17 GM Polyethylene Glycol (MIRalax 3350 17 GM POWD.PACK) 17 gm ONCE PO 08/28/24 18:00 08/28/24 21:00 DC 08/28/24 18:00 17 GM Potassium Chloride 100 ml @ 100 mls/hr AD PRN IV POTASSIUM PROTOCOL 08/29/24 13:00 09/28/24 12:59 08/31/24 02:35 100 MLS/HR Potassium Chloride (K-Dur/Klor-Con 20meq) 20 meq AD PRN PO POTASSIUM PROTOCOL 08/29/24 13:00 09/28/24 12:59 Potassium Chloride (KCl 10% Elixir 20meq/15ml) 20 meq AD PRN PO POTASSIUM PROTOCOL 08/29/24 13:00 09/28/24 12:59 08/31/24 02:36 20 MEQ Propofol (DIPRivan 1000MG/ 100ML) 1,000 mg PROTOCOL PRN IV SEDATION 08/27/24 16:30 09/26/24 16:29 08/31/24 00:26 1,000 MG Thiamine HCl (Vitamin B-1) 200 mg DAILY IM 08/31/24 09:00 08/30/24 13:17 DC Thiamine HCl (Vitamin B-1) 300 mg DAILY IV 08/31/24 09:00 09/30/24 08:59 08/31/24 07:58 300 MG DIAGNOSTICS / RADIOLOGY: [ ] ASSESSMENT: Acute hypoxemic respiratory failure, POA, requiring intubation and mechanical ventilation Hypotension, POA, currently suspected to be cardiogenic shock Acute coronary syndrome, status post left heart catheterization 08/28, finding of triple-vessel disease POA 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 Continue pressor support, we will wean as able Continue the patient on propofol and Levophed. Continue broad-spectrum antibiotics Continue to follow infectious disease input recommendation Continue with the intra-aortic balloon pump, Cardiology input noted and appreciated. Cardiothoracic surgery input noted appreciated, requested patient be weaned off ventilator in order to discuss surgical intervention with the patient and family. Continue to follow critical care input recommendation Blood cultures has remained negative. Obtain Brucella serology. Obtain Bartonella serology. Obtain Q fever serology. A.m. labs Disposition: Pending improvement in clinical condition. Greater than 35 minutes ICU time spent in care of this patient JODEE SEN MD Aug 31, 2024 11:05
--- NOTE | 2024-08-31 11:34 | NUR ---
Nutritional f/u Note: Chart, meds, and labs Reviewed. Pt continues in ICU on vent, and hemodynamically supported on norepinephrine and intra-arotic ballon pump as per MD. TF Continues Vital AF at 20ml//hr with 150ml H20 flush q4h Abnormal nutrition related labs: lactic acid 2.6, cl 96, bun 24, ast 46, alt 104, alb 3.3 Recommend: -Advance TF to goal rate Vital AF @55ml/hr, Start by advancing to 30ml x 6 hrs, then 40ml x 6hrs if pt tolerates advance to final goal rate -Continue 150ml [id number] q 4hrs adjust if fluid balance changes. -Check Gastric residuals 6hours, hold for residuals >500ml/hr. -Monitor -RD to provide further recommendations based on clinical progress. -Monitor feeding tolerance, %, wt, and LFTs labs -If No BM >3days consider bowel stimulant. - Please notify RD if additional nutrition concerns arise. Addendum: 08/31/24 at [address] Amended: Links added.
--- NOTE | 2024-08-31 12:47 | HMCIMG ---
CHEST 1VW HISTORY: Intubated COMPARISON: 08/30/2024 FINDINGS: A frontal projection of the chest was obtained. Mild bilateral pulmonary infiltrates are seen may be related to mild pulmonary vascular congestion with possible superimposed pneumonitis. The heart is borderline enlarged. All the lines and tubes are again seen in place. No evidence of aortic calcification is seen. Endotracheal tube is seen with distal tip at 5.3 cm above lino. IMPRESSION: 1. Mild bilateral pulmonary infiltrates are seen may be related to mild pulmonary vascular congestion with possible superimposed pneumonitis.
--- NOTE | 2024-08-31 12:50 | NUR ---
PT EXTUBATED AT 1250. PT ABLE TO LIFT UP HEAD. MOVES UPPER EXTREMITIES APPROPRIATELY. PLACED ON AERESOL MASK 40%
--- NOTE | 2024-08-31 13:18 | PN ---
INFECTIOUS DISEASE PROGRESS NOTE Date of Service: Aug 31, 2024 SUBJECTIVE: Patient was seen and examined in the ICU room 206. Patient remains intubated but awake. Ventilator weaning off in process. No fever this morning, temperature is 96.6. Preliminary Blood cultures results remaining with no growth. Will continue on linezolid, Zosyn and levofloxacin. We will continue to follow patient's care. PHYSICAL EXAM EYES: Anicteric. Pupils equal and reactive. HENT: No oral thrush seen, moist Oral mucosa. NECK: Supple, no JVD or thyromegaly. LUNGS: Good air entry. No rales, no rhonchi. Mechanical ventilation. CARDIOVASCULAR: S1, S2 regular. No murmur heard. ABDOMEN: Soft, non tender, bowel sounds present, no organomegaly CENTRAL NERVOUS SYSTEM: Awake but intubated. SKIN: No rashes, no swelling. LYMPHATICS: No peripheral lymphadenopathy MUSCULOSKELETAL: No joint swelling, erythema or tenderness. EXTREMITIES: No cyanosis or clubbing BACK: No deformity, no pressure ulcer. GENITOURINARY: No dysuria or hematuria. Vital Sign (Last 12 Hours) 08/31/24 08/31/24 08/31/24 08/31/24 01:30 01:45 02:00 02:15 Pulse 54 49 51 51 Resp 20 16 17 14 B/P (MAP) 86/52 (63) 115/46 (69) 114/67 (83) 118/70 (86) Pulse Ox 100 100 100 100 08/31/24 08/31/24 08/31/24 08/31/24 02:30 02:45 03:00 03:00 Pulse 51 51 52 Resp 14 14 15 B/P (MAP) 122/68 (86) 129/67 (87) 133/76 (95) Pulse Ox 100 99 98 FiO2 30 08/31/24 08/31/24 08/31/24 08/31/24 03:04 03:08 03:15 03:30 Pulse 50 51 51 Resp 14 14 B/P (MAP) 115/59 (77) 129/51 (77) Pulse Ox 100 99 99 O2 Delivery Ventilator+ FiO2 30 30 08/31/24 08/31/24 08/31/24 08/31/24 03:45 04:00 04:15 04:30 Pulse 50 50 52 54 Resp 15 14 18 19 B/P (MAP) 122/77 (92) 117/50 (72) 112/57 (75) 116/61 (79) Pulse Ox 99 99 100 90 08/31/24 08/31/24 08/31/24 08/31/24 04:45 05:00 05:15 05:30 Pulse 52 53 52 53 Resp 17 15 14 14 B/P (MAP) 109/52 (71) 115/50 (71) 120/56 (77) 126/56 (79) Pulse Ox 100 100 100 99 08/31/24 08/31/24 08/31/24 08/31/24 05:45 06:00 06:15 06:25 Pulse 52 52 52 59 Resp 14 14 14 B/P (MAP) 122/76 (91) 133/69 (90) 124/65 (84) Pulse Ox 100 100 100 FiO2 30 08/31/24 08/31/24 08/31/24 08/31/24 07:00 07:10 07:15 07:19 Temp 96.6 Pulse 58 58 62 Resp 27 22 35 B/P (MAP) 102/62 (75) 110/61 (77) Pulse Ox 100 100 FiO2 30 08/31/24 08/31/24 08/31/24 08/31/24 07:30 07:45 08:00 08:00 Pulse 63 60 64 Resp 36 28 34 B/P (MAP) 109/79 (89) 101/50 (67) 87/33 (51) Pulse Ox 99 100 98 FiO2 30 08/31/24 08/31/24 08/31/24 08/31/24 08:00 08:15 08:30 08:45 Pulse 65 62 60 Resp 36 30 19 B/P (MAP) 95/67 (76) 109/62 (78) 87/40 (56) Pulse Ox 100 99 100 100 O2 Delivery CPAP+ FiO2 30 08/31/24 08/31/24 08/31/24 09:50 12:05 12:08 Pulse 59 61 61 Resp 22 FiO2 30 30 Intake & Output (last 24hrs) 08/30/24 08/30/24 08/31/24 14:59 22:59 06:59 Intake Total 789.0 ml 1046.0 ml 871.0 ml Output Total 1150 ml 3150 ml 3600 ml Balance -361.0 ml -2104.0 ml -2729.0 ml LABS: Laboratory: Test 08/31/24 13:05 08/31/24 09:47 08/31/24 09:17 08/31/24 04:52 Range/Units Whole Blood Glucose 94 70-110 MG/DL Blood Gas Specimen Type Arterial Arterial Blood pH 7.529 H 7.350-7.450 Arterial Blood Partial Pressure CO2 30 L 35-48 mmHg Arterial Blood Partial Pressure O2 105.3 83.0-108.0 mmHg Arterial Blood HCO3 24.4 21.0-28.0 mmol/L Arterial Blood Oxygen Saturation 98.4 H 94.0-98.0 % Arterial Blood Base Excess 2.6 -2.0-3.0 mmol/L Blood Gas Temperature 37.0 35.5-37.0 CELSIUS Blood Gas Vent Mode CPAO 5-5 ROOM AIR FiO2 30.0 % Blood Gas PEEP 5 cm H2O Blood Gas Specimen Comment [email or web address] Lactic Acid Level 2.6 H 0.8-2.5 mmol/L Blood Gas Respiration Rate 14.0 min. Blood Gas Tidal Volume 500 ml Test 08/31/24 04:43 08/30/24 23:23 08/30/24 15:12 08/30/24 13:33 Range/Units White Blood Count 7.8 4.8-10.8 K/uL Red Blood Count 3.59 L 4.50-6.20 MIL/uL Hemoglobin 11.7 L 14.0-18.0 g/dL Hematocrit 33.8 L 42-54 % Mean Corpuscular Volume 94.2 79-99 fL Mean Corpuscular Hemoglobin 32.6 27.0-33.0 pg Mean Corpuscular Hemoglobin Concent 34.6 32.0-36.0 g/dL Red Cell Distribution Width 13.6 11.0-15.5 % Platelet Count 419 H 130-400 K/uL Mean Platelet Volume 9.9 7.5-10.5 fL Immature Granulocyte % (Auto) 0.4 0-1 % Neutrophils (%) (Auto) 66.3 40.0-77.0 % Lymphocytes (%) (Auto) 19.0 L 21.0-51.0 % Monocytes (%) (Auto) 8.3 3.0-13.0 % Eosinophils (%) (Auto) 5.7 0.0-8.0 % Basophils (%) (Auto) 0.3 0.0-5.0 % Neutrophils # (Auto) 5.2 1.8-7.7 K/uL Lymphocytes # (Auto) 1.5 1.0-4.8 K/uL Monocytes # (Auto) 0.7 0.1-1.0 K/uL Eosinophils # (Auto) 0.45 0.00-0.70 K/uL Basophils # (Auto) 0.02 0.00-0.20 K/uL Absolute Immature Granulocyte (auto 0.03 0-1 K/uL Nucleated Red Blood Cells 0.0 0.0-0.19 % Prothrombin Time 11.9 H 9.6-11.6 SEC Prothromb Time International Ratio 1.14 0.85-1.15 Activated Partial Thromboplast Time 58.5 H 26.3-35.5 SEC Sodium Level 136 136-145 mmol/L Potassium Level 3.7 3.5-5.1 mmol/L Chloride Level 96 L 101-111 mmol/L Carbon Dioxide Level 30 21-32 mmol/L Blood Urea Nitrogen 24 H 7-18 mg/dL Creatinine 1.1 0.5-1.3 mg/dL Glomerular Filtration Rate Calc 70 >90 mL/min Random Glucose 110 H 70-105 mg/dL Total Calcium 9.1 8.5-10.1 mg/dL Total Bilirubin 0.7 0.2-1.0 mg/dL Aspartate Amino Transf (AST/SGOT) 46 H 10-37 U/L Alanine Aminotransferase (ALT/SGPT) 104 H 12-78 U/L Alkaline Phosphatase 109 50-136 U/L Total Protein 7.2 6.0-8.3 g/dL Albumin 3.3 L 3.5-5.0 g/dL Magnesium Level 1.90 1.80-2.40 mg/dL Hemoglobin (Blood Gas) 10.5 L 13.5-17.5 g/dL Sodium (Blood Gas) 136 136-145 MMOL/L Bedside Potassium (Blood Gas) 3.7 3.4-4.5 MMOL/L Bedside Chloride (Blood Gas) 101 98-107 MMOL/L Bedside Glucose (Blood Gas) 94 65-95 MG/DL Bedside Ionized Calcium (Blood Gas) 1.15 1.15-1.33 MMOL/L Bedside Lactic Acid (Blood Gas) 0.67 0.36-0.75 MMOL/L Phosphorus Level 3.3 2.5-4.9 mg/dL Test 08/30/24 10:46 Range/Units Ammonia < 10 L 11-32 umol/L TSH 3rd Generation 0.485 0.450-4.500 uIU/mL ASSESSMENT: Hypoxic respiratory failure, status post intubation. 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 Non-STEMI, status post left heart catheterization with findings of severe multivessel coronary disease. Acute renal failure, resolving. Leukocytosis, resolved. Hypotension. CAD with heart stents. PLAN: Continue linezolid. Continue Zosyn. Continue levofloxacin. Continue GI prophylaxis. Continue mechanical ventilatory support. We will monitor electrolytes. Cardiovascular surgeon has been consulted and following. We will follow up on the cultures. This case was reviewed and discussed with my supervising physician and the above assessment and plan was formulated and agreed upon. ATTESTATION BY PHYSICIAN I have seen and examined the patient. I reviewed the documentation, medical decision making, and treatment plan as noted by the mid-level provider above. I agree with the findings and plan of care. MILA DEAN MD, MIRTA L [employer] OPERATOR Aug 31, 2024 13:18
[2024-08-31 14:57] LABS: ABG BASE EXCESS 6.3 mmol/L (-2.0-3.0); ABG HCO3 28.9 mmol/L (21.0-28.0); ABG OXYGEN SATURATION 97.9 % (94.0-98.0); ABG PCO2 35 mmHg (35-48); ABG PH 7.534 (7.350-7.450); DEVICE COMMENT LR JUDITH; PO2, ARTERIAL BG 94.9 mmHg (83.0-108.0); VENT MODE, BG CAFM (ROOM AIR)
--- NOTE | 2024-08-31 15:41 | NUR ---
[facility] Consult: Patient with low esthela score, unable to assess at this time due being hemodynamically unstable. Recommendations provided to primary nurse. Addendum: 08/31/24 at 1543 by TROY GRANGER RN RN/ Amended: Links added.
[2024-08-31] MEDS: diazePAM 5 MG/ML 2 ML SYG IV PRN (15:50)
[2024-08-31] MEDS: diazePAM 5 MG/ML 2 ML SYG IVP SCH (17:55)
[2024-08-31] MEDS ORDERED: diazePAM 5 MG TAB PO SCH (21:00)
[2024-08-31] MEDS: IpraTROPium/alBUTERol SULFATE 3 ML SOLUTION IH PRN (23:05)
[2024-09-01] VITALS (97 sets, daily range): BP systolic 76–146; BP diastolic 33–112; PULSE 41–133; RESP 14–45; TEMP 97.8–99.5; O2SAT 92–99
[2024-09-01] MEDS ORDERED: PHARMACY COMMUNICATION MISC SCH (02:00)
[2024-09-01] MEDS: LINEZOLID 600 MG/ISO-OSM 300 ML IV SCH (02:24)
[2024-09-01 05:57] LABS: BASOPHILS # (AUTO) 0.01 K/uL (0.00-0.20); BASOPHILS % (AUTO) 0.1 % (0.0-5.0); EOSINOPHILS # (AUTO) 0.11 K/uL (0.00-0.70); EOSINOPHILS % (AUTO) 1.3 % (0.0-8.0); HEMATOCRIT 31.1 % (42-54); IMMATURE GRANULOCYTE ABSOLUTE 0.02 K/uL (0-1); LYMPHOCYTES # (AUTO) 1.6 K/uL (1.0-4.8); LYMPHOCYTES % (AUTO) 18.1 % (21.0-51.0); MEAN CORPUSCULAR HEMOGLOBIN 32.6 pg (27.0-33.0); MEAN CORPUSCULAR VOLUME 93.1 fL (79-99); MONOCYTES # (AUTO) 0.9 K/uL (0.1-1.0); MONOCYTES % (AUTO) 10.5 % (3.0-13.0); NEUTROPHILS # (AUTO) 6.1 K/uL (1.8-7.7); NEUTROPHILS % (AUTO) 69.8 % (40.0-77.0); PLATELET COUNT (AUTO) 373 K/uL (130-400); RED BLOOD CELL COUNT(AUTO) 3.34 MIL/uL (4.50-6.20); RED CELL DISTRIBUTION WIDTH 13.5 % (11.0-15.5); WHITE BLOOD COUNT (AUTO) 8.8 K/uL (4.8-10.8)
[2024-09-01 06:21] LABS: ALBUMIN 3.1 g/dL (3.5-5.0); BILIRUBIN,TOTAL 0.6 mg/dL (0.2-1.0); CREATININE 1.1 mg/dL (0.5-1.3); POTASSIUM 3.3 mmol/L (3.5-5.1); TOTAL PROTEIN, SERUM 6.7 g/dL (6.0-8.3)
--- NOTE | 2024-09-01 07:01 | PN ---
[facility] Cardiology Progress Note CARDIOLOGY PROGRESS NOTE SEPTEMBER 01, 2024 Problems: 1. Acute respiratory failure requiring intubation 2. Viral upper respiratory infection with septic shock 3. Non ST-elevation DE May 2024 with fixed defect on Cardiolite stress test now with recurrent non ST-elevation DE 4. 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 Moderate mitral regurgitation 6. Suspected endocarditis with a vegetations noted on the mitral and aortic valves by transesophageal echo this admission, culture negative 7. Acute kidney injury, resolved 8. Hyponatremia, resolved 9. Dementia Blood pressure is running 140 systolic. Heart rate has been in the 50s but did drop into the 40s. Potassium 3.3 which will be supplemented [id number] BUN 26 creatinine 1.1 estimated GFR of 70. White count is 8.8 Hemoglobin 10.9 platelet count [id number]. The patient continues on albuterol aspirin folic acid thiamine IV furosemide heparin protocol insulin scale antibiotics pantoprazole potassium protocol and norepinephrine. The patient has been extubated. He continues on norepinephrine and intra-aortic balloon pump at one-to-one. He has been evaluated by CT surgery it was not felt to be a surgical candidate at this time. View of this we will attempt to wean his balloon pump. We will turn it down to 1-2 today and continue with pressors as needed. Prognosis is poor. ROBERTA ABARCA MD Sep 01, 2024 07:01
--- NOTE | 2024-09-01 09:45 | PN ---
[facility] PROGRESS NOTE Date of Service: Sep 01, 2024 Time of Service: 09:40 SUBJECTIVE: 08/26 patient seen at bedside, no acute events overnight. He remains intubated and sedated, continues on pressor support. FiO2 is 60%, we will wean towards extubation. Troponins are elevated, patient is started on ACS protocol with aspirin, Plavix, statin and heparin drip. Cardiology recommendations still pending, we will follow up. WBC increased from 10.8 up to 14.3, hemoglobin decreased from 13.2 down to 11.6, sodium stable at 126, similar to yesterday, troponins peaked and are now downtrending to [id number], remainder of his labs are relatively unremarkable. 08/27 patient seen at bedside, no acute events overnight. He remains intubated and sedated, continue weaning down pressors. His FiO2 has been weaned down to 50%, we will continue to wean as able, peep has been decreased from 8-6. Echocardiogram has been done, formal read is still pending, preliminary read shows a possible vegetation of the mitral valve, ejection fraction of 50-55%, mild to moderate aortic regurgitation, moderate mitral regurgitation, we will have him reassessed once he has been extubated as he may need a KARTHIK, however given his blood cultures are no growth this mobile mass on the mitral valve may not be secondary to endocarditis. Creatinine has increased from 1.3 up to 1.8, hemoglobin stable at 11.3, similar to yesterday, WBC increased from 14.3 up to 18.9, platelets improved from 528 down to 520, sodium stable at 127, similar to yesterday, remainder of his labs are relatively unremarkable. Cultures are no growth to date. 08/28 patient is seen and examined at bedside, remains intubated, on mechanical ventilation, on propofol, Levophed and heparin drip. Discussed with the RN, back from having left heart catheterization with finding of three-vessel disease for which Cardiothoracic surgery consultation requested. TTE with a EF 50-55% with possible vegetation of the mitral valve. Patient is scheduled for KARTHIK today. WBC 17.9. Blood cultures no growth after 48 hours. 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 Continue goal-directed medical therapy, infectious disease consultation requested. Blood cultures has remained negative. CT surgery consultation requested for CABG plus aortic and mitral valve replacement. 08/30 patient is seen and examined at bedside, remains intubated, mechanical ventilation, per discussion with the RN, the patient failed SBT trial, had to be placed back on sedation. Patient getting IV antibiotics at the time of my visit. BP 98/56, FiO2 30%, saturating 98%. CBC with a hemoglobin 10.8, hematocrit 31.4. Chest x-ray shows bilateral pulmonary infiltrates suggestive of pulmonary vascular congestion with possible superimposed pneumonitis. Continue to follow Pulmonary input and recommendation in terms of weaning off the ventilator, continue broad-spectrum IV antibiotics per ID recommendations. Cardiology input noted and appreciated. Patient evaluated by CT surgeon for possible CABG as well as valve replacement. 08/31 patient is seen and examined at bedside, remains intubated, mechanical ventilation, per discussion with the RN, BP 87/40, rate of 59, saturating 100%, FiO2 30%. Patient remains on broad-spectrum IV antibiotics, the patient remains on Levophed for pressure support. Remains sedated with propofol and Precedex. Hemoglobin 11.7, hematocrit 33.8. ABG pH 7.5, pCO2 30, bicarb 24.4.Chest x-ray shows bilateral pulmonary infiltrates suggestive of pulmonary vascular congestion with possible superimposed pneumonitis. Urine output 4 L. Weaning trial in progress by pulmonary physician, attempt yesterday, patient tolerated only 4 hours of CPAP trial. Cardiology input noted and appreciated, intra- aortic balloon pump in place. Patient with a aortic and mitral valve endocarditis, evaluated by CT surgeon who requested the patient be off ventilator in order to discuss procedure with the patient and family. Continue to follow critical care input and recommendation. 09/01 patient is seen and examined at bedside, successfully extubated 08/31/2024, remains on aerosol mask, FiO2 40%, patient confused, withdrawing to painful stimulation. He remains with balloon pump in place, low-dose Precedex, heparin drip on low-dose Levophed. BP 143/48, heart rate of 41, afebrile. CBC with a hemoglobin 10.9, hematocrit 31.1, WBC 8.8, platelet count of 373. ABG and chest x-ray pending. Patient on IV antibiotics. Cardiology input noted appreciated, balloon pump to turn in the next 1-2 days. Patient evaluated by CT surgery, patient to be a surgical at this time. Continue to follow critical Care and ID input and recommendations. Discharge plan discussed yesterday case management, once patient medically stable may benefit from discharge to LTAC. REVIEW OF SYSTEMS 12 point review of systems negative unless noted in HPI PHYSICAL EXAM GENERAL APPEARANCE: The patient is intubated, on mechanical ventilation, on propofol, Levophed and heparin. NEUROLOGICAL: Cranial nerves II-XII grossly intact. Motor is 5/5 in bilateral upper and lower extremities proximal to distal. No sensory deficits. HEENT: Face is symmetric. Pupils are equal and reactive. Extraocular movements are intact. NECK: Supple. No JVD. No thyromegaly. No submental, submandibular, pre-/postauricular, occipital or supraclavicular lymphadenopathy. CHEST: Normal chest expansion. No Telemetry. LUNGS: Absence of any rales, rhonchi or any wheezing. CARDIOVASCULAR: Regular. S1 and S2 normal. No appreciable rubs, murmurs or gallops. ABDOMEN: Soft, nontender, and nondistended. There is no rebound, voluntary guarding, or rigidity. : Deferred. No Leal. EXTREMITIES: Non-edematous and not cyanotic. No clubbing. Good capillary refill. SKIN: No skin breakdown. Vital Signs (last 8hr) Date Time Temp Pulse Resp B/P (MAP) Pulse Ox O2 Delivery O2 Flow Rate FiO2 09/01/24 08:00 96 Aerosol Mask+ 40 09/01/24 07:03 53 28 60 09/01/24 05:15 41 21 143/48 (79) 98 09/01/24 05:00 54 25 146/74 (98) 100 09/01/24 04:45 54 27 140/68 (92) 100 09/01/24 04:30 55 33 131/58 (82) 100 09/01/24 04:15 55 31 132/59 (83) 100 09/01/24 04:01 68 14 127/51 (76) 99 09/01/24 04:00 96 Bi-PAP+ 60 09/01/24 04:00 55 35 100 09/01/24 03:46 98.1 57 45 119/83 (95) 100 09/01/24 03:45 55 35 100 09/01/24 03:30 55 29 119/64 (82) 100 09/01/24 03:15 56 37 124/54 (77) 99 09/01/24 03:00 55 23 132/63 (86) 95 09/01/24 02:55 57 20 60 09/01/24 02:45 51 29 134/61 (85) 100 09/01/24 02:30 54 43 121/65 (83) 99 09/01/24 02:15 50 35 127/63 (84) 99 09/01/24 02:00 52 29 123/67 (85) 99 09/01/24 01:51 54 23 125/62 (83) 99 09/01/24 01:45 72 24 100 LABS: Laboratory: Test 09/01/24 05:45 09/01/24 05:40 08/31/24 14:55 08/31/24 09:47 Range/Units White Blood Count 8.8 4.8-10.8 K/uL Red Blood Count 3.34 L 4.50-6.20 MIL/uL Hemoglobin 10.9 L 14.0-18.0 g/dL Hematocrit 31.1 L 42-54 % Mean Corpuscular Volume 93.1 79-99 fL Mean Corpuscular Hemoglobin 32.6 27.0-33.0 pg Mean Corpuscular Hemoglobin Concent 35.0 32.0-36.0 g/dL Red Cell Distribution Width 13.5 11.0-15.5 % Platelet Count 373 130-400 K/uL Mean Platelet Volume 9.4 7.5-10.5 fL Immature Granulocyte % (Auto) 0.2 0-1 % Neutrophils (%) (Auto) 69.8 40.0-77.0 % Lymphocytes (%) (Auto) 18.1 L 21.0-51.0 % Monocytes (%) (Auto) 10.5 3.0-13.0 % Eosinophils (%) (Auto) 1.3 0.0-8.0 % Basophils (%) (Auto) 0.1 0.0-5.0 % Neutrophils # (Auto) 6.1 1.8-7.7 K/uL Lymphocytes # (Auto) 1.6 1.0-4.8 K/uL Monocytes # (Auto) 0.9 0.1-1.0 K/uL Eosinophils # (Auto) 0.11 0.00-0.70 K/uL Basophils # (Auto) 0.01 0.00-0.20 K/uL Absolute Immature Granulocyte (auto 0.02 0-1 K/uL Nucleated Red Blood Cells 0.0 0.0-0.19 % Activated Partial Thromboplast Time 62.1 H 26.3-35.5 SEC Sodium Level 137 136-145 mmol/L Potassium Level 3.3 L 3.5-5.1 mmol/L Chloride Level 100 L 101-111 mmol/L Carbon Dioxide Level 29 21-32 mmol/L Blood Urea Nitrogen 26 H 7-18 mg/dL Creatinine 1.1 0.5-1.3 mg/dL Glomerular Filtration Rate Calc 70 >90 mL/min Random Glucose 121 H 70-105 mg/dL Lactic Acid Level 1.2 0.8-2.5 mmol/L Total Calcium 9.3 8.5-10.1 mg/dL Total Bilirubin 0.6 0.2-1.0 mg/dL Aspartate Amino Transf (AST/SGOT) 43 H 10-37 U/L Alanine Aminotransferase (ALT/SGPT) 84 H 12-78 U/L Alkaline Phosphatase 105 50-136 U/L Total Protein 6.7 6.0-8.3 g/dL Albumin 3.1 L 3.5-5.0 g/dL Whole Blood Glucose 116 H 70-110 MG/DL Blood Gas Specimen Type Arterial Arterial Blood pH 7.534 H 7.350-7.450 Arterial Blood Partial Pressure CO2 35 35-48 mmHg Arterial Blood Partial Pressure O2 94.9 83.0-108.0 mmHg Arterial Blood HCO3 28.9 H 21.0-28.0 mmol/L Arterial Blood Oxygen Saturation 97.9 94.0-98.0 % Arterial Blood Base Excess 6.3 H -2.0-3.0 mmol/L Blood Gas Temperature 37.0 35.5-37.0 CELSIUS Blood Gas Flow-by 10.00 0.00-15.00 L/min Blood Gas Vent Mode CAFM ROOM AIR FiO2 50.0 % Blood Gas Specimen Comment LR [facility] [place] Blood Gas PEEP 5 cm H2O Test 08/31/24 04:52 08/31/24 04:43 08/30/24 23:23 08/30/24 15:12 Range/Units Blood Gas Respiration Rate 14.0 min. Blood Gas Tidal Volume 500 ml Prothrombin Time 11.9 H 9.6-11.6 SEC Prothromb Time International Ratio 1.14 0.85-1.15 Magnesium Level 1.90 1.80-2.40 mg/dL Hemoglobin (Blood Gas) 10.5 L 13.5-17.5 g/dL Sodium (Blood Gas) 136 136-145 MMOL/L Bedside Potassium (Blood Gas) 3.7 3.4-4.5 MMOL/L Bedside Chloride (Blood Gas) 101 98-107 MMOL/L Bedside Glucose (Blood Gas) 94 65-95 MG/DL Bedside Ionized Calcium (Blood Gas) 1.15 1.15-1.33 MMOL/L Bedside Lactic Acid (Blood Gas) 0.67 0.36-0.75 MMOL/L Test 08/30/24 13:33 08/30/24 10:46 Range/Units Phosphorus Level 3.3 2.5-4.9 mg/dL Ammonia < 10 L 11-32 umol/L TSH 3rd Generation 0.485 0.450-4.500 uIU/mL Current Medications Medications (Trade) Dose Ordered Sig/Lydia Route PRN Reason Start Time Stop Time Status Last Admin Dose Admin Acetaminophen (TYLenol 650MG SUPPOSITORY) 650 mg Q6H PRN RC MILD PAIN (1-3) 08/25/24 19:30 09/24/24 19:29 Albumin Human 100 ml @ 0 mls/hr AD IV 08/30/24 10:30 09/04/24 10:29 08/30/24 12:01 100 MLS/HR Albuterol (DUOneb) 1 UDVIAL [id number] IH 08/26/24 00:00 08/31/24 20:38 DC 08/31/24 18:36 1 UDVIAL Albuterol (DUOneb) 1 UDVIAL [id number] PRN IH sob and wheezing 08/31/24 21:00 09/25/24 00:00 08/31/24 23:05 1 UDVIAL Albuterol (DUOneb) 2 udvial ONCE IH 08/25/24 18:00 08/25/24 22:00 DC 08/25/24 19:17 2 UDVIAL Alprazolam (XANax 0.5MG) 0.5 mg TID PO 08/30/24 21:00 08/31/24 09:57 DC 08/31/24 07:57 0.5 MG Aspirin (Aspirin 300mg Supp) 300 mg ONCE [place] 08/25/24 19:30 08/25/24 23:59 DC 08/25/24 19:41 300 MG Aspirin (Aspirin 81mg Ec Tab) 81 mg DAILY PO 08/26/24 09:00 09/25/24 08:59 08/31/24 07:57 81 MG Atorvastatin Calcium (LIPItor 40MG) 40 mg HS PO 08/26/24 07:30 08/26/24 07:44 DC Azithromycin 250 ml @ 250 mls/hr Q24H IVPB 08/25/24 18:51 08/25/24 23:30 DC Azithromycin 250 ml @ 250 mls/hr Q24H IVPB 08/25/24 19:30 08/25/24 19:38 DC Ceftriaxone Sodium (ROCEphine 1G INJ) 1 gm ONCE IVPB 08/25/24 19:00 08/25/24 21:03 DC 08/25/24 19:41 1 GM Ceftriaxone Sodium (ROCEphine 1G INJ) 1 gm Q24H IVPB 08/25/24 19:30 08/26/24 12:29 DC Clopidogrel Bisulfate (plaVIX 300MG TAB) 300 mg ONCE PO 08/25/24 21:00 08/26/24 06:00 DC 08/25/24 23:16 300 MG Clopidogrel Bisulfate (plaVIX 75MG) 75 mg DAILY PO 08/26/24 09:00 08/29/24 10:52 DC 08/29/24 08:41 75 MG Dexmedetomidine/ Sodium Chloride (PRECEdex 400MCG/ 100ML-NS) 400 mcg PROTOCOL IV 08/29/24 09:00 09/28/24 08:59 09/01/24 06:16 400 MCG Diazepam (VALium 2 mg Tab) 2 mg Q6H PRN PO ANXIETY 08/31/24 10:00 08/31/24 13:39 DC 08/31/24 10:06 2 MG Diazepam (VALium 5 MG/ML 2 ML SYG) 2.5 mg ONCE PRN IV ANXIETY 08/31/24 16:00 08/31/24 16:00 DC 08/31/24 15:50 2.5 MG Diazepam (VALium 5 MG/ML 2 ML SYG) 2.5 mg Q6H6 IVP 08/31/24 18:00 09/07/24 17:59 09/01/24 05:38 2.5 MG Diazepam (VALium 5 mg TAB) 5 mg BID PO 08/31/24 21:00 08/31/24 16:39 DC Fentanyl Citrate 100 ml @ 2.5 mls/hr PROTOCOL IV 08/25/24 20:00 08/27/24 17:54 DC 08/27/24 14:22 2.5 MLS/HR Folic Acid (FolVITE 5 MG/ML VIAL) 1 mg DAILY IV 08/31/24 09:00 09/30/24 08:59 09/01/24 07:50 1 MG Furosemide (LASix 20MG VIAL) 20 mg Q12H IV 08/26/24 09:00 08/27/24 12:24 DC 08/27/24 08:56 20 MG Furosemide (LASix 20MG VIAL) 20 mg Q12H IV 08/31/24 08:30 09/30/24 08:29 09/01/24 07:50 20 MG Furosemide 100 mg/ Sodium Chloride 100 ml @ 0 mls/hr PROTOCOL IV 08/30/24 13:30 08/31/24 08:26 DC 08/30/24 23:32 10 MLS/HR Heparin Sodium (Porcine) (HEParin 5,000 UNIT VIAL) *calculation based on ACTUAL B... AD PRN IV HEPARIN PROTOCOL 08/25/24 20:00 09/24/24 19:59 08/28/24 06:30 6,000 UNIT Heparin Sodium/ Dextrose 250 ml @ 0 mls/hr Q6H IV 08/25/24 20:00 09/24/24 19:59 08/31/24 20:00 7.16 MLS/HR Insulin Human Regular (humuLIN R 100 UNIT/ML 3ML) INSULIN SLIDING SCAL... Q6H6 SQ 08/26/24 00:00 09/25/24 00:00 08/26/24 05:58 2 UNIT Ketamine HCl (ketaMINE 50MG/ ML SYRINGE) 50 mg ONCE IM 08/25/24 19:00 08/25/24 22:00 DC Ketamine HCl (ketaMINE 50MG/ ML SYRINGE) 50 mg ONCE IM 08/25/24 19:00 08/25/24 23:59 DC Lactulose (Constulose 20gm/ 30ml Udcup) 20 gm BID PO 08/28/24 21:00 09/27/24 20:59 08/30/24 20:34 20 GM Levofloxacin/ Dextrose 100 ml @ 100 mls/hr Q24H IV 08/28/24 14:30 08/28/24 15:24 DC Levofloxacin/ Dextrose 100 ml @ 100 mls/hr Q48H IV 08/28/24 15:30 09/11/24 15:29 08/30/24 15:43 100 MLS/HR Linezolid 300 ml @ 300 mls/hr Q12H IV 09/01/24 02:30 09/15/24 02:29 09/01/24 02:24 300 MLS/HR Linezolid (Zyvox) 600 mg Q12H PO 08/28/24 14:30 09/01/24 01:53 DC 08/31/24 14:11 600 MG Melatonin (Melatonin) 10 mg HS PO 08/30/24 21:00 09/29/24 20:59 Methylprednisolone Sodium Succinate (Solu-medROL 40MG) 40 mg Q8H IVP 08/25/24 23:00 08/27/24 12:19 DC 08/27/24 06:23 40 MG Methylprednisolone Sodium Succinate (Solu-medROL 125MG) 125 mg ONCE IVP 08/25/24 18:00 08/25/24 22:00 DC 08/25/24 18:52 125 MG Midazolam HCl 50 ml @ 0 mls/hr PROTOCOL IV 08/25/24 19:00 08/27/24 17:54 DC 08/27/24 11:18 9 MLS/HR Midazolam HCl 50 mg/Sodium Chloride 50 ml @ 0 mls/hr PROTOCOL IV 08/25/24 19:00 09/24/24 18:59 UNV Morphine Sulfate (morPHINE 2MG SYG) 2 mg Q4H PRN IVP SEVERE PAIN (7-10) 08/26/24 07:30 08/30/24 18:56 DC Morphine Sulfate (morPHINE 4MG SYG) 2 mg Q4H PRN IVP SEVERE PAIN (7-10) 08/25/24 19:30 08/26/24 07:11 DC Norepinephrine 250 ml @ 0 mls/hr AD PRN IV DIRECTED 08/27/24 06:00 09/26/24 05:59 08/31/24 00:26 24 MLS/HR Norepinephrine 250 ml @ 0 mls/hr PROTOCOL IV 08/25/24 19:30 08/26/24 05:10 DC 08/26/24 00:14 121.5 MLS/HR Norepinephrine Bitartrate 32 mg/ Sodium Chloride 250 ml @ 0 mls/hr Q0M PRN IV hypotension 08/26/24 05:30 08/28/24 08:54 DC 08/26/24 06:04 19.87 MLS/HR Ondansetron HCl (zoFRAN 4MG INJ) 4 mg Q6H PRN IV NAUSEA/VOMITING 08/25/24 19:30 09/24/24 19:29 Pantoprazole Sodium (PROTonix 40MG INJ) 40 mg DAILY IV 08/26/24 09:00 09/25/24 08:59 09/01/24 07:50 40 MG Pharmacy Profile Note (Pharmacy Communication) 1 each ONCE MISC 09/01/24 02:00 09/01/24 01:54 DC Piperacillin Sod/ Tazobactam Sod (Zosyn 3.375gm+NS 50ml) 3.375 gm Q8H IV 08/25/24 20:00 09/04/24 19:59 UNV Piperacillin Sod/ Tazobactam Sod (Zosyn 3.375gm+NS 50ml) 3.375 gm ZOSY8 IV 08/25/24 21:00 09/04/24 20:59 09/01/24 05:37 3.375 GM Polyethylene Glycol (MIRalax 3350 17 GM POWD.PACK) 17 gm DAILY PO 08/29/24 09:00 09/28/24 08:59 08/29/24 08:41 17 GM Polyethylene Glycol (MIRalax 3350 17 GM POWD.PACK) 17 gm ONCE PO 08/28/24 18:00 08/28/24 21:00 DC 08/28/24 18:00 17 GM Potassium Chloride 100 ml @ 100 mls/hr AD PRN IV POTASSIUM PROTOCOL 08/29/24 13:00 09/28/24 12:59 09/01/24 09:16 100 MLS/HR Potassium Chloride (K-Dur/Klor-Con 20meq) 20 meq AD PRN PO POTASSIUM PROTOCOL 08/29/24 13:00 09/28/24 12:59 Potassium Chloride (KCl 10% Elixir 20meq/15ml) 20 meq AD PRN PO POTASSIUM PROTOCOL 08/29/24 13:00 09/28/24 12:59 08/31/24 02:36 20 MEQ Propofol (DIPRivan 1000MG/ 100ML) 1,000 mg PROTOCOL PRN IV SEDATION 08/27/24 16:30 08/31/24 20:38 DC 08/31/24 00:26 1,000 MG Thiamine HCl (Vitamin B-1) 200 mg DAILY IM 08/31/24 09:00 08/30/24 13:17 DC Thiamine HCl (Vitamin B-1) 300 mg DAILY IV 08/31/24 09:00 09/30/24 08:59 09/01/24 07:50 300 MG DIAGNOSTICS / RADIOLOGY: [ ] ASSESSMENT: Acute hypoxemic respiratory failure, POA, requiring intubation and mechanical ventilation Hypotension, POA, currently suspected to be cardiogenic shock Acute coronary syndrome, status post left heart catheterization 08/28, finding of triple-vessel disease POA 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 Weaned off Precedex as needed and monitor status Continue with the intra-aortic balloon pump Cardiology input noted and appreciated, balloon pump to be turned down in 1-2 days Per Cardiothoracic surgeon, patient not a surgical candidate at this time We will continue with broad-spectrum IV antibiotics per ID recommendations Continue to follow critical care input recommendation Weaned off pressors as needed Continue heparin drip Replace electrolytes IV per protocol A.m. labs Transfuse as needed GI and DVT prophylaxis Prognosis remains guarded No family members at bedside to discuss goals of care Greater than 35 minutes ICU time spent in care of this patient JODEE SEN MD Sep 01, 2024 09:45
--- NOTE | 2024-09-01 10:09 | PN ---
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 Confused. Stating "you all I want to kill me." Reassured patient and reoriented to place. Seemed to calm him. As per RN patient was bradycardic overnight likely from Precedex drip. He is back at sinus rhythm in the 80s. Cardiology has decreased MCS of IABP to1:2. This morning Precedex drip was decreased to 0.7 and continue to wean. He continues with pressors of Levophed at 0.04 micrograms/kilogram per minute but RN is being able to wean. Blood pressure marginal 100/53 with a map of 69 heart rate in the 90s respiratory rate of 25 saturating 100% a 3 L via nasal cannula. Respiratory status has improved. Urine output of 2.4 L with a balance of -944 mL. On laboratory H&H is 10.9/31.1, platelet count is 373 K. creatinine is 1.1/70 potassium of 3.3 glucose 121 mg/dL albumin of 3.1. Chest x-ray with mild right lung pulmonary infiltrates. He continues with IV a ntibiotics Zyvox and Zosyn. Dobbhoff nasogastric tube has been ordered. For feedings. ET tube seen in place. Right lung with mild pulmonary infiltrates On chest x-ray. REVIEW OF SYSTEMS: Unable to obtain due to patient confusion. PHYSICAL EXAM: GENERAL: Patient continues critical on pressors and IABP for MCS, he is curr ently on nasal cannula saturating 100% with 2 L. HEENT: EOMI sclera nonicteric NECK: no JVD, trachea midline LUNGS: Clear bilateral lung sounds, HEART: Regular rate and rhythm. Normal S1 and S2, without murmurs ABD: Abdomen soft, nontender. Bowel sounds present EXT: No clubbing cyanosis , no edema. NEURO: Awake alert and following simple commands. Vital Signs (last 8hr) Date Time Temp Pulse Resp B/P (MAP) Pulse Ox O2 Delivery O2 Flow Rate FiO2 09/01/24 08:00 96 Aerosol Mask+ 40 09/01/24 07:03 53 28 60 09/01/24 05:15 41 21 143/48 (79) 98 09/01/24 05:00 54 25 146/74 (98) 100 09/01/24 04:45 54 27 140/68 (92) 100 09/01/24 04:30 55 33 131/58 (82) 100 09/01/24 04:15 55 31 132/59 (83) 100 09/01/24 04:01 68 14 127/51 (76) 99 09/01/24 04:00 96 Bi-PAP+ 60 09/01/24 04:00 55 35 100 09/01/24 03:46 98.1 57 45 119/83 (95) 100 09/01/24 03:45 55 35 100 09/01/24 03:30 55 29 119/64 (82) 100 09/01/24 03:15 56 37 124/54 (77) 99 09/01/24 03:00 55 23 132/63 (86) 95 09/01/24 02:55 57 20 60 09/01/24 02:45 51 29 134/61 (85) 100 09/01/24 02:30 54 43 121/65 (83) 99 09/01/24 02:15 50 35 127/63 (84) 99 LABS: Hematology Labs: Test 09/01/24 05:45 Range/Units White Blood Count 8.8 4.8-10.8 K/uL Red Blood Count 3.34 L 4.50-6.20 MIL/uL Hemoglobin 10.9 L 14.0-18.0 g/dL Hematocrit 31.1 L 42-54 % Mean Corpuscular Volume 93.1 79-99 fL Mean Corpuscular Hemoglobin 32.6 27.0-33.0 pg Mean Corpuscular Hemoglobin Concent 35.0 32.0-36.0 g/dL Red Cell Distribution Width 13.5 11.0-15.5 % Platelet Count 373 130-400 K/uL Mean Platelet Volume 9.4 7.5-10.5 fL Immature Granulocyte % (Auto) 0.2 0-1 % Neutrophils (%) (Auto) 69.8 40.0-77.0 % Lymphocytes (%) (Auto) 18.1 L 21.0-51.0 % Monocytes (%) (Auto) 10.5 3.0-13.0 % Eosinophils (%) (Auto) 1.3 0.0-8.0 % Basophils (%) (Auto) 0.1 0.0-5.0 % Neutrophils # (Auto) 6.1 1.8-7.7 K/uL Lymphocytes # (Auto) 1.6 1.0-4.8 K/uL Monocytes # (Auto) 0.9 0.1-1.0 K/uL Eosinophils # (Auto) 0.11 0.00-0.70 K/uL Basophils # (Auto) 0.01 0.00-0.20 K/uL Absolute Immature Granulocyte (auto 0.02 0-1 K/uL Nucleated Red Blood Cells 0.0 0.0-0.19 % Chemistry Labs: Test 09/01/24 05:45 09/01/24 05:40 08/30/24 23:23 08/30/24 13:33 Range/Units Sodium Level 137 136-145 mmol/L Potassium Level 3.3 L 3.5-5.1 mmol/L Chloride Level 100 L 101-111 mmol/L Carbon Dioxide Level 29 21-32 mmol/L Blood Urea Nitrogen 26 H 7-18 mg/dL Creatinine 1.1 0.5-1.3 mg/dL Glomerular Filtration Rate Calc 70 >90 mL/min Random Glucose 121 H 70-105 mg/dL Lactic Acid Level 1.2 0.8-2.5 mmol/L Total Calcium 9.3 8.5-10.1 mg/dL Total Bilirubin 0.6 0.2-1.0 mg/dL Aspartate Amino Transf (AST/SGOT) 43 H 10-37 U/L Alanine Aminotransferase (ALT/SGPT) 84 H 12-78 U/L Alkaline Phosphatase 105 50-136 U/L Total Protein 6.7 6.0-8.3 g/dL Albumin 3.1 L 3.5-5.0 g/dL Whole Blood Glucose 116 H 70-110 MG/DL Magnesium Level 1.90 1.80-2.40 mg/dL Phosphorus Level 3.3 2.5-4.9 mg/dL Test 08/30/24 10:46 Range/Units Ammonia < 10 L 11-32 umol/L TSH 3rd Generation 0.485 0.450-4.500 uIU/mL Coagulation Labs: Test 09/01/24 05:45 08/31/24 04:43 Range/Units Activated Partial Thromboplast Time 62.1 H 26.3-35.5 SEC Prothrombin Time 11.9 H 9.6-11.6 SEC Prothromb Time International Ratio 1.14 0.85-1.15 DIAGNOSTICS / RADIOLOGY RESULTS: [ ] IMAGING REPORT Signed PATIENT: NAMAN RUGGIERO MR#: [id number] : 1950 SEX: M AGE: 74 LOCATION: 2B ORDER 2300 STATUS: ADM IN REPORT#: [id number] SERVICE 0600 REASON: intubated ORDERING PHYSICIAN: ANDREI CHINO PROCEDURE: CXR1VW - CHEST 1VW CHEST 1VW HISTORY: Intubation COMPARISON: 08/31/2024 FINDINGS: A frontal projection of the chest was obtained. Mild right lung pulmonary infiltrates are seen. Endotracheal tube and nasogastric tube have been removed. The heart is borderline enlarged. All the lines and tubes are again seen in place. No evidence of aortic calcification is seen. IMPRESSION: 1. Mild right lung pulmonary infiltrates. DICTATED BY: SHANNEN BRICEÑO MD DATE: 09/01/241121 ELECTRONICALLY SIGNED BY: SHANNEN BRICEÑO MD DATE: 09/01/241124 PLAN Continue IVP of lasix q 12 hrs Valium 2.5mg IVP q6hrs precedex gtt wean as tolerated IABP per Cardiology 1:2 CV surgeon consult follow recommendations- no plans for surgery at this time Antibiotics per ID start thiamine 300mg IV QD x 3 days Folic acid 1 mg iv daily assess pain using CPOT Encourage Physical therapy once extubated use melatonin at HS avoid sedation if possible monitor electrolytes closely and replenish appropriately Frequent reorientation avoid polypharmacy NEURO: Minimize central acting medications as possible. Fall Precautions. Well lighted room through the day and minimize interruptions through the night to prevent acute delirium. PULMONARY: Supplemental 02 as needed Titrate Fio2 to keep Spo2 > or = 90% DuoNebs and CPT as needed IS hourly while awake for pulmonary hygiene Out of bed to chair as tolerated VAP Bundle Vent/BIPAP Settings: Peep of 6, FiO2 50%, rate of 22, tidal volume 500 CARDIOVASCULAR: Follow hemodynamics. Titrate vasopressor to keep MAP >65 or systolic blood pressure >95mmHg DIPS: Heparin, Precedex propofol LINES: PIV midline GI & NUTRITION: Continue nutritional support Aspirations precautions Prokinetic agents and laxatives as needed tube feedings dietary consult KIDNEYS & ELECTROLYTES: Strict monitoring of intake and output Daily weights Avoid nephrotoxic agents Monitor electrolytes and replace as needed Goal urine output of 30mL/hr or 0.5mL/kg/hr ENDOCRINE: Maintain blood glucose between 100-180 at all times. Insulin sliding scale for blood glucose management INFECTIOUS DISEASE: Trend temperature. Gaviria-culture if febrile. Micro: [ ] 08/25/24 blood cultures negative Sputum cultures from 08/25/24 normal paul Antibiotics: Zosyn 08/25/24 Levaquin 08/28/24 Zyvox 08/28/24 HEMATOLOGY & COAGULATION: Monitor H&H. Keep Hgb > 7 Transfuse 1 unit of PRBC for Hgb < 7 Transfuse 1 pack of platelets of platelets < 20, 000 Watch for any signs and symptoms of bleeding SKIN: Pressure ulcer prevention per facility protocol Rehab: PT/OT Prophylaxis: GI: PPI DVT: Bilateral SCDs, heparin drip Code Status: Full Resuscitation Disposition: ICU Other: Total time in care of this patient includes 60 minutes excluding all procedures performed. ANDREI CHINO Sep 01, 2024 10:09
--- NOTE | 2024-09-01 11:25 | HMCIMG ---
CHEST 1VW HISTORY: Intubation COMPARISON: 08/31/2024 FINDINGS: A frontal projection of the chest was obtained. Mild right lung pulmonary infiltrates are seen. Endotracheal tube and nasogastric tube have been removed. The heart is borderline enlarged. All the lines and tubes are again seen in place. No evidence of aortic calcification is seen. IMPRESSION: 1. Mild right lung pulmonary infiltrates.
--- NOTE | 2024-09-01 12:00 | NUR ---
DOBHOFF INSERTION ATTEMPTED X2 - UNSUCCESSFUL. PT HAS POOR GAG REFLEX AND BECAME VERY AGITATED
[2024-09-02] VITALS (78 sets, daily range): BP systolic 85–154; BP diastolic 40–108; PULSE 37–160; RESP 12–49; TEMP 97.5–99.8; O2SAT 96–100
--- NOTE | 2024-09-02 00:18 | PN ---
INFECTIOUS DISEASE FOLLOWUP NOTE DATE OF SERVICE: 09/01/2024 SUBJECTIVE: The patient is seen and examined at bedside. No fever or chills. The patient has been successfully extubated. The patient is awake, ____ encephalopathic and confused. The patient is treated with vasopressor. No diarrhea. Tolerating NG tube feeding. No family at the bedside at this time. PHYSICAL EXAMINATION: VITAL SIGNS: Temperature 98.2. EYES: No icterus. Pupils equal and reactive. HENT: Dry oral mucosa. No oral thrush seen. NECK: Supple, no JVD or thyromegaly. LUNGS: Crackles, no rhonchi. CARDIOVASCULAR: S1, S2 regular. No murmur heard. ABDOMEN: Full, soft. Bowel sound is present. CENTRAL NERVOUS SYSTEM: The patient is awake, confused. SKIN: No rashes, no itchiness. LYMPHATIC: No peripheral lymphadenopathy. BACK: No deformity, no pressure ulcer. GENITOURINARY: Leal catheter in place ____. ASSESSMENT: A 74-year-old male with multiple problems which include: * Aortic valve endocarditis. * Mitral valve endocarditis. * Hypoxic respiratory failure, status post intubation, isolation. * Chronic renal failure. * Dementia. * Debility. PLAN: * Continue Zosyn. * Continue ofloxacin. * Continue linezolid. * Continue critical care support. * Continue vasopressor. * Monitor electrolytes. * Continue GI prophylaxis. * The patient will follow up closely. TID: [id number] RECEIPT: [id number]
[2024-09-02 03:58] LABS: BASOPHILS # (AUTO) 0.01 K/uL (0.00-0.20); BASOPHILS % (AUTO) 0.1 % (0.0-5.0); EOSINOPHILS # (AUTO) 0.03 K/uL (0.00-0.70); EOSINOPHILS % (AUTO) 0.3 % (0.0-8.0); HEMATOCRIT 30.9 % (42-54); IMMATURE GRANULOCYTE ABSOLUTE 0.04 K/uL (0-1); LYMPHOCYTES # (AUTO) 1.4 K/uL (1.0-4.8); LYMPHOCYTES % (AUTO) 15.1 % (21.0-51.0); MEAN CORPUSCULAR HEMOGLOBIN 32.7 pg (27.0-33.0); MEAN CORPUSCULAR VOLUME 96.3 fL (79-99); MONOCYTES # (AUTO) 1.1 K/uL (0.1-1.0); NEUTROPHILS % (AUTO) 73.1 % (40.0-77.0); PLATELET COUNT (AUTO) 371 K/uL (130-400); RED BLOOD CELL COUNT(AUTO) 3.21 MIL/uL (4.50-6.20); RED CELL DISTRIBUTION WIDTH 13.4 % (11.0-15.5); WHITE BLOOD COUNT (AUTO) 9.5 K/uL (4.8-10.8)
[2024-09-02 04:24] LABS: ALBUMIN 2.9 g/dL (3.5-5.0); BILIRUBIN,TOTAL 0.9 mg/dL (0.2-1.0); CREATININE 1.3 mg/dL (0.5-1.3); TOTAL PROTEIN, SERUM 6.6 g/dL (6.0-8.3)
--- NOTE | 2024-09-02 08:51 | PN ---
[facility] PROGRESS NOTE Date of Service: Sep 02, 2024 Time of Service: 08:49 SUBJECTIVE: 08/26 patient seen at bedside, no acute events overnight. He remains intubated and sedated, continues on pressor support. FiO2 is 60%, we will wean towards extubation. Troponins are elevated, patient is started on ACS protocol with aspirin, Plavix, statin and heparin drip. Cardiology recommendations still pending, we will follow up. WBC increased from 10.8 up to 14.3, hemoglobin decreased from 13.2 down to 11.6, sodium stable at 126, similar to yesterday, troponins peaked and are now downtrending to [id number], remainder of his labs are relatively unremarkable. 08/27 patient seen at bedside, no acute events overnight. He remains intubated and sedated, continue weaning down pressors. His FiO2 has been weaned down to 50%, we will continue to wean as able, peep has been decreased from 8-6. Echocardiogram has been done, formal read is still pending, preliminary read shows a possible vegetation of the mitral valve, ejection fraction of 50-55%, mild to moderate aortic regurgitation, moderate mitral regurgitation, we will have him reassessed once he has been extubated as he may need a KARTHIK, however given his blood cultures are no growth this mobile mass on the mitral valve may not be secondary to endocarditis. Creatinine has increased from 1.3 up to 1.8, hemoglobin stable at 11.3, similar to yesterday, WBC increased from 14.3 up to 18.9, platelets improved from 528 down to 520, sodium stable at 127, similar to yesterday, remainder of his labs are relatively unremarkable. Cultures are no growth to date. 08/28 patient is seen and examined at bedside, remains intubated, on mechanical ventilation, on propofol, Levophed and heparin drip. Discussed with the RN, back from having left heart catheterization with finding of three-vessel disease for which Cardiothoracic surgery consultation requested. TTE with a EF 50-55% with possible vegetation of the mitral valve. Patient is scheduled for KARTHIK today. WBC 17.9. Blood cultures no growth after 48 hours. 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 Continue goal-directed medical therapy, infectious disease consultation requested. Blood cultures has remained negative. CT surgery consultation requested for CABG plus aortic and mitral valve replacement. 08/30 patient is seen and examined at bedside, remains intubated, mechanical ventilation, per discussion with the RN, the patient failed SBT trial, had to be placed back on sedation. Patient getting IV antibiotics at the time of my visit. BP 98/56, FiO2 30%, saturating 98%. CBC with a hemoglobin 10.8, hematocrit 31.4. Chest x-ray shows bilateral pulmonary infiltrates suggestive of pulmonary vascular congestion with possible superimposed pneumonitis. Continue to follow Pulmonary input and recommendation in terms of weaning off the ventilator, continue broad-spectrum IV antibiotics per ID recommendations. Cardiology input noted and appreciated. Patient evaluated by CT surgeon for possible CABG as well as valve replacement. 08/31 patient is seen and examined at bedside, remains intubated, mechanical ventilation, per discussion with the RN, BP 87/40, rate of 59, saturating 100%, FiO2 30%. Patient remains on broad-spectrum IV antibiotics, the patient remains on Levophed for pressure support. Remains sedated with propofol and Precedex. Hemoglobin 11.7, hematocrit 33.8. ABG pH 7.5, pCO2 30, bicarb 24.4.Chest x-ray shows bilateral pulmonary infiltrates suggestive of pulmonary vascular congestion with possible superimposed pneumonitis. Urine output 4 L. Weaning trial in progress by pulmonary physician, attempt yesterday, patient tolerated only 4 hours of CPAP trial. Cardiology input noted and appreciated, intra- aortic balloon pump in place. Patient with a aortic and mitral valve endocarditis, evaluated by CT surgeon who requested the patient be off ventilator in order to discuss procedure with the patient and family. Continue to follow critical care input and recommendation. 09/01 patient is seen and examined at bedside, successfully extubated 08/31/2024, remains on aerosol mask, FiO2 40%, patient confused, withdrawing to painful stimulation. He remains with balloon pump in place, low-dose Precedex, heparin drip on low-dose Levophed. BP 143/48, heart rate of 41, afebrile. CBC with a hemoglobin 10.9, hematocrit 31.1, WBC 8.8, platelet count of 373. ABG and chest x-ray pending. Patient on IV antibiotics. Cardiology input noted appreciated, balloon pump to turn in the next 1-2 days. Patient evaluated by CT surgery, patient to be a surgical at this time. Continue to follow critical Care and ID input and recommendations. Discharge plan discussed yesterday case management, once patient medically stable may benefit from discharge to LTAC. 09/02 patient is seen and examined at bedside, successfully extubated 08/31/2024, Patient evaluated by CT surgery, felt not to be a surgical candidate at this time. Continue to follow critical Care and ID input and recommendations. Discharge plan discussed with case management, once patient medically stable may benefit from discharge to LTAC. REVIEW OF SYSTEMS 12 point review of systems negative unless noted in HPI PHYSICAL EXAM GENERAL APPEARANCE: The patient is intubated, on mechanical ventilation, on propofol, Levophed and heparin. NEUROLOGICAL: Cranial nerves II-XII grossly intact. Motor is 5/5 in bilateral upper and lower extremities proximal to distal. No sensory deficits. HEENT: Face is symmetric. Pupils are equal and reactive. Extraocular movements are intact. NECK: Supple. No JVD. No thyromegaly. No submental, submandibular, pre- /postauricular, occipital or supraclavicular lymphadenopathy. CHEST: Normal chest expansion. No Telemetry. LUNGS: Absence of any rales, rhonchi or any wheezing. CARDIOVASCULAR: Regular. S1 and S2 normal. No appreciable rubs, murmurs or gallops. ABDOMEN: Soft, nontender, and nondistended. There is no rebound, voluntary guarding, or rigidity. : Deferred. No Leal. EXTREMITIES: Non-edematous and not cyanotic. No clubbing. Good capillary refill. SKIN: No skin breakdown. Vital Signs (last 8hr) Date Time Temp Pulse Resp B/P (MAP) Pulse Ox O2 Delivery O2 Flow Rate FiO2 09/02/24 06:48 61 38 60 09/02/24 05:45 81 19 99/52 (68) 100 09/02/24 05:30 64 19 106/62 (77) 100 09/02/24 05:15 77 21 118/47 (70) 100 09/02/24 05:00 77 17 104/58 (73) 100 09/02/24 04:45 77 14 119/99 (106) 100 09/02/24 04:30 64 23 102/52 (69) 100 09/02/24 04:15 69 28 109/42 (64) 100 09/02/24 04:00 96 Bi-PAP+ 60 09/02/24 04:00 99.5 62 27 103/61 (75) 100 09/02/24 03:45 62 26 100/50 (67) 100 09/02/24 03:30 66 21 106/57 (73) 100 09/02/24 03:15 65 29 101/66 (78) 100 09/02/24 03:00 61 24 107/48 (67) 100 09/02/24 02:56 78 22 60 09/02/24 02:45 68 26 115/54 (74) 100 09/02/24 02:30 65 31 102/53 (69) 100 09/02/24 02:15 65 29 107/61 (76) 100 09/02/24 02:00 65 34 98/58 (71) 100 09/02/24 01:45 64 29 96/52 (67) 100 09/02/24 01:30 64 29 95/43 (60) 100 09/02/24 01:15 68 36 89/48 (62) 99 09/02/24 01:00 80 25 85/47 (60) 100 LABS: Laboratory: Test 09/02/24 03:35 09/02/24 00:17 08/31/24 14:55 08/31/24 09:47 Range/Units White Blood Count 9.5 4.8-10.8 K/uL Red Blood Count 3.21 L 4.50-6.20 MIL/uL Hemoglobin 10.5 L 14.0-18.0 g/dL Hematocrit 30.9 L 42-54 % Mean Corpuscular Volume 96.3 79-99 fL Mean Corpuscular Hemoglobin 32.7 27.0-33.0 pg Mean Corpuscular Hemoglobin Concent 34.0 32.0-36.0 g/dL Red Cell Distribution Width 13.4 11.0-15.5 % Platelet Count 371 130-400 K/uL Mean Platelet Volume 9.6 7.5-10.5 fL Immature Granulocyte % (Auto) 0.4 0-1 % Neutrophils (%) (Auto) 73.1 40.0-77.0 % Lymphocytes (%) (Auto) 15.1 L 21.0-51.0 % Monocytes (%) (Auto) 11.0 3.0-13.0 % Eosinophils (%) (Auto) 0.3 0.0-8.0 % Basophils (%) (Auto) 0.1 0.0-5.0 % Neutrophils # (Auto) 7.0 1.8-7.7 K/uL Lymphocytes # (Auto) 1.4 1.0-4.8 K/uL Monocytes # (Auto) 1.1 H 0.1-1.0 K/uL Eosinophils # (Auto) 0.03 0.00-0.70 K/uL Basophils # (Auto) 0.01 0.00-0.20 K/uL Absolute Immature Granulocyte (auto 0.04 0-1 K/uL Nucleated Red Blood Cells 0.0 0.0-0.19 % Activated Partial Thromboplast Time 69.8 H 26.3-35.5 SEC Sodium Level 138 136-145 mmol/L Potassium Level 4.0 3.5-5.1 mmol/L Chloride Level 100 L 101-111 mmol/L Carbon Dioxide Level 32 21-32 mmol/L Blood Urea Nitrogen 29 H 7-18 mg/dL Creatinine 1.3 0.5-1.3 mg/dL Glomerular Filtration Rate Calc 57 >90 mL/min Random Glucose 121 H 70-105 mg/dL Lactic Acid Level 1.4 0.8-2.5 mmol/L Total Calcium 9.1 8.5-10.1 mg/dL Total Bilirubin 0.9 # 0.2-1.0 mg/dL Aspartate Amino Transf (AST/SGOT) 43 H 10-37 U/L Alanine Aminotransferase (ALT/SGPT) 79 H 12-78 U/L Alkaline Phosphatase 101 50-136 U/L Total Protein 6.6 6.0-8.3 g/dL Albumin 2.9 L 3.5-5.0 g/dL Whole Blood Glucose 86 70-110 MG/DL Blood Gas Specimen Type Arterial Arterial Blood pH 7.534 H 7.350-7.450 Arterial Blood Partial Pressure CO2 35 35-48 mmHg Arterial Blood Partial Pressure O2 94.9 83.0-108.0 mmHg Arterial Blood HCO3 28.9 H 21.0-28.0 mmol/L Arterial Blood Oxygen Saturation 97.9 94.0-98.0 % Arterial Blood Base Excess 6.3 H -2.0-3.0 mmol/L Blood Gas Temperature 37.0 35.5-37.0 CELSIUS Blood Gas Flow-by 10.00 0.00-15.00 L/min Blood Gas Vent Mode CAFM ROOM AIR FiO2 50.0 % Blood Gas Specimen Comment LR TARA Blood Gas PEEP 5 cm H2O Current Medications Medications (Trade) Dose Ordered Sig/Lydia Route PRN Reason Start Time Stop Time Status Last Admin Dose Admin Acetaminophen (TYLenol 650MG SUPPOSITORY) 650 mg Q6H PRN RC MILD PAIN (1-3) 08/25/24 19:30 09/24/24 19:29 Albumin Human 100 ml @ 0 mls/hr AD IV 08/30/24 10:30 09/04/24 10:29 08/30/24 12:01 100 MLS/HR Albuterol (DUOneb) 1 UDVIAL [id number] IH 08/26/24 00:00 08/31/24 20:38 DC 08/31/24 18:36 1 UDVIAL Albuterol (DUOneb) 1 UDVIAL [id number] PRN IH sob and wheezing 08/31/24 21:00 09/25/24 00:00 08/31/24 23:05 1 UDVIAL Albuterol (DUOneb) 2 udvial ONCE IH 08/25/24 18:00 08/25/24 22:00 DC 08/25/24 19:17 2 UDVIAL Alprazolam (XANax 0.5MG) 0.5 mg TID PO 08/30/24 21:00 08/31/24 09:57 DC 08/31/24 07:57 0.5 MG Aspirin (Aspirin 300mg Supp) 300 mg ONCE [place] 08/25/24 19:30 08/25/24 23:59 DC 08/25/24 19:41 300 MG Aspirin (Aspirin 81mg Ec Tab) 81 mg DAILY PO 08/26/24 09:00 09/25/24 08:59 08/31/24 07:57 81 MG Atorvastatin Calcium (LIPItor 40MG) 40 mg HS PO 08/26/24 07:30 08/26/24 07:44 DC Azithromycin 250 ml @ 250 mls/hr Q24H IVPB 08/25/24 18:51 08/25/24 23:30 DC Azithromycin 250 ml @ 250 mls/hr Q24H IVPB 08/25/24 19:30 08/25/24 19:38 DC Ceftriaxone Sodium (ROCEphine 1G INJ) 1 gm ONCE IVPB 08/25/24 19:00 08/25/24 21:03 DC 08/25/24 19:41 1 GM Ceftriaxone Sodium (ROCEphine 1G INJ) 1 gm Q24H IVPB 08/25/24 19:30 08/26/24 12:29 DC Clopidogrel Bisulfate (plaVIX 300MG TAB) 300 mg ONCE PO 08/25/24 21:00 08/26/24 06:00 DC 08/25/24 23:16 300 MG Clopidogrel Bisulfate (plaVIX 75MG) 75 mg DAILY PO 08/26/24 09:00 08/29/24 10:52 DC 08/29/24 08:41 75 MG Dexmedetomidine/ Sodium Chloride (PRECEdex 400MCG/ 100ML-NS) 400 mcg PROTOCOL IV 08/29/24 09:00 09/28/24 08:59 09/02/24 02:58 400 MCG Diazepam (VALium 2 mg Tab) 2 mg Q6H PRN PO ANXIETY 08/31/24 10:00 08/31/24 13:39 DC 08/31/24 10:06 2 MG Diazepam (VALium 5 MG/ML 2 ML SYG) 2.5 mg ONCE PRN IV ANXIETY 08/31/24 16:00 08/31/24 16:00 DC 08/31/24 15:50 2.5 MG Diazepam (VALium 5 MG/ML 2 ML SYG) 2.5 mg Q6H6 IVP 08/31/24 18:00 09/07/24 17:59 09/01/24 11:33 2.5 MG Diazepam (VALium 5 mg TAB) 5 mg BID PO 08/31/24 21:00 08/31/24 16:39 DC Fentanyl Citrate 100 ml @ 2.5 mls/hr PROTOCOL IV 08/25/24 20:00 08/27/24 17:54 DC 08/27/24 14:22 2.5 MLS/HR Folic Acid (FolVITE 5 MG/ML VIAL) 1 mg DAILY IV 08/31/24 09:00 09/30/24 08:59 09/01/24 07:50 1 MG Furosemide (LASix 20MG VIAL) 20 mg Q12H IV 08/26/24 09:00 08/27/24 12:24 DC 08/27/24 08:56 20 MG Furosemide (LASix 20MG VIAL) 20 mg Q12H IV 08/31/24 08:30 09/30/24 08:29 09/01/24 20:04 20 MG Furosemide 100 mg/ Sodium Chloride 100 ml @ 0 mls/hr PROTOCOL IV 08/30/24 13:30 08/31/24 08:26 DC 08/30/24 23:32 10 MLS/HR Heparin Sodium (Porcine) (HEParin 5,000 UNIT VIAL) *calculation based on ACTUAL B... AD PRN IV HEPARIN PROTOCOL 08/25/24 20:00 09/24/24 19:59 08/28/24 06:30 6,000 UNIT Heparin Sodium/ Dextrose 250 ml @ 0 mls/hr Q6H IV 08/25/24 20:00 09/24/24 19:59 09/01/24 14:00 7.2 MLS/HR Insulin Human Regular (humuLIN R 100 UNIT/ML 3ML) INSULIN SLIDING SCAL... Q6H6 SQ 08/26/24 00:00 09/25/24 00:00 08/26/24 05:58 2 UNIT Ketamine HCl (ketaMINE 50MG/ ML SYRINGE) 50 mg ONCE IM 08/25/24 19:00 08/25/24 22:00 DC Ketamine HCl (ketaMINE 50MG/ ML SYRINGE) 50 mg ONCE IM 08/25/24 19:00 08/25/24 23:59 DC Lactulose (Constulose 20gm/ 30ml Udcup) 20 gm BID PO 08/28/24 21:00 09/27/24 20:59 08/30/24 20:34 20 GM Levofloxacin/ Dextrose 100 ml @ 100 mls/hr Q24H IV 08/28/24 14:30 08/28/24 15:24 DC Levofloxacin/ Dextrose 100 ml @ 100 mls/hr Q48H IV 08/28/24 15:30 09/11/24 15:29 09/01/24 14:22 100 MLS/HR Linezolid 300 ml @ 300 mls/hr Q12H IV 09/01/24 02:30 09/15/24 02:29 09/02/24 02:59 300 MLS/HR Linezolid (Zyvox) 600 mg Q12H PO 08/28/24 14:30 09/01/24 01:53 DC 08/31/24 14:11 600 MG Melatonin (Melatonin) 10 mg HS PO 08/30/24 21:00 09/29/24 20:59 Methylprednisolone Sodium Succinate (Solu-medROL 40MG) 40 mg Q8H IVP 08/25/24 23:00 08/27/24 12:19 DC 08/27/24 06:23 40 MG Methylprednisolone Sodium Succinate (Solu-medROL 125MG) 125 mg ONCE IVP 08/25/24 18:00 08/25/24 22:00 DC 08/25/24 18:52 125 MG Midazolam HCl 50 ml @ 0 mls/hr PROTOCOL IV 08/25/24 19:00 08/27/24 17:54 DC 08/27/24 11:18 9 MLS/HR Midazolam HCl 50 mg/Sodium Chloride 50 ml @ 0 mls/hr PROTOCOL IV 08/25/24 19:00 09/24/24 18:59 UNV Morphine Sulfate (morPHINE 2MG SYG) 2 mg Q4H PRN IVP SEVERE PAIN (7-10) 08/26/24 07:30 08/30/24 18:56 DC Morphine Sulfate (morPHINE 4MG SYG) 2 mg Q4H PRN IVP SEVERE PAIN (7-10) 08/25/24 19:30 08/26/24 07:11 DC Norepinephrine 250 ml @ 0 mls/hr AD PRN IV DIRECTED 08/27/24 06:00 09/26/24 05:59 09/01/24 19:39 11.85 MLS/HR Norepinephrine 250 ml @ 0 mls/hr PROTOCOL IV 08/25/24 19:30 08/26/24 05:10 DC 08/26/24 00:14 121.5 MLS/HR Norepinephrine Bitartrate 32 mg/ Sodium Chloride 250 ml @ 0 mls/hr Q0M PRN IV hypotension 08/26/24 05:30 08/28/24 08:54 DC 08/26/24 06:04 19.87 MLS/HR Ondansetron HCl (zoFRAN 4MG INJ) 4 mg Q6H PRN IV NAUSEA/VOMITING 08/25/24 19:30 09/24/24 19:29 Pantoprazole Sodium (PROTonix 40MG INJ) 40 mg DAILY IV 08/26/24 09:00 09/25/24 08:59 09/01/24 07:50 40 MG Pharmacy Profile Note (Pharmacy Communication) 1 each ONCE MISC 09/01/24 02:00 09/01/24 01:54 DC Piperacillin Sod/ Tazobactam Sod (Zosyn 3.375gm+NS 50ml) 3.375 gm Q8H IV 08/25/24 20:00 09/04/24 19:59 UNV Piperacillin Sod/ Tazobactam Sod (Zosyn 3.375gm+NS 50ml) 3.375 gm ZOSY8 IV 08/25/24 21:00 09/04/24 20:59 09/02/24 05:02 3.375 GM Polyethylene Glycol (MIRalax 3350 17 GM POWD.PACK) 17 gm DAILY PO 08/29/24 09:00 09/28/24 08:59 08/29/24 08:41 17 GM Polyethylene Glycol (MIRalax 3350 17 GM POWD.PACK) 17 gm ONCE PO 08/28/24 18:00 08/28/24 21:00 DC 08/28/24 18:00 17 GM Potassium Chloride 100 ml @ 100 mls/hr AD PRN IV POTASSIUM PROTOCOL 08/29/24 13:00 09/28/24 12:59 09/01/24 12:40 100 MLS/HR Potassium Chloride (K-Dur/Klor-Con 20meq) 20 meq AD PRN PO POTASSIUM PROTOCOL 08/29/24 13:00 09/28/24 12:59 Potassium Chloride (KCl 10% Elixir 20meq/15ml) 20 meq AD PRN PO POTASSIUM PROTOCOL 08/29/24 13:00 09/28/24 12:59 08/31/24 02:36 20 MEQ Propofol (DIPRivan 1000MG/ 100ML) 1,000 mg PROTOCOL PRN IV SEDATION 08/27/24 16:30 08/31/24 20:38 DC 08/31/24 00:26 1,000 MG Thiamine HCl (Vitamin B-1) 200 mg DAILY IM 08/31/24 09:00 08/30/24 13:17 DC Thiamine HCl (Vitamin B-1) 300 mg DAILY IV 08/31/24 09:00 09/30/24 08:59 09/01/24 07:50 300 MG DIAGNOSTICS / RADIOLOGY: [ ] ASSESSMENT: Acute hypoxemic respiratory failure, POA, requiring intubation and mechanical ventilation Hypotension, POA, currently suspected to be cardiogenic shock Acute coronary syndrome, status post left heart catheterization 08/28, finding of triple-vessel disease POA 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 Weaned off Precedex as needed and monitor status Continue with the intra-aortic balloon pump Cardiology input noted and appreciated, balloon pump to be turned down in 1-2 days Per Cardiothoracic surgeon, patient not a surgical candidate at this time We will continue with broad-spectrum IV antibiotics per ID recommendations Continue to follow critical care input recommendation Weaned off pressors as needed Continue heparin drip Replace electrolytes IV per protocol A.m. labs Transfuse as needed GI and DVT prophylaxis Prognosis remains guarded No family members at bedside to discuss goals of care Greater than 35 minutes ICU time spent in care of this patient JODEE SEN MD Sep 02, 2024 08:51
--- NOTE | 2024-09-02 10:17 | HMCIMG ---
FRONTAL CHEST RADIOGRAPH INDICATION: intubated COMPARISON: 09/01/2024 FINDINGS/IMPRESSION: paste up copy camera operator leads overlie the field of view. Intra-aortic balloon pump in place. Stable normal heart size without pulmonary vascular congestion. Suspect trace layering bilateral pleural effusions, but no evidence for pneumothorax.
--- NOTE | 2024-09-02 12:07 | PN ---
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 No major overnight events. Per RN they were unable to place Dobbhoff for feeding due to feeding tube not entering the stomach, pt does not follow commands to swallow. We will have to start TPN for now until enteral measures for feeding can be established. It is to high risk to take pt to IR for alvin placement at this time due to currently with MCS with IABP. He continues with IABP 1:2. heparin gtt and Levophed drip at 0.04 mcg/kg/min with marginal Blood pressure of 101/68. He is currently on 3L via NC saturating 97% in no apparent distress RR 24, HR in the 60's. Urine output 2.3 L. CBC unremarkable similar to yesterday. Cr 1.3 GFR of 57, total bili normal 0.9, Lactic acid 1.4. Per Cardiology he has had a discussion with pt's son on overall prognosis, Cardiology has discussed with son the palliative/medical management VS consideration of high risk Impella Supported PCI. For now we will continue supportive measure. There is no family at the bedside at the time of my visit. REVIEW OF SYSTEMS: Unable to obtain due to patient confusion. PHYSICAL EXAM: GENERAL: Patient continues critical on pressors and IABP for MCS, he is currently on nasal cannula saturating 97% with 2 L. HEENT: EOMI sclera nonicteric NECK: no JVD, trachea midline LUNGS: Clear bilateral lung sounds, HEART: Regular rate and rhythm. Normal S1 and S2, without murmurs ABD: Abdomen soft, nontender. Bowel sounds present EXT: No clubbing cyanosis , no edema. NEURO: Awake alert and following simple commands. Vital Signs (last 8hr) Date Time Temp Pulse Resp B/P (MAP) Pulse Ox O2 Delivery O2 Flow Rate FiO2 09/02/24 10:20 122 20 N/Cannula Low lpm 3.0 32 09/02/24 10:15 114 24 144/68 (93) 99 32 09/02/24 10:01 81 27 124/99 (107) 99 09/02/24 09:46 108 31 94/46 (62) 100 32 09/02/24 09:30 117 25 101/41 (61) 100 09/02/24 09:15 61 28 106/53 (70) 100 09/02/24 09:00 77 20 107/62 (77) 100 32 09/02/24 08:45 108 25 129/76 (93) 100 09/02/24 08:32 103 30 110/41 (64) 100 09/02/24 08:15 99 28 128/59 (82) 100 09/02/24 08:00 100 Bi-PAP+ 32 09/02/24 08:00 106 49 120/40 (66) 100 09/02/24 07:45 112 24 121/57 (78) 100 09/02/24 07:30 102 23 103/54 (70) 100 09/02/24 07:15 77 27 103/44 (63) 100 32 09/02/24 07:00 74 23 107/69 (82) 100 09/02/24 06:48 61 38 60 09/02/24 06:45 98.1 09/02/24 06:45 98.1 109 32 118/67 (84) 100 32 09/02/24 05:45 81 19 99/52 (68) 100 09/02/24 05:30 64 19 106/62 (77) 100 09/02/24 05:15 77 21 118/47 (70) 100 09/02/24 05:00 77 17 104/58 (73) 100 09/02/24 04:45 77 14 119/99 (106) 100 09/02/24 04:30 64 23 102/52 (69) 100 09/02/24 04:15 69 28 109/42 (64) 100 LABS: Hematology Labs: Test 09/02/24 03:35 Range/Units White Blood Count 9.5 4.8-10.8 K/uL Red Blood Count 3.21 L 4.50-6.20 MIL/uL Hemoglobin 10.5 L 14.0-18.0 g/dL Hematocrit 30.9 L 42-54 % Mean Corpuscular Volume 96.3 79-99 fL Mean Corpuscular Hemoglobin 32.7 27.0-33.0 pg Mean Corpuscular Hemoglobin Concent 34.0 32.0-36.0 g/dL Red Cell Distribution Width 13.4 11.0-15.5 % Platelet Count 371 130-400 K/uL Mean Platelet Volume 9.6 7.5-10.5 fL Immature Granulocyte % (Auto) 0.4 0-1 % Neutrophils (%) (Auto) 73.1 40.0-77.0 % Lymphocytes (%) (Auto) 15.1 L 21.0-51.0 % Monocytes (%) (Auto) 11.0 3.0-13.0 % Eosinophils (%) (Auto) 0.3 0.0-8.0 % Basophils (%) (Auto) 0.1 0.0-5.0 % Neutrophils # (Auto) 7.0 1.8-7.7 K/uL Lymphocytes # (Auto) 1.4 1.0-4.8 K/uL Monocytes # (Auto) 1.1 H 0.1-1.0 K/uL Eosinophils # (Auto) 0.03 0.00-0.70 K/uL Basophils # (Auto) 0.01 0.00-0.20 K/uL Absolute Immature Granulocyte (auto 0.04 0-1 K/uL Nucleated Red Blood Cells 0.0 0.0-0.19 % Chemistry Labs: Test 09/02/24 03:35 09/02/24 00:17 Range/Units Sodium Level 138 136-145 mmol/L Potassium Level 4.0 3.5-5.1 mmol/L Chloride Level 100 L 101-111 mmol/L Carbon Dioxide Level 32 21-32 mmol/L Blood Urea Nitrogen 29 H 7-18 mg/dL Creatinine 1.3 0.5-1.3 mg/dL Glomerular Filtration Rate Calc 57 >90 mL/min Random Glucose 121 H 70-105 mg/dL Lactic Acid Level 1.4 0.8-2.5 mmol/L Total Calcium 9.1 8.5-10.1 mg/dL Total Bilirubin 0.9 # 0.2-1.0 mg/dL Aspartate Amino Transf (AST/SGOT) 43 H 10-37 U/L Alanine Aminotransferase (ALT/SGPT) 79 H 12-78 U/L Alkaline Phosphatase 101 50-136 U/L Total Protein 6.6 6.0-8.3 g/dL Albumin 2.9 L 3.5-5.0 g/dL Whole Blood Glucose 86 70-110 MG/DL Coagulation Labs: Test 09/02/24 03:35 Range/Units Activated Partial Thromboplast Time 69.8 H 26.3-35.5 SEC DIAGNOSTICS / RADIOLOGY RESULTS: IMAGING REPORT Signed PATIENT: NAMAN RUGGIERO MR#: [id number] : 1950 SEX: M AGE: 74 LOCATION: [facility] ORDER 2300 STATUS: ADM IN REPORT#: [id number] SERVICE 0600 REASON: intubated ORDERING PHYSICIAN: ANDREI CHINO PROCEDURE: CXR1VW - CHEST 1VW FRONTAL CHEST RADIOGRAPH INDICATION: intubated COMPARISON: 09/01/2024 FINDINGS/IMPRESSION: conveyor monitor leads overlie the field of view. Intra-aortic balloon pump in place. Stable normal heart size without pulmonary vascular congestion. Suspect trace layering bilateral pleural effusions, but no evidence for pneumothorax. DICTATED BY: OSCAR PROCTOR MD DATE: 09/02/24 1014 ELECTRONICALLY SIGNED BY: OSCAR PROCTOR MD DATE: 09/02/24 1017 PLAN Per cardiology PLan: Palliative with medical management VS High risk PCI with Impella placement. Family pending to decide. Continue IVP of lasix daily STart TPN for nutrition due to multiple staff have attempted Dobhoff placement and unsuccessful Valium 2.5mg IVP q6hrs Precedex gtt wean as tolerated IABP per Cardiology 1:2 CV surgeon consult follow recommendations- not deemed to be a surgical candidate at this time. Antibiotics per ID assess pain using CPOT Encourage Physical therapy once extubated monitor electrolytes closely and replenish appropriately Frequent reorientation avoid polypharmacy NEURO: Minimize central acting medications as possible. Fall Precautions. Well lighted room through the day and minimize interruptions through the night to prevent acute delirium. PULMONARY: Supplemental 02 as needed Titrate Fio2 to keep Spo2 > or = 90% DuoNebs and CPT as needed IS hourly while awake for pulmonary hygiene Out of bed to chair as tolerated VAP Bundle Vent/BIPAP Settings: Peep of 6, FiO2 50%, rate of 22, tidal volume 500 CARDIOVASCULAR: Follow hemodynamics. Titrate vasopressor to keep MAP >65 or systolic blood pressure >95mmHg DIPS: Heparin, Precedex propofol LINES: PIV midline GI & NUTRITION: Continue nutritional support Aspirations precautions Prokinetic agents and laxatives as needed unable to start tube feedings due to no secured feeding tube pt very high risk for aspiration TPN for now at 50ml/HR KIDNEYS & ELECTROLYTES: Strict monitoring of intake and output Daily weights Avoid nephrotoxic agents Monitor electrolytes and replace as needed Goal urine output of 30mL/hr or 0.5mL/kg/hr ENDOCRINE: Maintain blood glucose between 100-180 at all times. Insulin sliding scale for blood glucose management INFECTIOUS DISEASE: Trend temperature. Gaviria-culture if febrile. Micro: [ ] 08/25/24 blood cultures negative Sputum cultures from 08/25/24 normal paul Antibiotics: Zosyn 08/25/24 Levaquin 08/28/24 Zyvox 08/28/24 HEMATOLOGY & COAGULATION: Monitor H&H. Keep Hgb > 7 Transfuse 1 unit of PRBC for Hgb < 7 Transfuse 1 pack of platelets of platelets < 20, 000 Watch for any signs and symptoms of bleeding SKIN: Pressure ulcer prevention per facility protocol Rehab: PT/OT Prophylaxis: GI: PPI DVT: Bilateral SCDs, heparin drip Code Status: Full Resuscitation Disposition: ICU Other: Total time in care of this patient includes 60 minutes excluding all procedures performed. ANDREI CHINO Sep 02, 2024 12:07
--- NOTE | 2024-09-02 12:32 | PN ---
[facility] CARDIOLOGY PROGRESS NOTE Date Patient Seen: Sep 02, 2024 Time of Visit: 12:20 Interval History: [No Events overnight. The patient continues to be altered and is frail, weak and deconditioned. No acute distress noted. SBP 144/68mmhg on mechinical IABP support at 1:2 . Family discussion held this AM via telephone regarding current clinical situation. Pt has severe multivessel CAD/NSTEMI with also underlying endocarditis. Most recent cultures have been negative. CV surgery has been consult and is deemed not a surgical candidate at this time. Discussed this with pts Son and overall prognosis. We discussed palliative/medical mgt vs consideration of high risk Impella supported PCI. Family wishes to pursue all viable options including high risk PCI, but we will have further discussion tomorrow to formulate plan (Medical mgt and DC of IABP vs Impella supported high risk PCI)] Physical Examination: GENERAL: [Frail and decondition in no active distress.] HEAD: [Normal with no signs of head trauma.] EYES: [PERRLA, EOMI, conjunctiva and sclera normal.] ENT: [Hearing grossly intact, normal oropharynx.] NECK: [Supple without JVD. There is no tenderness, lymphadenopathy, or masses. No thyromegaly. Normal carotid upstrokes without bruits.] LUNGS: [Decreased breath sounds bilaterally. No wheezes, or rhonchi.] HEART: [Normal rate and rhythm. Normal S1 and S2 without mumurs, gallop or rub.] VASC: [Peripheral pulses +2 bilaterally.] ABD: [Bowel sounds normal, soft, nontender, no masses, no organomegaly. No audible bruits.] : [Not examined] LYMPH: [No lymphadenopathy noted.] EXT: [No clubbing, cyanosis or edema.] SKIN: [No rashes or lesions noted.] NEURO: [Awake, alert, and oriented x1. No focal sensory or strength deficits noted.] Laboratory: [ ] Hematology Labs: Test 09/02/24 03:35 Range/Units White Blood Count 9.5 4.8-10.8 K/uL Red Blood Count 3.21 L 4.50-6.20 MIL/uL Hemoglobin 10.5 L 14.0-18.0 g/dL Hematocrit 30.9 L 42-54 % Mean Corpuscular Volume 96.3 79-99 fL Mean Corpuscular Hemoglobin 32.7 27.0-33.0 pg Mean Corpuscular Hemoglobin Concent 34.0 32.0-36.0 g/dL Red Cell Distribution Width 13.4 11.0-15.5 % Platelet Count 371 130-400 K/uL Mean Platelet Volume 9.6 7.5-10.5 fL Immature Granulocyte % (Auto) 0.4 0-1 % Neutrophils (%) (Auto) 73.1 40.0-77.0 % Lymphocytes (%) (Auto) 15.1 L 21.0-51.0 % Monocytes (%) (Auto) 11.0 3.0-13.0 % Eosinophils (%) (Auto) 0.3 0.0-8.0 % Basophils (%) (Auto) 0.1 0.0-5.0 % Neutrophils # (Auto) 7.0 1.8-7.7 K/uL Lymphocytes # (Auto) 1.4 1.0-4.8 K/uL Monocytes # (Auto) 1.1 H 0.1-1.0 K/uL Eosinophils # (Auto) 0.03 0.00-0.70 K/uL Basophils # (Auto) 0.01 0.00-0.20 K/uL Absolute Immature Granulocyte (auto 0.04 0-1 K/uL Nucleated Red Blood Cells 0.0 0.0-0.19 % Chemistry Labs: Test 09/02/24 12:08 09/02/24 03:35 Range/Units Whole Blood Glucose 94 70-110 MG/DL Sodium Level 138 136-145 mmol/L Potassium Level 4.0 3.5-5.1 mmol/L Chloride Level 100 L 101-111 mmol/L Carbon Dioxide Level 32 21-32 mmol/L Blood Urea Nitrogen 29 H 7-18 mg/dL Creatinine 1.3 0.5-1.3 mg/dL Glomerular Filtration Rate Calc 57 >90 mL/min Random Glucose 121 H 70-105 mg/dL Lactic Acid Level 1.4 0.8-2.5 mmol/L Total Calcium 9.1 8.5-10.1 mg/dL Total Bilirubin 0.9 # 0.2-1.0 mg/dL Aspartate Amino Transf (AST/SGOT) 43 H 10-37 U/L Alanine Aminotransferase (ALT/SGPT) 79 H 12-78 U/L Alkaline Phosphatase 101 50-136 U/L Total Protein 6.6 6.0-8.3 g/dL Albumin 2.9 L 3.5-5.0 g/dL Coagulation Labs: Test 09/02/24 03:35 Range/Units Activated Partial Thromboplast Time 69.8 H 26.3-35.5 SEC Diagnostics / Radiology: [Copy/Paste Echos/Imaging Report here] Impression and Plan: Viral upper respiratory infection with septic shock Non ST-elevation [place] May 2024 with fixed defect on Cardiolite stress test now with recurrent non ST-elevation [place] Severe multivessel CAD with left main involvement an ejection fraction of 40-45% Moderate mitral regurgitation 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 2D echocardiogram The mitral valve is mildly thickened and calcified. There is a large size (1.5cm) echodense mass attached to the A2 segment of the anterior leaflet. Initial blood culture is negative, pending repeat blood culture results Patient continues to be altered he is alert oriented x1. Continue antibiotics per ID. Most recent blodd cx are negative # NSTEMI- severe multivessel CAD Patient is altered in no acute distress 2D echocardiogram revealed EF 40-45% severely dilated left atrium The patient continues with pressor support, blood pressure is stable. The patient has a prior evaluation by CT surgery it was not felt to be a surgical candidate at this time Continue IABP at 1:2 Modality, but will need to consider weaning off and proceed with medical mgt or consider Impella supported high risk PCI We had a long discussion with his son via the telephone regarding considerations of palliative care versus Impella supported high-risk PCI intervention we also discussed increased risk of probable complications (cardiac arrest, ). His son's verbalized understanding and at this moment is hesitant to make a decision but wants to peruse all viable options including possible PCI Pts son would like to have a repeat discussion tomorrow morning that includes more family members prior to formulating plan Patient's prognosis is guarded and there is a high probability of . Thank You for this consult cardiology will continue to follow along Klaus Carreon MD ATTESTATION BY PHYSICIAN I have seen and examined the patient, reviewed the above documentation, participated in medical decision making, made necessary modifications, and agree with the treatment plan as documented by my mid-level provider above. MD CHANTAL Alarcon JAMES R MD Sep 02, 2024 12:32
--- NOTE | 2024-09-02 14:22 | HMCIMG ---
FRONTAL CHEST RADIOGRAPH INDICATION: dobhoff COMPARISON: 09/02/2024 at 4:48 AM FINDINGS/IMPRESSION: telemetry monitor leads overlie the field of view. Tip of Dobbhoff feeding tube within the right bronchus intermedius. Repositioning is recommended. Remainder of the study is unchanged.
--- NOTE | 2024-09-02 21:00 | NUR ---
BEDSIDE SWALLOW EVAL COMPLETED. + s/s of aspiration. Recommend NPO senior care via TPN or other alt means of nutrition COMPENSATORY STRATEGIES 1. maintain good oral hygiene 2. upright posture WATERPROOF BAG SEWER reviewed results and recommendations with patient and nurse Diana. WATERPROOF BAG SEWER educated patient on risk and consequences of aspiration. Speech therapy warranted at this time to address dysphagia. All questions answered. RECOMMENDATIONS: Dysphagia therapy 1-3x week to improve oral and pharyngeal swallow: LTG#1: Pt will tolerate least restrictive diet to meet nutrition/hydration with no s/s of aspiration. LTG#2: Skilled education Pt/family/staff STG#1: Pt will participate in laryngeal elevation/excursion exercises with 90% accuracy. STG#2: Pt will participate in tongue based retraction exercises with 90% accuracy with min asst. STG#3: Pt will participate in oral motor exercises with 90% accuracy with min asst. STG#4 Pt will tolerate PO trials with WATERPROOF BAG SEWER only with no overt s/s of aspiration. STG#5: Skilled education with pt/family/staff Addendum: 09/02/24 at 2318 by SKY PAYTON Amended: Links added.
[2024-09-02] MEDS: diazePAM 5 MG/ML 2 ML SYG IVP SCH (23:53)
[2024-09-03] VITALS (77 sets, daily range): BP systolic 94–145; BP diastolic 41–102; PULSE 55–133; RESP 16–62; TEMP 97.2–100.1; O2SAT 93–100
[2024-09-03] MEDS ORDERED: OXYmetazolone HCL SPRAY 15 ML BOTTLE EN PRN (01:30)
[2024-09-03] MEDS: SCOPOLAMINE HYDROBROMIDE 1 EACH ADH..PATCH TD SCH (01:46)
[2024-09-03 04:42] LABS: BASOPHILS # (AUTO) 0.01 K/uL (0.00-0.20); BASOPHILS % (AUTO) 0.1 % (0.0-5.0); HEMATOCRIT 34.4 % (42-54); IMMATURE GRANULOCYTE ABSOLUTE 0.08 K/uL (0-1); LYMPHOCYTES # (AUTO) 1.3 K/uL (1.0-4.8); MEAN CORPUSCULAR HEMOGLOBIN 32.6 pg (27.0-33.0); MEAN CORPUSCULAR HGB CONC 33.4 g/dL (32.0-36.0); MEAN CORPUSCULAR VOLUME 97.5 fL (79-99); MONOCYTES # (AUTO) 1.3 K/uL (0.1-1.0); MONOCYTES % (AUTO) 12.2 % (3.0-13.0); NEUTROPHILS % (AUTO) 74.9 % (40.0-77.0); PLATELET COUNT (AUTO) 382 K/uL (130-400); RED BLOOD CELL COUNT(AUTO) 3.53 MIL/uL (4.50-6.20); RED CELL DISTRIBUTION WIDTH 13.6 % (11.0-15.5); WHITE BLOOD COUNT (AUTO) 10.6 K/uL (4.8-10.8)
[2024-09-03 04:57] LABS: ALBUMIN 3.1 g/dL (3.5-5.0); BILIRUBIN,TOTAL 0.8 mg/dL (0.2-1.0); CREATININE 1.2 mg/dL (0.5-1.3); POTASSIUM 3.2 mmol/L (3.5-5.1); TOTAL PROTEIN, SERUM 7.1 g/dL (6.0-8.3)
[2024-09-03] MEDS: furoSEMIDE 20MG VIAL IV SCH ×3 (08:52→20:12)
--- NOTE | 2024-09-03 10:17 | PN ---
[facility] CARDIOLOGY PROGRESS NOTE Date Patient Seen: Sep 03, 2024 Time of Visit: 10:14 Interval History: [No Events overnight. The patient has been successfully weaned off pressor support, current blood pressure is 131/65mmhg, he remains altered, alert oriented x1. IABP balloon pump in place 1: 2 Modality. The son was present during today's evaluation we had a extensive discussion again. The patient and son both verbalized that do not want to undergo any high-risk procedures and requesting medical management only. His code status is now DNR DNI and we will plan to remove IABP tomorrow Physical Examination: GENERAL: [Frail and decondition in no active distress.] HEAD: [Normal with no signs of head trauma.] EYES: [PERRLA, EOMI, conjunctiva and sclera normal.] ENT: [Hearing grossly intact, normal oropharynx.] NECK: [Supple without JVD. There is no tenderness, lymphadenopathy, or masses. No thyromegaly. Normal carotid upstrokes without bruits.] LUNGS: [Decreased breath sounds bilaterally. No wheezes, or rhonchi.] HEART: [Normal rate and rhythm. Normal S1 and S2 without mumurs, gallop or rub.] VASC: [Peripheral pulses +2 bilaterally.] ABD: [Bowel sounds normal, soft, nontender, no masses, no organomegaly. No audible bruits.] : [Not examined] LYMPH: [No lymphadenopathy noted.] EXT: [No clubbing, cyanosis or edema.] SKIN: [No rashes or lesions noted.] NEURO: [Awake, alert, and oriented x1. No focal sensory or strength deficits noted.] Laboratory: [ ] Hematology Labs: Test 09/03/24 04:04 Range/Units White Blood Count 10.6 4.8-10.8 K/uL Red Blood Count 3.53 L 4.50-6.20 MIL/uL Hemoglobin 11.5 L 14.0-18.0 g/dL Hematocrit 34.4 L 42-54 % Mean Corpuscular Volume 97.5 79-99 fL Mean Corpuscular Hemoglobin 32.6 27.0-33.0 pg Mean Corpuscular Hemoglobin Concent 33.4 32.0-36.0 g/dL Red Cell Distribution Width 13.6 11.0-15.5 % Platelet Count 382 130-400 K/uL Mean Platelet Volume 9.8 7.5-10.5 fL Immature Granulocyte % (Auto) 0.8 0-1 % Neutrophils (%) (Auto) 74.9 40.0-77.0 % Lymphocytes (%) (Auto) 12.0 L 21.0-51.0 % Monocytes (%) (Auto) 12.2 3.0-13.0 % Eosinophils (%) (Auto) 0.0 0.0-8.0 % Basophils (%) (Auto) 0.1 0.0-5.0 % Neutrophils # (Auto) 8.0 H 1.8-7.7 K/uL Lymphocytes # (Auto) 1.3 1.0-4.8 K/uL Monocytes # (Auto) 1.3 H 0.1-1.0 K/uL Eosinophils # (Auto) 0.00 0.00-0.70 K/uL Basophils # (Auto) 0.01 0.00-0.20 K/uL Absolute Immature Granulocyte (auto 0.08 0-1 K/uL Nucleated Red Blood Cells 0.0 0.0-0.19 % Chemistry Labs: Test 09/03/24 08:00 09/03/24 04:04 09/02/24 23:50 Range/Units Potassium Level 3.5 3.5-5.1 mmol/L Sodium Level 136 136-145 mmol/L Chloride Level 97 L 101-111 mmol/L Carbon Dioxide Level 29 21-32 mmol/L Blood Urea Nitrogen 32 H 7-18 mg/dL Creatinine 1.2 0.5-1.3 mg/dL Glomerular Filtration Rate Calc 63 >90 mL/min Random Glucose 121 H 70-105 mg/dL Lactic Acid Level 2.0 0.8-2.5 mmol/L Total Calcium 9.4 8.5-10.1 mg/dL Magnesium Level 2.00 1.80-2.40 mg/dL Total Bilirubin 0.8 0.2-1.0 mg/dL Aspartate Amino Transf (AST/SGOT) 55 H 10-37 U/L Alanine Aminotransferase (ALT/SGPT) 82 H 12-78 U/L Alkaline Phosphatase 112 50-136 U/L B-Type Natriuretic Peptide 470 H 0-100 pg/mL Total Protein 7.1 6.0-8.3 g/dL Albumin 3.1 L 3.5-5.0 g/dL Whole Blood Glucose 98 70-110 MG/DL Coagulation Labs: Test 09/03/24 04:04 Range/Units Activated Partial Thromboplast Time 66.6 H 26.3-35.5 SEC Diagnostics / Radiology: [Copy/Paste Echos/Imaging Report here] Impression and Plan: Viral upper respiratory infection with septic shock Non ST-elevation [place] May 2024 with fixed defect on Cardiolite stress test now with recurrent non ST-elevation [place] Severe multivessel CAD with left main involvement an ejection fraction of 40-45% Moderate mitral regurgitation 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 2D echocardiogram The mitral valve is mildly thickened and calcified. There is a large size (1.5cm) echodense mass attached to the A2 segment of the anterior leaflet. Initial blood culture is negative, pending repeat blood culture results Patient continues to be altered he is alert oriented x2. Continue antibiotics per ID. Most recent blodd cx are negative # NSTEMI- severe multivessel CAD Patient is altered in no acute distress 2D echocardiogram revealed EF 40-45% severely dilated left atrium The patient continues with pressor support, blood pressure is stable. The patient has a prior evaluation by CT surgery it was not felt to be a surgical candidate at this time Continue IABP at 1:2 Modality, but will need to consider weaning off and proceed with medical mgt or consider Impella supported high risk PCI We had a long discussion with his son via the telephone regarding considerations of palliative care versus Impella supported high-risk PCI intervention we also discussed increased risk of probable complications (cardiac arrest, ). The patient's son's presented today to the hospital had a long conversation with him and his father in at this time the verbalized they do not want to proceed with high-risk procedures and would like to continue with medical management only The patient's current status is DNR DNI we will plan to remove a IABP tomorrow morning Thank You for this consult cardiology will continue to follow along Klaus Carreon MD ATTESTATION BY PHYSICIAN I have seen and examined the patient, reviewed the above documentation, participated in medical decision making, made necessary modifications, and agree with the treatment plan as documented by my mid-level provider above. MD CHANTAL Alarcon JAMES R MD Sep 03, 2024 10:17
--- NOTE | 2024-09-03 11:07 | PN ---
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 He is more coherent today. He is off precedex drip only on Valium 2.5mg IVP q [address] and person. Per RN af ter discussion with Dr senia Carreon pt's Son and patient have requested DNR. Plan is to remove IABP tomorrow and continue with medical management. For now we will continue supportive care. MCS support of IABP 1:2. Heart rate in the 90s answers blood pressure 131/65 saturating 98% with a FiO2 of 40% via nasal cannula and afebrile. Urine output of 1.6 L with a balance of +35 mL in the last 24 hours. Down 10 kg from admission. Pt had 1 BM yesterday. WBCs are normal H&H is stable 11.5/34.4 platelet count is 382 K. patient continues on heparin drip therapeutic a PTT 66.6. Sodium 136 potassium is 3.2 covered per protocol on repeat is 3.5 carbon dioxide of 29 BUN of 32 creatinine of 1.2 GFR of 63 AST of 55 ALT of 82 BNP of 470 with a albumin of 3.1 . REVIEW OF SYSTEMS: Unable to obtain due to patient confusion. PHYSICAL EXAM: GENERAL: Patient continues critical on pressors and IABP for MCS, he is currently on nasal cannula saturating 97% with 2 L. HEENT: EOMI sclera nonicteric NECK: no JVD, trachea midline LUNGS: Clear bilateral lung sounds, HEART: Regular rate and rhythm. Normal S1 and S2, without murmurs ABD: Abdomen soft, nontender. Bowel sounds present EXT: No clubbing cyanosis , no edema. NEURO: Awake alert and following simple commands. Vital Signs (last 8hr) Date Time Temp Pulse Resp B/P (MAP) Pulse Ox O2 Delivery O2 Flow Rate FiO2 09/03/24 08:00 101 36 131/65 (87) 98 40 09/03/24 07:45 112 37 116/44 (68) 94 40 09/03/24 07:30 105 37 121/75 (90) 82 40 09/03/24 07:15 98.8 104 33 127/54 (78) 89 40 09/03/24 07:00 100 32 132/66 (88) 95 40 09/03/24 06:45 102 36 126/79 (95) 95 40 09/03/24 06:30 106 40 109/52 (71) 93 09/03/24 06:15 100 30 135/55 (81) 99 09/03/24 06:13 105 16 N/Cannula Low lpm 5.0 40 09/03/24 06:00 107 25 113/83 (93) 97 40 09/03/24 05:45 112 26 128/78 (95) 97 09/03/24 05:30 108 31 120/71 (87) 94 09/03/24 05:15 105 37 137/57 (83) 95 09/03/24 05:00 100 32 140/59 (86) 99 40 09/03/24 04:45 114 42 145/80 (101) 94 09/03/24 04:30 107 26 133/84 (100) 93 09/03/24 04:15 109 47 134/97 (109) 94 09/03/24 04:00 99.7 106 34 124/75 (91) 93 40 09/03/24 04:00 93 Nasal Cannula* 5 40 09/03/24 03:45 108 44 131/87 (102) 92 09/03/24 03:30 103 36 132/76 (94) 96 09/03/24 03:15 101 21 119/60 (79) 97 LABS: Hematology Labs: Test 09/03/24 04:04 Range/Units White Blood Count 10.6 4.8-10.8 K/uL Red Blood Count 3.53 L 4.50-6.20 MIL/uL Hemoglobin 11.5 L 14.0-18.0 g/dL Hematocrit 34.4 L 42-54 % Mean Corpuscular Volume 97.5 79-99 fL Mean Corpuscular Hemoglobin 32.6 27.0-33.0 pg Mean Corpuscular Hemoglobin Concent 33.4 32.0-36.0 g/dL Red Cell Distribution Width 13.6 11.0-15.5 % Platelet Count 382 130-400 K/uL Mean Platelet Volume 9.8 7.5-10.5 fL Immature Granulocyte % (Auto) 0.8 0-1 % Neutrophils (%) (Auto) 74.9 40.0-77.0 % Lymphocytes (%) (Auto) 12.0 L 21.0-51.0 % Monocytes (%) (Auto) 12.2 3.0-13.0 % Eosinophils (%) (Auto) 0.0 0.0-8.0 % Basophils (%) (Auto) 0.1 0.0-5.0 % Neutrophils # (Auto) 8.0 H 1.8-7.7 K/uL Lymphocytes # (Auto) 1.3 1.0-4.8 K/uL Monocytes # (Auto) 1.3 H 0.1-1.0 K/uL Eosinophils # (Auto) 0.00 0.00-0.70 K/uL Basophils # (Auto) 0.01 0.00-0.20 K/uL Absolute Immature Granulocyte (auto 0.08 0-1 K/uL Nucleated Red Blood Cells 0.0 0.0-0.19 % Chemistry Labs: Test 09/03/24 08:00 09/03/24 04:04 09/02/24 23:50 Range/Units Potassium Level 3.5 3.5-5.1 mmol/L Sodium Level 136 136-145 mmol/L Chloride Level 97 L 101-111 mmol/L Carbon Dioxide Level 29 21-32 mmol/L Blood Urea Nitrogen 32 H 7-18 mg/dL Creatinine 1.2 0.5-1.3 mg/dL Glomerular Filtration Rate Calc 63 >90 mL/min Random Glucose 121 H 70-105 mg/dL Lactic Acid Level 2.0 0.8-2.5 mmol/L Total Calcium 9.4 8.5-10.1 mg/dL Magnesium Level 2.00 1.80-2.40 mg/dL Total Bilirubin 0.8 0.2-1.0 mg/dL Aspartate Amino Transf (AST/SGOT) 55 H 10-37 U/L Alanine Aminotransferase (ALT/SGPT) 82 H 12-78 U/L Alkaline Phosphatase 112 50-136 U/L B-Type Natriuretic Peptide 470 H 0-100 pg/mL Total Protein 7.1 6.0-8.3 g/dL Albumin 3.1 L 3.5-5.0 g/dL Whole Blood Glucose 98 70-110 MG/DL Coagulation Labs: Test 09/03/24 04:04 Range/Units Activated Partial Thromboplast Time 66.6 H 26.3-35.5 SEC DIAGNOSTICS / RADIOLOGY RESULTS: IMAGING REPORT Signed PATIENT: NAMAN RUGGIERO MR#: [id number] : 1950 SEX: M AGE: 74 LOCATION: [facility] ORDER 2300 STATUS: ADM IN REPORT#: [id number] SERVICE 0600 REASON: hypoxic resp failure and IABP placement ORDERING PHYSICIAN: ANDREI CHINO PROCEDURE: CXR1VW - CHEST 1VW PORTABLE CHEST RADIOGRAPH INDICATION: hypoxic resp failure and IABP placement COMPARISON: 09/02/2024 FINDINGS/IMPRESSION: [employer] registrar leads overlie the field of view. Intra-aortic balloon pump remains in appropriate position. Stable normal heart size without pulmonary vascular congestion. Trace layering bilateral pleural effusions with subjacent subsegmental atelectasis, but no evidence for pneumothorax. DICTATED BY: OSCAR PROCTOR MD DATE: 09/03/24 1128 ELECTRONICALLY SIGNED BY: OSCAR PROCTOR MD DATE: 09/03/24 1133 PLAN Per cardiology PLan: Palliative with medical management VS High risk PCI with Impella placement has been discused with pt and son. Pt refused surgery and son agreed for only medical management. Pt and son leaning towards comfort measures. After IABP tomorrow pt to got to IR for DobHoff placement. Continue IVP of lasix BID Valium 2.5mg IVP q6hrs Precedex gtt weaned off IABP per Cardiology 1:2 CV surgeon consult follow recommendations- not deemed to be a surgical candidate at this time. Antibiotics per ID assess pain using CPOT Encourage Physical therapy once extubated monitor electrolytes closely and replenish appropriately Frequent reorientation avoid polypharmacy NEURO: Minimize central acting medications as possible. Fall Precautions. Well lighted room through the day and minimize interruptions through the night to prevent acute delirium. PULMONARY: Supplemental 02 as needed Titrate Fio2 to keep Spo2 > or = 90% DuoNebs and CPT as needed IS hourly while awake for pulmonary hygiene Out of bed to chair as tolerated VAP Bundle Vent/BIPAP Settings: Peep of 6, FiO2 50%, rate of 22, tidal volume 500 CARDIOVASCULAR: Follow hemodynamics. Titrate vasopressor to keep MAP >65 or systolic blood pressure >95mmHg DIPS: Heparin, LINES: PIV midline GI & NUTRITION: Continue nutritional support Aspirations precautions Prokinetic agents and laxatives as needed unable to start tube feedings due to no secured feeding tube pt very high risk for aspiration TPN for now at 50ml/HR KIDNEYS & ELECTROLYTES: Strict monitoring of intake and output Daily weights Avoid nephrotoxic agents Monitor electrolytes and replace as needed Goal urine output of 30mL/hr or 0.5mL/kg/hr ENDOCRINE: Maintain blood glucose between 100-180 at all times. Insulin sliding scale for blood glucose management INFECTIOUS DISEASE: Trend temperature. Gaviria-culture if febrile. Micro: [ ] 08/25/24 blood cultures negative Sputum cultures from 08/25/24 normal paul Antibiotics: Zosyn 08/25/24 Levaquin 08/28/24 Zyvox 08/28/24 HEMATOLOGY & COAGULATION: Monitor H&H. Keep Hgb > 7 Transfuse 1 unit of PRBC for Hgb < 7 Transfuse 1 pack of platelets of platelets < 20, 000 Watch for any signs and symptoms of bleeding SKIN: Pressure ulcer prevention per facility protocol Rehab: PT/OT Prophylaxis: GI: PPI DVT: Bilateral SCDs, heparin drip Code Status: Full Resuscitation Disposition: ICU Other: Total time in care of this patient includes 60 minutes excluding all procedures performed. ANDREI CHINO Sep 03, 2024 11:07
--- NOTE | 2024-09-03 11:33 | HMCIMG ---
PORTABLE CHEST RADIOGRAPH INDICATION: hypoxic resp failure and IABP placement COMPARISON: 09/02/2024 FINDINGS/IMPRESSION: court recording monitor leads overlie the field of view. Intra-aortic balloon pump remains in appropriate position. Stable normal heart size without pulmonary vascular congestion. Trace layering bilateral pleural effusions with subjacent subsegmental atelectasis, but no evidence for pneumothorax.
[2024-09-03] MEDS ORDERED: furoSEMIDE 20MG VIAL IV SCH ×2 (15:00)
[2024-09-03] MEDS: PHARMACY COMMUNICATION MISC SCH (16:00)
--- NOTE | 2024-09-03 16:45 | PN ---
[facility] PROGRESS NOTE Date of Service: Sep 03, 2024 Time of Service: 16:40 SUBJECTIVE: 08/26 patient seen at bedside, no acute events overnight. He remains intubated and sedated, continues on pressor support. FiO2 is 60%, we will wean towards extubation. Troponins are elevated, patient is started on ACS protocol with aspirin, Plavix, statin and heparin drip. Cardiology recommendations still pending, we will follow up. WBC increased from 10.8 up to 14.3, hemoglobin decreased from 13.2 down to 11.6, sodium stable at 126, similar to yesterday, troponins peaked and are now downtrending to [id number], remainder of his labs are relatively unremarkable. 08/27 patient seen at bedside, no acute events overnight. He remains intubated and sedated, continue weaning down pressors. His FiO2 has been weaned down to 50%, we will continue to wean as able, peep has been decreased from 8-6. Echocardiogram has been done, formal read is still pending, preliminary read shows a possible vegetation of the mitral valve, ejection fraction of 50-55%, mild to moderate aortic regurgitation, moderate mitral regurgitation, we will have him reassessed once he has been extubated as he may need a KARTHIK, however given his blood cultures are no growth this mobile mass on the mitral valve may not be secondary to endocarditis. Creatinine has increased from 1.3 up to 1.8, hemoglobin stable at 11.3, similar to yesterday, WBC increased from 14.3 up to 18.9, platelets improved from 528 down to 520, sodium stable at 127, similar to yesterday, remainder of his labs are relatively unremarkable. Cultures are no growth to date. 08/28 patient is seen and examined at bedside, remains intubated, on mechanical ventilation, on propofol, Levophed and heparin drip. Discussed with the RN, back from having left heart catheterization with finding of three-vessel disease for which Cardiothoracic surgery consultation requested. TTE with a EF 50-55% with possible vegetation of the mitral valve. Patient is scheduled for KARTHIK today. WBC 17.9. Blood cultures no growth after 48 hours. 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 Continue goal-directed medical therapy, infectious disease consultation requested. Blood cultures has remained negative. CT surgery consultation requested for CABG plus aortic and mitral valve replacement. 08/30 patient is seen and examined at bedside, remains intubated, mechanical ventilation, per discussion with the RN, the patient failed SBT trial, had to be placed back on sedation. Patient getting IV antibiotics at the time of my visit. BP 98/56, FiO2 30%, saturating 98%. CBC with a hemoglobin 10.8, hematocrit 31.4. Chest x-ray shows bilateral pulmonary infiltrates suggestive of pulmonary vascular congestion with possible superimposed pneumonitis. Continue to follow Pulmonary input and recommendation in terms of weaning off the ventilator, continue broad-spectrum IV antibiotics per ID recommendations. Cardiology input noted and appreciated. Patient evaluated by CT surgeon for possible CABG as well as valve replacement. 08/31 patient is seen and examined at bedside, remains intubated, mechanical ventilation, per discussion with the RN, BP 87/40, rate of 59, saturating 100%, FiO2 30%. Patient remains on broad-spectrum IV antibiotics, the patient remains on Levophed for pressure support. Remains sedated with propofol and Precedex. Hemoglobin 11.7, hematocrit 33.8. ABG pH 7.5, pCO2 30, bicarb 24.4.Chest x-ray shows bilateral pulmonary infiltrates suggestive of pulmonary vascular congestion with possible superimposed pneumonitis. Urine output 4 L. Weaning trial in progress by pulmonary physician, attempt yesterday, patient tolerated only 4 hours of CPAP trial. Cardiology input noted and appreciated, intra- aortic balloon pump in place. Patient with a aortic and mitral valve endocarditis, evaluated by CT surgeon who requested the patient be off ventilator in order to discuss procedure with the patient and family. Continue to follow critical care input and recommendation. 09/01 patient is seen and examined at bedside, successfully extubated 08/31/2024, remains on aerosol mask, FiO2 40%, patient confused, withdrawing to painful stimulation. He remains with balloon pump in place, low-dose Precedex, heparin drip on low-dose Levophed. BP 143/48, heart rate of 41, afebrile. CBC with a hemoglobin 10.9, hematocrit 31.1, WBC 8.8, platelet count of 373. ABG and chest x-ray pending. Patient on IV antibiotics. Cardiology input noted appreciated, balloon pump to turn in the next 1-2 days. Patient evaluated by CT surgery, patient to be a surgical at this time. Continue to follow critical Care and ID input and recommendations. Discharge plan discussed yesterday case management, once patient medically stable may benefit from discharge to LTAC. 09/02 patient is seen and examined at bedside, successfully extubated 08/31/2024, Patient evaluated by CT surgery, felt not to be a surgical candidate at this time. Continue to follow critical Care and ID input and recommendations. Discharge plan discussed with case management, once patient medically stable may benefit from discharge to LTAC. 09/03 patient is seen and examined at bedside, resting comfortable in bed, following commands per discussion with the RN, off vasopressors, remains on heparin drip. Patient successfully extubated 08/31/2024 secondary to acute hypoxemic respiratory failure, multifocal CHF, bilateral pneumoniae and cardiogenic shock. Patient is status post left heart catheterization with severe three-vessel disease, also status post transesophageal echo with finding of bacterial endocarditis involving mitral and aortic valve for which Cardiothoracic surgery consultation requested, however patient not a surgical candidate at this time. Patient remains on broad-spectrum IV antibiotics, plan is for tomorrow for removal of intra-aortic balloon pump. Once medically stable, patient may benefit from discharge plan to LTAC. REVIEW OF SYSTEMS 12 point review of systems negative unless noted in HPI PHYSICAL EXAM GENERAL APPEARANCE: The patient is intubated, on mechanical ventilation, on propofol, Levophed and heparin. NEUROLOGICAL: Cranial nerves II-XII grossly intact. Motor is 5/5 in bilateral upper and lower extremities proximal to distal. No sensory deficits. HEENT: Face is symmetric. Pupils are equal and reactive. Extraocular movements are intact. NECK: Supple. No JVD. No thyromegaly. No submental, submandibular, pre- /postauricular, occipital or supraclavicular lymphadenopathy. CHEST: Normal chest expansion. No Telemetry. LUNGS: Absence of any rales, rhonchi or any wheezing. CARDIOVASCULAR: Regular. S1 and S2 normal. No appreciable rubs, murmurs or gallops. ABDOMEN: Soft, nontender, and nondistended. There is no rebound, voluntary guarding, or rigidity. : Deferred. No Leal. EXTREMITIES: Non-edematous and not cyanotic. No clubbing. Good capillary refill. SKIN: No skin breakdown. Vital Signs (last 8hr) Date Time Temp Pulse Resp B/P (MAP) Pulse Ox O2 Delivery O2 Flow Rate FiO2 09/03/24 15:00 93 29 109/53 (71) 94 40 09/03/24 14:45 94 28 124/47 (72) 93 40 09/03/24 14:30 92 28 120/59 (79) 94 40 09/03/24 14:15 94 29 119/66 (83) 92 40 09/03/24 14:00 99 62 107/53 (71) 94 40 09/03/24 13:45 94 27 137/56 (83) 94 40 09/03/24 13:30 95 29 106/58 (74) 94 40 09/03/24 13:15 94 28 120/69 (86) 92 40 09/03/24 13:00 95 32 109/83 (92) 93 40 09/03/24 12:45 92 29 94/54 (67) 91 40 09/03/24 12:30 98 29 94/59 (71) 92 40 09/03/24 12:15 96 31 107/72 (84) 91 40 09/03/24 12:00 93 32 114/51 (72) 92 40 09/03/24 11:45 93 30 112/56 (74) 93 40 09/03/24 11:30 100.0 96 28 122/57 (78) 95 40 09/03/24 11:15 96 28 122/57 (78) 95 40 09/03/24 11:00 99 33 125/63 (83) 93 40 09/03/24 10:46 100 35 107/44 (65) 91 40 09/03/24 10:30 101 30 104/62 (76) 92 40 09/03/24 10:15 98 31 101/52 (68) 92 40 09/03/24 10:00 102 31 107/60 (76) 89 40 09/03/24 09:45 102 32 130/61 (84) 90 40 09/03/24 09:30 106 35 94/58 (70) 91 40 09/03/24 09:15 101 34 132/72 (92) 90 40 09/03/24 09:00 99 30 122/50 (74) 91 40 09/03/24 08:45 103 35 107/58 (74) 92 40 LABS: Laboratory: Test 09/03/24 11:29 09/03/24 08:00 09/03/24 04:04 Range/Units Whole Blood Glucose 86 70-110 MG/DL Potassium Level 3.5 3.5-5.1 mmol/L White Blood Count 10.6 4.8-10.8 K/uL Red Blood Count 3.53 L 4.50-6.20 MIL/uL Hemoglobin 11.5 L 14.0-18.0 g/dL Hematocrit 34.4 L 42-54 % Mean Corpuscular Volume 97.5 79-99 fL Mean Corpuscular Hemoglobin 32.6 27.0-33.0 pg Mean Corpuscular Hemoglobin Concent 33.4 32.0-36.0 g/dL Red Cell Distribution Width 13.6 11.0-15.5 % Platelet Count 382 130-400 K/uL Mean Platelet Volume 9.8 7.5-10.5 fL Immature Granulocyte % (Auto) 0.8 0-1 % Neutrophils (%) (Auto) 74.9 40.0-77.0 % Lymphocytes (%) (Auto) 12.0 L 21.0-51.0 % Monocytes (%) (Auto) 12.2 3.0-13.0 % Eosinophils (%) (Auto) 0.0 0.0-8.0 % Basophils (%) (Auto) 0.1 0.0-5.0 % Neutrophils # (Auto) 8.0 H 1.8-7.7 K/uL Lymphocytes # (Auto) 1.3 1.0-4.8 K/uL Monocytes # (Auto) 1.3 H 0.1-1.0 K/uL Eosinophils # (Auto) 0.00 0.00-0.70 K/uL Basophils # (Auto) 0.01 0.00-0.20 K/uL Absolute Immature Granulocyte (auto 0.08 0-1 K/uL Nucleated Red Blood Cells 0.0 0.0-0.19 % Activated Partial Thromboplast Time 66.6 H 26.3-35.5 SEC Sodium Level 136 136-145 mmol/L Chloride Level 97 L 101-111 mmol/L Carbon Dioxide Level 29 21-32 mmol/L Blood Urea Nitrogen 32 H 7-18 mg/dL Creatinine 1.2 0.5-1.3 mg/dL Glomerular Filtration Rate Calc 63 >90 mL/min Random Glucose 121 H 70-105 mg/dL Lactic Acid Level 2.0 0.8-2.5 mmol/L Total Calcium 9.4 8.5-10.1 mg/dL Magnesium Level 2.00 1.80-2.40 mg/dL Total Bilirubin 0.8 0.2-1.0 mg/dL Aspartate Amino Transf (AST/SGOT) 55 H 10-37 U/L Alanine Aminotransferase (ALT/SGPT) 82 H 12-78 U/L Alkaline Phosphatase 112 50-136 U/L B-Type Natriuretic Peptide 470 H 0-100 pg/mL Total Protein 7.1 6.0-8.3 g/dL Albumin 3.1 L 3.5-5.0 g/dL Current Medications Medications (Trade) Dose Ordered Sig/Lydia Route PRN Reason Start Time Stop Time Status Last Admin Dose Admin Acetaminophen (TYLenol 650MG SUPPOSITORY) 650 mg Q6H PRN RC MILD PAIN (1-3) 08/25/24 19:30 09/24/24 19:29 Albumin Human 100 ml @ 0 mls/hr AD IV 08/30/24 10:30 09/04/24 10:29 08/30/24 12:01 100 MLS/HR Albuterol (DUOneb) 1 UDVIAL [id number] IH 08/26/24 00:00 08/31/24 20:38 DC 08/31/24 18:36 1 UDVIAL Albuterol (DUOneb) 1 UDVIAL [id number] PRN IH sob and wheezing 08/31/24 21:00 09/25/24 00:00 08/31/24 23:05 1 UDVIAL Albuterol (DUOneb) 2 udvial ONCE IH 08/25/24 18:00 08/25/24 22:00 DC 08/25/24 19:17 2 UDVIAL Alprazolam (XANax 0.5MG) 0.5 mg TID PO 08/30/24 21:00 08/31/24 09:57 DC 08/31/24 07:57 0.5 MG Aspirin (Aspirin 300mg Supp) 300 mg ONCE ME 08/25/24 19:30 08/25/24 23:59 DC 08/25/24 19:41 300 MG Aspirin (Aspirin 81mg Ec Tab) 81 mg DAILY PO 08/26/24 09:00 09/25/24 08:59 08/31/24 07:57 81 MG Atorvastatin Calcium (LIPItor 40MG) 40 mg HS PO 08/26/24 07:30 08/26/24 07:44 DC Azithromycin 250 ml @ 250 mls/hr Q24H IVPB 08/25/24 18:51 08/25/24 23:30 DC Azithromycin 250 ml @ 250 mls/hr Q24H IVPB 08/25/24 19:30 08/25/24 19:38 DC Bisacodyl (DulcoLAX) 10 mg DAILY RC 09/04/24 09:00 09/07/24 08:59 Ceftriaxone Sodium (ROCEphine 1G INJ) 1 gm ONCE IVPB 08/25/24 19:00 08/25/24 21:03 DC 08/25/24 19:41 1 GM Ceftriaxone Sodium (ROCEphine 1G INJ) 1 gm Q24H IVPB 08/25/24 19:30 08/26/24 12:29 DC Clopidogrel Bisulfate (plaVIX 300MG TAB) 300 mg ONCE PO 08/25/24 21:00 08/26/24 06:00 DC 08/25/24 23:16 300 MG Clopidogrel Bisulfate (plaVIX 75MG) 75 mg DAILY PO 08/26/24 09:00 08/29/24 10:52 DC 08/29/24 08:41 75 MG Dexmedetomidine/ Sodium Chloride (PRECEdex 400MCG/ 100ML-NS) 400 mcg PROTOCOL IV 08/29/24 09:00 09/28/24 08:59 09/02/24 17:43 400 MCG Diazepam (VALium 2 mg Tab) 2 mg Q6H PRN PO ANXIETY 08/31/24 10:00 08/31/24 13:39 DC 08/31/24 10:06 2 MG Diazepam (VALium 5 MG/ML 2 ML SYG) 2.5 mg ONCE PRN IV ANXIETY 08/31/24 16:00 08/31/24 16:00 DC 08/31/24 15:50 2.5 MG Diazepam (VALium 5 MG/ML 2 ML SYG) 2.5 mg Q4H IVP 09/02/24 22:00 09/07/24 17:59 09/03/24 11:05 2.5 MG Diazepam (VALium 5 MG/ML 2 ML SYG) 2.5 mg Q6H6 IVP 08/31/24 18:00 09/02/24 19:53 DC 09/02/24 18:00 2.5 MG Diazepam (VALium 5 mg TAB) 5 mg BID PO 08/31/24 21:00 08/31/24 16:39 DC Fentanyl Citrate 100 ml @ 2.5 mls/hr PROTOCOL IV 08/25/24 20:00 08/27/24 17:54 DC 08/27/24 14:22 2.5 MLS/HR Folic Acid (FolVITE 5 MG/ML VIAL) 1 mg DAILY IV 08/31/24 09:00 09/30/24 08:59 09/03/24 09:54 1 MG Furosemide (LASix 20MG VIAL) 20 mg BID IV 09/03/24 09:00 09/03/24 10:51 DC Furosemide (LASix 20MG VIAL) 20 mg Q12H IV 08/26/24 09:00 08/27/24 12:24 DC 08/27/24 08:56 20 MG Furosemide (LASix 20MG VIAL) 20 mg Q12H IV 08/31/24 08:30 09/02/24 12:08 DC 09/02/24 08:59 20 MG Furosemide (LASix 20MG VIAL) 20 mg Q12H IV 09/03/24 15:00 09/03/24 15:55 DC Furosemide (LASix 20MG VIAL) 20 mg Q12H IV 09/03/24 21:00 10/03/24 20:59 Furosemide (LASix 20MG VIAL) 20 mg Q24H IV 09/03/24 08:30 09/03/24 08:57 DC 09/03/24 08:52 20 MG Furosemide (LASix 20MG VIAL) 20 mg Q6H IV 09/03/24 15:00 09/03/24 11:19 DC Furosemide 100 mg/ Sodium Chloride 100 ml @ 0 mls/hr PROTOCOL IV 08/30/24 13:30 08/31/24 08:26 DC 08/30/24 23:32 10 MLS/HR Heparin Sodium (Porcine) (HEParin 5,000 UNIT VIAL) *calculation based on ACTUAL B... AD PRN IV HEPARIN PROTOCOL 08/25/24 20:00 09/24/24 19:59 08/28/24 06:30 6,000 UNIT Heparin Sodium/ Dextrose 250 ml @ 0 mls/hr Q6H IV 08/25/24 20:00 09/24/24 19:59 09/03/24 05:20 9 MLS/HR Insulin Human Regular (humuLIN R 100 UNIT/ML 3ML) INSULIN SLIDING SCAL... Q6H6 SQ 08/26/24 00:00 09/25/24 00:00 08/26/24 05:58 2 UNIT Ketamine HCl (ketaMINE 50MG/ ML SYRINGE) 50 mg ONCE IM 08/25/24 19:00 08/25/24 22:00 DC Ketamine HCl (ketaMINE 50MG/ ML SYRINGE) 50 mg ONCE IM 08/25/24 19:00 08/25/24 23:59 DC Lactulose (Constulose 20gm/ 30ml Udcup) 20 gm BID PO 08/28/24 21:00 09/27/24 20:59 08/30/24 20:34 20 GM Levofloxacin/ Dextrose 100 ml @ 100 mls/hr Q24H IV 08/28/24 14:30 08/28/24 15:24 DC Levofloxacin/ Dextrose 100 ml @ 100 mls/hr Q48H IV 08/28/24 15:30 09/11/24 15:29 09/01/24 14:22 100 MLS/HR Linezolid 300 ml @ 300 mls/hr Q12H IV 09/01/24 02:30 09/15/24 02:29 09/03/24 15:58 300 MLS/HR Linezolid (Zyvox) 600 mg Q12H PO 08/28/24 14:30 09/01/24 01:53 DC 08/31/24 14:11 600 MG Melatonin (Melatonin) 10 mg HS PO 08/30/24 21:00 09/29/24 20:59 Methylprednisolone Sodium Succinate (Solu-medROL 40MG) 40 mg Q8H IVP 08/25/24 23:00 08/27/24 12:19 DC 08/27/24 06:23 40 MG Methylprednisolone Sodium Succinate (Solu-medROL 125MG) 125 mg ONCE IVP 08/25/24 18:00 08/25/24 22:00 DC 08/25/24 18:52 125 MG Midazolam HCl 50 ml @ 0 mls/hr PROTOCOL IV 08/25/24 19:00 08/27/24 17:54 DC 08/27/24 11:18 9 MLS/HR Midazolam HCl 50 mg/Sodium Chloride 50 ml @ 0 mls/hr PROTOCOL IV 08/25/24 19:00 09/24/24 18:59 UNV Morphine Sulfate (morPHINE 2MG SYG) 2 mg Q4H PRN IVP SEVERE PAIN (7-10) 08/26/24 07:30 08/30/24 18:56 DC Morphine Sulfate (morPHINE 4MG SYG) 2 mg Q4H PRN IVP SEVERE PAIN (7-10) 08/25/24 19:30 08/26/24 07:11 DC Norepinephrine 250 ml @ 0 mls/hr AD PRN IV DIRECTED 08/27/24 06:00 09/26/24 05:59 09/02/24 16:27 11.85 MLS/HR Norepinephrine 250 ml @ 0 mls/hr PROTOCOL IV 08/25/24 19:30 08/26/24 05:10 DC 08/26/24 00:14 121.5 MLS/HR Norepinephrine Bitartrate 32 mg/ Sodium Chloride 250 ml @ 0 mls/hr Q0M PRN IV hypotension 08/26/24 05:30 08/28/24 08:54 DC 08/26/24 06:04 19.87 MLS/HR Ondansetron HCl (zoFRAN 4MG INJ) 4 mg Q6H PRN IV NAUSEA/VOMITING 08/25/24 19:30 09/24/24 19:29 Oxymetazoline HCl (AFrin) 2 SPRAYS BID PRN EN NASAL CONGESTION 09/03/24 01:30 10/03/24 01:29 Pantoprazole Sodium (PROTonix 40MG INJ) 40 mg DAILY IV 08/26/24 09:00 09/25/24 08:59 09/03/24 08:51 40 MG Pharmacy Profile Note (Pharmacy Communication) 1 each ONCE MISC 09/01/24 02:00 09/01/24 01:54 DC Pharmacy Profile Note (Pharmacy Communication) 1 each ONCE MISC 09/03/24 16:00 09/10/24 15:59 Piperacillin Sod/ Tazobactam Sod (Zosyn 3.375gm+NS 50ml) 3.375 gm Q8H IV 08/25/24 20:00 09/04/24 19:59 UNV Piperacillin Sod/ Tazobactam Sod (Zosyn 3.375gm+NS 50ml) 3.375 gm ZOSY8 IV 08/25/24 21:00 09/04/24 20:59 09/03/24 12:04 3.375 GM Polyethylene Glycol (MIRalax 3350 17 GM POWD.PACK) 17 gm DAILY PO 08/29/24 09:00 09/28/24 08:59 08/29/24 08:41 17 GM Polyethylene Glycol (MIRalax 3350 17 GM POWD.PACK) 17 gm ONCE PO 08/28/24 18:00 08/28/24 21:00 DC 08/28/24 18:00 17 GM Potassium Chloride 100 ml @ 100 mls/hr AD PRN IV POTASSIUM PROTOCOL 08/29/24 13:00 09/28/24 12:59 09/03/24 05:19 100 MLS/HR Potassium Chloride (K-Dur/Klor-Con 20meq) 20 meq AD PRN PO POTASSIUM PROTOCOL 08/29/24 13:00 09/28/24 12:59 Potassium Chloride (KCl 10% Elixir 20meq/15ml) 20 meq AD PRN PO POTASSIUM PROTOCOL 08/29/24 13:00 09/28/24 12:59 08/31/24 02:36 20 MEQ Propofol (DIPRivan 1000MG/ 100ML) 1,000 mg PROTOCOL PRN IV SEDATION 08/27/24 16:30 08/31/24 20:38 DC 08/31/24 00:26 1,000 MG Scopolamine HBr (Transderm-Scop) 1 patch Q72H TD 09/03/24 01:30 10/03/24 01:29 09/03/24 01:46 1 PATCH Thiamine HCl (Vitamin B-1) 200 mg DAILY IM 08/31/24 09:00 08/30/24 13:17 DC Thiamine HCl (Vitamin B-1) 300 mg DAILY IV 08/31/24 09:00 09/30/24 08:59 09/03/24 09:54 300 MG DIAGNOSTICS / RADIOLOGY: [ ] ASSESSMENT: Acute hypoxemic respiratory failure, POA, requiring intubation and mechanical ventilation Hypotension, POA, currently suspected to be cardiogenic shock Acute coronary syndrome, status post left heart catheterization 08/28, finding of triple-vessel disease POA 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 Off Precedex Removal of intra-aortic balloon pump tomorrow Continue broad-spectrum IV antibiotics, continue to follow ID input recommendation Follow Cardiology and Cardiothoracic input and recommendation Follow critical care input and recommendation Continue heparin drip Replace electrolytes IV per protocol A.m. labs Transfuse as needed GI and DVT prophylaxis Disposition: Possible LTAC once medically stable. No family members at bedside to discuss goals of care Greater than 35 minutes ICU time spent in care of this patient JODEE SEN MD Sep 03, 2024 16:44
--- NOTE | 2024-09-03 21:37 | PN ---
INFECTIOUS DISEASE FOLLOWUP NOTE DATE OF SERVICE: 09/02/2024 SUBJECTIVE: The patient is seen. No fever or chills. Remained in the ICU. The patient is still on vasopressor. The patient has Impella device in place. No vomiting, no abdominal pain. Tolerating NG tube feeding. Remained very confused. No family at the bedside at this time. No rashes, no itchiness. PHYSICAL EXAMINATION: VITAL SIGNS: Temperature 99.0. EYES: No icterus. Pupils equal and reactive. HENT: No oral thrush seen. Moist oral mucosa. NECK: Supple, no JVD or thyromegaly. LUNGS: Good air entry. No rales, no rhonchi. CARDIOVASCULAR: S1, S2 regular. No murmur heard. ABDOMEN: Full, soft. Bowel sound is present. CENTRAL NERVOUS SYSTEM: The patient is awake, but confused . SKIN: No rashes, no itchiness. MUSCULOSKELETAL: No joint swelling, erythema or tenderness. GENITOURINARY: Leal catheter in place. ASSESSMENT: A 74-year-old male with multiple problems including: * Aortic valve endocarditis. * Mitral valve endocarditis. * Multivessel coronary artery disease. * Respiratory failure. * Acute renal failure. * Dementia. * Anemia. * Debility. PLAN: * Continue Zosyn. * Continue linezolid. * Continue levofloxacin. * Continue critical care support. * Continue NG tube feeding. * Monitor electrolytes. * Continue antiplatelet. * The patient will be followed up closely. TID: [id number] RECEIPT: [id number]
[2024-09-03 22:25] LABS: CREATININE 1.3 mg/dL (0.5-1.3); MAGNESIUM 1.9 mg/dL (1.80-2.40)
[2024-09-03] MEDS: diazePAM 5 MG/ML 2 ML SYG IVP SCH (23:55)
[2024-09-04] VITALS (26 sets, daily range): BP systolic 102–145; BP diastolic 51–92; PULSE 87–139; RESP 16–38; TEMP 98.1–99.7; O2SAT 95–100
[2024-09-04] MEDS: MAGNESIUM 2GM PREMIX 50ML 50 ML IV PRN (00:08)
[2024-09-04 04:20] LABS: BASOPHILS # (AUTO) 0.01 K/uL (0.00-0.20); BASOPHILS % (AUTO) 0.1 % (0.0-5.0); HEMATOCRIT 32.8 % (42-54); IMMATURE GRANULOCYTE ABSOLUTE 0.08 K/uL (0-1); LYMPHOCYTES # (AUTO) 1.4 K/uL (1.0-4.8); LYMPHOCYTES % (AUTO) 12.1 % (21.0-51.0); MEAN CORPUSCULAR HEMOGLOBIN 32.7 pg (27.0-33.0); MEAN CORPUSCULAR HGB CONC 33.5 g/dL (32.0-36.0); MEAN CORPUSCULAR VOLUME 97.6 fL (79-99); MONOCYTES # (AUTO) 1.1 K/uL (0.1-1.0); MONOCYTES % (AUTO) 9.3 % (3.0-13.0); NEUTROPHILS # (AUTO) 9.1 K/uL (1.8-7.7); NEUTROPHILS % (AUTO) 77.8 % (40.0-77.0); PLATELET COUNT (AUTO) 340 K/uL (130-400); RED BLOOD CELL COUNT(AUTO) 3.36 MIL/uL (4.50-6.20); RED CELL DISTRIBUTION WIDTH 13.8 % (11.0-15.5); WHITE BLOOD COUNT (AUTO) 11.7 K/uL (4.8-10.8)
[2024-09-04 04:33] LABS: ALBUMIN 2.7 g/dL (3.5-5.0); BILIRUBIN,TOTAL 0.8 mg/dL (0.2-1.0); CREATININE 1.2 mg/dL (0.5-1.3); MAGNESIUM 2.6 mg/dL (1.80-2.40); POTASSIUM 3.3 mmol/L (3.5-5.1); TOTAL PROTEIN, SERUM 6.9 g/dL (6.0-8.3)
--- NOTE | 2024-09-04 07:08 | PN ---
PROBLEM LIST: * Viral respiratory infection with respiratory failure. * Septic shock. * Nontransmural myocardial infarction in 05/2024 with fixed defect on Cardiolite with recurrent ST-elevation AL on this admission. * Severe 3-vessel coronary artery disease including left main involvement and chronic total occlusion of RCA in-stent restenosis by cardiac catheterization on this admission. * Moderate mitral regurgitation. * Bacterial endocarditis, affecting the mitral and aortic valves, pending additional assessment of blood cultures. * Ischemic cardiomyopathy with EF in the 40-45% range. * Respiratory failure with endotracheal intubation, resolved. * Intraaortic balloon pump counterpulsation in place, currently at 1-2, pending removal. * Lumbosacral spine disease, status post recent lumbosacral spine surgery. * Debilitated, cachectic 74-year-old gentleman, the patient and the family requesting DNR/DNI status at this point and refusing any form of cardiac intervention. This unfortunate gentleman has been hospitalized because of a viral infection, resulting in respiratory failure. He was intubated and mechanically ventilated and has finally been extubated. The patient has been on pressors, was on pressors that have finally been weaned off. The intraaortic balloon pump counterpulsation was initiated. This has been reduced to 1-2. The patient underwent a cardiac catheterization and coronary angiography, which documented the presence of chronic total occlusion, what appears to be in-stent restenosis in the right coronary artery. He had severe 3-vessel coronary artery disease including left main disease. The patient has been evaluated by Cardiothoracic Surgery who to my understanding have turned him down for a surgical procedure. The patient was also evaluated by Dr. Klaus Carreon who discussed the option of high risk percutaneous intervention. He had a detailed discussion with the patient and his son yesterday, but both of them declined that intervention. From the records reviewed, it is evident that the patient has an element of dementia. He also appears to be fairly frail and debilitated. On assessing the patient this morning, he appears to be comfortable, in no apparent distress. His vital signs have been stable with a blood pressure of 105-135 systolic range. He is currently saturating at 100% on 5 liters by nasal cannula. He is afebrile. He had 99-degree temperature early this morning. The patient is currently maintained on furosemide, scopolamine, linezolid, albuterol, thiamine, folic acid, melatonin, baby aspirin, pantoprazole, insulin, Zosyn, heparin which has just been discontinued in anticipation of withdrawal of intraaortic balloon pump. On assessing the patient this morning, his intraaortic balloon pump set at 1-2. He appears to be comfortable and denies any complaints. The patient has significant cachexia with temporal wasting. Laboratory studies this morning reveal a white count of 11.7, up from 10.6 yesterday. The H and H have been stable at 11 and 32.8. The platelet count is currently 340,000. The chemistry reveals a sodium of 137, potassium of 3.3 which is being managed per protocol, chloride is 99, CO2 is 32, BUN is 33, creatinine is 1.2, with steady improvement in the renal function with a GFR of 63. The patient's magnesium is 2.6. His liver enzymes are mildly elevated with an AST of 57, ALT of 80. His alkaline phosphatase is normal. The patient's albumin is low at 2.7 consistent with significant protein malnutrition. The patient is currently being managed medically at the request of his family and his request as well. We will continue the current supportive measures. The intraaortic balloon pump will be discontinued today and we will continue supportive measures. The patient may benefit from the addition of small doses of beta blockers as his blood pressure has stabilized somewhat now. He may also benefit from dual antiplatelet therapy if there are no contraindications. Consideration should be given to adding clopidogrel. Long-term prognosis is poor. TID: [id number] RECEIPT: [id number]
[2024-09-04] MEDS: BisaCODYL 10 MG SUPP.RECT RC SCH (07:36)
[2024-09-04] MEDS: acetylCYSTeine10% 4ML VIAL IH SCH (10:00)
--- NOTE | 2024-09-04 10:37 | PN ---
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 Pt continues confused but calm. We will need to rule out CVA but currently with IABP, this would have to be removed prior to CT head and brain. Pt also with multiple failed attempts for NG tube and dobhoff placement at the bedside. He will require IR for Bayron placement. This also can not be made possible until after IABP removal. For now follow cardiology and CV surgery recommendations. I spoke to Son over the phone and updated with current findings and plan, I answered all his questions. He reports he was here to see his father but because pt gets very agitated when he is in the room he decided to leave so the pt could rest. He was made aware of poor prognosis and he reports he has discussed with stone finisher and he has opted for medical management and no surgical intervention. I have discussed that in the event that his father declines post IABP removal we recommend palliative/hospice given carmen he is DNR. Pt's son in agreement but for now we will continue all supportive measures and medical management. The discussion of goals of care should be revisited once IABP is removed. WBC slightly elevated today 11.7, H&H similar to yesterday .8 platelet count is 340 K. chemistries sodium is 137 potassium 3.3 covered protocol carbon dioxide of 32 BUN of 33 creatinine of 1.2 and GFR of 63 mg/dL improvement from yesterday magnesium of two point AST of seven ALT of 80 albumin of 2.7. Chest XR in am. REVIEW OF SYSTEMS: Unable to obtain due to patient confusion. PHYSICAL EXAM: GENERAL: Pt with poor prognosis, frail and debilitated, confused, he is currently on nasal cannula saturating 97% with 2 L. HEENT: EOMI sclera nonicteric, puppils 3mm reactive NECK: no JVD, trachea midline LUNGS: Ronchi bilateral lung sounds, Nonproductive cough with congestion to upper airway. HEART: Regular rate and rhythm. Normal S1 and S2, without murmurs ABD: Abdomen soft, nontender. Bowel sounds present EXT: No clubbing cyanosis , no edema. sherman posterio tibialis Pulse auscultated with doppler. NEURO: Confused, awake follows simple commands Vital Signs (last 8hr) Date Time Temp Pulse Resp B/P (MAP) Pulse Ox O2 Delivery O2 Flow Rate FiO2 09/04/24 09:00 95 24 107/66 98 Nasal Cannula 5.0 09/04/24 08:00 99.3 94 25 117/70 96 Nasal Cannula 5.0 09/04/24 08:00 97 Nasal Cannula* 5 40 09/04/24 07:00 94 23 121/73 98 Nasal Cannula 5.0 09/04/24 06:28 91 16 N/Cannula Low lpm 5.0 40 09/04/24 06:00 87 23 102/71 100 Nasal Cannula 5.0 09/04/24 05:00 90 23 133/60 99 Nasal Cannula 5.0 09/04/24 04:00 99.0 91 27 119/51 99 Nasal Cannula 5.0 09/04/24 04:00 97 Nasal Cannula* 5 40 09/04/24 03:00 92 23 111/65 94 Nasal Cannula 5.0 LABS: Hematology Labs: Test 09/04/24 04:09 Range/Units White Blood Count 11.7 H 4.8-10.8 K/uL Red Blood Count 3.36 L 4.50-6.20 MIL/uL Hemoglobin 11.0 L 14.0-18.0 g/dL Hematocrit 32.8 L 42-54 % Mean Corpuscular Volume 97.6 79-99 fL Mean Corpuscular Hemoglobin 32.7 27.0-33.0 pg Mean Corpuscular Hemoglobin Concent 33.5 32.0-36.0 g/dL Red Cell Distribution Width 13.8 11.0-15.5 % Platelet Count 340 130-400 K/uL Mean Platelet Volume 9.2 7.5-10.5 fL Immature Granulocyte % (Auto) 0.7 0-1 % Neutrophils (%) (Auto) 77.8 H 40.0-77.0 % Lymphocytes (%) (Auto) 12.1 L 21.0-51.0 % Monocytes (%) (Auto) 9.3 3.0-13.0 % Eosinophils (%) (Auto) 0.0 0.0-8.0 % Basophils (%) (Auto) 0.1 0.0-5.0 % Neutrophils # (Auto) 9.1 H 1.8-7.7 K/uL Lymphocytes # (Auto) 1.4 1.0-4.8 K/uL Monocytes # (Auto) 1.1 H 0.1-1.0 K/uL Eosinophils # (Auto) 0.00 0.00-0.70 K/uL Basophils # (Auto) 0.01 0.00-0.20 K/uL Absolute Immature Granulocyte (auto 0.08 0-1 K/uL Nucleated Red Blood Cells 0.0 0.0-0.19 % Chemistry Labs: Test 09/04/24 04:09 09/03/24 11:29 09/03/24 04:04 Range/Units Sodium Level 137 136-145 mmol/L Potassium Level 3.3 L 3.5-5.1 mmol/L Chloride Level 99 L 101-111 mmol/L Carbon Dioxide Level 32 21-32 mmol/L Blood Urea Nitrogen 33 H 7-18 mg/dL Creatinine 1.2 0.5-1.3 mg/dL Glomerular Filtration Rate Calc 63 >90 mL/min Random Glucose 135 H 70-105 mg/dL Total Calcium 9.0 8.5-10.1 mg/dL Magnesium Level 2.60 H 1.80-2.40 mg/dL Total Bilirubin 0.8 0.2-1.0 mg/dL Aspartate Amino Transf (AST/SGOT) 57 H 10-37 U/L Alanine Aminotransferase (ALT/SGPT) 80 H 12-78 U/L Alkaline Phosphatase 103 50-136 U/L Total Protein 6.9 6.0-8.3 g/dL Albumin 2.7 L 3.5-5.0 g/dL Whole Blood Glucose 86 70-110 MG/DL Lactic Acid Level 2.0 0.8-2.5 mmol/L B-Type Natriuretic Peptide 470 H 0-100 pg/mL Coagulation Labs: Test 09/04/24 04:09 Range/Units Activated Partial Thromboplast Time 22.0 L 26.3-35.5 SEC DIAGNOSTICS / RADIOLOGY RESULTS: [ ] PLAN Son has agreed to medical management only, pt had refused surgical or invasive intervention. Son in agreement. Pt and son leaning towards comfort measures if pts condition declines post removal of IABP After IABP tomorrow pt to got to IR for DobHoff placement. CT head and brain without contrast to rule out CVA Continue IVP of lasix BID Valium 2.5mg IVP q6hrs Precedex gtt weaned off IABP per Cardiology 1:2 CV surgeon consult follow recommendations- not deemed to be a surgical candidate at this time. Antibiotics per ID assess pain using CPOT Encourage Physical therapy once extubated monitor electrolytes closely and replenish appropriately Frequent reorientation avoid polypharmacy midazolam prn agitation. NEURO: Minimize central acting medications as possible. Fall Precautions. Well lighted room through the day and minimize interruptions through the night to prevent acute delirium. PULMONARY: Supplemental 02 as needed Titrate Fio2 to keep Spo2 > or = 90% DuoNebs and CPT as needed IS hourly while awake for pulmonary hygiene Out of bed to chair as tolerated VAP Bundle Vent/BIPAP Settings: Peep of 6, FiO2 50%, rate of 22, tidal volume 500 CARDIOVASCULAR: Follow hemodynamics. Titrate vasopressor to keep MAP >65 or systolic blood pressure >95mmHg DIPS: Heparin, LINES: PIV midline GI & NUTRITION: Continue nutritional support Aspirations precautions Prokinetic agents and laxatives as needed unable to start tube feedings due to no secured feeding tube pt very high risk for aspiration TPN for now at 50ml/HR KIDNEYS & ELECTROLYTES: Strict monitoring of intake and output Daily weights Avoid nephrotoxic agents Monitor electrolytes and replace as needed Goal urine output of 30mL/hr or 0.5mL/kg/hr ENDOCRINE: Maintain blood glucose between 100-180 at all times. Insulin sliding scale for blood glucose management INFECTIOUS DISEASE: Trend temperature. Gaviria-culture if febrile. Micro: [ ] 08/25/24 blood cultures negative Sputum cultures from 08/25/24 normal paul Antibiotics: Zosyn 08/25/24 Levaquin 08/28/24 Zyvox 08/28/24 HEMATOLOGY & COAGULATION: Monitor H&H. Keep Hgb > 7 Transfuse 1 unit of PRBC for Hgb < 7 Transfuse 1 pack of platelets of platelets < 20, 000 Watch for any signs and symptoms of bleeding SKIN: Pressure ulcer prevention per facility protocol Rehab: PT/OT Prophylaxis: GI: PPI DVT: Bilateral SCDs, heparin drip Code Status: Full Resuscitation Disposition: ICU Other: Total time in care of this patient includes 60 minutes excluding all procedures performed. ANDREI CHINO [facility] Sep 04, 2024 10:37
[2024-09-04] MEDS: SODIUM CHLORIDE 3% FOR INHALATION 4 ML/AMP VIAL.NEB IH ONE (10:45)
--- NOTE | 2024-09-04 14:00 | NUR ---
Order received for PT to eval and treat once balloon pump removed. Patient remains on balloon pump. PT team to follow.
--- NOTE | 2024-09-04 15:00 | PN ---
[facility] PROGRESS NOTE Date of Service: Sep 04, 2024 Time of Service: 14:41 SUBJECTIVE: 08/26 patient seen at bedside, no acute events overnight. He remains intubated and sedated, continues on pressor support. FiO2 is 60%, we will wean towards extubation. Troponins are elevated, patient is started on ACS protocol with aspirin, Plavix, statin and heparin drip. Cardiology recommendations still pending, we will follow up. WBC increased from 10.8 up to 14.3, hemoglobin decreased from 13.2 down to 11.6, sodium stable at 126, similar to yesterday, troponins peaked and are now downtrending to [id number], remainder of his labs are relatively unremarkable. 08/27 patient seen at bedside, no acute events overnight. He remains intubated and sedated, continue weaning down pressors. His FiO2 has been weaned down to 50%, we will continue to wean as able, peep has been decreased from 8-6. Echocardiogram has been done, formal read is still pending, preliminary read shows a possible vegetation of the mitral valve, ejection fraction of 50-55%, mild to moderate aortic regurgitation, moderate mitral regurgitation, we will have him reassessed once he has been extubated as he may need a KARTHIK, however given his blood cultures are no growth this mobile mass on the mitral valve may not be secondary to endocarditis. Creatinine has increased from 1.3 up to 1.8, hemoglobin stable at 11.3, similar to yesterday, WBC increased from 14.3 up to 18.9, platelets improved from 528 down to 520, sodium stable at 127, similar to yesterday, remainder of his labs are relatively unremarkable. Cultures are no growth to date. 08/28 patient is seen and examined at bedside, remains intubated, on mechanical ventilation, on propofol, Levophed and heparin drip. Discussed with the RN, back from having left heart catheterization with finding of three-vessel disease for which Cardiothoracic surgery consultation requested. TTE with a EF 50-55% with possible vegetation of the mitral valve. Patient is scheduled for KARTHIK today. WBC 17.9. Blood cultures no growth after 48 hours. 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 Continue goal-directed medical therapy, infectious disease consultation requested. Blood cultures has remained negative. CT surgery consultation requested for CABG plus aortic and mitral valve replacement. 08/30 patient is seen and examined at bedside, remains intubated, mechanical ventilation, per discussion with the RN, the patient failed SBT trial, had to be placed back on sedation. Patient getting IV antibiotics at the time of my visit. BP 98/56, FiO2 30%, saturating 98%. CBC with a hemoglobin 10.8, hematocrit 31.4. Chest x-ray shows bilateral pulmonary infiltrates suggestive of pulmonary vascular congestion with possible superimposed pneumonitis. Continue to follow Pulmonary input and recommendation in terms of weaning off the ventilator, continue broad-spectrum IV antibiotics per ID recommendations. Cardiology input noted and appreciated. Patient evaluated by CT surgeon for possible CABG as well as valve replacement. 08/31 patient is seen and examined at bedside, remains intubated, mechanical ventilation, per discussion with the RN, BP 87/40, rate of 59, saturating 100%, FiO2 30%. Patient remains on broad-spectrum IV antibiotics, the patient remains on Levophed for pressure support. Remains sedated with propofol and Precedex. Hemoglobin 11.7, hematocrit 33.8. ABG pH 7.5, pCO2 30, bicarb 24.4.Chest x-ray shows bilateral pulmonary infiltrates suggestive of pulmonary vascular congestion with possible superimposed pneumonitis. Urine output 4 L. Weaning trial in progress by pulmonary physician, attempt yesterday, patient tolerated only 4 hours of CPAP trial. Cardiology input noted and appreciated, intra- aortic balloon pump in place. Patient with a aortic and mitral valve endocarditis, evaluated by CT surgeon who requested the patient be off ventilator in order to discuss procedure with the patient and family. Continue to follow critical care input and recommendation. 09/01 patient is seen and examined at bedside, successfully extubated 08/31/2024, remains on aerosol mask, FiO2 40%, patient confused, withdrawing to painful stimulation. He remains with balloon pump in place, low-dose Precedex, heparin drip on low-dose Levophed. BP 143/48, heart rate of 41, afebrile. CBC with a hemoglobin 10.9, hematocrit 31.1, WBC 8.8, platelet count of 373. ABG and chest x-ray pending. Patient on IV antibiotics. Cardiology input noted appreciated, balloon pump to turn in the next 1-2 days. Patient evaluated by CT surgery, patient to be a surgical at this time. Continue to follow critical Care and ID input and recommendations. Discharge plan discussed yesterday case management, once patient medically stable may benefit from discharge to LTAC. 09/02 patient is seen and examined at bedside, successfully extubated 08/31/2024, Patient evaluated by CT surgery, felt not to be a surgical candidate at this time. Continue to follow critical Care and ID input and recommendations. Discharge plan discussed with case management, once patient medically stable may benefit from discharge to LTAC. 09/03 patient is seen and examined at bedside, resting comfortable in bed, following commands per discussion with the RN, off vasopressors, remains on heparin drip. Patient successfully extubated 08/31/2024 secondary to acute hypoxemic respiratory failure, multifocal CHF, bilateral pneumoniae and cardiogenic shock. Patient is status post left heart catheterization with severe three-vessel disease, also status post transesophageal echo with finding of bacterial endocarditis involving mitral and aortic valve for which Cardiothoracic surgery consultation requested, however patient not a surgical candidate at this time. Patient remains on broad-spectrum IV antibiotics, plan is for tomorrow for removal of intra-aortic balloon pump. Once medically stable, patient may benefit from discharge plan to LTAC. 09/04 patient seen at bedside, no acute events overnight. He is still has an intra-aortic balloon pump, to be managed by Cardiology. He has been weaned off pressors, hemodynamically stable, saturating well on 5 L nasal cannula. Potassium improved from 3.0 up to 3.3, WBC increased from 10.6 up to 11.7, hemoglobin decreased from 11.5 down to 11.0, remainder of his labs are relatively unremarkable. REVIEW OF SYSTEMS 12 point review of systems negative unless noted in HPI PHYSICAL EXAM GENERAL APPEARANCE: The patient is intubated, on mechanical ventilation, on propofol, Levophed and heparin. NEUROLOGICAL: Cranial nerves II-XII grossly intact. Motor is 5/5 in bilateral upper and lower extremities proximal to distal. No sensory deficits. HEENT: Face is symmetric. Pupils are equal and reactive. Extraocular movements are intact. NECK: Supple. No JVD. No thyromegaly. No submental, submandibular, pre- /postauricular, occipital or supraclavicular lymphadenopathy. CHEST: Normal chest expansion. No Telemetry. LUNGS: Absence of any rales, rhonchi or any wheezing. CARDIOVASCULAR: Regular. S1 and S2 normal. No appreciable rubs, murmurs or gallops. ABDOMEN: Soft, nontender, and nondistended. There is no rebound, voluntary guarding, or rigidity. : Deferred. No Leal. EXTREMITIES: Non-edematous and not cyanotic. No clubbing. Good capillary refill. SKIN: No skin breakdown. Vital Signs (last 8hr) Date Time Temp Pulse Resp B/P (MAP) Pulse Ox O2 Delivery O2 Flow Rate FiO2 09/04/24 12:00 98.1 93 34 118/77 100 Nasal Cannula 5.0 09/04/24 12:00 97 Nasal Cannula* 5 40 09/04/24 11:00 95 33 121/77 99 Nasal Cannula 5.0 09/04/24 10:46 95 20 09/04/24 10:00 97 38 123/76 84 Nasal Cannula 5.0 09/04/24 09:00 95 24 107/66 98 Nasal Cannula 5.0 09/04/24 08:00 99.3 94 25 117/70 96 Nasal Cannula 5.0 09/04/24 08:00 97 Nasal Cannula* 5 40 09/04/24 07:00 94 23 121/73 98 Nasal Cannula 5.0 LABS: Laboratory: Test 09/04/24 04:09 09/03/24 11:29 09/03/24 04:04 Range/Units White Blood Count 11.7 H 4.8-10.8 K/uL Red Blood Count 3.36 L 4.50-6.20 MIL/uL Hemoglobin 11.0 L 14.0-18.0 g/dL Hematocrit 32.8 L 42-54 % Mean Corpuscular Volume 97.6 79-99 fL Mean Corpuscular Hemoglobin 32.7 27.0-33.0 pg Mean Corpuscular Hemoglobin Concent 33.5 32.0-36.0 g/dL Red Cell Distribution Width 13.8 11.0-15.5 % Platelet Count 340 130-400 K/uL Mean Platelet Volume 9.2 7.5-10.5 fL Immature Granulocyte % (Auto) 0.7 0-1 % Neutrophils (%) (Auto) 77.8 H 40.0-77.0 % Lymphocytes (%) (Auto) 12.1 L 21.0-51.0 % Monocytes (%) (Auto) 9.3 3.0-13.0 % Eosinophils (%) (Auto) 0.0 0.0-8.0 % Basophils (%) (Auto) 0.1 0.0-5.0 % Neutrophils # (Auto) 9.1 H 1.8-7.7 K/uL Lymphocytes # (Auto) 1.4 1.0-4.8 K/uL Monocytes # (Auto) 1.1 H 0.1-1.0 K/uL Eosinophils # (Auto) 0.00 0.00-0.70 K/uL Basophils # (Auto) 0.01 0.00-0.20 K/uL Absolute Immature Granulocyte (auto 0.08 0-1 K/uL Nucleated Red Blood Cells 0.0 0.0-0.19 % Activated Partial Thromboplast Time 22.0 L 26.3-35.5 SEC Sodium Level 137 136-145 mmol/L Potassium Level 3.3 L 3.5-5.1 mmol/L Chloride Level 99 L 101-111 mmol/L Carbon Dioxide Level 32 21-32 mmol/L Blood Urea Nitrogen 33 H 7-18 mg/dL Creatinine 1.2 0.5-1.3 mg/dL Glomerular Filtration Rate Calc 63 >90 mL/min Random Glucose 135 H 70-105 mg/dL Total Calcium 9.0 8.5-10.1 mg/dL Magnesium Level 2.60 H 1.80-2.40 mg/dL Total Bilirubin 0.8 0.2-1.0 mg/dL Aspartate Amino Transf (AST/SGOT) 57 H 10-37 U/L Alanine Aminotransferase (ALT/SGPT) 80 H 12-78 U/L Alkaline Phosphatase 103 50-136 U/L Total Protein 6.9 6.0-8.3 g/dL Albumin 2.7 L 3.5-5.0 g/dL Whole Blood Glucose 86 70-110 MG/DL Lactic Acid Level 2.0 0.8-2.5 mmol/L B-Type Natriuretic Peptide 470 H 0-100 pg/mL Current Medications Medications (Trade) Dose Ordered Sig/Lydia Route PRN Reason Start Time Stop Time Status Last Admin Dose Admin Acetaminophen (TYLenol 650MG SUPPOSITORY) 650 mg Q6H PRN RC MILD PAIN (1-3) 08/25/24 19:30 09/24/24 19:29 Acetylcysteine (MUComyst 10% 4ML) 400mg = 4ml [id number] IH 09/04/24 10:00 10/04/24 09:59 Albumin Human 100 ml @ 0 mls/hr AD IV 08/30/24 10:30 09/04/24 10:29 DC 08/30/24 12:01 100 MLS/HR Albuterol (DUOneb) 1 UDVIAL [id number] IH 08/26/24 00:00 08/31/24 20:38 DC 08/31/24 18:36 1 UDVIAL Albuterol (DUOneb) 1 UDVIAL [id number] PRN IH sob and wheezing 08/31/24 21:00 09/25/24 00:00 08/31/24 23:05 1 UDVIAL Albuterol (DUOneb) 2 udvial ONCE IH 08/25/24 18:00 08/25/24 22:00 DC 08/25/24 19:17 2 UDVIAL Alprazolam (XANax 0.5MG) 0.5 mg TID PO 08/30/24 21:00 08/31/24 09:57 DC 08/31/24 07:57 0.5 MG Aspirin (Aspirin 300mg Supp) 300 mg ONCE OH 08/25/24 19:30 08/25/24 23:59 DC 08/25/24 19:41 300 MG Aspirin (Aspirin 81mg Ec Tab) 81 mg DAILY PO 08/26/24 09:00 09/25/24 08:59 08/31/24 07:57 81 MG Atorvastatin Calcium (LIPItor 40MG) 40 mg HS PO 08/26/24 07:30 08/26/24 07:44 DC Azithromycin 250 ml @ 250 mls/hr Q24H IVPB 08/25/24 18:51 08/25/24 23:30 DC Azithromycin 250 ml @ 250 mls/hr Q24H IVPB 08/25/24 19:30 08/25/24 19:38 DC Bisacodyl (DulcoLAX) 10 mg DAILY RC 09/04/24 09:00 09/07/24 08:59 Ceftriaxone Sodium (ROCEphine 1G INJ) 1 gm ONCE IVPB 08/25/24 19:00 08/25/24 21:03 DC 08/25/24 19:41 1 GM Ceftriaxone Sodium (ROCEphine 1G INJ) 1 gm Q24H IVPB 08/25/24 19:30 08/26/24 12:29 DC Clopidogrel Bisulfate (plaVIX 300MG TAB) 300 mg ONCE PO 08/25/24 21:00 08/26/24 06:00 DC 08/25/24 23:16 300 MG Clopidogrel Bisulfate (plaVIX 75MG) 75 mg DAILY PO 08/26/24 09:00 08/29/24 10:52 DC 08/29/24 08:41 75 MG Dexmedetomidine/ Sodium Chloride (PRECEdex 400MCG/ 100ML-NS) 400 mcg PROTOCOL IV 08/29/24 09:00 09/28/24 08:59 09/02/24 17:43 400 MCG Diazepam (VALium 2 mg Tab) 2 mg Q6H PRN PO ANXIETY 08/31/24 10:00 08/31/24 13:39 DC 08/31/24 10:06 2 MG Diazepam (VALium 5 MG/ML 2 ML SYG) 2.5 mg ONCE PRN IV ANXIETY 08/31/24 16:00 08/31/24 16:00 DC 08/31/24 15:50 2.5 MG Diazepam (VALium 5 MG/ML 2 ML SYG) 2.5 mg Q4H IVP 09/02/24 22:00 09/03/24 18:34 DC 09/03/24 11:05 2.5 MG Diazepam (VALium 5 MG/ML 2 ML SYG) 2.5 mg Q6H IVP 09/04/24 00:00 09/07/24 17:59 09/04/24 12:26 2.5 MG Diazepam (VALium 5 MG/ML 2 ML SYG) 2.5 mg Q6H6 IVP 08/31/24 18:00 09/02/24 19:53 DC 09/02/24 18:00 2.5 MG Diazepam (VALium 5 mg TAB) 5 mg BID PO 08/31/24 21:00 08/31/24 16:39 DC Fentanyl Citrate 100 ml @ 2.5 mls/hr PROTOCOL IV 08/25/24 20:00 08/27/24 17:54 DC 08/27/24 14:22 2.5 MLS/HR Folic Acid (FolVITE 5 MG/ML VIAL) 1 mg DAILY IV 08/31/24 09:00 09/30/24 08:59 09/04/24 12:25 1 MG Furosemide (LASix 20MG VIAL) 20 mg BID IV 09/03/24 09:00 09/03/24 10:51 DC Furosemide (LASix 20MG VIAL) 20 mg Q12H IV 08/26/24 09:00 08/27/24 12:24 DC 08/27/24 08:56 20 MG Furosemide (LASix 20MG VIAL) 20 mg Q12H IV 08/31/24 08:30 09/02/24 12:08 DC 09/02/24 08:59 20 MG Furosemide (LASix 20MG VIAL) 20 mg Q12H IV 09/03/24 15:00 09/03/24 15:55 DC Furosemide (LASix 20MG VIAL) 20 mg Q12H IV 09/03/24 21:00 10/03/24 20:59 09/04/24 08:09 20 MG Furosemide (LASix 20MG VIAL) 20 mg Q24H IV 09/03/24 08:30 09/03/24 08:57 DC 09/03/24 08:52 20 MG Furosemide (LASix 20MG VIAL) 20 mg Q6H IV 09/03/24 15:00 09/03/24 11:19 DC Furosemide 100 mg/ Sodium Chloride 100 ml @ 0 mls/hr PROTOCOL IV 08/30/24 13:30 08/31/24 08:26 DC 08/30/24 23:32 10 MLS/HR Heparin Sodium (Porcine) (HEParin 5,000 UNIT VIAL) *calculation based on ACTUAL B... AD PRN IV HEPARIN PROTOCOL 08/25/24 20:00 09/24/24 19:59 08/28/24 06:30 6,000 UNIT Heparin Sodium/ Dextrose 250 ml @ 0 mls/hr Q6H IV 08/25/24 20:00 09/24/24 19:59 09/03/24 05:20 9 MLS/HR Insulin Human Regular (humuLIN R 100 UNIT/ML 3ML) INSULIN SLIDING SCAL... Q6H6 SQ 08/26/24 00:00 09/25/24 00:00 08/26/24 05:58 2 UNIT Ketamine HCl (ketaMINE 50MG/ ML SYRINGE) 50 mg ONCE IM 08/25/24 19:00 08/25/24 22:00 DC Ketamine HCl (ketaMINE 50MG/ ML SYRINGE) 50 mg ONCE IM 08/25/24 19:00 08/25/24 23:59 DC Lactulose (Constulose 20gm/ 30ml Udcup) 20 gm BID PO 08/28/24 21:00 09/27/24 20:59 08/30/24 20:34 20 GM Levofloxacin/ Dextrose 100 ml @ 100 mls/hr Q24H IV 08/28/24 14:30 08/28/24 15:24 DC Levofloxacin/ Dextrose 100 ml @ 100 mls/hr Q48H IV 08/28/24 15:30 09/11/24 15:29 09/03/24 17:35 100 MLS/HR Linezolid 300 ml @ 300 mls/hr Q12H IV 09/01/24 02:30 09/15/24 02:29 09/04/24 03:16 300 MLS/HR Linezolid (Zyvox) 600 mg Q12H PO 08/28/24 14:30 09/01/24 01:53 DC 08/31/24 14:11 600 MG Magnesium Sulfate 50 ml @ 0 mls/hr PROTOCOL PRN IV MAGNESIUM PROTOCOL 09/03/24 23:30 10/03/24 23:29 09/04/24 00:08 25 MLS/HR Melatonin (Melatonin) 10 mg HS PO 08/30/24 21:00 09/29/24 20:59 Methylprednisolone Sodium Succinate (Solu-medROL 40MG) 40 mg Q8H IVP 08/25/24 23:00 08/27/24 12:19 DC 08/27/24 06:23 40 MG Methylprednisolone Sodium Succinate (Solu-medROL 125MG) 125 mg ONCE IVP 08/25/24 18:00 08/25/24 22:00 DC 08/25/24 18:52 125 MG Midazolam HCl 50 ml @ 0 mls/hr PROTOCOL IV 08/25/24 19:00 08/27/24 17:54 DC 08/27/24 11:18 9 MLS/HR Midazolam HCl 50 mg/Sodium Chloride 50 ml @ 0 mls/hr PROTOCOL IV 08/25/24 19:00 09/24/24 18:59 UNV Morphine Sulfate (morPHINE 2MG SYG) 2 mg Q4H PRN IVP SEVERE PAIN (7-10) 08/26/24 07:30 08/30/24 18:56 DC Morphine Sulfate (morPHINE 4MG SYG) 2 mg Q4H PRN IVP SEVERE PAIN (7-10) 08/25/24 19:30 08/26/24 07:11 DC Norepinephrine 250 ml @ 0 mls/hr AD PRN IV DIRECTED 08/27/24 06:00 09/26/24 05:59 09/02/24 16:27 11.85 MLS/HR Norepinephrine 250 ml @ 0 mls/hr PROTOCOL IV 08/25/24 19:30 08/26/24 05:10 DC 08/26/24 00:14 121.5 MLS/HR Norepinephrine Bitartrate 32 mg/ Sodium Chloride 250 ml @ 0 mls/hr Q0M PRN IV hypotension 08/26/24 05:30 08/28/24 08:54 DC 08/26/24 06:04 19.87 MLS/HR Ondansetron HCl (zoFRAN 4MG INJ) 4 mg Q6H PRN IV NAUSEA/VOMITING 08/25/24 19:30 09/24/24 19:29 Oxymetazoline HCl (AFrin) 2 SPRAYS BID PRN EN NASAL CONGESTION 09/03/24 01:30 10/03/24 01:29 Pantoprazole Sodium (PROTonix 40MG INJ) 40 mg DAILY IV 08/26/24 09:00 09/25/24 08:59 09/04/24 08:09 40 MG Pharmacy Profile Note (Pharmacy Communication) 1 each ONCE MISC 09/01/24 02:00 09/01/24 01:54 DC Pharmacy Profile Note (Pharmacy Communication) 1 each ONCE MISC 09/03/24 16:00 09/04/24 07:12 DC Piperacillin Sod/ Tazobactam Sod (Zosyn 3.375gm+NS 50ml) 3.375 gm Q8H IV 08/25/24 20:00 09/04/24 19:59 UNV Piperacillin Sod/ Tazobactam Sod (Zosyn 3.375gm+NS 50ml) 3.375 gm ZOSY8 IV 08/25/24 21:00 09/04/24 20:59 09/04/24 12:25 3.375 GM Polyethylene Glycol (MIRalax 3350 17 GM POWD.PACK) 17 gm DAILY PO 08/29/24 09:00 09/28/24 08:59 08/29/24 08:41 17 GM Polyethylene Glycol (MIRalax 3350 17 GM POWD.PACK) 17 gm ONCE PO 08/28/24 18:00 08/28/24 21:00 DC 08/28/24 18:00 17 GM Potassium Chloride 100 ml @ 100 mls/hr AD PRN IV POTASSIUM PROTOCOL 08/29/24 13:00 09/28/24 12:59 09/04/24 08:10 100 MLS/HR Potassium Chloride (K-Dur/Klor-Con 20meq) 20 meq AD PRN PO POTASSIUM PROTOCOL 08/29/24 13:00 09/28/24 12:59 Potassium Chloride (KCl 10% Elixir 20meq/15ml) 20 meq AD PRN PO POTASSIUM PROTOCOL 08/29/24 13:00 09/28/24 12:59 08/31/24 02:36 20 MEQ Propofol (DIPRivan 1000MG/ 100ML) 1,000 mg PROTOCOL PRN IV SEDATION 08/27/24 16:30 08/31/24 20:38 DC 08/31/24 00:26 1,000 MG Scopolamine HBr (Transderm-Scop) 1 patch Q72H TD 09/03/24 01:30 10/03/24 01:29 09/03/24 01:46 1 PATCH Thiamine HCl (Vitamin B-1) 200 mg DAILY IM 08/31/24 09:00 08/30/24 13:17 DC Thiamine HCl (Vitamin B-1) 300 mg DAILY IV 08/31/24 09:00 09/30/24 08:59 09/04/24 08:09 300 MG DIAGNOSTICS / RADIOLOGY: [ ] ASSESSMENT: Acute hypoxemic respiratory failure, POA, requiring intubation and mechanical ventilation Hypotension, POA, currently suspected to be cardiogenic shock Acute coronary syndrome, status post left heart catheterization 08/28, finding of triple-vessel disease POA Culture negative, 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 Itraaortic balloon pump to be managed by cardiology Continue broad-spectrum IV antibiotics, continue to follow ID input recommendation Follow Cardiology and Cardiothoracic input and recommendation Follow critical care input and recommendation Continue heparin drip Replace electrolytes IV per protocol A.m. labs Transfuse as needed GI and DVT prophylaxis Disposition: Pending solara placement No family members at bedside to discuss goals of care Greater than 35 minutes ICU time spent in care of this patient RANDY POZO MD Sep 04, 2024 15:00
--- NOTE | 2024-09-04 15:41 | NUR ---
spoke with Suad RN, patient unable to come down for procedure due to balloon pump; balloon pump expected to be removed 09/05, nurse notified there will not be a radiologist available until 09/07
--- NOTE | 2024-09-04 17:14 | PN ---
INFECTIOUS DISEASE PROGRESS NOTE Date of Service: Sep 04, 2024 SUBJECTIVE: Patient was seen and examined in the ICU room 206. Patient has been extubated and he is awake, alert and oriented to person only. Patient is pending balloon pump removal for today. Patient had a low-grade fever of 100.0 yesterday and this morning temperature is 99.3. Patient continues on linezolid, Zosyn and levofloxacin. We will continue to follow patient's care. PHYSICAL EXAM EYES: Anicteric. Pupils equal and reactive. HENT: No oral thrush seen, moist Oral mucosa. NECK: Supple, no JVD or thyromegaly. LUNGS: Good air entry. Crackles. Oxygen support. CARDIOVASCULAR: S1, S2 regular. No murmur heard. ABDOMEN: Soft, non tender, bowel sounds present, no organomegaly CENTRAL NERVOUS SYSTEM: Awake, alert and oriented to person. SKIN: No rashes, no swelling. LYMPHATICS: No peripheral lymphadenopathy. MUSCULOSKELETAL: No joint swelling, erythema or tenderness. EXTREMITIES: No cyanosis or clubbing. BACK: No deformity, no pressure ulcer. GENITOURINARY: No dysuria or hematuria. Vital Sign (Last 12 Hours) 09/04/24 09/04/24 09/04/24 09/04/24 06:00 06:28 07:00 08:00 Pulse 87 91 94 Resp 23 16 23 B/P (MAP) 102/71 121/73 Pulse Ox 100 98 97 O2 Delivery Nasal Cannula N/Cannula Low lpm Nasal Cannula Nasal Cannula* O2 Flow Rate 5.0 5.0 5.0 5 FiO2 40 40 09/04/24 09/04/24 09/04/24 09/04/24 08:00 09:00 10:00 10:46 Temp 99.3 Pulse 94 95 97 95 Resp 25 24 38 20 B/P (MAP) 117/70 107/66 123/76 Pulse Ox 96 98 84 O2 Delivery Nasal Cannula Nasal Cannula Nasal Cannula O2 Flow Rate 5.0 5.0 5.0 09/04/24 09/04/24 09/04/24 09/04/24 11:00 12:00 12:00 13:00 Temp 98.1 Pulse 95 93 99 Resp 33 34 21 B/P (MAP) 121/77 118/77 129/63 Pulse Ox 99 97 100 94 O2 Delivery Nasal Cannula Nasal Cannula* Nasal Cannula Nasal Cannula O2 Flow Rate 5.0 5 5.0 5.0 FiO2 40 09/04/24 09/04/24 09/04/24 09/04/24 14:00 15:00 16:00 16:00 Temp 99.7 Pulse 96 102 93 Resp 23 20 23 B/P (MAP) 122/67 103/67 116/72 Pulse Ox 97 97 93 97 O2 Delivery Nasal Cannula Nasal Cannula Nasal Cannula Nasal Cannula* O2 Flow Rate 5.0 5.0 5.0 5 FiO2 40 Intake & Output (last 24hrs) 09/03/24 09/03/24 09/04/24 15:00 23:00 07:00 Intake Total 221.4 ml 657.3 ml 564.9 ml Output Total 800 ml 750 ml Balance 221.4 ml -142.7 ml -185.1 ml LABS: Laboratory: Test 09/04/24 16:39 09/04/24 04:09 09/03/24 04:04 Range/Units Whole Blood Glucose 108 70-110 MG/DL White Blood Count 11.7 H 4.8-10.8 K/uL Red Blood Count 3.36 L 4.50-6.20 MIL/uL Hemoglobin 11.0 L 14.0-18.0 g/dL Hematocrit 32.8 L 42-54 % Mean Corpuscular Volume 97.6 79-99 fL Mean Corpuscular Hemoglobin 32.7 27.0-33.0 pg Mean Corpuscular Hemoglobin Concent 33.5 32.0-36.0 g/dL Red Cell Distribution Width 13.8 11.0-15.5 % Platelet Count 340 130-400 K/uL Mean Platelet Volume 9.2 7.5-10.5 fL Immature Granulocyte % (Auto) 0.7 0-1 % Neutrophils (%) (Auto) 77.8 H 40.0-77.0 % Lymphocytes (%) (Auto) 12.1 L 21.0-51.0 % Monocytes (%) (Auto) 9.3 3.0-13.0 % Eosinophils (%) (Auto) 0.0 0.0-8.0 % Basophils (%) (Auto) 0.1 0.0-5.0 % Neutrophils # (Auto) 9.1 H 1.8-7.7 K/uL Lymphocytes # (Auto) 1.4 1.0-4.8 K/uL Monocytes # (Auto) 1.1 H 0.1-1.0 K/uL Eosinophils # (Auto) 0.00 0.00-0.70 K/uL Basophils # (Auto) 0.01 0.00-0.20 K/uL Absolute Immature Granulocyte (auto 0.08 0-1 K/uL Nucleated Red Blood Cells 0.0 0.0-0.19 % Activated Partial Thromboplast Time 22.0 L 26.3-35.5 SEC Sodium Level 137 136-145 mmol/L Potassium Level 3.3 L 3.5-5.1 mmol/L Chloride Level 99 L 101-111 mmol/L Carbon Dioxide Level 32 21-32 mmol/L Blood Urea Nitrogen 33 H 7-18 mg/dL Creatinine 1.2 0.5-1.3 mg/dL Glomerular Filtration Rate Calc 63 >90 mL/min Random Glucose 135 H 70-105 mg/dL Total Calcium 9.0 8.5-10.1 mg/dL Magnesium Level 2.60 H 1.80-2.40 mg/dL Total Bilirubin 0.8 0.2-1.0 mg/dL Aspartate Amino Transf (AST/SGOT) 57 H 10-37 U/L Alanine Aminotransferase (ALT/SGPT) 80 H 12-78 U/L Alkaline Phosphatase 103 50-136 U/L Total Protein 6.9 6.0-8.3 g/dL Albumin 2.7 L 3.5-5.0 g/dL Lactic Acid Level 2.0 0.8-2.5 mmol/L B-Type Natriuretic Peptide 470 H 0-100 pg/mL ASSESSMENT: Hypoxic respiratory failure requiring intubation, status post extubated. 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 Non-STEMI, status post left heart catheterization with findings of severe multivessel coronary disease. Acute renal failure, resolving. Leukocytosis, resolved. Hypotension. CAD with heart stents. PLAN: Continue linezolid. Continue Zosyn. Continue levofloxacin. Continue GI prophylaxis. Continue mechanical ventilatory support. We will monitor electrolytes. Cardiovascular surgeon has been consulted and following. We will follow up on the cultures. This case was reviewed and discussed with my supervising physician and the above assessment and plan was formulated and agreed upon. ATTESTATION BY PHYSICIAN I have seen and examined the patient. I reviewed the documentation, medical decision making, and treatment plan as noted by the mid-level provider above. I agree with the findings and plan of care. MILA DEAN MD, [facility] Sep 04, 2024 17:14
--- NOTE | 2024-09-04 19:28 | PN ---
SUBJECTIVE: Presented with coronary artery disease with acute bacterial endocarditis and septic shock as well as cardiogenic shock. The patient has been resuscitated, has been weaned from the ventilator and by his own will, he wishes not to have any cardiovascular surgery. From my point of view, the patient is not a surgical candidate at this point and that we would be happy to follow him in the future if he changes his mind. TID: [id number] RECEIPT: [id number]
[2024-09-04 23:02] LABS: MAGNESIUM 2.1 mg/dL (1.80-2.40); POTASSIUM 3.2 mmol/L (3.5-5.1)
[2024-09-05] VITALS (23 sets, daily range): BP systolic 82–127; BP diastolic 24–84; PULSE 90–128; RESP 11–28; TEMP 98.9–99.4; O2SAT 95–100
[2024-09-05 02:41] LABS: BASOPHILS # (AUTO) 0.03 K/uL (0.00-0.20); BASOPHILS % (AUTO) 0.2 % (0.0-5.0); IMMATURE GRANULOCYTE ABSOLUTE 0.09 K/uL (0-1); LYMPHOCYTES # (AUTO) 1.5 K/uL (1.0-4.8); LYMPHOCYTES % (AUTO) 10.4 % (21.0-51.0); MEAN CORPUSCULAR HEMOGLOBIN 32.5 pg (27.0-33.0); MEAN CORPUSCULAR VOLUME 98.5 fL (79-99); MONOCYTES # (AUTO) 1.2 K/uL (0.1-1.0); MONOCYTES % (AUTO) 8.6 % (3.0-13.0); NEUTROPHILS # (AUTO) 11.3 K/uL (1.8-7.7); NEUTROPHILS % (AUTO) 80.2 % (40.0-77.0); PLATELET COUNT (AUTO) 295 K/uL (130-400); RED BLOOD CELL COUNT(AUTO) 3.35 MIL/uL (4.50-6.20); RED CELL DISTRIBUTION WIDTH 13.8 % (11.0-15.5); WHITE BLOOD COUNT (AUTO) 14.1 K/uL (4.8-10.8)
[2024-09-05 02:54] LABS: ALBUMIN 2.8 g/dL (3.5-5.0); BILIRUBIN,TOTAL 0.8 mg/dL (0.2-1.0); CREATININE 1.2 mg/dL (0.5-1.3); POTASSIUM 3.7 mmol/L (3.5-5.1); TOTAL PROTEIN, SERUM 6.9 g/dL (6.0-8.3)
[2024-09-05] MEDS: diazePAM 5 MG/ML 2 ML SYG IVP PRN (05:23)
--- NOTE | 2024-09-05 07:27 | PN ---
This is a gentleman with multiple problems including a prior respiratory infection with respiratory failure and septic shock. He had nontransmural myocardial infarction in May of last year. He had fixed defects on Cardiolite scan and had ST-elevation myocardial infarction on this admission. The patient underwent a cardiac catheterization that identified the presence of severe 3-vessel coronary artery disease including left main involvement and chronic total occlusion of the RCA for in-stent restenosis by evaluation on this admission. The patient has moderate mitral regurgitation and bacterial endocarditis, affecting the mitral and aortic valves with an ischemic cardiomyopathy with EF in the 40-45% range. The patient had been intubated and however, has been successfully extubated. He has an intraaortic balloon pump that is at 1-2. The patient has multiple other medical problems including the lumbosacral spine disease and had a recent lumbosacral spine surgery. He is a debilitated, cachectic 74-year-old gentleman. The patient has been made DNR and DNI as per his request and the family's request. The patient has had no changes in his assessment over the last 24 hours. He continues to have marginal pressures in the 95-105 systolic range. His heart rate is in the 100-110 per minute range. He has had low-grade temperature of 99.3. He has been saturating at 98-100% on 40% of inspired oxygen. The patient is a fairly debilitated and cachectic man. Laboratory studies this morning reveal a white count of 14.1, up from 11.7 yesterday. His H and H is 10.9 and 33.0. The platelet count is 295,000. The patient's chemistries reveal a sodium of 139, potassium of 3.7, a chloride of 101, CO2 is 31, BUN is 35, creatinine is 1.2, and GFR of 63. The patient's liver enzymes are mildly elevated; however, better than yesterday. Albumin is low at 2.8, consistent with protein malnutrition. This gentleman is maintained on diazepam for p.r.n. use, Mucomyst, Dulcolax, furosemide, magnesium, scopolamine, linezolid, albuterol, thiamine, folic acid, melatonin, levofloxacin, baby aspirin, pantoprazole, and p.r.n. medications. At this point, the patient is pending removal of intraaortic balloon pump. The patient and the family have requested comfort measures. We will recommend continued comfort care. TID: [id number] RECEIPT: [id number]
--- NOTE | 2024-09-05 09:20 | NUR ---
SPOKE WITH ISABELA MEDRANO, IABP REMOVED, WILL F/U FOR CT @ 1600 PT ON BED REST ATT
--- NOTE | 2024-09-05 10:16 | HMCIMG ---
PORTABLE CHEST RADIOGRAPH INDICATION: IABP COMPARISON: 09/03/2024 FINDINGS: telemetry monitor leads overlie the field of view. Stable intra-aortic balloon pump. Stable left PICC. Heart size is normal. The pulmonary vascularity and kaye appear normal. No abnormal pulmonary parenchymal opacity or consolidation identified. Left hemidiaphragm remains slightly elevated. No significant pleural effusion noted. No pneumothorax detected. IMPRESSION: No radiographic evidence for any acute cardiopulmonary process.
--- NOTE | 2024-09-05 10:33 | PN ---
[facility] PROGRESS NOTE Date Patient Seen: Sep 05, 2024 Time of Visit: 10:33 Supervising Physician: Dr. Phillips Consulting Physician: Dr French Outpatient Specialists: [ ] Inpatient Consults: Cardiology PROBLEM LIST: ICU Delirum VS benzodiazepine withdrawal, resolving Suspected CVA- pending CT head Acute hypoxic respiratory failure, multifactorial in the setting of congestive heart failure, and B\L pneumonia POA requiring intubation Cardiogenic shock SCAI Classification C, requiring IABP for MCS and vasopressors Bacterial endocarditis affecting both the mitral and aortic valves- 1st BC neg, pending repeat BC VS (1.5cm) echodense mass attached to the A2 segment of the anterior leaflet Acute systolic CHF in exacerbation, in the setting of NSTEMI POA Severe 3V + LM CAD (LAD, LCX, RCA, and LM) B/L community-acquired pneumonia, POA NSTEMI, likely type 2 POA Hyponatremia, likely dilutional, POA Electrolyte abnormality, POA Feeding difficulty in adult, POA Alteration in mental status, POA Hypertension, POA Hyperlipidemia, POA INTERVAL HISTORY: Pt evaluated in room 206 he is off pressors, tentative plan for removal of IABP today. Pt continues confused but calm. We will need to rule out CVA but currently with IABP, this would have to be removed prior to CT head and brain. Pt also with multiple failed attempts for NG tube and dobhoff placement at the bedside. He will require IR for Bayron placement. This also can not be made possible until after IABP removal. For now follow cardiology and CV surgery recommendations. I spoke to Son over the phone and updated with current findings and plan, I answered all his questions. He reports he was here to see his father but because pt gets very agitated when he is in the room he decided to leave so the pt could rest. He was made aware of poor prognosis and he reports he has discussed with senior application programmer and he has opted for medical management and no surgical intervention. I have discussed that in the event that his father declines post IABP removal we recommend palliative/hospice given carmen he is DNR. Pt's son in agreement but for now we will continue all supportive measures and medical management. The discussion of goals of care should be revisited once IABP is removed. WBC slightly elevated today 11.7, H&H similar to yesterday .8 platelet count is 340 K. chemistries sodium is 137 potassium 3.3 covered protocol carbon dioxide of 32 BUN of 33 creatinine of 1.2 and GFR of 63 mg/dL improvement from yesterday magnesium of two point AST of seven ALT of 80 albumin of 2.7. Chest XR in am. 09/06/2023: At the time of my evaluation, the patient was lying in bed. The staff nurse reports no acute events overnight. The patient remains on nasal cannula for oxygen supplementation at 5 liters/minute. He is hemodynamically stable though marginally low blood pressure. On chemistry panel, the sodium is 139, potassium of 3.7, chloride 101, CO2 of 31, BUN 35, creatinine of 1.2 and a blood glucose of 96. Cumulative balance on I's and O's is -646. Hematologic panel showed a increase WBC of 14.1, H&H 10.9/33.0 and a platelet count of 295. The patient is afebrile. He continues on antibiotic coverage with Zyvox, Zosyn and Levaquin. Patient's code status is DNR. No other complaint. REVIEW OF SYSTEMS: Unable to obtain due to patient confusion. PHYSICAL EXAM: GENERAL: Pt with poor prognosis, frail and debilitated, confused, he is current ly on nasal cannula saturating 97% with 2 L. HEENT: EOMI sclera nonicteric, puppils 3mm reactive NECK: no JVD, trachea midline LUNGS: Ronchi bilateral lung sounds, Nonproductive cough with congestion to upper airway. HEART: Regular rate and rhythm. Normal S1 and S2, without murmurs ABD: Abdomen soft, nontender. Bowel sounds present EXT: No clubbing cyanosis , no edema. sherman posterio tibialis Pulse auscultated with doppler. NEURO: Confused, awake follows simple commands Vital Signs (last 8hr) Date Time Temp Pulse Resp B/P (MAP) Pulse Ox O2 Delivery O2 Flow Rate FiO2 09/05/24 08:30 90 20 N/Cannula Low lpm 3.0 32 09/05/24 08:00 99 Nasal Cannula* 5 40 09/05/24 08:00 99.0 97 22 96/58 97 Nasal Cannula 5.0 09/05/24 07:04 90 22 09/05/24 07:00 93 20 105/72 97 Nasal Cannula 5.0 09/05/24 06:00 109 11 105/67 100 Nasal Cannula 5.0 40 09/05/24 05:00 101 20 98/43 98 Nasal Cannula 5.0 40 09/05/24 04:12 99 Nasal Cannula* 5 40 09/05/24 04:00 99.3 99 21 108/44 100 Nasal Cannula 5.0 40 09/05/24 03:00 99 22 94/51 100 Nasal Cannula 5.0 40 LABS: Hematology Labs: Test 09/05/24 02:15 Range/Units White Blood Count 14.1 H 4.8-10.8 K/uL Red Blood Count 3.35 L 4.50-6.20 MIL/uL Hemoglobin 10.9 L 14.0-18.0 g/dL Hematocrit 33.0 L 42-54 % Mean Corpuscular Volume 98.5 79-99 fL Mean Corpuscular Hemoglobin 32.5 27.0-33.0 pg Mean Corpuscular Hemoglobin Concent 33.0 32.0-36.0 g/dL Red Cell Distribution Width 13.8 11.0-15.5 % Platelet Count 295 130-400 K/uL Mean Platelet Volume 9.5 7.5-10.5 fL Immature Granulocyte % (Auto) 0.6 0-1 % Neutrophils (%) (Auto) 80.2 H 40.0-77.0 % Lymphocytes (%) (Auto) 10.4 L 21.0-51.0 % Monocytes (%) (Auto) 8.6 3.0-13.0 % Eosinophils (%) (Auto) 0.0 0.0-8.0 % Basophils (%) (Auto) 0.2 0.0-5.0 % Neutrophils # (Auto) 11.3 H 1.8-7.7 K/uL Lymphocytes # (Auto) 1.5 1.0-4.8 K/uL Monocytes # (Auto) 1.2 H 0.1-1.0 K/uL Eosinophils # (Auto) 0.00 0.00-0.70 K/uL Basophils # (Auto) 0.03 0.00-0.20 K/uL Absolute Immature Granulocyte (auto 0.09 0-1 K/uL Nucleated Red Blood Cells 0.0 0.0-0.19 % Chemistry Labs: Test 09/05/24 02:15 3/3/25 22:25 09/04/24 22:24 Range/Units Sodium Level 139 136-145 mmol/L Potassium Level 3.7 3.5-5.1 mmol/L Chloride Level 101 101-111 mmol/L Carbon Dioxide Level 31 21-32 mmol/L Blood Urea Nitrogen 35 H 7-18 mg/dL Creatinine 1.2 0.5-1.3 mg/dL Glomerular Filtration Rate Calc 63 >90 mL/min Random Glucose 96 70-105 mg/dL Total Calcium 9.0 8.5-10.1 mg/dL Total Bilirubin 0.8 0.2-1.0 mg/dL Aspartate Amino Transf (AST/SGOT) 45 H 10-37 U/L Alanine Aminotransferase (ALT/SGPT) 72 12-78 U/L Alkaline Phosphatase 103 50-136 U/L Total Protein 6.9 6.0-8.3 g/dL Albumin 2.8 L 3.5-5.0 g/dL Magnesium Level 2.10 1.80-2.40 mg/dL Whole Blood Glucose 110 70-110 MG/DL Coagulation Labs: Test 09/04/24 04:09 Range/Units Activated Partial Thromboplast Time 22.0 L 26.3-35.5 SEC DIAGNOSTICS / RADIOLOGY RESULTS: [ ] PLAN 09/06/2023: For now, we are going to continue current management for the patient. We will continue oxygen supplementation via nasal cannula and adjust as necessary. We will monitor the vital signs. We will repeat surveillance labs in the morning. The patient will continue on antibiotic course per the Infectious Disease specialist. Considering the patient is a DNR and does not want any further heroic measures, we will continue medical management only for now. We will consult Dr. Mosher palliative Care Medicine to discuss end of life wishes. We will now sign off the case. Appreciate the opportunity provided to participate in patient's care and we will remain available for any f urther needs. NEURO: Minimize central acting medications as possible. Maintain fall precautions, adequate lighting during the day PULMONARY: Supplemental 02 as needed. Maintain aspiration precautions at all times CARDIOVASCULAR: Follow hemodynamics. Vital signs per facility protocol GI & NUTRITION: Continue with nutritional support. Continue stool softeners and laxatives as needed. KIDNEYS & ELECTROLYTES: Strict monitoring of intake, output and overall fluid balance. Avoid nephrotoxic medications to the extent possible. Medications to be dosed according to renal function. Monitor electrolytes and replace as needed ENDOCRINE: Maintain blood glucose between 100-180 at all times. Hypoglycemia protocol in place INFECTIOUS DISEASE: Trend temperature, WBC and procalcitonin level Follow cultures, deescalate antibiotics as soon as possible. Panculture if new onset fever ONCOLOGY/HEMATOLOGY/COAGULATION: Monitor for s/s of bleeding Monitor hemoglobin, coagulation studies as needed SKIN: Pressure ulcer prevention per facility protocol Specialty mattress ORTHO/REHAB: Continue PT/OT Prophylaxis: Continue GI and DVT prophylaxis Code Status: Full Resuscitation Disposition: TBD Other: Total patient care time exceeds 35 minutes excluding all procedures. CAITLYN PRYOR NP Sep 05, 2024 10:33
[2024-09-05 14:05] LABS: MAGNESIUM 2.1 mg/dL (1.80-2.40); POTASSIUM 3.8 mmol/L (3.5-5.1)
--- NOTE | 2024-09-05 15:10 | NUR ---
Nutritional f/u Note: Chart, meds, and labs Reviewed. Pt extubated since last visit. Pt remains medically managed with ongoing supportive care. Currently unable to tolerate oral or enteral nutrition due to multiple failed beside attempts at NG and dobhoff tube placement. Pt is at risk for malnutrition given current medical condition and in inability for pt to receive sufficient nutrition to meet needs. Recommend: -Consider TPN if prolonged inability to initiate TF -Advance TF to goal rate Vital AF @60ml/hr Start TF @20ml x 8hrs and then increase by 5ml q 4 hr to goal rate. -Continue 150ml [id number] q 4hrs adjust if fluid balance changes. -Check Gastric residuals 6hours, hold for residuals >500ml/hr. -Monitor -RD to provide further recommendations based on clinical progress. -Monitor feeding tolerance, %, wt, and labs -If No BM >3days consider bowel stimulant. - Please notify RD if additional nutrition concerns arise. Addendum: 09/05/24 at [address] Amended: Links added.
[2024-09-05] MEDS: levoFLOXacin 500 MG/D5W 100 ML IV SCH (15:40)
[2024-09-05] MEDS: LINEZOLID 600 MG/ISO-OSM 300 ML IV SCH (15:42)
[2024-09-05] MEDS: morPHINE 2 MG SYG IVP ONE (16:08)
--- NOTE | 2024-09-05 16:22 | PN ---
[facility] PROGRESS NOTE Date of Service: Sep 05, 2024 Time of Service: 16:18 SUBJECTIVE: 08/26 patient seen at bedside, no acute events overnight. He remains intubated and sedated, continues on pressor support. FiO2 is 60%, we will wean towards extubation. Troponins are elevated, patient is started on ACS protocol with aspirin, Plavix, statin and heparin drip. Cardiology recommendations still pending, we will follow up. WBC increased from 10.8 up to 14.3, hemoglobin decreased from 13.2 down to 11.6, sodium stable at 126, similar to yesterday, troponins peaked and are now downtrending to [id number], remainder of his labs are relatively unremarkable. 08/27 patient seen at bedside, no acute events overnight. He remains intubated and sedated, continue weaning down pressors. His FiO2 has been weaned down to 50%, we will continue to wean as able, peep has been decreased from 8-6. Echocardiogram has been done, formal read is still pending, preliminary read shows a possible vegetation of the mitral valve, ejection fraction of 50-55%, mild to moderate aortic regurgitation, moderate mitral regurgitation, we will have him reassessed once he has been extubated as he may need a KARTHIK, however given his blood cultures are no growth this mobile mass on the mitral valve may not be secondary to endocarditis. Creatinine has increased from 1.3 up to 1.8, hemoglobin stable at 11.3, similar to yesterday, WBC increased from 14.3 up to 18.9, platelets improved from 528 down to 520, sodium stable at 127, similar to yesterday, remainder of his labs are relatively unremarkable. Cultures are no growth to date. 08/28 patient is seen and examined at bedside, remains intubated, on mechanical ventilation, on propofol, Levophed and heparin drip. Discussed with the RN, back from having left heart catheterization with finding of three-vessel disease for which Cardiothoracic surgery consultation requested. TTE with a EF 50-55% with possible vegetation of the mitral valve. Patient is scheduled for KARTHIK today. WBC 17.9. Blood cultures no growth after 48 hours. 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 Continue goal-directed medical therapy, infectious disease consultation requested. Blood cultures has remained negative. CT surgery consultation requested for CABG plus aortic and mitral valve replacement. 08/30 patient is seen and examined at bedside, remains intubated, mechanical ventilation, per discussion with the RN, the patient failed SBT trial, had to be placed back on sedation. Patient getting IV antibiotics at the time of my visit. BP 98/56, FiO2 30%, saturating 98%. CBC with a hemoglobin 10.8, hematocrit 31.4. Chest x-ray shows bilateral pulmonary infiltrates suggestive of pulmonary vascular congestion with possible superimposed pneumonitis. Continue to follow Pulmonary input and recommendation in terms of weaning off the ventilator, continue broad-spectrum IV antibiotics per ID recommendations. Cardiology input noted and appreciated. Patient evaluated by CT surgeon for possible CABG as well as valve replacement. 08/31 patient is seen and examined at bedside, remains intubated, mechanical ventilation, per discussion with the RN, BP 87/40, rate of 59, saturating 100%, FiO2 30%. Patient remains on broad-spectrum IV antibiotics, the patient remains on Levophed for pressure support. Remains sedated with propofol and Precedex. Hemoglobin 11.7, hematocrit 33.8. ABG pH 7.5, pCO2 30, bicarb 24.4.Chest x-ray shows bilateral pulmonary infiltrates suggestive of pulmonary vascular congestion with possible superimposed pneumonitis. Urine output 4 L. Weaning trial in progress by pulmonary physician, attempt yesterday, patient tolerated only 4 hours of CPAP trial. Cardiology input noted and appreciated, intra- aortic balloon pump in place. Patient with a aortic and mitral valve endocarditis, evaluated by CT surgeon who requested the patient be off ventilator in order to discuss procedure with the patient and family. Continue to follow critical care input and recommendation. 09/01 patient is seen and examined at bedside, successfully extubated 08/31/2024, remains on aerosol mask, FiO2 40%, patient confused, withdrawing to painful stimulation. He remains with balloon pump in place, low-dose Precedex, heparin drip on low-dose Levophed. BP 143/48, heart rate of 41, afebrile. CBC with a hemoglobin 10.9, hematocrit 31.1, WBC 8.8, platelet count of 373. ABG and chest x-ray pending. Patient on IV antibiotics. Cardiology input noted appreciated, balloon pump to turn in the next 1-2 days. Patient evaluated by CT surgery, patient to be a surgical at this time. Continue to follow critical Care and ID input and recommendations. Discharge plan discussed yesterday case management, once patient medically stable may benefit from discharge to LTAC. 09/02 patient is seen and examined at bedside, successfully extubated 08/31/2024, Patient evaluated by CT surgery, felt not to be a surgical candidate at this time. Continue to follow critical Care and ID input and recommendations. Discharge plan discussed with case management, once patient medically stable may benefit from discharge to LTAC. 09/03 patient is seen and examined at bedside, resting comfortable in bed, following commands per discussion with the RN, off vasopressors, remains on heparin drip. Patient successfully extubated 08/31/2024 secondary to acute hypoxemic respiratory failure, multifocal CHF, bilateral pneumoniae and cardiogenic shock. Patient is status post left heart catheterization with severe three-vessel disease, also status post transesophageal echo with finding of bacterial endocarditis involving mitral and aortic valve for which Cardiothoracic surgery consultation requested, however patient not a surgical candidate at this time. Patient remains on broad-spectrum IV antibiotics, plan is for tomorrow for removal of intra-aortic balloon pump. Once medically stable, patient may benefit from discharge plan to LTAC. 09/04 patient seen at bedside, no acute events overnight. He is still has an intra-aortic balloon pump, to be managed by Cardiology. He has been weaned off pressors, hemodynamically stable, saturating well on 5 L nasal cannula. Potassium improved from 3.0 up to 3.3, WBC increased from 10.6 up to 11.7, hemoglobin decreased from 11.5 down to 11.0, remainder of his labs are relatively unremarkable. 09/05 patient seen at bedside, no acute events overnight. Intra-aortic balloon pump was removed this morning, patient off pressors, saturating well on non- rebreather. Patient's family deciding whether or not to transitioned to palliative care as the patient does not want any invasive procedures at this point. WBC increased from 11.7 up to 14.1, antibiotics have been adjusted, his cultures are no growth to date, hemoglobin decreased from 11.0 down to 10.9, remainder of his labs are relatively unremarkable. REVIEW OF SYSTEMS 12 point review of systems negative unless noted in HPI PHYSICAL EXAM GENERAL APPEARANCE: The patient is intubated, on mechanical ventilation, on propofol, Levophed and heparin. NEUROLOGICAL: Cranial nerves II-XII grossly intact. Motor is 5/5 in bilateral upper and lower extremities proximal to distal. No sensory deficits. HEENT: Face is symmetric. Pupils are equal and reactive. Extraocular movements are intact. NECK: Supple. No JVD. No thyromegaly. No submental, submandibular, pre- /postauricular, occipital or supraclavicular lymphadenopathy. CHEST: Normal chest expansion. No Telemetry. LUNGS: Absence of any rales, rhonchi or any wheezing. CARDIOVASCULAR: Regular. S1 and S2 normal. No appreciable rubs, murmurs or gallops. ABDOMEN: Soft, nontender, and nondistended. There is no rebound, voluntary guarding, or rigidity. : Deferred. No Leal. EXTREMITIES: Non-edematous and not cyanotic. No clubbing. Good capillary refill. SKIN: No skin breakdown. Vital Signs (last 8hr) Date Time Temp Pulse Resp B/P (MAP) Pulse Ox O2 Delivery O2 Flow Rate FiO2 09/05/24 12:00 99.1 105 28 113/70 99 Nasal Cannula 5.0 09/05/24 11:22 99 22 09/05/24 11:00 101 21 127/70 100 Nasal Cannula 5.0 09/05/24 10:00 99 27 120/54 100 Nasal Cannula 5.0 09/05/24 09:00 105 14 121/79 100 Nasal Cannula 5.0 09/05/24 08:30 90 20 N/Cannula Low lpm 3.0 32 LABS: Laboratory: Test 09/05/24 13:35 09/05/24 02:15 09/04/24 22:24 09/04/24 04:09 Range/Units Potassium Level 3.8 3.5-5.1 mmol/L Magnesium Level 2.10 1.80-2.40 mg/dL White Blood Count 14.1 H 4.8-10.8 K/uL Red Blood Count 3.35 L 4.50-6.20 MIL/uL Hemoglobin 10.9 L 14.0-18.0 g/dL Hematocrit 33.0 L 42-54 % Mean Corpuscular Volume 98.5 79-99 fL Mean Corpuscular Hemoglobin 32.5 27.0-33.0 pg Mean Corpuscular Hemoglobin Concent 33.0 32.0-36.0 g/dL Red Cell Distribution Width 13.8 11.0-15.5 % Platelet Count 295 130-400 K/uL Mean Platelet Volume 9.5 7.5-10.5 fL Immature Granulocyte % (Auto) 0.6 0-1 % Neutrophils (%) (Auto) 80.2 H 40.0-77.0 % Lymphocytes (%) (Auto) 10.4 L 21.0-51.0 % Monocytes (%) (Auto) 8.6 3.0-13.0 % Eosinophils (%) (Auto) 0.0 0.0-8.0 % Basophils (%) (Auto) 0.2 0.0-5.0 % Neutrophils # (Auto) 11.3 H 1.8-7.7 K/uL Lymphocytes # (Auto) 1.5 1.0-4.8 K/uL Monocytes # (Auto) 1.2 H 0.1-1.0 K/uL Eosinophils # (Auto) 0.00 0.00-0.70 K/uL Basophils # (Auto) 0.03 0.00-0.20 K/uL Absolute Immature Granulocyte (auto 0.09 0-1 K/uL Nucleated Red Blood Cells 0.0 0.0-0.19 % Sodium Level 139 136-145 mmol/L Chloride Level 101 101-111 mmol/L Carbon Dioxide Level 31 21-32 mmol/L Blood Urea Nitrogen 35 H 7-18 mg/dL Creatinine 1.2 0.5-1.3 mg/dL Glomerular Filtration Rate Calc 63 >90 mL/min Random Glucose 96 70-105 mg/dL Total Calcium 9.0 8.5-10.1 mg/dL Total Bilirubin 0.8 0.2-1.0 mg/dL Aspartate Amino Transf (AST/SGOT) 45 H 10-37 U/L Alanine Aminotransferase (ALT/SGPT) 72 12-78 U/L Alkaline Phosphatase 103 50-136 U/L Total Protein 6.9 6.0-8.3 g/dL Albumin 2.8 L 3.5-5.0 g/dL Whole Blood Glucose 110 70-110 MG/DL Activated Partial Thromboplast Time 22.0 L 26.3-35.5 SEC Current Medications Medications (Trade) Dose Ordered Sig/Lydia Route PRN Reason Start Time Stop Time Status Last Admin Dose Admin Acetaminophen (TYLenol 650MG SUPPOSITORY) 650 mg Q6H PRN RC MILD PAIN (1-3) 08/25/24 19:30 09/24/24 19:29 Acetylcysteine (MUComyst 10% 4ML) 400mg = 4ml [id number] IH 09/04/24 10:00 10/04/24 09:59 09/05/24 11:22 400 MG Albumin Human 100 ml @ 0 mls/hr AD IV 08/30/24 10:30 09/04/24 10:29 DC 08/30/24 12:01 100 MLS/HR Albuterol (DUOneb) 1 UDVIAL [id number] IH 08/26/24 00:00 08/31/24 20:38 DC 08/31/24 18:36 1 UDVIAL Albuterol (DUOneb) 1 UDVIAL [id number] PRN IH sob and wheezing 08/31/24 21:00 09/25/24 00:00 09/05/24 11:22 1 UDVIAL Albuterol (DUOneb) 2 udvial ONCE IH 08/25/24 18:00 08/25/24 22:00 DC 08/25/24 19:17 2 UDVIAL Alprazolam (XANax 0.5MG) 0.5 mg TID PO 08/30/24 21:00 08/31/24 09:57 DC 08/31/24 07:57 0.5 MG Aspirin (Aspirin 300mg Supp) 300 mg ONCE WV 08/25/24 19:30 08/25/24 23:59 DC 08/25/24 19:41 300 MG Aspirin (Aspirin 81mg Ec Tab) 81 mg DAILY PO 08/26/24 09:00 09/25/24 08:59 08/31/24 07:57 81 MG Atorvastatin Calcium (LIPItor 40MG) 40 mg HS PO 08/26/24 07:30 08/26/24 07:44 DC Azithromycin 250 ml @ 250 mls/hr Q24H IVPB 08/25/24 18:51 08/25/24 23:30 DC Azithromycin 250 ml @ 250 mls/hr Q24H IVPB 08/25/24 19:30 08/25/24 19:38 DC Bisacodyl (DulcoLAX) 10 mg DAILY RC 09/04/24 09:00 09/07/24 08:59 Ceftriaxone Sodium (ROCEphine 1G INJ) 1 gm ONCE IVPB 08/25/24 19:00 08/25/24 21:03 DC 08/25/24 19:41 1 GM Ceftriaxone Sodium (ROCEphine 1G INJ) 1 gm Q24H IVPB 08/25/24 19:30 08/26/24 12:29 DC Clopidogrel Bisulfate (plaVIX 300MG TAB) 300 mg ONCE PO 08/25/24 21:00 08/26/24 06:00 DC 08/25/24 23:16 300 MG Clopidogrel Bisulfate (plaVIX 75MG) 75 mg DAILY PO 08/26/24 09:00 08/29/24 10:52 DC 08/29/24 08:41 75 MG Dexmedetomidine/ Sodium Chloride (PRECEdex 400MCG/ 100ML-NS) 400 mcg PROTOCOL IV 08/29/24 09:00 09/28/24 08:59 09/02/24 17:43 400 MCG Diazepam (VALium 2 mg Tab) 2 mg Q6H PRN PO ANXIETY 08/31/24 10:00 08/31/24 13:39 DC 08/31/24 10:06 2 MG Diazepam (VALium 5 MG/ML 2 ML SYG) 2.5 mg ONCE PRN IV ANXIETY 08/31/24 16:00 08/31/24 16:00 DC 08/31/24 15:50 2.5 MG Diazepam (VALium 5 MG/ML 2 ML SYG) 2.5 mg Q4H IVP 09/02/24 22:00 09/03/24 18:34 DC 09/03/24 11:05 2.5 MG Diazepam (VALium 5 MG/ML 2 ML SYG) 2.5 mg Q6H IVP 09/04/24 00:00 09/04/24 23:13 DC 09/04/24 20:52 2.5 MG Diazepam (VALium 5 MG/ML 2 ML SYG) 2.5 mg Q6H PRN IVP agitation 09/05/24 03:00 09/12/24 02:59 09/05/24 12:49 2.5 MG Diazepam (VALium 5 MG/ML 2 ML SYG) 2.5 mg Q6H6 IVP 08/31/24 18:00 09/02/24 19:53 DC 09/02/24 18:00 2.5 MG Diazepam (VALium 5 mg TAB) 5 mg BID PO 08/31/24 21:00 08/31/24 16:39 DC Fentanyl Citrate 100 ml @ 2.5 mls/hr PROTOCOL IV 08/25/24 20:00 08/27/24 17:54 DC 08/27/24 14:22 2.5 MLS/HR Folic Acid (FolVITE 5 MG/ML VIAL) 1 mg DAILY IV 08/31/24 09:00 09/30/24 08:59 09/05/24 08:14 1 MG Furosemide (LASix 20MG VIAL) 20 mg BID IV 09/03/24 09:00 09/03/24 10:51 DC Furosemide (LASix 20MG VIAL) 20 mg Q12H IV 08/26/24 09:00 08/27/24 12:24 DC 08/27/24 08:56 20 MG Furosemide (LASix 20MG VIAL) 20 mg Q12H IV 08/31/24 08:30 09/02/24 12:08 DC 09/02/24 08:59 20 MG Furosemide (LASix 20MG VIAL) 20 mg Q12H IV 09/03/24 15:00 09/03/24 15:55 DC Furosemide (LASix 20MG VIAL) 20 mg Q12H IV 09/03/24 21:00 10/03/24 20:59 09/05/24 08:15 20 MG Furosemide (LASix 20MG VIAL) 20 mg Q24H IV 09/03/24 08:30 09/03/24 08:57 DC 09/03/24 08:52 20 MG Furosemide (LASix 20MG VIAL) 20 mg Q6H IV 09/03/24 15:00 09/03/24 11:19 DC Furosemide 100 mg/ Sodium Chloride 100 ml @ 0 mls/hr PROTOCOL IV 08/30/24 13:30 08/31/24 08:26 DC 08/30/24 23:32 10 MLS/HR Heparin Sodium (Porcine) (HEParin 5,000 UNIT VIAL) *calculation based on ACTUAL B... AD PRN IV HEPARIN PROTOCOL 08/25/24 20:00 09/05/24 11:11 DC 08/28/24 06:30 6,000 UNIT Heparin Sodium/ Dextrose 250 ml @ 0 mls/hr Q6H IV 08/25/24 20:00 09/05/24 11:11 DC 09/03/24 05:20 9 MLS/HR Insulin Human Regular (humuLIN R 100 UNIT/ML 3ML) INSULIN SLIDING SCAL... Q6H6 SQ 08/26/24 00:00 09/25/24 00:00 08/26/24 05:58 2 UNIT Ketamine HCl (ketaMINE 50MG/ ML SYRINGE) 50 mg ONCE IM 08/25/24 19:00 08/25/24 22:00 DC Ketamine HCl (ketaMINE 50MG/ ML SYRINGE) 50 mg ONCE IM 08/25/24 19:00 08/25/24 23:59 DC Lactulose (Constulose 20gm/ 30ml Udcup) 20 gm BID PO 08/28/24 21:00 09/27/24 20:59 08/30/24 20:34 20 GM Levofloxacin/ Dextrose 100 ml @ 100 mls/hr Q24H IV 08/28/24 14:30 08/28/24 15:24 DC Levofloxacin/ Dextrose 100 ml @ 100 mls/hr Q48H IV 08/28/24 15:30 09/05/24 08:00 DC 09/03/24 17:35 100 MLS/HR Levofloxacin/ Dextrose (LEvaquIN 500 MG/ D5W 100 ML) 500 mg Q48H IV 09/05/24 16:00 09/19/24 15:59 09/05/24 15:40 500 MG Linezolid 300 ml @ 300 mls/hr Q12H IV 09/01/24 02:30 09/05/24 08:00 DC 09/05/24 03:30 300 MLS/HR Linezolid 300 ml @ 300 mls/hr Q12H IV 09/05/24 16:00 09/19/24 15:59 09/05/24 15:42 300 MLS/HR Linezolid (Zyvox) 600 mg Q12H PO 08/28/24 14:30 09/01/24 01:53 DC 08/31/24 14:11 600 MG Magnesium Sulfate 50 ml @ 0 mls/hr PROTOCOL PRN IV MAGNESIUM PROTOCOL 09/03/24 23:30 10/03/24 23:29 3/3/25 00:08 25 MLS/HR Melatonin (Melatonin) 10 mg HS PO 08/30/24 21:00 09/29/24 20:59 Methylprednisolone Sodium Succinate (Solu-medROL 40MG) 40 mg Q8H IVP 08/25/24 23:00 08/27/24 12:19 DC 08/27/24 06:23 40 MG Methylprednisolone Sodium Succinate (Solu-medROL 125MG) 125 mg ONCE IVP 08/25/24 18:00 08/25/24 22:00 DC 08/25/24 18:52 125 MG Midazolam HCl 50 ml @ 0 mls/hr PROTOCOL IV 08/25/24 19:00 08/27/24 17:54 DC 08/27/24 11:18 9 MLS/HR Midazolam HCl 50 mg/Sodium Chloride 50 ml @ 0 mls/hr PROTOCOL IV 08/25/24 19:00 09/24/24 18:59 UNV Morphine Sulfate (morPHINE 2MG SYG) 2 mg Q4H PRN IVP SEVERE PAIN (7-10) 08/26/24 07:30 08/30/24 18:56 DC Morphine Sulfate (morPHINE 4MG SYG) 2 mg Q4H PRN IVP SEVERE PAIN (7-10) 08/25/24 19:30 08/26/24 07:11 DC Norepinephrine 250 ml @ 0 mls/hr AD PRN IV DIRECTED 08/27/24 06:00 09/26/24 05:59 09/02/24 16:27 11.85 MLS/HR Norepinephrine 250 ml @ 0 mls/hr PROTOCOL IV 08/25/24 19:30 08/26/24 05:10 DC 08/26/24 00:14 121.5 MLS/HR Norepinephrine Bitartrate 32 mg/ Sodium Chloride 250 ml @ 0 mls/hr Q0M PRN IV hypotension 08/26/24 05:30 08/28/24 08:54 DC 08/26/24 06:04 19.87 MLS/HR Ondansetron HCl (zoFRAN 4MG INJ) 4 mg Q6H PRN IV NAUSEA/VOMITING 08/25/24 19:30 09/24/24 19:29 Oxymetazoline HCl (AFrin) 2 SPRAYS BID PRN EN NASAL CONGESTION 09/03/24 01:30 4/1/25 01:29 Pantoprazole Sodium (PROTonix 40MG INJ) 40 mg DAILY IV 08/26/24 09:00 09/25/24 08:59 09/05/24 08:15 40 MG Pharmacy Profile Note (Pharmacy Communication) 1 each ONCE MISC 09/01/24 02:00 09/01/24 01:54 DC Pharmacy Profile Note (Pharmacy Communication) 1 each ONCE MISC 09/03/24 16:00 09/04/24 07:12 DC Piperacillin Sod/ Tazobactam Sod (Zosyn 3.375gm+NS 50ml) 3.375 gm Q8H IV 08/25/24 20:00 09/04/24 19:59 UNV Piperacillin Sod/ Tazobactam Sod (Zosyn 3.375gm+NS 50ml) 3.375 gm Q8H IVPB 09/05/24 18:00 09/19/24 17:59 Piperacillin Sod/ Tazobactam Sod (Zosyn 3.375gm+NS 50ml) 3.375 gm ZOSY8 IV 08/25/24 21:00 09/04/24 20:59 DC 09/04/24 12:25 3.375 GM Polyethylene Glycol (MIRalax 3350 17 GM POWD.PACK) 17 gm DAILY PO 08/29/24 09:00 09/28/24 08:59 08/29/24 08:41 17 GM Polyethylene Glycol (MIRalax 3350 17 GM POWD.PACK) 17 gm ONCE PO 08/28/24 18:00 08/28/24 21:00 DC 08/28/24 18:00 17 GM Potassium Chloride 100 ml @ 100 mls/hr AD PRN IV POTASSIUM PROTOCOL 08/29/24 13:00 09/28/24 12:59 09/05/24 03:32 100 MLS/HR Potassium Chloride (K-Dur/Klor-Con 20meq) 20 meq AD PRN PO POTASSIUM PROTOCOL 08/29/24 13:00 09/28/24 12:59 Potassium Chloride (KCl 10% Elixir 20meq/15ml) 20 meq AD PRN PO POTASSIUM PROTOCOL 08/29/24 13:00 09/28/24 12:59 08/31/24 02:36 20 MEQ Propofol (DIPRivan 1000MG/ 100ML) 1,000 mg PROTOCOL PRN IV SEDATION 08/27/24 16:30 08/31/24 20:38 DC 08/31/24 00:26 1,000 MG Scopolamine HBr (Transderm-Scop) 1 patch Q72H TD 09/03/24 01:30 10/03/24 01:29 09/03/24 01:46 1 PATCH Thiamine HCl (Vitamin B-1) 200 mg DAILY IM 08/31/24 09:00 08/30/24 13:17 DC Thiamine HCl (Vitamin B-1) 300 mg DAILY IV 08/31/24 09:00 09/30/24 08:59 09/05/24 08:15 300 MG DIAGNOSTICS / RADIOLOGY: [ ] ASSESSMENT: Acute hypoxemic respiratory failure, POA, requiring intubation and mechanical ventilation Hypotension, POA, currently suspected to be cardiogenic shock Acute coronary syndrome, status post left heart catheterization 08/28, finding of triple-vessel disease POA Culture negative, 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 Continue broad-spectrum IV antibiotics, continue to follow ID input recommendation Follow Cardiology and Cardiothoracic input and recommendation Follow critical care input and recommendation Continue heparin drip Replace electrolytes IV per protocol A.m. labs Transfuse as needed GI and DVT prophylaxis Disposition: Pending palliative care consult, possible transition to palliative care versus LTAC No family members at bedside to discuss goals of care Greater than 35 minutes ICU time spent in care of this patient RANDY POZO MD Sep 05, 2024 16:22
[2024-09-05] MEDS: ZOSYN 3.375GM +NS 50ML IVPB SCH (17:06)
--- NOTE | 2024-09-05 17:21 | NUR ---
PT eval held. Pt had IABP removed and was also pending CT. PT to follow
--- NOTE | 2024-09-05 22:26 | PN ---
INFECTIOUS DISEASE PROGRESS NOTE Date of Service: Sep 05, 2024 SUBJECTIVE: Patient was seen and examined in the ICU room 206. Patient is awake, alert and oriented to person. The WBC is still slightly elevated at 14.1 but no fever, temperature is 99.0. Per report the balloon pump was removed until this morning. Patient with multivessel coronary disease and endocarditis and per report patient's son refusing surgical intervention at this time. Gas Regulator Repairer Helper has been consulted to discuss hospice services. Will continue on linezolid, Zosyn and levofloxacin until family makes decision. We will continue to follow patient's care. PHYSICAL EXAM EYES: Anicteric. Pupils equal and reactive. HENT: No oral thrush seen, moist Oral mucosa. NECK: Supple, no JVD or thyromegaly. LUNGS: Good air entry. Crackles. Oxygen support. CARDIOVASCULAR: S1, S2 regular. No murmur heard. ABDOMEN: Soft, non tender, bowel sounds present, no organomegaly CENTRAL NERVOUS SYSTEM: Awake, alert and oriented to person. SKIN: No rashes, no swelling. LYMPHATICS: No peripheral lymphadenopathy. MUSCULOSKELETAL: No joint swelling, erythema or tenderness. EXTREMITIES: No cyanosis or clubbing. BACK: No deformity, no pressure ulcer. GENITOURINARY: No dysuria or hematuria. Vital Sign (Last 12 Hours) 09/05/24 09/05/24 09/05/24 09/05/24 11:00 11:22 12:00 16:00 Temp 99.1 99.0 Pulse 101 99 105 120 Resp 21 22 28 28 B/P (MAP) 127/70 113/70 115/84 Pulse Ox 100 99 97 O2 Delivery Nasal Cannula Nasal Cannula Nasal Cannula O2 Flow Rate 5.0 5.0 5.0 09/05/24 09/05/24 09/05/24 09/05/24 18:33 18:38 20:00 20:00 Temp 99.0 Pulse 110 112 128 Resp 22 20 23 B/P (MAP) 82/24 Pulse Ox 100 100 O2 Delivery N/Cannula Low lpm Non-Rebreather+ Nonrebreathing Mask O2 Flow Rate 3.0 10 15.0 FiO2 32 100 Intake & Output (last 24hrs) 09/04/24 09/04/24 09/05/24 15:00 23:00 07:00 Intake Total 183.5 ml 284.0 ml 471.0 ml Output Total 900 ml 700 ml Balance 183.5 ml -616.0 ml -229.0 ml LABS: Laboratory: Test 09/05/24 20:23 09/05/24 13:35 09/05/24 02:15 09/04/24 04:09 Range/Units Whole Blood Glucose 107 70-110 MG/DL Potassium Level 3.8 3.5-5.1 mmol/L Magnesium Level 2.10 1.80-2.40 mg/dL White Blood Count 14.1 H 4.8-10.8 K/uL Red Blood Count 3.35 L 4.50-6.20 MIL/uL Hemoglobin 10.9 L 14.0-18.0 g/dL Hematocrit 33.0 L 42-54 % Mean Corpuscular Volume 98.5 79-99 fL Mean Corpuscular Hemoglobin 32.5 27.0-33.0 pg Mean Corpuscular Hemoglobin Concent 33.0 32.0-36.0 g/dL Red Cell Distribution Width 13.8 11.0-15.5 % Platelet Count 295 130-400 K/uL Mean Platelet Volume 9.5 7.5-10.5 fL Immature Granulocyte % (Auto) 0.6 0-1 % Neutrophils (%) (Auto) 80.2 H 40.0-77.0 % Lymphocytes (%) (Auto) 10.4 L 21.0-51.0 % Monocytes (%) (Auto) 8.6 3.0-13.0 % Eosinophils (%) (Auto) 0.0 0.0-8.0 % Basophils (%) (Auto) 0.2 0.0-5.0 % Neutrophils # (Auto) 11.3 H 1.8-7.7 K/uL Lymphocytes # (Auto) 1.5 1.0-4.8 K/uL Monocytes # (Auto) 1.2 H 0.1-1.0 K/uL Eosinophils # (Auto) 0.00 0.00-0.70 K/uL Basophils # (Auto) 0.03 0.00-0.20 K/uL Absolute Immature Granulocyte (auto 0.09 0-1 K/uL Nucleated Red Blood Cells 0.0 0.0-0.19 % Sodium Level 139 136-145 mmol/L Chloride Level 101 101-111 mmol/L Carbon Dioxide Level 31 21-32 mmol/L Blood Urea Nitrogen 35 H 7-18 mg/dL Creatinine 1.2 0.5-1.3 mg/dL Glomerular Filtration Rate Calc 63 >90 mL/min Random Glucose 96 70-105 mg/dL Total Calcium 9.0 8.5-10.1 mg/dL Total Bilirubin 0.8 0.2-1.0 mg/dL Aspartate Amino Transf (AST/SGOT) 45 H 10-37 U/L Alanine Aminotransferase (ALT/SGPT) 72 12-78 U/L Alkaline Phosphatase 103 50-136 U/L Total Protein 6.9 6.0-8.3 g/dL Albumin 2.8 L 3.5-5.0 g/dL Activated Partial Thromboplast Time 22.0 L 26.3-35.5 SEC ASSESSMENT: Hypoxic respiratory failure requiring intubation, status post extubated. 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 Non-STEMI, status post left heart catheterization with findings of severe multivessel coronary disease. Acute renal failure, resolving. Leukocytosis. CAD with heart stents. Hypokalemia. PLAN: Continue linezolid. Continue Zosyn. Continue levofloxacin. Continue GI prophylaxis. Continue oxygen support. We will monitor electrolytes. Cardiovascular surgeon following patient. We will follow up on the cultures. This case was reviewed and discussed with my supervising physician and the above assessment and plan was formulated and agreed upon. ATTESTATION BY PHYSICIAN I have seen and examined the patient. I reviewed the documentation, medical decision making, and treatment plan as noted by the mid-level provider above. I agree with the findings and plan of care. MILA DEAN MD, [facility] Sep 05, 2024 22:26
[2024-09-05] MEDS ORDERED: 0.9% NACL 250ML 250 ML IV SCH (22:30)
[2024-09-05] MEDS ORDERED: MELATONIN 5 MG TABLET PO PRN (22:30)
[2024-09-05 22:38] LABS: HEMATOCRIT 34.9 % (42-54); MEAN CORPUSCULAR HGB CONC 33.2 g/dL (32.0-36.0); MEAN CORPUSCULAR VOLUME 99.1 fL (79-99); RED BLOOD CELL COUNT(AUTO) 3.52 MIL/uL (4.50-6.20); RED CELL DISTRIBUTION WIDTH 13.8 % (11.0-15.5); WHITE BLOOD COUNT (AUTO) 17.3 K/uL (4.8-10.8)
--- NOTE | 2024-09-05 22:40 | EKG ---
[facility] Test Date: 2024-09-05 Test Time: 22:41:16 Pat Name: NAMAN RUGGIERO Department: [facility] Room: 309 Gender: Male Air Pumper: [id number] : [id number] Requested By: PAPITO DE GUZMAN Order Number: [id number] Reading MD: Anselmo King Measurements Intervals [place] Rate: 127 P: 50 WV: 152 QRS: 6 QRSD: 90 T: 142 QT: 310 QTc: 450 Interpretive Statements Sinus tachycardia Inferior infarct , possibly acute Marked ST abnormality, possible anterolateral subendocardial injury ACUTE VT / STEMI Consider right ventricular involvement in acute inferior infarct Compared to ECG 08/25/2024 18:58:29 Myocardial infarct finding now present ST (T wave) deviation now present Right-axis deviation no longer present Early repolarization no longer present Possible ischemia no longer present Electronically Signed On 09-06-2024 12:50:43 UNIONMELT OPERATOR by Anselmo King Please click the below link to view image of tracing.
[2024-09-05 22:51] LABS: CARBON DIOXIDE 27 mmol/L (21-32); CHLORIDE 102 mmol/L (101-111); CREATININE 1.4 mg/dL (0.5-1.3); GLOMERULAR FILTR. RATE CALC 52 mL/min (>90); GLUCOSE,RANDOM 131 mg/dL (70-105); POTASSIUM 4.7 mmol/L (3.5-5.1); SODIUM SERUM 136 mmol/L (136-145); UREA NITROGEN, BLOOD 44 mg/dL (7-18)
[2024-09-05 22:56] LABS: ALANINE AMINOTRANSFERASE 68 U/L (12-78); ALBUMIN 2.5 g/dL (3.5-5.0); AMMONIA < 10 umol/L (11-32); ASPARTATE AMINOTRANSFERASE 89 U/L (10-37); BILIRUBIN,TOTAL 1.2 mg/dL (0.2-1.0); TOTAL PROTEIN, SERUM 6.7 g/dL (6.0-8.3)
[2024-09-05 23:06] LABS: ABG BASE EXCESS -1.3 mmol/L (-2.0-3.0); ABG HCO3 21.7 mmol/L (21.0-28.0); ABG OXYGEN SATURATION 99.7 % (94.0-98.0); ABG PCO2 32 mmHg (35-48); DEVICE COMMENT LR; PO2, ARTERIAL BG 307.5 mmHg (83.0-108.0); VENT MODE, BG NON REBREATHER (ROOM AIR)
--- NOTE | 2024-09-05 23:42 | NUR ---
TACHYCARDIA REPORTED TACHYCARDIA TO [facility] KRAUS WITH N.O. FOR EKG, 250 ML NS BOLUS, ADDL 250 ML NS OVER 1 HR, ABG, CBC, CMP, AND AMMONIA LEVEL. EKG REPORTED, PAGED DR. BALES THERE IS NO ORDERS FOR COMFORT CARE AT THIS TIME. PT PENDING CONSULT WITH DR. GAURAV DHILLON FOR PALLIATIVE CARE. DR. DHILLON MADE AWARE AT 2300. SPOKE TO PT'S SON NAMAN RUGGIERO, PER PT'S SON, NO INTERVENTIONS TO BE DONE, KEEP PATIENT COMFORTABLE AND PAIN FREE; HE WILL BE PRESENT DURING CONSULT WITH DR. DHILLON ON 09/06 AT 0900 TO DISCUSS PALLIATIVE/HOSPICE OPTIONS. WILL CONT TO MONITOR.
[2024-09-06] VITALS (11 sets, daily range): BP systolic 77–113; BP diastolic 53–69; PULSE 105–119; RESP 14–35; TEMP 99–99.5; O2SAT 96
[2024-09-06] MEDS: 0.9%NACL 1000ML 1,000 ML IV SCH (05:47)
--- NOTE | 2024-09-06 07:39 | PN ---
SUBJECTIVE: This is a 74-year-old frail and debilitated gentleman with severe coronary artery disease. The patient had presented with unstable angina and was noted to have a critical coronary artery disease. He had been managed with intraaortic balloon counterpulsation for stabilization. This has been discontinued yesterday. Dr. Carreon who has been providing the patient's primary cardiac care had detailed discussions with the patient and with his family. All involved recommended conservative medical management and refused any additional interventions. The patient and the family requested DNR and DNI. At this point, the patient is being evaluated by hospice for chronic hospice management as an outpatient. From the cardiac standpoint, we will not make any additional recommendations and we would like to thank you for allowing us to participate in the care of this patient. We will be more than happy to reevaluate him as needed. TID: [id number] RECEIPT: [id number]
[2024-09-06] MEDS ORDERED: HALOPERIDOL INJ 5 MG/ML VIAL IV PRN (10:00)
[2024-09-06] MEDS ORDERED: hydroMORPHone 0.5 MG SYG (0.5MG/0.5ML) IVP PRN (10:00)
[2024-09-06] MEDS: LORazepam 2 MG/ML 1 ML VIAL IVP PRN (10:07)
[2024-09-06] MEDS: LORazepam 2 MG/ML 1 ML VIAL ONE (10:07)
--- NOTE | 2024-09-06 10:07 | PN ---
[facility] PROGRESS NOTE Date of Service: Sep 06, 2024 Time of Service: 10:00 SUBJECTIVE: 08/26 patient seen at bedside, no acute events overnight. He remains intubated and sedated, continues on pressor support. FiO2 is 60%, we will wean towards extubation. Troponins are elevated, patient is started on ACS protocol with aspirin, Plavix, statin and heparin drip. Cardiology recommendations still pending, we will follow up. WBC increased from 10.8 up to 14.3, hemoglobin decreased from 13.2 down to 11.6, sodium stable at 126, similar to yesterday, troponins peaked and are now downtrending to [id number], remainder of his labs are relatively unremarkable. 08/27 patient seen at bedside, no acute events overnight. He remains intubated and sedated, continue weaning down pressors. His FiO2 has been weaned down to 50%, we will continue to wean as able, peep has been decreased from 8-6. Echocardiogram has been done, formal read is still pending, preliminary read shows a possible vegetation of the mitral valve, ejection fraction of 50-55%, mild to moderate aortic regurgitation, moderate mitral regurgitation, we will have him reassessed once he has been extubated as he may need a KARTHIK, however given his blood cultures are no growth this mobile mass on the mitral valve may not be secondary to endocarditis. Creatinine has increased from 1.3 up to 1.8, hemoglobin stable at 11.3, similar to yesterday, WBC increased from 14.3 up to 18.9, platelets improved from 528 down to 520, sodium stable at 127, similar to yesterday, remainder of his labs are relatively unremarkable. Cultures are no growth to date. 08/28 patient is seen and examined at bedside, remains intubated, on mechanical ventilation, on propofol, Levophed and heparin drip. Discussed with the RN, back from having left heart catheterization with finding of three-vessel disease for which Cardiothoracic surgery consultation requested. TTE with a EF 50-55% with possible vegetation of the mitral valve. Patient is scheduled for KARTHIK today. WBC 17.9. Blood cultures no growth after 48 hours. 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 Continue goal-directed medical therapy, infectious disease consultation requested. Blood cultures has remained negative. CT surgery consultation requested for CABG plus aortic and mitral valve replacement. 08/30 patient is seen and examined at bedside, remains intubated, mechanical ventilation, per discussion with the RN, the patient failed SBT trial, had to be placed back on sedation. Patient getting IV antibiotics at the time of my visit. BP 98/56, FiO2 30%, saturating 98%. CBC with a hemoglobin 10.8, hematocrit 31.4. Chest x-ray shows bilateral pulmonary infiltrates suggestive of pulmonary vascular congestion with possible superimposed pneumonitis. Continue to follow Pulmonary input and recommendation in terms of weaning off the ventilator, continue broad-spectrum IV antibiotics per ID recommendations. Cardiology input noted and appreciated. Patient evaluated by CT surgeon for possible CABG as well as valve replacement. 08/31 patient is seen and examined at bedside, remains intubated, mechanical ventilation, per discussion with the RN, BP 87/40, rate of 59, saturating 100%, FiO2 30%. Patient remains on broad-spectrum IV antibiotics, the patient remains on Levophed for pressure support. Remains sedated with propofol and Precedex. Hemoglobin 11.7, hematocrit 33.8. ABG pH 7.5, pCO2 30, bicarb 24.4.Chest x-ray shows bilateral pulmonary infiltrates suggestive of pulmonary vascular congestion with possible superimposed pneumonitis. Urine output 4 L. Weaning trial in progress by pulmonary physician, attempt yesterday, patient tolerated only 4 hours of CPAP trial. Cardiology input noted and appreciated, intra- aortic balloon pump in place. Patient with a aortic and mitral valve endocarditis, evaluated by CT surgeon who requested the patient be off ventilator in order to discuss procedure with the patient and family. Continue to follow critical care input and recommendation. 09/01 patient is seen and examined at bedside, successfully extubated 08/31/2024, remains on aerosol mask, FiO2 40%, patient confused, withdrawing to painful stimulation. He remains with balloon pump in place, low-dose Precedex, heparin drip on low-dose Levophed. BP 143/48, heart rate of 41, afebrile. CBC with a hemoglobin 10.9, hematocrit 31.1, WBC 8.8, platelet count of 373. ABG and chest x-ray pending. Patient on IV antibiotics. Cardiology input noted appreciated, balloon pump to turn in the next 1-2 days. Patient evaluated by CT surgery, patient to be a surgical at this time. Continue to follow critical Care and ID input and recommendations. Discharge plan discussed yesterday case management, once patient medically stable may benefit from discharge to LTAC. 09/02 patient is seen and examined at bedside, successfully extubated 08/31/2024, Patient evaluated by CT surgery, felt not to be a surgical candidate at this time. Continue to follow critical Care and ID input and recommendations. Discharge plan discussed with case management, once patient medically stable may benefit from discharge to LTAC. 09/03 patient is seen and examined at bedside, resting comfortable in bed, following commands per discussion with the RN, off vasopressors, remains on heparin drip. Patient successfully extubated 08/31/2024 secondary to acute hypoxemic respiratory failure, multifocal CHF, bilateral pneumoniae and cardiogenic shock. Patient is status post left heart catheterization with severe three-vessel disease, also status post transesophageal echo with finding of bacterial endocarditis involving mitral and aortic valve for which Cardiothoracic surgery consultation requested, however patient not a surgical candidate at this time. Patient remains on broad-spectrum IV antibiotics, plan is for tomorrow for removal of intra-aortic balloon pump. Once medically stable, patient may benefit from discharge plan to LTAC. 09/04 patient seen at bedside, no acute events overnight. He is still has an intra-aortic balloon pump, to be managed by Cardiology. He has been weaned off pressors, hemodynamically stable, saturating well on 5 L nasal cannula. Potassium improved from 3.0 up to 3.3, WBC increased from 10.6 up to 11.7, hemoglobin decreased from 11.5 down to 11.0, remainder of his labs are relatively unremarkable. 3/ patient seen at bedside, no acute events overnight. Intra-aortic balloon pump was removed this morning, patient off pressors, saturating well on non- rebreather. Patient's family deciding whether or not to transitioned to palliative care as the patient does not want any invasive procedures at this point. WBC increased from 11.7 up to 14.1, antibiotics have been adjusted, his cultures are no growth to date, hemoglobin decreased from 11.0 down to 10.9, remainder of his labs are relatively unremarkable. 3/5 Pt seen at bedside, no acute events overnight. He remains tachycardic, creatinine slowly uptrending with poor po intake. Will start maintenance IV fluids, NS @ 125 cc/hr. Patient is conversational, awake and aware this am, expressing a wish to return home. Palliative care consult pending this am, will follow up with family and patient decision. REVIEW OF SYSTEMS 12 point review of systems negative unless noted in HPI PHYSICAL EXAM GENERAL APPEARANCE: The patient is intubated, on mechanical ventilation, on propofol, Levophed and heparin. NEUROLOGICAL: Cranial nerves II-XII grossly intact. Motor is 5/5 in bilateral upper and lower extremities proximal to distal. No sensory deficits. HEENT: Face is symmetric. Pupils are equal and reactive. Extraocular movements are intact. NECK: Supple. No JVD. No thyromegaly. No submental, submandibular, pre- /postauricular, occipital or supraclavicular lymphadenopathy. CHEST: Normal chest expansion. No Telemetry. LUNGS: Absence of any rales, rhonchi or any wheezing. CARDIOVASCULAR: Regular. S1 and S2 normal. No appreciable rubs, murmurs or gallops. ABDOMEN: Soft, nontender, and nondistended. There is no rebound, voluntary guarding, or rigidity. : Deferred. No Leal. EXTREMITIES: Non-edematous and not cyanotic. No clubbing. Good capillary refill. SKIN: No skin breakdown. Vital Signs (last 8hr) Date Time Temp Pulse Resp B/P (MAP) Pulse Ox O2 Delivery O2 Flow Rate FiO2 09/06/24 07:11 112 18 N/Cannula Low lpm 3.0 32 09/06/24 04:00 99.5 112 24 98/69 95 Nasal Cannula 3.0 LABS: Laboratory: Test 09/05/24 23:04 09/05/24 22:32 09/05/24 20:23 09/05/24 13:35 Range/Units Blood Gas Specimen Type Arterial Arterial Blood pH 7.450 7.350-7.450 Arterial Blood Partial Pressure CO2 32 L 35-48 mmHg Arterial Blood Partial Pressure O2 307.5 *H 83.0-108.0 mmHg Arterial Blood HCO3 21.7 21.0-28.0 mmol/L Arterial Blood Oxygen Saturation 99.7 H 94.0-98.0 % Arterial Blood Base Excess -1.3 -2.0-3.0 mmol/L Blood Gas Temperature 37.0 35.5-37.0 CELSIUS Blood Gas Flow-by 15.00 0.00-15.00 L/min Blood Gas Vent Mode NON REBREATHER ROOM AIR FiO2 100.0 % Blood Gas Specimen Comment LR White Blood Count 17.3 H 4.8-10.8 K/uL Red Blood Count 3.52 L 4.50-6.20 MIL/uL Hemoglobin 11.6 L 14.0-18.0 g/dL Hematocrit 34.9 L 42-54 % Mean Corpuscular Volume 99.1 H 79-99 fL Mean Corpuscular Hemoglobin 33.0 27.0-33.0 pg Mean Corpuscular Hemoglobin Concent 33.2 32.0-36.0 g/dL Red Cell Distribution Width 13.8 11.0-15.5 % Platelet Count 272 130-400 K/uL Mean Platelet Volume 9.5 7.5-10.5 fL Nucleated Red Blood Cells 0.0 0.0-0.19 % Sodium Level 136 136-145 mmol/L Potassium Level 4.7 3.5-5.1 mmol/L Chloride Level 102 101-111 mmol/L Carbon Dioxide Level 27 21-32 mmol/L Blood Urea Nitrogen 44 H 7-18 mg/dL Creatinine 1.4 H 0.5-1.3 mg/dL Glomerular Filtration Rate Calc 52 >90 mL/min Random Glucose 131 H 70-105 mg/dL Total Calcium 8.9 8.5-10.1 mg/dL Total Bilirubin 1.2 #H 0.2-1.0 mg/dL Aspartate Amino Transf (AST/SGOT) 89 H 10-37 U/L Alanine Aminotransferase (ALT/SGPT) 68 12-78 U/L Alkaline Phosphatase 103 50-136 U/L Ammonia < 10 L 11-32 umol/L Total Protein 6.7 6.0-8.3 g/dL Albumin 2.5 L 3.5-5.0 g/dL Whole Blood Glucose 107 70-110 MG/DL Magnesium Level 2.10 1.80-2.40 mg/dL Test 09/05/24 02:15 Range/Units Immature Granulocyte % (Auto) 0.6 0-1 % Neutrophils (%) (Auto) 80.2 H 40.0-77.0 % Lymphocytes (%) (Auto) 10.4 L 21.0-51.0 % Monocytes (%) (Auto) 8.6 3.0-13.0 % Eosinophils (%) (Auto) 0.0 0.0-8.0 % Basophils (%) (Auto) 0.2 0.0-5.0 % Neutrophils # (Auto) 11.3 H 1.8-7.7 K/uL Lymphocytes # (Auto) 1.5 1.0-4.8 K/uL Monocytes # (Auto) 1.2 H 0.1-1.0 K/uL Eosinophils # (Auto) 0.00 0.00-0.70 K/uL Basophils # (Auto) 0.03 0.00-0.20 K/uL Absolute Immature Granulocyte (auto 0.09 0-1 K/uL Current Medications Medications (Trade) Dose Ordered Sig/Lydia Route PRN Reason Start Time Stop Time Status Last Admin Dose Admin Acetaminophen (TYLenol 650MG SUPPOSITORY) 650 mg Q6H PRN RC MILD PAIN (1-3) 08/25/24 19:30 09/24/24 19:29 Acetylcysteine (MUComyst 10% 4ML) 400mg = 4ml [id number] IH 09/04/24 10:00 10/04/24 09:59 09/05/24 23:37 400 MG Albumin Human 100 ml @ 0 mls/hr AD IV 08/30/24 10:30 09/04/24 10:29 DC 08/30/24 12:01 100 MLS/HR Albuterol (DUOneb) 1 UDVIAL [id number] IH 08/26/24 00:00 08/31/24 20:38 DC 08/31/24 18:36 1 UDVIAL Albuterol (DUOneb) 1 UDVIAL [id number] PRN IH sob and wheezing 08/31/24 21:00 09/25/24 00:00 09/05/24 23:37 1 UDVIAL Albuterol (DUOneb) 2 udvial ONCE IH 08/25/24 18:00 08/25/24 22:00 DC 08/25/24 19:17 2 UDVIAL Alprazolam (XANax 0.5MG) 0.5 mg TID PO 08/30/24 21:00 08/31/24 09:57 DC 08/31/24 07:57 0.5 MG Aspirin (Aspirin 300mg Supp) 300 mg ONCE HI 08/25/24 19:30 08/25/24 23:59 DC 08/25/24 19:41 300 MG Aspirin (Aspirin 81mg Ec Tab) 81 mg DAILY PO 08/26/24 09:00 09/25/24 08:59 08/31/24 07:57 81 MG Atorvastatin Calcium (LIPItor 40MG) 40 mg HS PO 08/26/24 07:30 08/26/24 07:44 DC Azithromycin 250 ml @ 250 mls/hr Q24H IVPB 08/25/24 18:51 08/25/24 23:30 DC Azithromycin 250 ml @ 250 mls/hr Q24H IVPB 08/25/24 19:30 08/25/24 19:38 DC Bisacodyl (DulcoLAX) 10 mg DAILY RC 09/04/24 09:00 09/07/24 08:59 Ceftriaxone Sodium (ROCEphine 1G INJ) 1 gm ONCE IVPB 08/25/24 19:00 08/25/24 21:03 DC 08/25/24 19:41 1 GM Ceftriaxone Sodium (ROCEphine 1G INJ) 1 gm Q24H IVPB 08/25/24 19:30 08/26/24 12:29 DC Clopidogrel Bisulfate (plaVIX 300MG TAB) 300 mg ONCE PO 08/25/24 21:00 08/26/24 06:00 DC 08/25/24 23:16 300 MG Clopidogrel Bisulfate (plaVIX 75MG) 75 mg DAILY PO 08/26/24 09:00 08/29/24 10:52 DC 08/29/24 08:41 75 MG Dexmedetomidine/ Sodium Chloride (PRECEdex 400MCG/ 100ML-NS) 400 mcg PROTOCOL IV 08/29/24 09:00 09/28/24 08:59 09/02/24 17:43 400 MCG Diazepam (VALium 2 mg Tab) 2 mg Q6H PRN PO ANXIETY 08/31/24 10:00 08/31/24 13:39 DC 08/31/24 10:06 2 MG Diazepam (VALium 5 MG/ML 2 ML SYG) 2.5 mg ONCE PRN IV ANXIETY 08/31/24 16:00 08/31/24 16:00 DC 08/31/24 15:50 2.5 MG Diazepam (VALium 5 MG/ML 2 ML SYG) 2.5 mg Q4H IVP 09/02/24 22:00 09/03/24 18:34 DC 09/03/24 11:05 2.5 MG Diazepam (VALium 5 MG/ML 2 ML SYG) 2.5 mg Q6H IVP 09/04/24 00:00 09/04/24 23:13 DC 09/04/24 20:52 2.5 MG Diazepam (VALium 5 MG/ML 2 ML SYG) 2.5 mg Q6H PRN IVP agitation 09/05/24 03:00 09/12/24 02:59 09/06/24 07:55 2.5 MG Diazepam (VALium 5 MG/ML 2 ML SYG) 2.5 mg Q6H6 IVP 08/31/24 18:00 09/02/24 19:53 DC 09/02/24 18:00 2.5 MG Diazepam (VALium 5 mg TAB) 5 mg BID PO 08/31/24 21:00 08/31/24 16:39 DC Fentanyl Citrate 100 ml @ 2.5 mls/hr PROTOCOL IV 08/25/24 20:00 08/27/24 17:54 DC 08/27/24 14:22 2.5 MLS/HR Folic Acid (FolVITE 5 MG/ML VIAL) 1 mg DAILY IV 08/31/24 09:00 09/30/24 08:59 09/05/24 08:14 1 MG Furosemide (LASix 20MG VIAL) 20 mg BID IV 09/03/24 09:00 09/03/24 10:51 DC Furosemide (LASix 20MG VIAL) 20 mg Q12H IV 08/26/24 09:00 08/27/24 12:24 DC 08/27/24 08:56 20 MG Furosemide (LASix 20MG VIAL) 20 mg Q12H IV 08/31/24 08:30 09/02/24 12:08 DC 09/02/24 08:59 20 MG Furosemide (LASix 20MG VIAL) 20 mg Q12H IV 09/03/24 15:00 09/03/24 15:55 DC Furosemide (LASix 20MG VIAL) 20 mg Q12H IV 09/03/24 21:00 09/06/24 04:53 DC 09/05/24 08:15 20 MG Furosemide (LASix 20MG VIAL) 20 mg Q24H IV 09/03/24 08:30 09/03/24 08:57 DC 09/03/24 08:52 20 MG Furosemide (LASix 20MG VIAL) 20 mg Q6H IV 09/03/24 15:00 09/03/24 11:19 DC Furosemide 100 mg/ Sodium Chloride 100 ml @ 0 mls/hr PROTOCOL IV 08/30/24 13:30 08/31/24 08:26 DC 08/30/24 23:32 10 MLS/HR Heparin Sodium (Porcine) (HEParin 5,000 UNIT VIAL) *calculation based on ACTUAL B... AD PRN IV HEPARIN PROTOCOL 08/25/24 20:00 09/05/24 11:11 DC 08/28/24 06:30 6,000 UNIT Heparin Sodium/ Dextrose 250 ml @ 0 mls/hr Q6H IV 08/25/24 20:00 09/05/24 11:11 DC 09/03/24 05:20 9 MLS/HR Insulin Human Regular (humuLIN R 100 UNIT/ML 3ML) INSULIN SLIDING SCAL... Q6H6 SQ 08/26/24 00:00 09/06/24 09:59 DC 08/26/24 05:58 2 UNIT Ketamine HCl (ketaMINE 50MG/ ML SYRINGE) 50 mg ONCE IM 08/25/24 19:00 08/25/24 22:00 DC Ketamine HCl (ketaMINE 50MG/ ML SYRINGE) 50 mg ONCE IM 08/25/24 19:00 08/25/24 23:59 DC Lactulose (Constulose 20gm/ 30ml Udcup) 20 gm BID PO 08/28/24 21:00 09/27/24 20:59 08/30/24 20:34 20 GM Levofloxacin/ Dextrose 100 ml @ 100 mls/hr Q24H IV 08/28/24 14:30 08/28/24 15:24 DC Levofloxacin/ Dextrose 100 ml @ 100 mls/hr Q48H IV 08/28/24 15:30 09/05/24 08:00 DC 09/03/24 17:35 100 MLS/HR Levofloxacin/ Dextrose (LEvaquIN 500 MG/ D5W 100 ML) 500 mg Q48H IV 09/05/24 16:00 09/19/24 15:59 09/05/24 15:40 500 MG Linezolid 300 ml @ 300 mls/hr Q12H IV 09/01/24 02:30 09/05/24 08:00 DC 09/05/24 03:30 300 MLS/HR Linezolid 300 ml @ 300 mls/hr Q12H IV 09/05/24 16:00 09/19/24 15:59 09/06/24 04:25 300 MLS/HR Linezolid (Zyvox) 600 mg Q12H PO 08/28/24 14:30 09/01/24 01:53 DC 08/31/24 14:11 600 MG Magnesium Sulfate 50 ml @ 0 mls/hr PROTOCOL PRN IV MAGNESIUM PROTOCOL 09/03/24 23:30 10/03/24 23:29 09/04/24 00:08 25 MLS/HR Melatonin (Melatonin) 10 mg HS PO 08/30/24 21:00 09/05/24 22:22 DC Melatonin (Melatonin) 10 mg HS PRN PO INSOMNIA 09/05/24 22:30 10/05/24 22:29 Methylprednisolone Sodium Succinate (Solu-medROL 40MG) 40 mg Q8H IVP 08/25/24 23:00 08/27/24 12:19 DC 08/27/24 06:23 40 MG Methylprednisolone Sodium Succinate (Solu-medROL 125MG) 125 mg ONCE IVP 08/25/24 18:00 08/25/24 22:00 DC 08/25/24 18:52 125 MG Midazolam HCl 50 ml @ 0 mls/hr PROTOCOL IV 08/25/24 19:00 08/27/24 17:54 DC 08/27/24 11:18 9 MLS/HR Midazolam HCl 50 mg/Sodium Chloride 50 ml @ 0 mls/hr PROTOCOL IV 08/25/24 19:00 09/24/24 18:59 UNV Morphine Sulfate (morPHINE 2MG SYG) 2 mg Q4H PRN IVP SEVERE PAIN (7-10) 08/26/24 07:30 08/30/24 18:56 DC Morphine Sulfate (morPHINE 4MG SYG) 2 mg Q4H PRN IVP SEVERE PAIN (7-10) 08/25/24 19:30 08/26/24 07:11 DC Norepinephrine 250 ml @ 0 mls/hr AD PRN IV DIRECTED 08/27/24 06:00 09/26/24 05:59 09/02/24 16:27 11.85 MLS/HR Norepinephrine 250 ml @ 0 mls/hr PROTOCOL IV 08/25/24 19:30 08/26/24 05:10 DC 08/26/24 00:14 121.5 MLS/HR Norepinephrine Bitartrate 32 mg/ Sodium Chloride 250 ml @ 0 mls/hr Q0M PRN IV hypotension 08/26/24 05:30 08/28/24 08:54 DC 08/26/24 06:04 19.87 MLS/HR Ondansetron HCl (zoFRAN 4MG INJ) 4 mg Q6H PRN IV NAUSEA/VOMITING 08/25/24 19:30 09/24/24 19:29 Oxymetazoline HCl (AFrin) 2 SPRAYS BID PRN EN NASAL CONGESTION 09/03/24 01:30 10/03/24 01:29 Pantoprazole Sodium (PROTonix 40MG INJ) 40 mg DAILY IV 08/26/24 09:00 09/25/24 08:59 09/06/24 07:55 40 MG Pharmacy Profile Note (Pharmacy Communication) 1 each ONCE MISC 09/01/24 02:00 09/01/24 01:54 DC Pharmacy Profile Note (Pharmacy Communication) 1 each ONCE MISC 09/03/24 16:00 09/04/24 07:12 DC Piperacillin Sod/ Tazobactam Sod (Zosyn 3.375gm+NS 50ml) 3.375 gm Q8H IV 08/25/24 20:00 09/04/24 19:59 UNV Piperacillin Sod/ Tazobactam Sod (Zosyn 3.375gm+NS 50ml) 3.375 gm Q8H IVPB 09/05/24 18:00 09/19/24 17:59 09/06/24 01:29 3.375 GM Piperacillin Sod/ Tazobactam Sod (Zosyn 3.375gm+NS 50ml) 3.375 gm ZOSY8 IV 08/25/24 21:00 09/04/24 20:59 DC 09/04/24 12:25 3.375 GM Polyethylene Glycol (MIRalax 3350 17 GM POWD.PACK) 17 gm DAILY PO 08/29/24 09:00 09/28/24 08:59 08/29/24 08:41 17 GM Polyethylene Glycol (MIRalax 3350 17 GM POWD.PACK) 17 gm ONCE PO 08/28/24 18:00 08/28/24 21:00 DC 08/28/24 18:00 17 GM Potassium Chloride 100 ml @ 100 mls/hr AD PRN IV POTASSIUM PROTOCOL 08/29/24 13:00 09/28/24 12:59 09/05/24 03:32 100 MLS/HR Potassium Chloride (K-Dur/Klor-Con 20meq) 20 meq AD PRN PO POTASSIUM PROTOCOL 08/29/24 13:00 09/28/24 12:59 Potassium Chloride (KCl 10% Elixir 20meq/15ml) 20 meq AD PRN PO POTASSIUM PROTOCOL 08/29/24 13:00 09/28/24 12:59 08/31/24 02:36 20 MEQ Propofol (DIPRivan 1000MG/ 100ML) 1,000 mg PROTOCOL PRN IV SEDATION 08/27/24 16:30 08/31/24 20:38 DC 08/31/24 00:26 1,000 MG Scopolamine HBr (Transderm-Scop) 1 patch Q72H TD 09/03/24 01:30 10/03/24 01:29 09/06/24 01:28 1 PATCH Sodium Chloride 250 ml @ 0 mls/hr Q0M IV 09/05/24 22:30 10/05/24 22:29 Sodium Chloride 1,000 ml @ 125 mls/hr Q8H IV 09/06/24 05:00 10/06/24 04:59 09/06/24 05:47 125 MLS/HR Thiamine HCl (Vitamin B-1) 200 mg DAILY IM 08/31/24 09:00 08/30/24 13:17 DC Thiamine HCl (Vitamin B-1) 300 mg DAILY IV 08/31/24 09:00 09/30/24 08:59 09/06/24 07:55 300 MG DIAGNOSTICS / RADIOLOGY: [ ] ASSESSMENT: Acute hypoxemic respiratory failure, POA, requiring intubation and mechanical ventilation Hypotension, POA, currently suspected to be cardiogenic shock Acute coronary syndrome, status post left heart catheterization 08/28, finding of triple-vessel disease POA Culture negative, 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 Start NS @ 125 cc/hr Continue broad-spectrum IV antibiotics, continue to follow ID input re commendation Follow Cardiology and Cardiothoracic input and recommendation Follow critical care input and recommendation Continue heparin drip Replace electrolytes IV per protocol A.m. labs Transfuse as needed GI and DVT prophylaxis Disposition: Pending palliative care consult, possible transition to palliative care versus LTAC No family members at bedside to discuss goals of care Greater than 35 minutes ICU time spent in care of this patient RANDY POZO MD Sep 06, 2024 10:07
--- NOTE | 2024-09-06 10:22 | CONS ---
CONSULTATION NOTE DATE OF CONSULTATION: 09/06/24 REASON FOR CONSULTATION: Terminal coronary artery disease and endocarditis HISTORY OF PRESENT ILLNESS: The patient is a 74-year-old man with a history of COPD hypertension and chronic anxiety with a history of chronic benzodiazepine use. The patient was hospita lized with cardiogenic shock. He had acute coronary syndrome and was found to have severe triple-vessel disease on admission. 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 The patient had been intubated but was successfully extubated. He has been with delirium. At the time my visit the patient is very agitated and confused. He is demanding to leave the hospital. He is with paranoid delusions. I spoke with his son and other family member at the bedside who reports this is definitely not the patient's baseline mental status. The patient is disoriented to time place and situation. He is thinking that the hospital staff is out to get him and infusing him with poisons. He does not acknowledge the credentials of any physicians or staff was trying to speak with him. I spoke with his son who is his next of kin and reviewed the patient's history with him. The patient's son reports that the patient has been taking alprazolam at a high dose 3 times a day for many years. He follows with Dr. Correa who is his psychiatrist. PAST MEDICAL HISTORY: COPD anxiety hypertension ALLERGIES: Coded Allergies: atorvastatin (Unverified Allergy, Unknown, MUSCLE SPASMS, 04/13/16) SOCIAL HISTORY: Denies alcohol use. He does use cannabis quite regularly but quit a few weeks prior to his admission. He takes chronic benzodiazepines. He was given a course of opiates for a leg injury but otherwise was not taking that chronically either. I reviewed the patient's record in the [facility] system however they medications that are coming back reportedly of the patient's sons not the patient's. They have the same name I attempted multiple other ways to search for this patient but was not able to find a record unique to him. HOME MEDS: Active Scripts Ibuprofen (Ibuprofen) 600 Mg Tablet, 1 TAB PO TID for pain for 5 Days, #30 TAB 0 Refills with food Prov:DEVIKA GALVAN MD 08/11/24 Acetaminophen (Tylenol) 500 Mg Tab, 1 TAB PO Q6HPRN PRN for pain or fever for 15 Days, #60 TAB 0 Refills Prov:DEVIKA GALVAN MD 08/11/24 Pantoprazole Sodium (Pantoprazole Sodium) 40 Mg Tablet.dr, 40 MG PO DAILY for 90 Days, #180 TAB 1 Refill Prov:LENY NICKERSON Jr., MD 06/25/22 Reported Medications Lorazepam (Ativan) 2 Mg Tablet, 2 MG PO TID, TAB 06/24/22 Memantine HCl (Memantine HCl) 5 Mg Tablet, 5 MG PO BID, TAB 06/24/22 Rosuvastatin Calcium (Rosuvastatin Calcium) 40 Mg Tablet, 40 MG PO HS, TAB 11/19/20 Lisinopril (Lisinopril) 2.5 Mg Tablet, 2.5 MG PO DAILY, TAB 11/19/20 Gabapentin (Gabapentin) 600 Mg Tablet, 600 MG PO TID, TAB 11/19/20 [vitmain b12] No Conflict Check, 1 TAB PO DAILY 11/19/20 [escitalopram] No Conflict Check, 2 MG PO DAILY 11/19/20 Carvedilol (Carvedilol) 3.125 Mg Tablet, 3.125 MG PO BID, TAB 11/19/20 Clonazepam (Clonazepam) 1 Mg Tablet, 1 MG PO TID, TAB 04/20/20 INPATIENT MEDS: Current Medications Medications Dose Ordered Sig/Lydia Start Time Stop Time Status Last Admin Acetaminophen 650 mg Q6H PRN 08/25/24 19:30 09/24/24 19:29 Ondansetron HCl 4 mg Q6H PRN 08/25/24 19:30 09/24/24 19:29 Albuterol 1 UDVIAL [id number] PRN 08/31/24 21:00 09/25/24 00:00 09/05/24 23:37 Oxymetazoline HCl 2 SPRAYS BID PRN 09/03/24 01:30 10/03/24 01:29 Acetylcysteine 400mg = 4ml [id number] 09/04/24 10:00 10/04/24 09:59 09/05/24 23:37 Lorazepam 2 mg Q2H PRN 09/06/24 10:00 09/13/24 09:59 09/06/24 10:07 Hydromorphone HCl 0.5 mg Q1HR PRN 09/06/24 10:00 09/11/24 09:59 Haloperidol Lactate 2 mg Q1H PRN 09/06/24 10:00 10/06/24 09:59 VITAL SIGNS Vital Signs Date Time Temp Pulse Resp B/P (MAP) Pulse Ox O2 Delivery O2 Flow Rate FiO2 09/06/24 07:11 112 18 N/Cannula Low lpm 3.0 32 09/06/24 04:00 99.5 112 24 98/69 95 Nasal Cannula 3.0 09/06/24 00:00 99.0 119 35 91/53 91 Nasal Cannula 3.0 09/05/24 23:39 119 20 N/Cannula Low lpm 3.0 32 09/05/24 23:39 115 22 09/05/24 20:00 99.0 128 23 82/24 100 Nonrebreathing Mask 15.0 09/05/24 20:00 100 Non-Rebreather+ 10 100 09/05/24 18:38 112 20 N/Cannula Low lpm 3.0 32 09/05/24 18:33 110 22 09/05/24 16:00 99.0 120 28 115/84 97 Nasal Cannula 5.0 09/05/24 12:00 99.1 105 28 113/70 99 Nasal Cannula 5.0 09/05/24 11:22 99 22 09/05/24 11:00 101 21 127/70 100 Nasal Cannula 5.0 PHYSICAL EXAM The patient is very cachectic. He has leg edema. He is very agitated and oriented only to person somewhat to place but not time or situation. The patien t attempts to get out of bed but he is too weak. He has a PICC line to the left arm and a Leal catheter in place. He will not leave oxygen on. He is demanding to leave the hospital but also can not reason with the fact that he can not take care of himself at home and his son is not able to do so either. LABORATORY RESULTS Laboratory Tests 09/03/24 11:29: Whole Blood Glucose 86 09/03/24 21:57: Sodium Level 138, Potassium Level 3.0, Chloride Level 97, Carbon Dioxide Level 33, Blood Urea Nitrogen 32, Creatinine 1.3, Glomerular Filtration Rate Calc 57, Random Glucose 103, Total Calcium 9.2, Magnesium Level 1.90 09/04/24 04:09: Sodium Level 137, Potassium Level 3.3, Chloride Level 99, Carbon Dioxide Level 32, Blood Urea Nitrogen 33, Creatinine 1.2, Glomerular Filtration Rate Calc 63, Random Glucose 135, Total Calcium 9.0, Magnesium Level 2.60, White Blood Count 11.7, Red Blood Count 3.36, Hemoglobin 11.0, Hematocrit 32.8, Mean Corpuscular Volume 97.6, Mean Corpuscular Hemoglobin 32.7, Mean Corpuscular Hemoglobin Concent 33.5, Red Cell Distribution Width 13.8, Platelet Count 340, Mean Platelet Volume 9.2, Immature Granulocyte % (Auto) 0.7, Neutrophils (%) (Auto) 77.8, Lymphocytes (%) (Auto) 12.1, Monocytes (%) (Auto) 9.3, Eosinophils (%) (Auto) 0.0, Basophils (%) (Auto) 0.1, Neutrophils # (Auto) 9.1, Lymphocytes # (Auto) 1.4, Monocytes # (Auto) 1.1, Eosinophils # (Auto) 0.00, Basophils # (Auto) 0.01, Absolute Immature Granulocyte (auto 0.08, Nucleated Red Blood Cells 0.0, Activated Partial Thromboplast Time 22.0, Total Bilirubin 0.8, Aspartate Amino Transf (AST/SGOT) 57, Alanine Aminotransferase (ALT/SGPT) 80, Alkaline Phosphatase 103, Total Protein 6.9, Albumin 2.7 09/04/24 16:39: Whole Blood Glucose 108 09/04/24 22:24: Whole Blood Glucose 110 09/04/24 22:25: Potassium Level 3.2, Magnesium Level 2.10 09/05/24 02:15: Potassium Level 3.7, White Blood Count 14.1, Red Blood Count 3.35, Hemoglobin 10.9, Hematocrit 33.0, Mean Corpuscular Volume 98.5, Mean Corpuscular Hemoglobin 32.5, Mean Corpuscular Hemoglobin Concent 33.0, Red Cell Distribution Width 13.8, Platelet Count 295, Mean Platelet Volume 9.5, Immature Granulocyte % (Auto) 0.6, Neutrophils (%) (Auto) 80.2, Lymphocytes (%) (Auto) 10.4, Monocytes (%) (Auto) 8.6, Eosinophils (%) (Auto) 0.0, Basophils (%) (Auto) 0.2, Neutrophils # (Auto) 11.3, Lymphocytes # (Auto) 1.5, Monocytes # (Auto) 1.2, Eosinophils # (Auto) 0.00, Basophils # (Auto) 0.03, Absolute Immature Granulocyte (auto 0.09, Nucleated Red Blood Cells 0.0, Sodium Level 139, Chl oride Level 101, Carbon Dioxide Level 31, Blood Urea Nitrogen 35, Creatinine 1.2, Glomerular Filtration Rate Calc 63, Random Glucose 96, Total Calcium 9.0, Total Bilirubin 0.8, Aspartate Amino Transf (AST/SGOT) 45, Alanine Aminotransferase (ALT/SGPT) 72, Alkaline Phosphatase 103, Total Protein 6.9, Albumin 2.8 09/05/24 13:35: Potassium Level 3.8, Magnesium Level 2.10 09/05/24 17:00: Whole Blood Glucose 117 09/05/24 20:23: Whole Blood Glucose 107 09/05/24 22:32: White Blood Count 17.3, Red Blood Count 3.52, Hemoglobin 11.6, Hematocrit 34.9, Mean Corpuscular Volume 99.1, Mean Corpuscular Hemoglobin 33.0, Mean Corpuscular Hemoglobin Concent 33.2, Red Cell Distribution Width 13.8, Platelet Count 272, Mean Platelet Volume 9.5, Nucleated Red Blood Cells 0.0, Sodium Level 136, Potassium Level 4.7, Chloride Level 102, Carbon Dioxide Level 27, Blood Urea Nitrogen 44, Creatinine 1.4, Glomerular Filtration Rate Calc 52, Random Glucose 131, Total Calcium 8.9, Total Bilirubin 1.2, Aspartate Amino Transf (AST/SGOT) 89, Alanine Aminotransferase (ALT/SGPT) 68, Alkaline Phosphatase 103, Ammonia < 10, Total Protein 6.7, Albumin 2.5 09/05/24 23:04: Blood Gas Specimen Type Arterial, Arterial Blood pH 7.450, Arterial Blood Partial Pressure CO2 32, Arterial Blood Partial Pressure O2 307.5, Arterial Blood HCO3 21.7, Arterial Blood Oxygen Saturation 99.7, Arterial Blood Base Excess -1.3, Blood Gas Temperature 37.0, Blood Gas Flow-by 15.00, Blood Gas Vent Mode NON REBREATHER, FiO2 100.0, Blood Gas Specimen Comment LR PROBLEM LIST Acute hypoxemic respiratory failure, POA, requiring intubation and mechanical ventilation Hypotension, POA, currently suspected to be cardiogenic shock Acute coronary syndrome, status post left heart catheterization 08/28, finding of triple-vessel disease POA Culture negative, Bacterial endocarditis involving the aortic and mitral valve Moderate mitral regurgitation Mild to moderate aortic regurgitation Lactic acidosis, POA Hyponatremia, POA Uncontrolled Diabetes mellitius type2, last A1c 5.4, ruled out POA Bilateral pleural effusion, POA Pulmonary vascular congestion, POA Hypertension CAD Acute delirium likely multifactorial between metabolic potentially benzodiazepine withdrawal and also secondary to anticholinergic medications PLAN The patient is with terminal coronary artery disease and bacterial endocarditis. I spoke with the patient's son. The patient would not want life-prolonging measures given the dramatic decline in his quality of life that he is already experiencing. Cardiology has recommended hospice care. I agree with this recommendation. The patient is with severe delirium and can not be managed outside of the hospital setting at this point. Considering that he has been chronically using benzodiazepines the dose of the diazepam that he is receiving is not sufficient. The patient's nurse reports that it helps for about an hour so only. We will immediately give a 2 mg IV boluses of lorazepam. We will repeat this every 2 hours if needed until the patient is comfortable. We will discontinue the scopolamine patch as well. We will discontinue antibiotics and all other life-prolonging measures including cardiac medications. Discontinue IV fluids. I recommend the inpatient level of hospice care to bring the patient's delirium under control. Once that is done then if the patient has not rapidly deteriorated and is stable for outpatient hospice then either his family might be able to do it at home however this is highly unlikely. The more likely discharge plan will be to go to a charitable hospice home. The patient's family lives in [facility] which was near [facility] in [place]. However the patient will not be able to go there if he is agitated and is combative or trying to get out of bed. He will need to be calm and comfortable in bed bound to go there. A do not resuscitate do not intubate order is already in place. Consent for comfort directed care was obtained from his next of kin who is his son Jorge Aguero jr. I recommend transferring to the medical floor once his delirium is managed. He will required scheduled doses of lorazepam intravenously starting at 2 mg every 6 hours. This will be in addition to the p.r.n. medications. We will also prescribe IV hydromorphone 0.5 mg q.2 hours as needed for severe pain and that dose can be adjusted. This can also be used for severe shortness of breath. The patient's life expectancy is most likely hours to weeks depending on how he responds to comfort measures. We will start pleasure feedings. If the patient is stabilized then he could be transitioned over to oral scheduled benzodiazepines. Complexity high GAURAV DHILLON II, MD Sep 06, 2024 10:22
--- NOTE | 2024-09-06 11:20 | NUR ---
DCP: INPT HOSPICE If becomes stable can transfer to [facility] SW present when Dr Mosher met with pt's son and pt's sister to discuss options for pt. It was decide that pt with current severe delirium can not be managed outside of the hospital at this point. Dr Mosher spoke to Dr Garcia on plan and will speak to Dr Roe, medical translator for [facility]. If pt were to becomes stable to transfer, pt would go to [facility], that it closest to family who lives in [place]. Son and sister were in agreement with [plan and referral to [facility] as recommended by Dr Mosher. Referral was made to Don and faxed to [facility] office. Karyna BLANCHARD is aware of above
--- NOTE | 2024-09-06 14:29 | NUR ---
DC PT order, patient on hospice.
[2024-09-06 15:14] LABS: Q FEVER IGG PHASE I Negative (Negative); Q FEVER IGG PHASE II Negative (Negative); Q FEVER IGM PHASE I Negative (Negative); Q FEVER IGM PHASE II Negative (Negative)
== END 2024-09-06 13:44 | disposition hospice, inpatient (51) | DRG 270 ==
LOC: EDH 17:56 → EDHIP 19:15 → 2BH 22:01 → 3BH 09-06 11:55
PROVIDERS: ADMIT Internal Medicine; ATTEND Internal Medicine
PROC: 5A1955Z Respiratory Ventilation, Greater than 96 Consecutive Hours (ICD-10-PCS; 2024-08-25)
PROC: 0BH17EZ Insertion of Endotracheal Airway into Trachea, Via Natural or Artificial Opening (ICD-10-PCS; 2024-08-25)
PROC: 02HV33Z Insertion of Infusion Device into Superior Vena Cava, Percutaneous Approach (ICD-10-PCS; 2024-08-26)
PROC: B548ZZA Ultrasonography of Superior Vena Cava, Guidance (ICD-10-PCS; 2024-08-26)
PROC: 4A023N7 Measurement of Cardiac Sampling and Pressure, Left Heart, Percutaneous Approach (ICD-10-PCS; principal; 2024-08-28)
PROC: 5A02210 Assistance with Cardiac Output using Balloon Pump, Continuous (ICD-10-PCS; 2024-08-28)
PROC: B2111ZZ Fluoroscopy of Multiple Coronary Arteries using Low Osmolar Contrast (ICD-10-PCS; 2024-08-28)
PROC: 5A09357 Assistance with Respiratory Ventilation, Less than 24 Consecutive Hours, Continuous Positive Airway Pressure (ICD-10-PCS; 2024-08-31)
PROC: 5A09357 Assistance with Respiratory Ventilation, Less than 24 Consecutive Hours, Continuous Positive Airway Pressure (ICD-10-PCS; 2024-09-01)
PROC: 5A09357 Assistance with Respiratory Ventilation, Less than 24 Consecutive Hours, Continuous Positive Airway Pressure (ICD-10-PCS; 2024-09-02)
DX: T82.855A Stenosis of coronary artery stent, initial encounter (principal); A41.9 Sepsis, unspecified organism; I33.0 Acute and subacute infective endocarditis; J96.01 Acute respiratory failure with hypoxia; R57.0 Cardiogenic shock; R65.21 Severe sepsis with septic shock; I50.23 Acute on chronic systolic (congestive) heart failure; J18.9 Pneumonia, unspecified organism; I21.A1 Myocardial infarction type 2; E87.20 Acidosis, unspecified; E87.1 Hypo-osmolality and hyponatremia; E46 Unspecified protein-calorie malnutrition; F05 Delirium due to known physiological condition; G93.40 Encephalopathy, unspecified; N17.9 Acute kidney failure, unspecified; I13.0 Hypertensive heart and chronic kidney disease with heart failure and stage 1 through stage 4 chronic kidney disease, or unspecified chronic kidney disease; R64 Cachexia; Z20.822 Contact with and (suspected) exposure to COVID-19; Z66 Do not resuscitate; I08.0 Rheumatic disorders of both mitral and aortic valves; E78.5 Hyperlipidemia, unspecified; I25.10 Atherosclerotic heart disease of native coronary artery without angina pectoris; D64.9 Anemia, unspecified; E87.6 Hypokalemia; I25.5 Ischemic cardiomyopathy; N18.9 Chronic kidney disease, unspecified; N40.0 Benign prostatic hyperplasia without lower urinary tract symptoms; Y83.1 Surgical operation with implant of artificial internal device as the cause of abnormal reaction of the patient, or of later complication, without mention of misadventure at the time of the procedure; F32.A Depression, unspecified; F41.9 Anxiety disorder, unspecified; F03.90 Unspecified dementia, unspecified severity, without behavioral disturbance, psychotic disturbance, mood disturbance, and anxiety; Z79.899 Other long term (current) drug therapy; I25.2 Old myocardial infarction; Z82.0 Family history of epilepsy and other diseases of the nervous system; Z51.5 Encounter for palliative care; Y92.89 Other specified places as the place of occurrence of the external cause; Z95.1 Presence of aortocoronary bypass graft; Z95.2 Presence of prosthetic heart valve; Z68.20 Body mass index [BMI] 20.0-20.9, adult
CPT/HCPCS: 31500; 33967; 36415; 36556; 36569; 36600; 71045; 71270; 80048; 80053; 81003; 82140; 82435; 82533; 82550; 82803; 82947; 82948; 83036; 83605; 83735; 83880; 84100; 84132; 84145; 84295; 84443; 84484; 85018; 85025; 85027; 85347; 85610; 85730; 86611; 86622; 86638; 87040; 87071; 87205; 87635; 87804; 87880; 92610; 93005; 93306; 93312; 93325; 93356; 93458; 94002; 94003; 94150; 94640; 94660; 94664; 94667; 94668; 99291; C1894; G0378; J0456; J0696; J1644; J1815; J1940; J1956; J2020; J2060; J2270; J2470; J2543; J2704; J2919; J3010; J3360; J3411; J3475; J3480; J3490; J7050; J7608; P9047; Q9967; A4600; A9900; C1750; Q9965

== ENCOUNTER 2024-09-06 13:45 | Inpatient (IN) | payer OTHER ==
[2024-09-06 12:00] VITALS: BP 90/60; PULSE 110; RESP 20; TEMP 99
[~2024-09-06 13:45] MED LIST changes: -rocuRONium bROMide 10MG/1ML 5ML VL IV ONE
[2024-09-06] MEDS ORDERED: LORazepam 2 MG/ML 1 ML VIAL IVP PRN (16:00)
[2024-09-06] MEDS ORDERED: ondanSETRON 4MG INJ IVP PRN (16:00)
[2024-09-06] MEDS ORDERED: BisaCODYL 10 MG SUPP.RECT RC PRN (16:00)
[2024-09-06] MEDS ORDERED: acetaMINOPHEN 650 MG SUPPOSITORY RC PRN (16:00)
[2024-09-06] MEDS ORDERED: hydroMORPHone 1 MG INJ IVP PRN (16:00)
--- NOTE | 2024-09-06 21:26 | HP ---
HISTORY AND PHYSICAL Date of Visit: Sep 06, 2024 Time of Visit: 21:26 ADMISSION DATE: Sep 06, 2024 at 13:45 CC: FAILURE TO THRIVE HPI: This is a 74-year-old man with a history of COPD hypertension and chronic anxiety who was admitted for cardiogenic shock due to acute coronary syndrome and was found to have severe triple-vessel disease. 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 The patient's family requested comfort measures and is being transitioned into Inpatient Hospice with [facility]. PAST MEDICAL HISTORY: Acute hypoxemic respiratory failure, POA, requiring intubation and mechanical ventilation Hypotension, POA, currently suspected to be cardiogenic shock Acute coronary syndrome, status post left heart catheterization 08/28, finding of triple-vessel disease POA Culture negative, Bacterial endocarditis involving the aortic and mitral valve Moderate mitral regurgitation Mild to moderate aortic regurgitation Lactic acidosis, POA Hyponatremia, POA Uncontrolled Diabetes mellitius type2, last A1c 5.4, ruled out POA Bilateral pleural effusion, POA Pulmonary vascular congestion, POA Hypertension CAD Patient History: Cardiovascular disease MOTHER, , Age: 87, Cause: Bleeding ulcer Hypertension MOTHER, , Age: 87, Cause: Bleeding ulcer Other mental and behavioral disorders SON Unknown MOTHER, , Age: 87, Cause: Bleeding ulcer (PARKINSONS) FATHER, , Age: 93, Cause: Pneumonia (PNEUMONIA) Allergies: Coded Allergies: atorvastatin (Unverified Allergy, Unknown, MUSCLE SPASMS, 04/13/16) Discontinued Medications Acetaminophen (Tylenol), 1 TAB PO Q6HPRN PRN for pain or fever Carvedilol (Carvedilol), 3.125 MG PO BID, (Reported) Clonazepam (Clonazepam), 1 MG PO TID, (Reported) Gabapentin (Gabapentin), 600 MG PO TID, (Reported) Ibuprofen (Ibuprofen), 1 TAB PO TID Lisinopril (Lisinopril), 2.5 MG PO DAILY, (Reported) Lorazepam (Ativan), 2 MG PO TID, (Reported) Memantine HCl (Memantine HCl), 5 MG PO BID, (Reported) Pantoprazole Sodium (Pantoprazole Sodium), 40 MG PO DAILY Rosuvastatin Calcium (Rosuvastatin Calcium), 40 MG PO HS, (Reported) [escitalopram], 2 MG PO DAILY, (Reported) [vitmain b12], 1 TAB PO DAILY, (Reported) Review of Systems Normal Constitutional:, Normal Eyes:, Normal Ear/Nose/Mouth/Throat, Normal Cardiovascular:, Normal Respiratory:, Normal Gastrointestinal:, Normal Genitourinary:, Normal Integumentary:, Normal Musculoskeletal:, Normal Neurological:, Normal Psychological:, Normal Endocrine:, Normal Hematologic/Lymphatic:, Normal Allergic/Immunologic: Additional ROS PATIENT IS A POOR HISTORIAN Physical Exam Vital Signs Vital Signs Date Time Temp Pulse Resp B/P (MAP) Pulse Ox O2 Delivery O2 Flow Rate FiO2 09/06/24 12:00 99.0 110 20 90/60 94 Room Air Appearance: Other (CONFUSED LETHARGIC) Eyes: Clear Ear/Nose/Mouth/Throat: Landmarks WNL Cardiovascular: Regular Rate, Regular Rhythm Respiratory: Abnormal (DISTANT BS) Assessment/Plan Assessment/Plan ASSESSMENT: THIS IS A 74 YR OLD MAN WITH HISTORY OF Acute hypoxemic respiratory failure, POA, requiring intubation and mechanical ventilation Hypotension, POA, currently suspected to be cardiogenic shock Acute coronary syndrome, status post left heart catheterization 08/28, finding of triple-vessel disease POA Culture negative, Bacterial endocarditis involving the aortic and mitral valve Moderate mitral regurgitation Mild to moderate aortic regurgitation Lactic acidosis, POA Hyponatremia, POA Uncontrolled Diabetes mellitius type2, last A1c 5.4, ruled out POA Bilateral pleural effusion, POA Pulmonary vascular congestion, POA Hypertension CAD HE PRESENTED WITH FAILURE TO THRIVE PLAN: CODE STATUS ESTABLISHED DNR / DNI DISCUSSED BRIEFLY WITH DR JACQUIE DE LEON DILAUDID FOR RESPIRATORY DISTRESS AND PAIN CONT LORAZEPAM FOR ANXIETY AND AGITATION CONT HALDOL WELL FOR ANXIETY AND AGITATION CONT TERMINAL SUPPORTIVE CARE VIKAS GARNETT MD Sep 06, 2024 21:26
--- NOTE | 2024-09-06 22:03 | DS ---
DISCHARGE SUMMARY Date of Visit: Sep 06, 2024 Time of Visit: 22:02 ADMISSION DATE: Sep 06, 2024 at 13:45 DISCHARGE DATE: Sep 06, 2024 ATTENDED PHYSICIAN: Vikas Roe MD DISCHARGE DIAGNOSIS: Failure to Thrive Acute hypoxemic respiratory failure, POA, requiring intubation and mechanical ventilation Hypotension, POA, currently suspected to be cardiogenic shock Acute coronary syndrome, status post left heart catheterization 08/28, finding of triple-vessel disease POA Culture negative, Bacterial endocarditis involving the aortic and mitral valve Moderate mitral regurgitation Mild to moderate aortic regurgitation Lactic acidosis, POA Hyponatremia, POA Uncontrolled Diabetes mellitius type2, last A1c 5.4, ruled out POA Bilateral pleural effusion, POA Pulmonary vascular congestion, POA Hypertension CAD HOSPITAL COURSE: This is a 74-year-old man with a history of COPD hypertension and chronic anxiety who was admitted for cardiogenic shock due to acute coronary syndrome and was found to have severe triple-vessel disease. 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 The patient's family requested comfort measures. He was transitioned into Inpatient Hospice with [facility] where he was kept comfortable until his . CODE STATUS: DNR/ DNI Home Meds Discontinued Reported Medications Lorazepam (Ativan) 2 Mg Tablet, 2 MG PO TID, TAB 06/24/22 Memantine HCl (Memantine HCl) 5 Mg Tablet, 5 MG PO BID, TAB 06/24/22 Rosuvastatin Calcium (Rosuvastatin Calcium) 40 Mg Tablet, 40 MG PO HS, TAB 11/19/20 Lisinopril (Lisinopril) 2.5 Mg Tablet, 2.5 MG PO DAILY, TAB 11/19/20 Gabapentin (Gabapentin) 600 Mg Tablet, 600 MG PO TID, TAB 11/19/20 [vitmain b12] No Conflict Check, 1 TAB PO DAILY 11/19/20 [escitalopram] No Conflict Check, 2 MG PO DAILY 11/19/20 Carvedilol (Carvedilol) 3.125 Mg Tablet, 3.125 MG PO BID, TAB 11/19/20 Clonazepam (Clonazepam) 1 Mg Tablet, 1 MG PO TID, TAB 04/20/20 Discontinued Scripts Ibuprofen (Ibuprofen) 600 Mg Tablet, 1 TAB PO TID for pain for 5 Days, #30 TAB 0 Refills with food Prov:DEVIKA GALVAN MD 08/11/24 Acetaminophen (Tylenol) 500 Mg Tab, 1 TAB PO Q6HPRN PRN for pain or fever for 15 Days, #60 TAB 0 Refills Prov:DEVIKA GALVAN MD 08/11/24 Pantoprazole Sodium (Pantoprazole Sodium) 40 Mg Tablet.dr, 40 MG PO DAILY for 90 Days, #180 TAB 1 Refill Prov:LENY NICKERSON Jr., MD 06/25/22 VIKAS ROE MD Sep 06, 2024 22:03
== END 2024-09-06 17:50 | DRG 189 ==
LOC: 3BH 13:45
PROVIDERS: ADMIT Internal Medicine; ATTEND Internal Medicine
DX: J96.01 Acute respiratory failure with hypoxia (principal); G93.41 Metabolic encephalopathy; I33.0 Acute and subacute infective endocarditis; I24.9 Acute ischemic heart disease, unspecified; E87.1 Hypo-osmolality and hyponatremia; E87.20 Acidosis, unspecified; J90 Pleural effusion, not elsewhere classified; I25.10 Atherosclerotic heart disease of native coronary artery without angina pectoris; R57.0 Cardiogenic shock; Z66 Do not resuscitate; I10 Essential (primary) hypertension; I08.0 Rheumatic disorders of both mitral and aortic valves; R62.7 Adult failure to thrive; I95.9 Hypotension, unspecified; J44.9 Chronic obstructive pulmonary disease, unspecified; F41.9 Anxiety disorder, unspecified; Z82.0 Family history of epilepsy and other diseases of the nervous system; Z79.899 Other long term (current) drug therapy
CPT/HCPCS: G0378